=== PATIENT | female | born 1960 | race African-American/Black ===

== ENCOUNTER → 2024-02-08 09:52 | Outpatient (REF) | payer OTHER, SELFPAY ==
[2024-02-08 10:22] LABS: % Basophils 0.9 % (0-2); % Eosinophils 5.7 % (0-6); % Immature Granulocytes 0.5 % (0-0.5); % Lymphocytes 24.2 % (20.5-51.1); % Monocytes 11.4 % (1.7-9.3); % Neutrophils 57.3 % (42.2-75.2); Absolute Basophils 0.1 10^3/uL (0-0.2); Absolute Eosinophils 0.3 10^3/uL (0-0.7); Absolute Lymphocytes 1.4 10^3/uL (1.2-3.4); Absolute Monocytes 0.6 10^3/uL (0.1-0.6); Absolute Neutrophils 3.2 10^3/uL (1.4-6.5); Hematocrit 29.5 % (37.0-47.0); Hemoglobin 10.3 g/dL (12.0-16.0); Mean Corp Hgb Conc. 34.9 g/dL (33.0-37.0); Mean Corpuscular Hgb 32.6 pg (27.0-31.0); Mean Corpuscular Volume 93.4 fL (81.0-99.0); Mean Platelet Volume 10.5 fL (7.4-10.4); Nucleated Red Blood Cells % 0 %; Platelet Count 259 10^3/uL (130-400); Red Blood Cell Count 3.16 10^6/uL (4.20-5.40); Red Cell Dist. Width 13.9 % (11.5-14.5); White Blood Cell Count 5.6 10^3/uL (4.8-10.8)
[2024-02-08 10:30] LABS: ALT (SGPT) < 10 U/L (0-35); AST (SGOT) 20 U/L (14-36); Albumin 3.3 g/dl (3.5-5.0); Alkaline Phosphatase 91 U/L (38-126); Blood Urea Nitrogen 24 mg/dl (7-17); Calcium 9.8 mg/dl (8.4-10.2); Carbon Dioxide 23 mmol/L (22-30); Chloride 104 mmol/L (98-107); Glucose 79 mg/dl (70-99); HDL Cholesterol 54 mg/dl; LDL Cholesterol, Calculated 35 mg/dl; Magnesium 1.5 mg/dl (1.6-2.3); Potassium 3.7 mmol/L (3.5-5.1); Sodium 140 mmol/L (135-145); Total Cholesterol 110 mg/dl (50-199); Total Protein 6.1 g/dl (6.3-8.2); Triglyceride 107 mg/dl (10-149); Very Low Density Lipoprotein 21 mg/dl (0-30); eGFR > 60.00
[2024-02-08 11:35] LABS: Glycohemoglobin (HgbA1c) 5.1 % (4.0-5.6)
[2024-02-08 13:52] LABS: Vitamin D, 25-OH*** 35.6 ng/mL (30-80)
[2024-02-08 14:06] LABS: TSH 0.23 uIU/ml (0.47-4.68)
[2024-02-08 14:43] LABS: Vitamin B12 > 1000 pg/ml (239-931)
[2024-02-10 13:34] LABS: Vitamin B6 Results 30.5 nmol/L (20.0-125.0)
== END ==
LOC: OLABN 09:52
PROVIDERS: ATTENDING PHYSICIAN Student in an Organized Health Care Education/Training Program
DX: E11.9 Type 2 diabetes mellitus without complications (principal); I10 Essential (primary) hypertension; D64.9 Anemia, unspecified; E03.9 Hypothyroidism, unspecified
CPT/HCPCS: 36415; 80053; 80061; 82306; 82607; 83036; 83735; 84207; 84443; 85025

== ENCOUNTER → 2024-02-16 11:14 | Outpatient (REF) | payer OTHER, SELFPAY ==
[2024-02-16 13:37] LABS: Albumin 3.4 g/dl (3.5-5.0)
[2024-02-16 13:56] LABS: Free T3 2.55 pg/ml (2.77-5.27)
[2024-02-16 14:13] LABS: TSH 0.28 uIU/ml (0.47-4.68)
[2024-02-16 14:29] LABS: Vitamin B12 > 1000 pg/ml (239-931)
[2024-02-19 05:53] LABS: Total T3 (Sendout) 116 ng/dL (80-200)
== END ==
LOC: OLABN 11:14
PROVIDERS: ATTENDING PHYSICIAN Student in an Organized Health Care Education/Training Program
DX: D64.9 Anemia, unspecified (principal); I10 Essential (primary) hypertension
CPT/HCPCS: 36415; 82040; 82607; 84443; 84480; 84481

== ENCOUNTER → 2024-03-09 11:12 | Outpatient (REF) | payer OTHER, SELFPAY ==
[2024-03-09 11:33] LABS: % Basophils 0.7 % (0-2); % Eosinophils 6.8 % (0-6); % Immature Granulocytes 0.4 % (0-0.5); % Lymphocytes 28.5 % (20.5-51.1); % Monocytes 8.7 % (1.7-9.3); % Neutrophils 54.9 % (42.2-75.2); Absolute Eosinophils 0.4 10^3/uL (0-0.7); Absolute Lymphocytes 1.6 10^3/uL (1.2-3.4); Absolute Monocytes 0.5 10^3/uL (0.1-0.6); Hematocrit 29.8 % (37.0-47.0); Mean Corp Hgb Conc. 33.6 g/dL (33.0-37.0); Mean Corpuscular Hgb 32.2 pg (27.0-31.0); Mean Corpuscular Volume 95.8 fL (81.0-99.0); Mean Platelet Volume 11.5 fL (7.4-10.4); Nucleated Red Blood Cells % 0 %; Platelet Count 216 10^3/uL (130-400); Red Blood Cell Count 3.11 10^6/uL (4.20-5.40); Red Cell Dist. Width 14.1 % (11.5-14.5); White Blood Cell Count 5.4 10^3/uL (4.8-10.8)
== END ==
LOC: OLABN 11:12
PROVIDERS: ATTENDING PHYSICIAN Student in an Organized Health Care Education/Training Program
DX: I10 Essential (primary) hypertension (principal)
CPT/HCPCS: 36415; 85025

== ENCOUNTER 2024-03-16 09:06 | Inpatient (IN) | payer OTHER, SELFPAY ==
[2024-03-16] VITALS (13 sets, daily range): BP systolic 96–136; BP diastolic 63–92; BMI 23.1; BMI 23.4
[2024-03-16 06:22] LABS: % Basophils 0.6 % (0-2); % Eosinophils 6.4 % (0-6); % Immature Granulocytes 0.4 % (0-0.5); % Lymphocytes 25.7 % (20.5-51.1); % Monocytes 8.9 % (1.7-9.3); Absolute Eosinophils 0.3 10^3/uL (0-0.7); Absolute Lymphocytes 1.3 10^3/uL (1.2-3.4); Absolute Monocytes 0.5 10^3/uL (0.1-0.6); Hematocrit 35.4 % (37.0-47.0); Hemoglobin 11.3 g/dL (12.0-16.0); Mean Corp Hgb Conc. 31.9 g/dL (33.0-37.0); Mean Corpuscular Hgb 30.8 pg (27.0-31.0); Mean Corpuscular Volume 96.5 fL (81.0-99.0); Mean Platelet Volume 9.7 fL (7.4-10.4); Nucleated Red Blood Cells % 0 %; Platelet Count 250 10^3/uL (130-400); Red Blood Cell Count 3.67 10^6/uL (4.20-5.40); Red Cell Dist. Width 13.5 % (11.5-14.5); White Blood Cell Count 5.1 10^3/uL (4.8-10.8)
[2024-03-16 06:33] LABS: ALT (SGPT) 13 U/L (0-35); AST (SGOT) 20 U/L (14-36); Alkaline Phosphatase 119 U/L (38-126); Blood Urea Nitrogen 50 mg/dl (7-17); Calcium 9.9 mg/dl (8.4-10.2); Carbon Dioxide 32 mmol/L (22-30); Chloride 100 mmol/L (98-107); Estimated Creatinine Clearance 50 ml/min; Glucose 118 mg/dl (70-99); Potassium 4.4 mmol/L (3.5-5.1); Sodium 142 mmol/L (135-145); Total Bilirubin 0.4 mg/dl (0.2-1.3); Total Protein 7.2 g/dl (6.3-8.2); eGFR 56.81
--- NOTE | 2024-03-16 06:48 | ED.GENMED ---
History of Present Illness
General
Chief Complaint: Bowel Problem
Source: patient and prison records
Exam Limitations: clinical condition and non verbal-adult
Time Seen by Provider: 03/16/24 06:35
History of Present Illness
History of Present Illness:
63-year-old female presents with 'coffee-ground emesis' x 2 she has a feeding tube/ Garvey she has had stroke brain tumor right sided plegia no blood thinners for my review of the medical records apparently had some upper abdominal pain
Past History
Past History
ED Past Medical History: CVA, GERD, HTN and NIDDM
ED Past Surgical History: Brain
Social History
Living: prison
Employment: Not employed
Family History
Family History: Unable to obtain
Review of Systems
Review of Systems
Unable to obtain full review of systems at this time due to: non-verbal
All Other Systems: Not applicable
ABD/GI: Reports vomiting
Phy Exam
Physical Exam
Physical Exam:
Physical Exam
General: Chronically ill female
Neck: No jaundice
Heart: s1/s2 regular rate and rhythm, no murmur. equal radial pulses.
Lungs: no acute respiratory distress. clear bilaterally
Abdomen: Epigastric tenderness tube in the left upper abdomen
Neuro: Opens eyes to voice minimally verbal
Skin: no rash
Psychiatric: Unable to assess
Extremities: no edema.
Course
Orders/Labs/Results
Orders:
Orders
03/16/24 06:11
CMP [Comprehensive Metabolic Panel] Urgent
Complete Blood Count/With Diff Urgent
Ferritin Urgent
Comment: ADD ON
Folate Urgent
Comment: ADD ON
Iron Urgent
Comment: ADD ON
Total Iron Binding Urgent
Comment: ADD ON
Vitamin B12 Urgent
Comment: ADD ON
03/16/24 06:13
Electrocardiogram (*1) Urgent
Reason for Study: Abdominal Pain
EKG- Treatment ONCE
03/16/24 06:44
Ondansetron Injectable [Zofran] 4 mg IV NOW STA
Pantoprazole [Protonix IV] 40 mg IV NOW STA
Obstruct Series W/PA Chest [CR Obstruct Series W/pa Chest] Urgent
Comment:
Reason For Exam: vomitign
03/16/24 06:50
Type+Screen Urgent
03/16/24 07:10
ABO2 Urgent
BBK Wristband Number:
Associate notified that ABO2 has been ordered: [id number]
Date: 03/16/24
Time: 07:00
Gravel Screener ID: [id number]
03/16/24 07:44
Phosphate Enema [Fleet Phosphate Enema-Adult] 135 ml RECTAL NOW STA
03/16/24 08:36
GASTROINTESTINAL CONSULT Routine
Consulting Provider: Juan F Abraham
Was physician already notified: Yes
03/16/24 08:39
Add On- LAB Routine
Tests Added?: ferritin, TIBC, iron level, B12, folate level
03/16/24 08:54
Admit/Transfer Patient As Directed
Co-Sign Provider:
Level of Care: Inpatient admission
Assign to:: IMU- Intermediate Care
Physician / Group: Mariann/hospitalist
Diagnosis: coffee ground emesis
Reason for Hospitalization: coffee ground emesis
Expected length of stay greater than two midnights?: Yes
ELOS- Estimated Length of Stay in days: 3
I certify the patient meets the requirements for IP care: Yes
PRN Pain Medication Management As Directed
May give lesser potent ordered pain med per pt: Yes
preference::
Protocol:: Medication orders for pain may be administered in a
manner that supports deferring to patient preference
when the pt is:
- Requesting an ordered lesser potent pain medication.
Least to most potent pain medications are defined
as: acetaminophen < NSAID < tramadol < opioids
(morphine, oxycodone, hydromorphone).
- Requesting a lesser dose of the same medication IF
ORDERED.
- Requesting a less intrusive route of administration
if both routes are prescribed by the provider (PO <
IV).
03/16/24 08:56
Code Status As Directed
Resuscitation Status: Full Code
03/16/24 12:09
Albuterol Nebs [Ventolin Nebules] 2.5 mg INH R Q6HPRN PRN
Melatonin 3 mg TUBE HSPRN PRN
Prednisolone Acetate [Pred Forte 1% Eye Drops] 1 drop RIGHT EYE Q12H
03/16/24 12:09
Activity As Directed
Activity Level: As Tolerated
INT (Intravenous Needle Therapy) As Directed
Comment: Place 2 IV catheters of the largest bore possible until stable
Orthostatic Vital Signs As Directed
Orthostatic VS Frequency: Now
Comment: then every four hours for twenty-four hours
Pneumatic Compression Sleeves As Directed
Type: Knee high
Vital Signs As Directed
Frequency: Per unit guidelines
DX Deep Vein Thrombosis Video Routine
03/16/24 12:31
Acetaminophen [Tylenol Oral Solution] 650 mg TUBE Q4HPRN PRN
03/16/24 20:00
Baclofen [Lioresal] 5 mg TUBE BID
Docusate Sodium [Colace Liquid] 200 mg TUBE BID
Pantoprazole [Protonix IV] 40 mg IV BID
03/16/24 22:00
Buspirone [Buspar] 5 mg TUBE HS
Sertraline HCl [Zoloft] 25 mg TUBE HS
03/17/24 05:40
Basic Metabolic Panel IN AM
Complete Blood Count/No Diff IN AM
Magnesium IN AM
03/17/24 08:00
Polyethylene Glycol Powder [Miralax] 17 grams TUBE DAILY
03/18/24 06:00
Basic Metabolic Panel IN AM
Complete Blood Count/No Diff IN AM
Magnesium IN AM
03/19/24 06:00
Basic Metabolic Panel IN AM
Complete Blood Count/No Diff IN AM
Magnesium IN AM
03/20/24 06:00
Basic Metabolic Panel IN AM
Complete Blood Count/No Diff IN AM
03/21/24 06:00
Basic Metabolic Panel IN AM
Complete Blood Count/No Diff IN AM
Abnormal Lab Results
03/16/24
06:11
RBC 3.67 L 10^6/uL
(4.20-5.40)
Hgb 11.3 L g/dL
(12.0-16.0)
Hct 35.4 L %
(37.0-47.0)
MCHC 31.9 L g/dL
(33.0-37.0)
Eosinophils % 6.4 H %
(0-6)
Carbon Dioxide 32 H mmol/L
(22-30)
BUN 50 H mg/dl
(7-17)
Creatinine 1.1 H mg/dL
(0.6-1.0)
Glucose 118 H mg/dl
(70-99)
TIBC 234 L ug/dl
(265-497)
Vitamin B12 > 1000 H pg/ml
(239-931)
03/16/24 06:11
03/16/24 06:11
Vital Signs
Initial and Last Documented VS:
Initial Vital Signs
Temp Pulse Resp BP Pulse Ox
98.5 F 96 18 136/88 95
03/16/24 05:50 03/16/24 05:50 03/16/24 05:50 03/16/24 05:50 03/16/24 05:50
Last Documented Vital Signs
Temp Pulse Resp BP Pulse Ox
99.0 F 94 20 104/71 94
03/17/24 19:19 03/17/24 10:00 03/17/24 10:00 03/17/24 10:00 03/17/24 10:21
MDM/Problems Addressed
Differential Diagnosis Includes:
Upper GI bleed dehydration electrolyte abnormality Diane-Ojeda tear duodenitis obstruction
MDM/Problems Addressed:
Coffee-ground
Chronic conditions affecting care: Neurological disorder
Acute Exacerbation and/or Progression of Chronic Illness: Neurological disorder
*Radiology
Radiology exam reviewed: preliminary read by ED provider
*Pulse Oximetry
Patient hypoxic: no
*EKG
Interpreted by ED Provider?: Yes
Interpretation: abnormal
Comparison EKG: no comparison EKG present
Heart Rate: 78
Rate: normal
Felt: normal axis
Ischemia: non-specific ST changes
*Paradi Tender Interpretation
Rate: normal
Interpretation: normal
Heart Rate: 78
Rhythm: sinus
*Critical Care Note
Total Time (30-74mins, 75-104mins- exclusive of procedures): Not Applicable
Update Note
Update Note:
Update labs are noted elevated BUN to creatinine ratio, x-ray noted will start on fluids PPI, try an enema
ED Attending Note
-
Portions of this chart may have been created with voice recognition software.� Occasional wrong word or��sound alike� substitutions may have occurred due to the inherent limitations of voice recognition software.
Discharge Plan
Departure
Patient Disposition: Admit
Date of Disposition: 03/16/24
Time of Disposition: 07:46
Admit to: Med/Surg
Presentation/result/management discussed w/ accepting MD/DO: Hospitalist
Patient with high blood pressure during this ER visit?: No
Condition: Fair
Discharge Problem:
Coffee ground emesis
Interventions
Interventions:
*Risk Screen - Suicide Last Done: 03/16/24 05:50
*General Assessment Last Done: 03/16/24 05:50
*Neglect/Abuse Screening Last Done: 03/16/24 05:50
ED- Fall Risk Assessment Last Done: 03/16/24 06:19
*ED COVID-19 Vaccine History Last Done: 03/16/24 05:50
*Nursing Disposition Last Done: 03/16/24 12:00
SE-Dkwwcg-Adjsirvgjb Assessment Last Done: 03/16/24 06:19
Discharge Date and Time
Discharge Date/Time: 03/16/24 12:00
[2024-03-16] MEDS: PROTONIX IV 40 MG IV ×2 (07:05→20:40)
[2024-03-16] MEDS: ZOFRAN 4 MG IV (07:05)
--- NOTE | 2024-03-16 08:37 | HPS.HSE ---
Family Physician
-
Family Physician: NOT KNOW UNKNOWN - PT DOES
Chief Complaint
-
coffee ground emesis
History of Present Illness
HPI: 63-year-old female PMH GERD, HTN, NIDDM, brain tumor, stroke with right sided paraplegia; p/w 'coffee-ground emesis' x 2 episodes per ED note.
Pt has PEG and chronic locke. She appears bed bound at baseline.
She is awake but cannot provide history (poor historian). Nods head slowly when asked questions but unsure if she is able to answer accurately or not.
Medical History
Past Medical History
Past Medical History: Reports Other
Additional Past Medical History:
GERD,
HTN,
brain tumor,
stroke with right sided paraplegia
Past Surgical History: Reports Other
Social History
Unable to obtain full social history at this time due to: Patient Non-verbal
Family History
Family History: Not pertinent
Allergies / Home Medications
Allergies reflects when Allergies were last updated in [email or web address].
Home Medications with original date entered in [email or web address]
Allergy/Medication List:
Allergies
Allergy/AdvReac Type Severity Reaction Status Date / Time
No Known Allergies Allergy Verified 03/16/24 05:59
Home Medications
Pantoprazole Liquid 2mg/Ml 40 mg feeding tube DAILY 03/16/24
acetaminophen 160 mg/5 mL oral elixir 640 mg feeding tube Q4HPRN PRN FEVER 03/16/24
albuterol sulfate 2.5 mg/3 mL (0.083 %) solution for nebulization 2.5 mg inhalation R Q6HPRN PRN SOB 03/16/24
baclofen 5 mg tablet 5 mg feeding tube BID 03/16/24
bisacodyl 10 mg rectal suppository (Dulcolax (bisacodyl)) 10 mg OR [id number] PRN IF NO BM AFTR MOM/OR LACTULOSE 03/16/24
buspirone 5 mg tablet 5 mg feeding tube HS 03/16/24
heparin (porcine) 5,000 unit/mL injection syringe 5,000 unit SC BID 03/16/24
melatonin 3 mg tablet 3 mg feeding tube HSPRN PRN SLEEP 03/16/24
polyethylene glycol 3350 17 gram oral powder packet (Miralax) 17 g feeding tube DAILY 03/16/24
prednisolone acetate 1 % eye drops,suspension (Pred Forte) 1 drp RIGHT EYE Q12H 03/16/24
sennosides 8.6 mg-docusate sodium 50 mg tablet (Senna-S) 2 tab-cap PO BID 03/16/24
sertraline 25 mg tablet 25 mg feeding tube HS 03/16/24
simethicone 125 mg chewable tablet (Gas-X Extra Strength) 125 mg feeding tube TIDPRN PRN GAS PAINS 03/16/24
Review of Systems
-
Abdomen/GI: Reports See HPI
Physical Exam
Vital Signs
Vital Signs
Temp Pulse Resp BP Pulse Ox
36.9 C 94 18 133/89 94
03/16/24 05:50 03/16/24 06:30 03/16/24 06:30 03/16/24 06:00 03/16/24 06:30
Physical Exam
General: Well Developed, Well Nourished, No Apparent Distress, Comfortable and Appears Chronically Ill; No Conversant
HEENT: NormoCephalic, Moist mucous membranes and Atraumatic
Respiratory: Clear and Non Labored Respirations; No Accessory Resp Muscle Use
Cardiac: S1/S2 and Regular Rhythm; No Murmur or Rub
GI: Soft, Non Tender, Non Distended, Normal Bowel Sounds and Peg Tube; No Organomegaly
Rectal: Deferred by Provider
Musculoskeletal: No Clubbing, No Cyanosis and No Edema
Skin: No Rash
Neuro: Awake
Psych: Calm; No Intact Judgment/Insight
Laboratory Results
-
03/16/24 06:11
03/16/24 06:11
Laboratory Results
Total Bilirubin 0.4 mg/dl (0.2-1.3) 03/16/24 06:11
AST 20 U/L (14-36) 03/16/24 06:11
ALT 13 U/L (0-35) 03/16/24 06:11
Alkaline Phosphatase 119 U/L (38-126) 03/16/24 06:11
Data Reviewed
-
Lab Data: Labs Reviewed by me
Impression/Plan
-
HPI: 63-year-old female PMH GERD, HTN, NIDDM, brain tumor, stroke with right sided paraplegia; p/w 'coffee-ground emesis' x 2 episodes per ED note.
Pt has PEG and chronic locke. She appears bed bound at baseline.
She is awake but cannot provide history (poor historian). Nods head slowly when asked questions but unsure if she is able to answer accurately or not.
A/P:
# Possible coffee ground emesis
Hemodynamically stable
Monitor Hgb
check iron panel, B12, folate
PPI IV BID
Would keep NPO for now until further directed by GI
GI CS
# GERD
PPI
# brain tumor
# stroke with right sided paraplegia
# Appears to be bed bound state
# Chronic locke POA
DVT ppx: SCD
FC
[2024-03-16] MEDS: FLEET PHOSPHATE ENEMA-ADULT 135 ML RECTAL (09:01)
[2024-03-16 09:18] LABS: Iron 51 ug/dl (37-170)
[2024-03-16 09:28] LABS: Percent Saturation 21 % (20-50); Total Iron Binding Capacity 234 ug/dl (265-497)
--- NOTE | 2024-03-16 09:57 | CON.GI ---
Addendum entered and electronically signed by HAZEL Quintana 03/16/24 14:09:
I reviewed history with Mother Sarahy sun [phone]. Pt with brain tumor with surgery and CVA in 2020. She had peg placed at that time. She has had severe hospital admission to [facility] with EGD with difficulty breathing in
procedure. She has also been admitted for PNA. colonoscopy has been discussed but opted for cologuard and per mother knowledge testing may not have been completed. Will obtain prior hospital record. cont further plan per below.
Addendum entered and electronically signed by Juan F Abraham MD 03/16/24 13:00:
I saw and examined the patient.
The PACKAGING MECHANIC or PA's note was reviewed and I agree with the note.
Comment: 63yo female hx CVA, brain tumor presents with CGE at [facility]. Hgb 11.3. Recent Hgb 10.0 last week. History limited. PEG was placed to gravity bag and draining yellow gastric fluid. No blood or coffee grounds. Hemodynamically stable
REC:
Cont protonix BID
Monitor PEG output
If stable, OK to resume TF
Trend Hgb
If active bleeding, then EGD
Agree with bowel regimen as ordered by PACKAGING MECHANIC
Original Note:
Consultation
-
Date/Time Consultation Requested: 03/16/24 0830
Date/Time Consultation Performed: 03/16/24 1000
Requesting Provider: Rajani Waite MD
Performing Provider: HAZEL Landers, Juan F Abraham MD
Reason for Consultation: coffee ground emesis
Medical History
Chief Complaint / HPI
History of Present Illness:
Pt is a 63yo with hx brain tumor, CVA with hemiplegia, chronic peg, GERD, HTN, NIDDM with no prior admission with onset of coffee ground emesis at [facility]. Since admission no further vomiting with hbg 11.3 with BUN 50 but obstruction series with
large amount of stool in rectosigmoid with gaseous dilatation of colon. Pt was just given enema with some soft stool return. Pt also noted with tachycardia in ER.
At this time some limited hx from pt with CVA but nodes yes to some nausea, constipation and abdominal pain. She denies diarrhea. Unsure about prior EGD/colon in past.
Past Medical History
Past Medical History: CVA (with right paraplegia ), GERD, HTN, NIDDM and Other (brain tumor, chronic peg )
Social History
Tobacco: Non-Smoker
Alcohol: None
Drug: None
Living: Prison
Employment: Disabled
Family History
Family History: Unable to Obtain
Allergies / Home Medications
Allergy/AdvReac Type Severity Reaction Status Date / Time
No Known Allergies Allergy Verified 03/16/24 05:59
�Medication �Instructions �Recorded
Pantoprazole Liquid 2mg/Ml 40 mg feeding tube DAILY 03/16/24
acetaminophen 160 mg/5 mL oral 640 mg feeding tube Q4HPRN PRN 03/16/24
elixir FEVER
albuterol sulfate 2.5 mg/3 mL 2.5 mg inhalation R Q6HPRN PRN SOB 03/16/24
(0.083 %) solution for nebulization
baclofen 5 mg tablet 5 mg feeding tube BID 03/16/24
bisacodyl 10 mg rectal suppository 10 mg GA [id number] PRN IF NO BM AFTR 03/16/24
(Dulcolax (bisacodyl)) MOM/OR LACTULOSE
buspirone 5 mg tablet 5 mg feeding tube HS 03/16/24
heparin (porcine) 5,000 unit/mL 5,000 unit SC BID 03/16/24
injection syringe
melatonin 3 mg tablet 3 mg feeding tube HSPRN PRN SLEEP 03/16/24
polyethylene glycol 3350 17 gram 17 g feeding tube DAILY 03/16/24
oral powder packet (Miralax)
prednisolone acetate 1 % eye 1 drp RIGHT EYE Q12H 03/16/24
drops,suspension (Pred Forte)
sennosides 8.6 mg-docusate sodium 2 tab-cap PO BID 03/16/24
50 mg tablet (Senna-S)
sertraline 25 mg tablet 25 mg feeding tube HS 03/16/24
simethicone 125 mg chewable tablet 125 mg feeding tube TIDPRN PRN GAS 03/16/24
(Gas-X Extra Strength) PAINS
Review of Systems
-
Unable to obtain full review of systems at this time due to: Other (minimal verbal on exam )
History Source: Patient
Constitutional: Reports No Symptoms
EENT: Reports No Symptoms
Abdomen/GI: Reports Abdominal Pain, Nausea, Vomiting and Constipated
: Reports No Symptoms
Musculoskeletal: Reports No Symptoms
Skin: Reports No Symptoms
Neurological: Reports Weakness
Endocrine: Reports No Symptoms
Hematologic/Lymphatic: Reports Bleeding
Vital Signs
Temp Pulse Resp BP Pulse Ox
98.5 F 97 15 116/78 95
03/16/24 05:50 03/16/24 09:45 03/16/24 09:45 03/16/24 09:00 03/16/24 09:45
Physical Exam
Exam
General: Well Developed, Well Nourished and No Apparent Distress
HEENT: Normocephalic
Respiratory: Clear
Cardiac: Other (tachy)
GI: Soft, Tender (minimal), Distended (mild) and Other (peg at 4 and tight at bumper and pulled back to 4 1/2. no buried bumper, skin overgrowth around tube treated with silver nitrate, irrigated with yellow and tube feed return )
Rectal: Deferred by Provider (just given enema per staff )
Genito-urinary: Other (locke in place )
Musculoskeletal: No Clubbing and No Cyanosis
Skin: Warm and Dry
Neuro: Awake and Alert (hemiplegia)
Psych: Calm
Results
WBC 5.1 10^3/uL (4.8-10.8) 03/16/24 06:11
Hgb 11.3 g/dL (12.0-16.0) L 03/16/24 06:11
Hct 35.4 % (37.0-47.0) L 03/16/24 06:11
MCV 96.5 fL (81.0-99.0) 03/16/24 06:11
Plt Count 250 10^3/uL (130-400) 03/16/24 06:11
Absolute Neuts (auto) 3.0 10^3/uL (1.4-6.5) 03/16/24 06:11
Sodium 142 mmol/L (135-145) 03/16/24 06:11
Potassium 4.4 mmol/L (3.5-5.1) 03/16/24 06:11
Chloride 100 mmol/L (98-107) 03/16/24 06:11
Carbon Dioxide 32 mmol/L (22-30) H 03/16/24 06:11
BUN 50 mg/dl (7-17) H 03/16/24 06:11
Creatinine 1.1 mg/dL (0.6-1.0) H 03/16/24 06:11
Calcium 9.9 mg/dl (8.4-10.2) 03/16/24 06:11
Total Bilirubin 0.4 mg/dl (0.2-1.3) 03/16/24 06:11
AST 20 U/L (14-36) 03/16/24 06:11
ALT 13 U/L (0-35) 03/16/24 06:11
Alkaline Phosphatase 119 U/L (38-126) 03/16/24 06:11
Diagnostic Image Results:
03/16/24 CR Obstruct Series W/pa Chest
1. Hypoaerated lungs without consolidation.
2. Large amount of stool within the rectosigmoid colon. Associated mild gaseous dilation of the colon proximal to this level. No pneumoperitoneum.
Prior GI Procedures:
EGD: unknown
Colonoscopy: unknown
Assessment / Plan
-
Pt is a 63yo with hx brain tumor, CVA with hemiplegia, chronic peg, GERD, HTN, NIDDM with no prior DH admission with onset of coffee ground emesis at SNF. Since admission no further vomiting with hbg 11.3 with BUN 50 but obstruction series with
large amount of stool in rectosigmoid with gaseous dilatation of colon. Pt was just given enema with some soft stool return. Pt also noted with tachycardia in ER.
-coffee ground emesis prior to admission
-large stool burden on imaging
-tachycardia
-mild anemia
other med problems:
-brain tumor
-CVA with hemiplegia
-GERD
-HTN
-NIDDM
PLAN:
Etiology of vomiting related to constipation, esophagitis vs other
s/p enema just given in ER if minimal stool will repeat with Milk and molasses enema and repeat X ray in AM
peg irrigated with minimal yellow drainage and tube feed
will place to gravity to see if large or small volumes
if small amount then cap in AM
trend hbg
if recurrent vomiting consider EGD
cont PPI BID
some limited hx from patient about prior EGD/colon etc
pt has self listed as family contact
I was unable to reach nursing SNF unit
I messaged social work for assist
-
-
-
Thank you for consultation and allowing me to participate in the patient's care. Please call the supervisor bakery sanitation GI physician during the after hours with any questions or concerns.
[2024-03-16 10:09] LABS: Ferritin 60.8 ng/ml (11.1-264.0)
[2024-03-16 10:40] LABS: Folate 6.7 ng/ml (2.76-20); Vitamin B12 > 1000 pg/ml (239-931)
--- NOTE | 2024-03-16 12:00 | PTCARENOTE ---
Received pt from ED via stretcher, pulled over to bed. Pt awake, smiling, shaking head yes or no to questions, occasionally saying 'yes' or 'no'. Pt's mother and father at bedside, assisted w/ admission. Pt denies pain or nausea. VSS. NSR on
monitor. 97% on RA. G tube to gravity drainage, yellow output. NPO at this time. Garvey patent. Will continue to monitor.
[2024-03-16] MEDS: PRED FORTE 1% EYE DROPS 1 DROP RIGHT EYE ×2 (12:44→23:05)
--- NOTE | 2024-03-16 13:46 | CM ---
Mahogany Rush, TT this CM to ask if there were any additional contacts for patient. CM called NM who shared mother's contact info. Please see below:
Mother's cell phone is: [phone]. Her name is Saarhy Stone. Info shared with Mahogany via TT.
[2024-03-16] MEDS: NSS 1000 IV (17:26)
[2024-03-16 18:33] LABS: Glucose - Point of Care 89 mg/dl (70-99)
[2024-03-16] MEDS: COLACE LIQUID 200 MG TUBE (20:39)
[2024-03-16] MEDS: SENNA SYRUP 17.6 MG TUBE (20:39)
[2024-03-16] MEDS: NSS (PRESERVATIVE FREE) 10 ML IV (20:40)
[2024-03-16] MEDS: LIORESAL 5 MG TUBE (20:40)
[2024-03-16] MEDS: BUSPAR 5 MG TUBE (23:05)
[2024-03-16] MEDS: ZOLOFT 25 MG TUBE (23:05)
[2024-03-17] VITALS: BP 123/75
[2024-03-17 00:09] LABS: Glucose - Point of Care 91 mg/dl (70-99)
--- NOTE | 2024-03-17 00:49 | PTCARENOTE ---
Pt able to say minimal words at times for needs to be known. Pt unable to do orthostatic vitals signs. Pt had no complaints of nausea and no emesis at this time. Pt G-Tube areas found to be purulent and sanguinous drainage. Wound cleansed with
saline and drainage sponge placed. Call shane within reach. Assessment care and vitals as charted.
[2024-03-17 02:00] VITALS: BP 117/70
[2024-03-17 04:00] VITALS: BP 111/64
[2024-03-17] MEDS: NSS 1000 IV (05:25)
[2024-03-17 05:53] LABS: Glucose - Point of Care 80 mg/dl (70-99)
[2024-03-17 06:00] VITALS: BP 111/69
[2024-03-17 06:09] LABS: Hematocrit 32.9 % (37.0-47.0); Hemoglobin 10.2 g/dL (12.0-16.0); Mean Corpuscular Hgb 30.9 pg (27.0-31.0); Mean Corpuscular Volume 99.7 fL (81.0-99.0); Platelet Count 251 10^3/uL (130-400); Red Cell Dist. Width 13.5 % (11.5-14.5); White Blood Cell Count 5.1 10^3/uL (4.8-10.8)
[2024-03-17 06:41] LABS: Blood Urea Nitrogen 41 mg/dl (7-17); Calcium 9.4 mg/dl (8.4-10.2); Carbon Dioxide 29 mmol/L (22-30); Chloride 105 mmol/L (98-107); Estimated Creatinine Clearance 42 ml/min; Glucose 101 mg/dl (70-99); Potassium 4.2 mmol/L (3.5-5.1); Sodium 145 mmol/L (135-145); eGFR 51.18
[2024-03-17 08:00] VITALS: BP 96/62
--- NOTE | 2024-03-17 08:13 | W.PN.HOSP.TC ---
Today's Communication/Plan
-
see A/P
Assessment / Plan
Assessment / Plan
HPI: 63-year-old female PMH GERD, HTN, NIDDM, brain tumor, stroke with right sided paraplegia; p/w 'coffee-ground emesis' x 2 episodes per ED note.
Pt has PEG and chronic locke. She appears bed bound at baseline.
She is awake but cannot provide history (poor historian). Nods head when asked questions but unsure if she is able to answer accurately or not.
A/P:
# Possible coffee ground emesis ROOF FITTER
Hemodynamically stable
Hgb has been stable at 10
iron panel reviewed,
Cont PPI IV BID
Would keep NPO for now until further directed by GI
restart tube feed when able
GI on board
# GERD
PPI
# h/o brain tumor
# stroke with right sided paraplegia
# Appears to be bed bound state at baseline
Pt appears nonverbal at baseline, but nods head when asked questions
# Chronic locke POA
DVT ppx: SCD
FC
DW RN
updated mother on the phone
Anticipated Discharge: 24 - 48 hours
Subjective/Interval History
-
Date of Service: March 17, 2024
Objective Data
-
Labs:
Laboratory Results
03/17/24
05:40
WBC 5.1
Hgb 10.2 L
Hct 32.9 L
Plt Count 251
Sodium 145
Potassium 4.2
Chloride 105
Carbon Dioxide 29
BUN 41 H
Creatinine 1.2 H
Glucose 101 H
Calcium 9.4
Vital Signs:
Vital Signs
Temp Pulse Resp BP Pulse Ox
36.8 C 84 11 111/69 99
03/17/24 05:54 03/17/24 06:00 03/17/24 06:00 03/17/24 06:00 03/17/24 06:00
I&O
03/16/24 03/17/24 03/18/24
06:59 06:59 06:59
Intake Total 80 / 80
Output Total 1325 / 1325
Balance -1245 / -1245
Review of Systems
-
Unable to obtain full review of systems at this time due to: Other (previous stroke )
Physical Exam
-
General: Well Developed, Comfortable and Appears Chronically Ill; Negative Conversant
HEENT: Normocephalic, Atraumatic, Nose Appears Normal and Ears Appear Normal; Negative Oxygen
Respiratory: Clear to Auscultation and Non Labored Respirations; Negative Accessory Resp Muscle Use
Cardiac: Regular Rhythm and S1/S2
GI: Soft, Nontender, Nondistended, Normal Bowel Sounds and Peg Tube
Genito-urinary: Locke
Skin: Warm and Dry
Neuro: Awake
Psych: Calm
Data Reviewed
-
Labs: Labs Reviewed by me
[2024-03-17] MEDS: DULCOLAX 10 MG RECTAL (09:05)
[2024-03-17] MEDS: COLACE LIQUID 200 MG TUBE ×2 (09:11→20:55)
[2024-03-17] MEDS: LIORESAL 5 MG TUBE ×2 (09:11→20:55)
[2024-03-17] MEDS: SENNA SYRUP 17.6 MG TUBE ×2 (09:11→20:54)
[2024-03-17] MEDS: MIRALAX 17 GRAMS TUBE (09:12)
[2024-03-17] MEDS: NSS (PRESERVATIVE FREE) 10 ML IV ×2 (09:14→22:48)
[2024-03-17] MEDS: PROTONIX IV 40 MG IV ×2 (09:14→22:45)
[2024-03-17 10:00] VITALS: BP 104/71
[2024-03-17] MEDS: PRED FORTE 1% EYE DROPS 1 DROP RIGHT EYE ×2 (11:20→22:48)
[2024-03-17 12:05] LABS: Glucose - Point of Care 90 mg/dl (70-99)
--- NOTE | 2024-03-17 15:06 | W.PN.GI.CBS2 ---
Today's Communication / Plan
-
check xray in am, resume TF
Assessment / Plan
-
Pt is a 63yo with hx brain tumor, CVA with hemiplegia, chronic peg, GERD, HTN, NIDDM with no prior DH admission with onset of coffee ground emesis at [facility]. Since admission no further vomiting with hbg stable with BUN 50 but obstruction series with
large amount of stool in rectosigmoid with gaseous dilatation of colon.
Recommendations:
- resume TF today
- trend Hb
- PPI BID
- check XRay in am
- If stool burden improves tomorrow, stable hb, no further vomiting ok GI POV for d/c
May have have dark emesis in setting of constipation
Subjective
Subjective
Date of Service: March 17, 2024
no vomiting
large amount of BM overnight per nurse
Objective
Data Reviewed
Laboratory Data:
Laboratory Results
03/17/24 05:40
03/17/24 05:40
Laboratory Results
Magnesium 2.0 mg/dl (1.6-2.3) 03/17/24 05:40
Total Bilirubin 0.4 mg/dl (0.2-1.3) 03/16/24 06:11
AST 20 U/L (14-36) 03/16/24 06:11
ALT 13 U/L (0-35) 03/16/24 06:11
Alkaline Phosphatase 119 U/L (38-126) 03/16/24 06:11
Vital Signs and I&O:
Vital Signs
Temp Pulse Resp BP Pulse Ox
97.9 F 94 20 104/71 94
03/17/24 07:30 03/17/24 10:00 03/17/24 10:00 03/17/24 10:00 03/17/24 10:21
I&O
03/16/24 03/17/24 03/18/24
06:59 06:59 06:59
Intake Total 80 / 80 955 / 955
Output Total 1325 / 1325 500 / 500
Balance -1245 / -1245 455 / 455
Physical Exam
Physical Exam
HEENT: Anicteric
Cardiology: Normal Sinus Rhythm
Pulmonary: Clear
GI: Non Distended and Non Tender
[2024-03-17] MEDS: NSS IV (16:41)
--- NOTE | 2024-03-17 16:41 | PTCARENOTE ---
Rec'd pt this AM. Pt with several large BMs today. Tube feeding started as ordered. Pt resting comfortably.
--- NOTE | 2024-03-17 16:53 | PTCARENOTE ---
Pts IV fludis infilltrated. Notified Dr. Waite. since pt is getting Tube feeding and is med/surg she is OK to not have IV access.
[2024-03-17 17:51] LABS: Glucose - Point of Care 81 mg/dl (70-99)
--- NOTE | 2024-03-17 20:50 | PTCARENOTE ---
Pt had IV medication order, no IV access. Pt remains full code. VAT called, new site placed for medication admin.
[2024-03-17] MEDS: MELATONIN 3 MG TUBE (20:55)
[2024-03-17] MEDS: TYLENOL ORAL SOLUTION 650 MG TUBE (20:55)
[2024-03-17] MEDS: PROTONIX IV IV (20:56)
[2024-03-17] MEDS: ZOLOFT 25 MG TUBE (22:48)
[2024-03-17] MEDS: BUSPAR 5 MG TUBE (22:48)
[2024-03-17 23:51] LABS: Glucose - Point of Care 103 mg/dl (70-99)
[2024-03-18 02:00] VITALS: BP 112/65
--- NOTE | 2024-03-18 02:15 | TRANSFER ---
Pt transferred from IMU in bed with belongings. Tube feed resumed. Pt able to make needs known by speaking, head nodding, and pointing. Pt oriented to room with call shane in reach of left hand. Plan of care ongoing.
[2024-03-18] MEDS: NSS 1000 IV ×2 (04:14→09:08)
[2024-03-18 06:54] LABS: Glucose - Point of Care 118 mg/dl (70-99)
[2024-03-18 07:00] VITALS: BP 114/69
[2024-03-18] MEDS: COLACE LIQUID 200 MG TUBE (09:06)
[2024-03-18] MEDS: NSS (PRESERVATIVE FREE) 10 ML IV (09:07)
[2024-03-18] MEDS: PROTONIX IV 40 MG IV (09:07)
[2024-03-18] MEDS: MIRALAX 17 GRAMS TUBE (09:08)
[2024-03-18] MEDS: LIORESAL 5 MG TUBE (09:08)
--- NOTE | 2024-03-18 09:11 | W.PN.GI.CBS2 ---
Addendum entered and electronically signed by Kayy Paez MD 03/18/24 14:52:
I saw and examined the patient.
The COMMUNITY LIVING INSTRUCTOR or PA's note was reviewed and I agree with the note.
Comment: 63-year-old female admitted with coffee-ground emesis found to be constipated. No further vomiting after bowel regimen. Repeat x-ray shows improvement in constipation. Patient being discharged today.
I d/w hospitalist.
Original Note:
Today's Communication / Plan
-
Assessment / Plan
-
Pt is a 63yo with hx brain tumor, CVA with hemiplegia, chronic peg, GERD, HTN, NIDDM with no prior admission with onset of coffee ground emesis at [facility]. Since admission no further vomiting with hbg stable with BUN 50 but obstruction series with
large amount of stool in rectosigmoid with gaseous dilatation of colon.
Recommendations:
- resumed TFs
- trend Hb
- PPI BID
- abdominal Xray improved, showing resolved fecal impaction
- OK for discharge/s.o from a GI standpoint
Subjective
Subjective
Date of Service: March 18, 2024
Stable, no further nausea or vomiting.
Objective
Data Reviewed
Laboratory Data:
Laboratory Results
Magnesium 2.0 mg/dl (1.6-2.3) 03/17/24 05:40
Total Bilirubin 0.4 mg/dl (0.2-1.3) 03/16/24 06:11
AST 20 U/L (14-36) 03/16/24 06:11
ALT 13 U/L (0-35) 03/16/24 06:11
Alkaline Phosphatase 119 U/L (38-126) 03/16/24 06:11
Vital Signs and I&O:
Vital Signs
Temp Pulse Resp BP Pulse Ox
98.1 F 78 12 114/69 97
03/18/24 07:00 11/29/24 07:00 03/18/24 07:00 03/18/24 07:00 03/18/24 07:00
I&O
03/17/24 03/18/24 03/19/24
06:59 06:59 06:59
Intake Total 80 / 80 955 / 955
Output Total 1325 / 1325 500 / 500
Balance -1245 / -1245 455 / 455
Physical Exam
Physical Exam
Cardiology: Normal Sinus Rhythm
Pulmonary: Clear
GI: Soft, Non Distended, Non Tender and Normal Bowel Sounds
[2024-03-18 09:13] LABS: Hematocrit 29.7 % (37.0-47.0); Hemoglobin 9.5 g/dL (12.0-16.0); Mean Corpuscular Hgb 30.9 pg (27.0-31.0); Mean Corpuscular Volume 96.7 fL (81.0-99.0); Mean Platelet Volume 10.2 fL (7.4-10.4); Platelet Count 247 10^3/uL (130-400); Red Blood Cell Count 3.07 10^6/uL (4.20-5.40); Red Cell Dist. Width 13.4 % (11.5-14.5); White Blood Cell Count 4.3 10^3/uL (4.8-10.8)
--- NOTE | 2024-03-18 09:40 | W.PN.HOSP.TC ---
Addendum entered and electronically signed by Rajani Waite MD 03/18/24 13:23:
total DC time 37 min
Original Note:
Today's Communication/Plan
-
see A/P
Assessment / Plan
Assessment / Plan
HPI: 63-year-old female PMH GERD, HTN, NIDDM, brain tumor, stroke with right sided paraplegia; p/w 'coffee-ground emesis' x 2 episodes per ED note.
Pt has PEG and chronic locke. She appears bed bound at baseline.
A/P:
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
Hemodynamically stable
Hgb has been stable between 9 and 10
iron panel reviewed,
PPI IV BID while in the hospital, resume NUISANCE WILDLIFE TRAPPER PPI following DC
No plan for scope with no further coffee ground emesis
restarted tube feed and pt tolerated well
GI on board
# GERD
PPI
# h/o brain tumor
# stroke with right sided paraplegia
# Appears to be bed bound state at baseline
Pt able to communicate slowly but with slurred speech at baseline
# Chronic locke POA
Mother states that locke was placed one month ago. Informed her that NH staff can do voiding trial and assess the need for locke continuation or not.
DVT ppx: SCD
FC
DW GI
updated mother on the phone
Anticipated Discharge: Today
Subjective/Interval History
-
Date of Service: March 18, 2024
Objective Data
-
Labs:
Laboratory Results
03/18/24
07:06
WBC 4.3 L
Hgb 9.5 L
Hct 29.7 L
Plt Count 247
Sodium Pending
Potassium Pending
Chloride Pending
Carbon Dioxide Pending
BUN Pending
Creatinine Pending
Glucose Pending
Calcium Pending
Vital Signs:
Vital Signs
Temp Pulse Resp BP Pulse Ox
36.7 C 78 12 114/69 97
03/18/24 07:00 03/18/24 07:00 03/18/24 07:00 03/18/24 07:00 03/18/24 07:00
I&O
03/17/24 03/18/24 03/19/24
06:59 06:59 06:59
Intake Total 80 / 80 955 / 955
Output Total 1325 / 1325 500 / 500
Balance -1245 / -1245 455 / 455
Review of Systems
-
Unable to obtain full review of systems at this time due to: Dementia and Other (previous stroke )
Physical Exam
-
General: Well Developed, Comfortable and Appears Chronically Ill
HEENT: Normocephalic, Atraumatic, Nose Appears Normal and Ears Appear Normal; Negative Oxygen
Respiratory: Clear to Auscultation and Non Labored Respirations; Negative Accessory Resp Muscle Use
Cardiac: Regular Rhythm and S1/S2
GI: Soft, Nontender, Nondistended, Normal Bowel Sounds and Peg Tube
Genito-urinary: Locke
Skin: Warm and Dry
Neuro: Awake
Psych: Calm
Data Reviewed
-
Labs: Labs Reviewed by me
[2024-03-18 09:49] LABS: Blood Urea Nitrogen 39 mg/dl (7-17); Calcium 9.4 mg/dl (8.4-10.2); Carbon Dioxide 28 mmol/L (22-30); Chloride 105 mmol/L (98-107); Estimated Creatinine Clearance 39 ml/min; Glucose 111 mg/dl (70-99); Magnesium 1.9 mg/dl (1.6-2.3); Sodium 144 mmol/L (135-145); eGFR 46.49
--- NOTE | 2024-03-18 11:07 | CM ---
Patient is currently off the floor for testing, plan is for patient to return to [facility] today per physician, per patient's mother, patient is usually out of bed to w/c at intermediate. No PT/OT orders placed and rehabilitation caseworker
spoke with nurse medical operations supervisor, Carissa at [facility] and she is aware that no auth received.
Plan; Patient to return to [facility] today.
[facility]
Report [phone]
[2024-03-18] MEDS: SENNA SYRUP 17.6 MG TUBE (11:30)
[2024-03-18] MEDS: PRED FORTE 1% EYE DROPS 1 DROP RIGHT EYE (11:31)
--- NOTE | 2024-03-18 12:26 | W.DCSUMMARY ---
Discharge Summary
Discharge Data
Date of Admission: 03/16/24
Date of Discharge: 03/18/24
-
Pending Results: No
Hospital Course
Principal Diagnosis:
Possible coffee-ground emesis prior to admission, but none since admission
Chronic Diagnoses:�
Gastroesophageal reflux disease
History of brain tumor
History of stroke with right sided paraplegia. Patient appears to be bedbound at baseline. Communicates slowly with slurred speech
Status post PEG tube on tube feed
Chronic locke present on admission
Consultations:�
Gastroenterology
Procedures:�
None
Clinical course:�
This is a 63-year-old female with past medical history as stated above, who presented with 'coffee-ground emesis' outpatient.
Problem 1:
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
She has been hemodynamically stable during her hospital stay.
Her hemoglobin has also been stable between 9 and 10.
There is no plan for endoscopy evaluation per GI.
Her prior to admission to was restarted and she tolerated well.
Problem 2:
Chronic Locke.
According to the patient's mother, the locke catheter was placed one month prior to admission.
Informed her that [facility] staff can do voiding trial and assess the need for locke continuation or not.
As for the rest of her medical problems, they were stable during her hospital stay.
Discharge Plan
-
Patient Disposition: [facility]/SNF
Discharge Diagnosis/Procedures: Possible coffee ground emesis prior to admission but none since admission;
history of brain tumor;
history of stroke with right sided paraplegia and slurred speech;
Chronic locke
Condition: Fair
Diet: Other diet
Additional Diets: tube feed
Activity: As tolerated
Driving Restrictions: No driving
Activity Restrictions/Additional Instructions:
Voiding trial at snf to assess if you need to continue Locke catheter or not.
Referrals:
UNKNOWN - PT DOES,NOT KNOW [Family Provider] - in less than 1 week
Prescriptions:
Continued
buspirone 5 mg Tablet
5 mg feeding tube HS
albuterol sulfate 2.5 mg /3 mL (0.083 %) Solution For Nebulization
2.5 mg INHALATION R Q6HPRN PRN (Reason: SOB)
polyethylene glycol 3350 [Miralax] 17 gram Powder In Packet
17 g feeding tube DAILY
sennosides-docusate sodium [Senna-S] 8.6-50 mg Tablet
2 tab-cap PO BID
melatonin 3 mg Tablet
3 mg feeding tube HSPRN PRN (Reason: sleep )
prednisolone acetate [Pred Forte] 1 % Drops,Suspension
1 drp RIGHT EYE Q12H
bisacodyl [Dulcolax (bisacodyl)] 10 mg Suppository
10 mg FL [id number] PRN (Reason: IF NO BM AFTR MOM/OR LACTULOSE )
sertraline 25 mg Tablet
25 mg feeding tube HS
simethicone [Gas-X Extra Strength] 125 mg Tablet,Chewable
125 mg feeding tube TIDPRN PRN (Reason: gas pain )
acetaminophen 160 mg/5 mL Elixir
640 mg feeding tube Q4HPRN PRN (Reason: FEVER)
heparin (porcine) 5,000 unit/mL Syringe
5,000 unit SC BID
baclofen 5 mg Tablet
5 mg feeding tube BID
Pantoprazole Liquid 2mg/Ml 2 MG liquid
40 mg feeding tube DAILY
Discharge Orders:
Discharge Patient (As Directed); Ordered 03/18/24
Ordered By: Rajani Waite
Discharge Date and Time
Print Language: KOREAN
== END 2024-03-18 14:54 | DRG 389 ==
LOC: 4 WEST ACU 09:06
PROVIDERS: ADMITTING PHYSICIAN Internal Medicine; CONSULT PHYSICIAN Specialist; EMERGENCY PHYSICIAN Emergency Medicine
DX: K56.41 Fecal impaction (principal); I69.351 Hemiplegia and hemiparesis following cerebral infarction affecting right dominant side; K21.9 Gastro-esophageal reflux disease without esophagitis; D49.6 Neoplasm of unspecified behavior of brain; Z74.01 Bed confinement status
CPT/HCPCS: 74018; 74022; 80048; 80053; 82607; 82728; 82746; 82962; 83540; 83550; 83735; 85025; 85027; 86850; 86900; 86901; 87070; 87147; 93005; 96374; 96375; 99285

== ENCOUNTER → 2024-03-23 09:47 | Outpatient (REF) | payer OTHER, SELFPAY ==
[2024-03-23 12:29] LABS: % Basophils 0.6 % (0-2); % Eosinophils 5.2 % (0-6); % Immature Granulocytes 0.2 % (0-0.5); % Lymphocytes 28.4 % (20.5-51.1); % Monocytes 9.6 % (1.7-9.3); Absolute Eosinophils 0.3 10^3/uL (0-0.7); Absolute Lymphocytes 1.5 10^3/uL (1.2-3.4); Absolute Monocytes 0.5 10^3/uL (0.1-0.6); Hematocrit 31.5 % (37.0-47.0); Hemoglobin 10.4 g/dL (12.0-16.0); Mean Corpuscular Hgb 31.1 pg (27.0-31.0); Mean Corpuscular Volume 94.3 fL (81.0-99.0); Mean Platelet Volume 10.7 fL (7.4-10.4); Nucleated Red Blood Cells % 0 %; Platelet Count 243 10^3/uL (130-400); Red Blood Cell Count 3.34 10^6/uL (4.20-5.40); Red Cell Dist. Width 13.2 % (11.5-14.5); White Blood Cell Count 5.4 10^3/uL (4.8-10.8)
== END ==
LOC: OLABN 09:47
PROVIDERS: ATTENDING PHYSICIAN Student in an Organized Health Care Education/Training Program
DX: R11.10 Vomiting, unspecified (principal)
CPT/HCPCS: 36415; 85025

== ENCOUNTER → 2024-03-30 09:32 | Outpatient (REF) | payer OTHER, SELFPAY ==
[2024-03-30 10:56] LABS: ALT (SGPT) 12 U/L (0-35); AST (SGOT) 21 U/L (14-36); Albumin 3.4 g/dl (3.5-5.0); Alkaline Phosphatase 112 U/L (38-126); Blood Urea Nitrogen 41 mg/dl (7-17); Calcium 9.2 mg/dl (8.4-10.2); Carbon Dioxide 30 mmol/L (22-30); Chloride 98 mmol/L (98-107); Glucose 125 mg/dl (70-99); Potassium 4.2 mmol/L (3.5-5.1); Sodium 138 mmol/L (135-145); Total Bilirubin 0.4 mg/dl (0.2-1.3); Total Protein 6.5 g/dl (6.3-8.2); eGFR 51.18
[2024-03-30 10:59] LABS: % Basophils 0.7 % (0-2); % Eosinophils 5.4 % (0-6); % Immature Granulocytes 0.2 % (0-0.5); % Lymphocytes 30.8 % (20.5-51.1); % Monocytes 9.7 % (1.7-9.3); % Neutrophils 53.2 % (42.2-75.2); Absolute Eosinophils 0.2 10^3/uL (0-0.7); Absolute Lymphocytes 1.4 10^3/uL (1.2-3.4); Absolute Monocytes 0.4 10^3/uL (0.1-0.6); Absolute Neutrophils 2.4 10^3/uL (1.4-6.5); Hematocrit 30.1 % (37.0-47.0); Hemoglobin 9.6 g/dL (12.0-16.0); Mean Corp Hgb Conc. 31.9 g/dL (33.0-37.0); Mean Corpuscular Hgb 30.8 pg (27.0-31.0); Mean Corpuscular Volume 96.5 fL (81.0-99.0); Mean Platelet Volume 10.8 fL (7.4-10.4); Nucleated Red Blood Cells % 0 %; Platelet Count 245 10^3/uL (130-400); Red Blood Cell Count 3.12 10^6/uL (4.20-5.40); Red Cell Dist. Width 13.1 % (11.5-14.5); White Blood Cell Count 4.5 10^3/uL (4.8-10.8)
== END ==
LOC: OLABN 09:32
PROVIDERS: ATTENDING PHYSICIAN Student in an Organized Health Care Education/Training Program
DX: I10 Essential (primary) hypertension (principal)
CPT/HCPCS: 36415; 80053; 85025

== ENCOUNTER → 2024-04-23 08:38 | Outpatient (REF) | payer OTHER, SELFPAY ==
[2024-04-23 10:04] LABS: ALT (SGPT) 14 U/L (0-35); AST (SGOT) 25 U/L (14-36); Albumin 3.4 g/dl (3.5-5.0); Alkaline Phosphatase 117 U/L (38-126); Blood Urea Nitrogen 41 mg/dl (7-17); Calcium 9.2 mg/dl (8.4-10.2); Carbon Dioxide 30 mmol/L (22-30); Chloride 96 mmol/L (98-107); Glucose 107 mg/dl (70-99); Potassium 4.4 mmol/L (3.5-5.1); Sodium 134 mmol/L (135-145); Total Bilirubin 0.6 mg/dl (0.2-1.3); Total Protein 6.5 g/dl (6.3-8.2); eGFR 56.81
[2024-04-23 10:12] LABS: NT-proBNP 185 pg/ml
== END ==
LOC: OLABN 08:38
PROVIDERS: ATTENDING PHYSICIAN Student in an Organized Health Care Education/Training Program
DX: I10 Essential (primary) hypertension (principal); D64.9 Anemia, unspecified
CPT/HCPCS: 36415; 80053; 83735; 83880

== ENCOUNTER 2024-04-27 10:42 | Inpatient (IN) | payer OTHER, SELFPAY ==
[2024-04-24 21:21] VITALS: BP 141/87
[2024-04-24 21:24] VITALS: BP 141/87; BMI 24.6
[2024-04-24 22:06] VITALS: BP 128/92
[2024-04-24 22:21] LABS: APTT 45.6 Sec (23.4-35.0); Hematocrit 34.4 % (37.0-47.0); Hemoglobin 11.5 g/dL (12.0-16.0); Mean Corp Hgb Conc. 33.4 g/dL (33.0-37.0); Mean Corpuscular Hgb 29.8 pg (27.0-31.0); Mean Corpuscular Volume 89.1 fL (81.0-99.0); Mean Platelet Volume 9.6 fL (7.4-10.4); Platelet Count 230 10^3/uL (130-400); Red Blood Cell Count 3.86 10^6/uL (4.20-5.40); Red Cell Dist. Width 13.2 % (11.5-14.5); White Blood Cell Count 5.4 10^3/uL (4.8-10.8)
[2024-04-24 22:40] LABS: ALT (SGPT) 15 U/L (0-35); AST (SGOT) 31 U/L (14-36); Albumin 4.1 g/dl (3.5-5.0); Alkaline Phosphatase 129 U/L (38-126); Blood Urea Nitrogen 37 mg/dl (7-17); Calcium 9.7 mg/dl (8.4-10.2); Carbon Dioxide 30 mmol/L (22-30); Chloride 95 mmol/L (98-107); Estimated Creatinine Clearance 55 ml/min; Glucose 107 mg/dl (70-99); Sodium 134 mmol/L (135-145); Total Protein 7.5 g/dl (6.3-8.2); eGFR > 60.00
[2024-04-24 22:43] LABS: % Basophils 0.6 % (0-2); % Eosinophils 4.9 % (0-6); % Immature Granulocytes 0.2 % (0-0.5); % Lymphocytes 28.5 % (20.5-51.1); % Neutrophils 56.8 % (42.2-75.2); Absolute Eosinophils 0.3 10^3/uL (0-0.7); Absolute Lymphocytes 1.5 10^3/uL (1.2-3.4); Absolute Monocytes 0.5 10^3/uL (0.1-0.6); Absolute Neutrophils 3.1 10^3/uL (1.4-6.5); Nucleated Red Blood Cells % 0 %
[2024-04-24 22:45] LABS: Potassium 4.6 mmol/L (3.5-5.1)
[2024-04-24 23:00] VITALS: BP 117/80
[2024-04-25] VITALS (14 sets, daily range): BP systolic 95–121; BP diastolic 56–75; BMI 24.6; BMI 23.2
--- NOTE | 2024-04-25 01:20 | ED.GENMED ---
History of Present Illness
General
Chief Complaint: Vomiting Blood
Source: assisted
Exam Limitations: non verbal-adult
Time Seen by Provider: 04/25/24 00:17
Nursing documentation reviewed up to this point in time: agreed with
History of Present Illness
History of Present Illness:
The patient is a 63-year-old female with a past medical history of right sided hemiparesis due to an ischemic stroke. Patient also has a history of brain tumor removal. Patient is chronically bedbound and nonverbal. Patient has a PEG tube.
Patient was sent in from the assisted after she was observed to have at least 3-4 episodes of coffee-ground emesis prior to arrival. Patient is able to shake her head yes and no. When I asked her if she is having abdominal pain, she said no.
Patient was recently admitted for similar symptoms of coffee-ground emesis.
Past History
Past History
ED Past Medical History: CVA, GERD, HTN and NIDDM
ED Past Surgical History: Brain
Social History
Tobacco: Other
Alcohol: Other
Drug: Other
Personal: Single
Living: assisted
Employment: Not employed
Family History
Family History: Unable to obtain
Review of Systems
Review of Systems
Allergies reviewed?: Yes
Unable to obtain full review of systems at this time due to: non-verbal
Other source history: assisted
All Other Systems: Not applicable
Phy Exam
Physical Exam
Physical Exam:
Physical Exam
General: Sleeping comfortably. Chronically ill-appearing
Neck: supple. Moist mucous membrane
Heart: s1/s2 regular rate and rhythm,
Lungs: no acute respiratory distress.
Abdomen: Normal bowel sounds. Abdomen is soft. PEG tube appears in place without excoriation or active bleeding. PEG tube contents contain TPN. No visible black gastric material in PEG tube. On rectal exam, stool is brown
and trace positive
Neuro: Opens eyes to voice. Chronic hemiparesis.
Skin: no rash
Psychiatric: Barely interactive. Quickly falls asleep after I speak to her
Extremities: no edema.
Course
Orders/Labs/Results
Orders:
Orders
04/24/24 21:23
Electrocardiogram (*1) Urgent
Reason for Study: Other
Other Reason for Exam: vomitting blood
EKG- Treatment ONCE
04/24/24 22:03
Type And Crossmatch [Type+Screen] Urgent
Complete Blood Count/With Diff Urgent
Comprehensive Metabolic Panel Urgent
PTT Urgent
04/25/24 01:23
Pantoprazole [Protonix IV] 80 mg IV NOW STA
Abnormal Lab Results
04/24/24
22:03
RBC 3.86 L 10^6/uL
(4.20-5.40)
Hgb 11.5 L g/dL
(12.0-16.0)
Hct 34.4 L %
(37.0-47.0)
APTT 45.6 H Sec
(23.4-35.0)
Sodium 134 L mmol/L
(135-145)
Chloride 95 L mmol/L
(98-107)
BUN 37 H mg/dl
(7-17)
Glucose 107 H mg/dl
(70-99)
Alkaline Phosphatase 129 H U/L
(38-126)
04/24/24 22:03
04/24/24 22:03
Vital Signs
Initial and Last Documented VS:
Initial Vital Signs
Pulse Pulse Ox
88 97
04/24/24 21:20 04/24/24 21:20
Last Documented Vital Signs
Temp Pulse Resp BP Pulse Ox
98.3 F 89 18 106/65 94
04/24/24 21:24 04/25/24 02:00 04/25/24 02:00 04/25/24 02:00 04/25/24 02:00
MDM/Problems Addressed
Differential Diagnosis Includes:
Upper GI bleed, lower GI bleed
MDM/Problems Addressed:
Patient presents with recurrent coffee-ground emesis
Chronic conditions affecting care:
Given patient has a history of PEG tube, she could be at increased risk of upper GI bleed
*Pulse Oximetry
Patient hypoxic: no
*EKG
Interpreted by ED Provider?: NA
*Media Operator Interpretation
Rate: normal
Interpretation: normal
Rhythm: sinus
*Critical Care Note
Total Time (30-74mins, 75-104mins- exclusive of procedures): Not Applicable
Data Reviewed
Review of Other/Old Records Reveals: Discharge Summary (Discharge summary reviewed from 03/16/2024 when patient was admitted for upper GI bleed and no further bleeding was observed and hemoglobin remained stable)
Source: assisted
Patient Management
Discussion with other providers: Hospitalist
ED Attending Note
-
Portions of this chart may have been created with voice recognition software.� Occasional wrong word or��sound alike� substitutions may have occurred due to the inherent limitations of voice recognition software.
Discharge Plan
Departure
Patient Disposition: Admit
Date of Disposition: 04/25/24
Time of Disposition: 01:21
Admit to: Med/Surg
Presentation/result/management discussed w/ accepting MD/DO: Hospitalist
Patient with high blood pressure during this ER visit?: No
Condition: Fair
Covid-19: Not Applicable
Discharge Problem:
Coffee ground emesis
Prescriptions:
No Action
buspirone 5 mg Tablet
5 mg feeding tube HS
albuterol sulfate 2.5 mg /3 mL (0.083 %) Solution For Nebulization
2.5 mg INHALATION R Q6HPRN PRN (Reason: SOB)
polyethylene glycol 3350 [Miralax] 17 gram Powder In Packet
17 g feeding tube DAILY
sennosides-docusate sodium [Senna-S] 8.6-50 mg Tablet
2 tab-cap PO BID
melatonin 3 mg Tablet
3 mg feeding tube HSPRN PRN (Reason: sleep )
prednisolone acetate [Pred Forte] 1 % Drops,Suspension
1 drp RIGHT EYE Q12H
bisacodyl [Dulcolax (bisacodyl)] 10 mg Suppository
10 mg DE [id number] PRN (Reason: IF NO BM AFTR MOM/OR LACTULOSE )
sertraline 25 mg Tablet
25 mg feeding tube HS
simethicone [Gas-X Extra Strength] 125 mg Tablet,Chewable
125 mg feeding tube TIDPRN PRN (Reason: gas pain )
acetaminophen 160 mg/5 mL Elixir
640 mg feeding tube Q4HPRN PRN (Reason: FEVER)
heparin (porcine) 5,000 unit/mL Syringe
5,000 unit SC BID
baclofen 5 mg Tablet
5 mg feeding tube BID
Pantoprazole Liquid 2mg/Ml 2 MG liquid
40 mg feeding tube DAILY
ondansetron HCl 4 mg Tablet
4 mg feeding tube Q6H PRN (Reason: Nausea/Vomitting)
Referrals:
Mickey Florentino DO [Family Provider] -
Interventions
Interventions:
*Risk Screen - Suicide Last Done: 04/24/24 21:24
*General Assessment Last Done: 04/24/24 21:24
*Neglect/Abuse Screening Last Done: 04/24/24 21:24
*ED COVID-19 Vaccine History Last Done: 04/24/24 21:34
NL-Azbepy-Locjllbkss Assessment Last Done: 04/24/24 21:38
ED- Cardiac Assessment Last Done: 04/24/24 21:38
ED- Pulmonary Assessment Last Done: 04/24/24 21:38
Discharge Date and Time
Print Language: SWAZI
[2024-04-25] MEDS: PROTONIX IV 80 MG IV (01:52)
--- NOTE | 2024-04-25 03:34 | HPS.HSE ---
Family Physician
-
Family Physician: Mickey Florentino,
Chief Complaint
-
coffee-ground emesis
History of Present Illness
This is a 63-year-old with history of CVA with residual right hemiparesis and hemiplegia, status post PEG, chronic indwelling urinary catheter, GERD, hypertension, prior brain tumor who presents to the emergency department with coffee-ground emesis.
Patient unable to provide much history. She is chronically bedbound and nonverbal. She was sent in from [facility] because she was observed to have at least 3-4 episodes of coffee-ground emesis. Patient has no acute symptoms such as abdominal
pain or nausea.
She was recently admitted with very similar presentation of coffee-ground emesis. She had a stable hemoglobin at that time. She was evaluated by GI who recommended no procedures. She was to continue on prophylactic PPI.
And in the emergency department today she was afebrile, blood pressure was stable at 100/70 with a pulse of 94. Hemoglobin was 11.5 which is higher than the previous baseline. Electrolytes were unremarkable. BUN/creatinine with a 37 and 1
respectively which are unchanged from prior.
Medical History
Past Medical History
Past Medical History: Reports CVA (Residual right hemiplegia and hemiparesis), GERD and NIDDM
Additional Past Medical History:
Chronic urinary retention status post indwelling urinary catheter
Past Surgical History: Reports Brain (Brain mass resection)
Additional Past Surgical History:
Status post PEG
Social History
Tobacco: Non-smoker
Alcohol: None
Drug: None
Personal: Single
Living: Correction
Employment: Disabled
Family History
Family History: Not pertinent
Allergies / Home Medications
Allergies reflects when Allergies were last updated in [employer].
Home Medications with original date entered in [facility] [facility]
Allergy/Medication List:
Allergies
Allergy/AdvReac Type Severity Reaction Status Date / Time
No Known Allergies Allergy Verified 03/16/24 05:59
Home Medications
Pantoprazole Liquid 2mg/Ml 40 mg feeding tube DAILY Gastrointestinal Issue 03/16/24
acetaminophen 160 mg/5 mL oral elixir 640 mg feeding tube Q4HPRN PRN FEVER 03/16/24
albuterol sulfate 2.5 mg/3 mL (0.083 %) solution for nebulization 2.5 mg inhalation R Q6HPRN PRN SOB 03/16/24
baclofen 5 mg tablet 5 mg feeding tube BID Muscle Spasms 03/16/24
bisacodyl 10 mg rectal suppository (Dulcolax (bisacodyl)) 10 mg HI [id number] PRN IF NO BM AFTR MOM/OR LACTULOSE 03/16/24
buspirone 5 mg tablet 5 mg feeding tube HS anxiety 03/16/24
heparin (porcine) 5,000 unit/mL injection syringe 5,000 unit SC BID Blood Clot Prevention/Tx 03/16/24
melatonin 3 mg tablet 3 mg feeding tube HSPRN PRN sleep 03/16/24
polyethylene glycol 3350 17 gram oral powder packet (Miralax) 17 g feeding tube DAILY Constipation 03/16/24
prednisolone acetate 1 % eye drops,suspension (Pred Forte) 1 drp RIGHT EYE Q12H Eye Condition 03/16/24
sennosides 8.6 mg-docusate sodium 50 mg tablet (Senna-S) 2 tab-cap PO BID Constipation 03/16/24
sertraline 25 mg tablet 25 mg feeding tube HS depression/anxiety 03/16/24
simethicone 125 mg chewable tablet (Gas-X Extra Strength) 125 mg feeding tube TIDPRN PRN gas pain 03/16/24
ondansetron HCl 4 mg tablet 4 mg feeding tube Q6H PRN Nausea/Vomitting 04/24/24
Review of Systems
-
Unable to obtain full review of systems at this time due to: Patient Non-verbal
History Source: Correction
Physical Exam
Vital Signs
Vital Signs
Temp Pulse Resp BP Pulse Ox
98.3 F 94 19 104/71 94
04/24/24 21:24 04/25/24 03:00 04/25/24 03:00 04/25/24 03:00 04/25/24 03:00
Physical Exam
General: No Apparent Distress and Comfortable
HEENT: NormoCephalic and Anicteric
Respiratory: Clear
Cardiac: S1/S2 and Regular Rhythm
Breast: Deferred by me
GI: Soft, Non Tender, Non Distended, Normal Bowel Sounds and Peg Tube
Rectal: Brown and Hem Negative
Genito-urinary: Clear Urine and Locke
Musculoskeletal: No Clubbing, No Cyanosis and No Edema
Skin: Warm
Neuro: Alert and Other (right hemiplegia)
Hematologic/Lymphatic: No Lymphadenopathy
Psych: Calm
Laboratory Results
-
04/24/24 22:03
04/24/24 22:03
Laboratory Results
APTT 45.6 Sec (23.4-35.0) H 04/24/24 22:03
Total Bilirubin 1.0 mg/dl (0.2-1.3) 04/24/24 22:03
AST 31 U/L (14-36) 04/24/24 22:03
ALT 15 U/L (0-35) 04/24/24 22:03
Alkaline Phosphatase 129 U/L (38-126) H 04/24/24 22:03
Data Reviewed
-
Lab Data: Labs Reviewed by me
Old Records: Reviewed
Impression/Plan
-
IMPRESSION:
Patient here with multiple episodes of coffee ground emesis from [facility]. HD stable. Hgb stable. Negative rectal exam. No abdominal symptoms. No emesis so far in ED.
PLAN:
1. Coffee ground emesis - well appearing HD stable. Hgb 11.5. No further emesis in ED
- admit to med/surg obs for now
- antiemetics prn
- hold TF for now, IV fluid with d5 LR
- ppi iv daily for now
- SCDs.
- gi consult
2. PEG
- holding TF, diet consult
3. Chronic locke
- no evidence of cute infection
Code status - full code
[2024-04-25] MEDS: D5LR 500 IV (05:41)
--- NOTE | 2024-04-25 07:29 | CON.GI ---
Addendum entered and electronically signed by HAZEL Quintana 04/26/24 14:43:
add hx PUD years ago per family
Addendum entered and electronically signed by Arminda Jean Do, MD 04/25/24 13:41:
I saw and examined the patient.
The RAIL SETTER's note was reviewed and I agree with the note.
Comment: Elham is a 63yo W with h/o brain tumor and CVA with hemiplegia chronically bedbound and nonverbal who was admitted from SNF for coffee ground emesis. She has h/o constipation. She c/o some abd pain. Not clear when last BM was in the past.
Vitals stable AF. Exam with obese, nonverbal but responsive to stimuli, PEG with granulation tissue, tube clear mendiola fluid. Labs reviewed. Anemia but iron panel suggestive of chronic disease. CTAP pending collection
Impression
- Coffee ground emesis
- H/o constipation
- Bedbound and non verbal
- H/o brain tumor
- H/o CVA
- DM
- Garvey
- PEG
- HTN
Recommendations
- C/w PPI IV BID
- NGT lavage done bedside without blood return
- Agree with CTAP with contrast
- C/w senna and miralax
- If there is fecal burden consider more aggressive bowel regimen
- NPO
- Monitor stool output
Parents updated bedside. Will follow with you
Original Note:
Consultation
-
Date/Time Consultation Requested: 04/25/24 0450
Date/Time Consultation Performed: 04/25/24 0900
Requesting Provider: delonte Littlejohn MD
Performing Provider: HAZEL Landers, Arminda Hector MD
Reason for Consultation: coffee ground emesis
Medical History
Chief Complaint / HPI
Chief Complaint: coffee ground emesis
History of Present Illness:
Pt is a 63yo with hx brain tumor, CVA with hemiplegia, FARM ADVISOR shunt, chronic peg, GERD, HTN, NIDDM with recurrent admission with onset of coffee ground emesis at SNF. She was admitted in February with similar symptoms and noted with constipation. On
admission hbg 11.5 with prior 9-10. Per review with mother last admission Pt with brain tumor with surgery and CVA in 2020. She had peg placed at that time. She has had severe hospital admission to [facility] with EGD with
difficulty breathing in procedure. Colonoscopy has been discussed but opted for cologuard and per mother knowledge testing may not have been completed. Some limited history per patient on evaluation but denies abdominal pain, diarrhea,
constipation or bleeding. No further vomiting in last 12 hours since admission and did have stool since admission. Pt has been on Miralax daily and senna BID prior to admission.
Past Medical History
Past Medical History: CVA (with right paraplegia ), GERD, HTN, NIDDM, Psychiatric (anxiety) and Other (brain tumor-meningioma , hydrocephalus s/p FARM ADVISOR shunt, chronic peg, insomnia, prior ileus)
Past Surgical History: Brain (2020 for brain tumor - craniotomy 2020 with reexploration for hemorrhage, cranioplaasty and repiar of CSF ), Cholecystectomy, Gynecological (hysterectomy, breast reduction), Orthopedic (joint replacement ) and Other
(s/p peg 2020, abdominoplasty)
Social History
Tobacco: Non-Smoker
Alcohol: None
Drug: None
Living: Fdc
Employment: Disabled
Family History
Family History: Unable to Obtain
Allergies / Home Medications
Allergy/AdvReac Type Severity Reaction Status Date / Time
No Known Allergies Allergy Verified 03/16/24 05:59
�Medication �Instructions �Recorded
Pantoprazole Liquid 2mg/Ml 40 mg feeding tube DAILY 03/16/24
Gastrointestinal Issue
acetaminophen 160 mg/5 mL oral 640 mg feeding tube Q4HPRN PRN 03/16/24
elixir FEVER
albuterol sulfate 2.5 mg/3 mL 2.5 mg inhalation R Q6HPRN PRN SOB 03/16/24
(0.083 %) solution for nebulization
baclofen 5 mg tablet 5 mg feeding tube BID Muscle Spasms 03/16/24
bisacodyl 10 mg rectal suppository 10 mg UT [id number] PRN IF NO BM AFTR 03/16/24
(Dulcolax (bisacodyl)) MOM/OR LACTULOSE
buspirone 5 mg tablet 5 mg feeding tube HS anxiety 03/16/24
heparin (porcine) 5,000 unit/mL 5,000 unit SC BID Blood Clot 03/16/24
injection syringe Prevention/Tx
melatonin 3 mg tablet 3 mg feeding tube HSPRN PRN sleep 03/16/24
polyethylene glycol 3350 17 gram 17 g feeding tube DAILY 03/16/24
oral powder packet (Miralax) Constipation
prednisolone acetate 1 % eye 1 drp RIGHT EYE Q12H Eye Condition 03/16/24
drops,suspension (Pred Forte)
sennosides 8.6 mg-docusate sodium 2 tab-cap PO BID Constipation 03/16/24
50 mg tablet (Senna-S)
sertraline 25 mg tablet 25 mg feeding tube HS 03/16/24
depression/anxiety
simethicone 125 mg chewable tablet 125 mg feeding tube TIDPRN PRN gas 03/16/24
(Gas-X Extra Strength) pain
ondansetron HCl 4 mg tablet 4 mg feeding tube Q6H PRN 04/24/24
Nausea/Vomitting
Review of Systems
-
Unable to obtain full review of systems at this time due to: Other (minimal verbal on exam )
History Source: Patient and Other (nursing staff )
Constitutional: Reports No Symptoms
EENT: Reports No Symptoms
Respiratory: Reports No Symptoms
Cardiac: Reports No Symptoms
Abdomen/GI: Reports Nausea and Vomiting (coffee ground emesis )
: Reports No Symptoms
Musculoskeletal: Reports No Symptoms
Skin: Reports Other (bleeding around peg site)
Neurological: Reports No Symptoms
Endocrine: Reports No Symptoms
Vital Signs
Temp Pulse Resp BP Pulse Ox
98.3 F 94 20 106/64 93
04/24/24 21:24 04/25/24 06:15 04/25/24 06:15 04/25/24 06:00 04/25/24 06:15
Physical Exam
Exam
General: Well Developed, Well Nourished and No Apparent Distress
HEENT: Normocephalic and Anicteric
Respiratory: Clear
Cardiac: Other (tachy )
GI: Soft, Non Tender, Non Distended and Other (peg intact with large circumferential granduloma around tube with bleeding, no buried bumper, flushes without difficulty with only irrigation on return )
Rectal: Brown (heme neg increased amount of soft stool in rectum)
Musculoskeletal: No Clubbing and No Cyanosis
Skin: Warm
Neuro: Other (some limited verbal s/p CVA with hemiparesis )
Psych: Calm
Results
WBC 5.4 10^3/uL (4.8-10.8) 04/24/24 22:03
Hgb 11.5 g/dL (12.0-16.0) L 04/24/24 22:03
Hct 34.4 % (37.0-47.0) L 04/24/24 22:03
MCV 89.1 fL (81.0-99.0) 04/24/24 22:03
Plt Count 230 10^3/uL (130-400) 04/24/24 22:03
Absolute Neuts (auto) 3.1 10^3/uL (1.4-6.5) 04/24/24 22:03
APTT 45.6 Sec (23.4-35.0) H 04/24/24 22:03
Sodium 134 mmol/L (135-145) L 04/24/24 22:03
Potassium 4.6 mmol/L (3.5-5.1) 04/24/24 22:
Chloride 95 mmol/L (98-107) L 04/24/24:
Carbon Dioxide 30 mmol/L (22-30) 04/24/24:
BUN 37 mg/dl (7-17) H 04/24/24:
Creatinine 1.0 mg/dL (0.6-1.0) 04/24/24:
Calcium 9.7 mg/dl (8.4-10.2) 04/24/24:
Total Bilirubin 1.0 mg/dl (0.2-1.3) 04/24/24:
AST 31 U/L (14-36) 04/24/24:
ALT 15 U/L (0-35) 04/24/24:
Alkaline Phosphatase 129 U/L (38-126) H 04/24/24:
Diagnostic Image Results:
02/10 CT [place]- no acute finding- mild patulous fluid filled esophagus putting pt at risk for aspiration, diffuse moderate distention of large bowel, pronounce in rectosigmoid, without wall thickening or obstruction.
03/18 abd film Nonobstructive bowel gas pattern Decreased mild gaseous distention of the colon. Mild colonic stool burden.
03/16
1. Hypoaerated lungs without consolidation.
2. Large amount of stool within the rectosigmoid colon. Associated mild gaseous dilation of the colon proximal to this level. No pneumoperitoneum.
Prior GI Procedures:
EGD: ? in past per mother with difficulty
Colonoscopy: ? hx prior cologuard results not reviewed
Assessment / Plan
-
Pt is a 63yo with hx brain tumor, CVA with hemiplegia, FARM ADVISOR shunt, chronic peg, GERD, HTN, NIDDM with recurrent admission with onset of coffee ground emesis at SNF. She was admitted in February with similar symptoms and noted with constipation. On
admission hbg 11.5 with prior 9-10. Per review with mother last admission Pt with brain tumor with surgery and CVA in 2020. She had peg placed at that time. She has had severe hospital admission to [facility] with EGD with
difficulty breathing in procedure. Colonoscopy has been discussed but opted for cologuard and per mother knowledge testing may not have been completed. Pt has been on Miralax daily and senna BID prior to admission.
-coffee ground emesis with recurrent admission
-granuloma around peg site
-prior noted fecal impaction/large bowel distention on prior CT
-mild anemia
- mild patulous fluid filled esophagus putting pt at risk for aspiration
-mild hypotension/tachycardia after admission
other med problems:
-brain tumor
-CVA with hemiplegia
-GERD
-HTN
-NIDDM
PLAN:
Etiology of coffee grounds related to esophagitis with noted esophageal dysmotility with patulous esophagus noted on prior CT, underlying constipation ? clearing with soft stool heme neg on rectal exam,, vs other
plan for CT as reviewed with Dr. Mckinney to eval for impaction vs other etiology
if further vomiting place peg to gravity - irrigant clear return with peg irrigation
trend BP and HR with mild hypotension and tachycardia this am
trend hbg
cont PPI will increased to BID
will add iron studies
cont bowel regiment on discharge may need increase if constipation noted
t/c eventual EGD/colonoscopy with anemia but per mother some difficulty with procedures in past unclear if cologuard was completed- await CT results for now
peg with large granuloma around peg site with bleeding - treated with silver nitration- left info for follow up office visit after discharge for retreatment
-
-
-
Thank you for consultation and allowing me to participate in the patient's care. Please call the telecommunications line installer GI physician during the after hours with any questions or concerns.
[2024-04-25] MEDS: LIORESAL 5 MG TUBE ×2 (09:14→22:40)
[2024-04-25] MEDS: NSS (PRESERVATIVE FREE) 10 ML IV ×2 (09:14→20:27)
[2024-04-25] MEDS: PROTONIX IV 40 MG IV ×2 (09:14→20:27)
[2024-04-25] MEDS: PRED FORTE 1% EYE DROPS 1 DROP RIGHT EYE ×2 (09:14→20:28)
[2024-04-25] MEDS: MIRALAX 17 GRAMS TUBE (09:15)
--- NOTE | 2024-04-25 09:34 | W.PN.HOSP.TC ---
Today's Communication/Plan
-
serail H&H
Assessment / Plan
Assessment / Plan
63yo F with PMXH of DM, GERD, HTN, brain tumor, stroke with R UE and LE paraplegia on PEG, s/p INPATIENT SERVICES RN shunt brought from [facility] with coffee groud emesis similar to the one in Feb 2024. PEG aspirate in ED was clear, found bleeding granuloma arround PEG that
was treated with silver nitrate
A/P
#Coffee ground emesis
serial Hgb - stable
PPI
GI consult
cannot exclude 2/2 PEG bleeding due to granuloma, that was stopped with silver nitrate in ED
#Abdominal tenderness
CT abd
#H/o brain tumor
#functional hemiplegia
#Hx of stroke
#s/p INPATIENT SERVICES RN shunt
#Chronic urinary retention on locke
#GERD
cont home meds
DVT ppx SCDs
Full code
I have spent at least 38min reviewing chart, test results, direct patient care
Anticipated Discharge: Within 24 hours
Subjective/Interval History
-
Date of Service: April 25, 2024
Objective Data
-
Labs:
Laboratory Results
04/24/24 04/25/24
22:03 06:00
WBC 5.4 Pending
Hgb 11.5 L Pending
Hct 34.4 L Pending
Plt Count 230 Pending
APTT 45.6 H
Sodium 134 L
Potassium 4.6
Chloride 95 L
Carbon Dioxide 30
BUN 37 H
Creatinine 1.0
Glucose 107 H
Calcium 9.7
Total Bilirubin 1.0
AST 31
ALT 15
Alkaline Phosphatase 129 H
Vital Signs:
Vital Signs
Temp Pulse Resp BP Pulse Ox
98.3 F 102 14 95/58 96
04/24/24 21:24 04/25/24 09:00 04/25/24 09:00 04/25/24 08:00 04/25/24 09:00
Review of Systems
-
Unable to obtain full review of systems at this time due to: Acuity
Physical Exam
-
General: No Apparent Distress
HEENT: Atraumatic
Respiratory: Clear to Auscultation
Cardiac: Regular Rhythm
GI: Soft and Peg Tube
Genito-urinary: Locke
Musculoskeletal: No Clubbing, No Cyanosis and No Edema
Neuro: Awake and Alert
Psych: Calm
[2024-04-25 09:47] LABS: Hematocrit 29.1 % (37.0-47.0); Hemoglobin 9.7 g/dL (12.0-16.0); Mean Corp Hgb Conc. 33.3 g/dL (33.0-37.0); Mean Corpuscular Hgb 30.2 pg (27.0-31.0); Mean Corpuscular Volume 90.7 fL (81.0-99.0); Mean Platelet Volume 9.7 fL (7.4-10.4); Platelet Count 217 10^3/uL (130-400); Red Blood Cell Count 3.21 10^6/uL (4.20-5.40); Red Cell Dist. Width 13.2 % (11.5-14.5)
[2024-04-25] MEDS: COLACE LIQUID 100 MG TUBE ×2 (10:30→20:28)
[2024-04-25] MEDS: OMNIPAQUE 50 ML PO (10:30)
[2024-04-25] MEDS: SENNA SYRUP 8.8 MG TUBE ×2 (10:30→20:28)
[2024-04-25 10:35] LABS: Iron 75 ug/dl (37-170)
[2024-04-25 10:43] LABS: Percent Saturation 31 % (20-50); Total Iron Binding Capacity 239 ug/dl (265-497)
[2024-04-25 11:52] LABS: Ferritin 47.7 ng/ml (11.1-264.0)
[2024-04-25 14:39] LABS: Hematocrit 30.5 % (37.0-47.0); Hemoglobin 10.2 g/dL (12.0-16.0)
[2024-04-25] MEDS: FLEET MINERAL OIL ENEMA 133 ML RECTAL (15:43)
[2024-04-25] MEDS: CITROMA 300 ML TUBE (15:43)
--- NOTE | 2024-04-25 16:48 | CM ---
Addendum entered by Wendie Plata RN 04/25/24 16:49:
[facility]
Report [phone]

Original Note:
Cm reviewed medical records. Patient is at C resident at [facility]. Patient is non-verbal, but able to shake her head yes and no. Patient is bed bound. Patient relies on a PEG tube for nutrition. Plan for patient to return to [facility]
on discharge.
--- NOTE | 2024-04-25 17:29 | PTCARENOTE ---
Pt given mad citrate and fleet enema. Produced small/soft/brown BM.
[2024-04-25] MEDS: TYLENOL ORAL SOLUTION 650 MG TUBE (21:26)
[2024-04-25] MEDS: ZOFRAN 4 MG IV (21:27)
[2024-04-25] MEDS: MELATONIN 3 MG TUBE (21:27)
[2024-04-25] MEDS: BUSPAR 5 MG TUBE (21:28)
[2024-04-25] MEDS: ZOLOFT 25 MG TUBE (21:28)
[2024-04-25 22:06] LABS: Hematocrit 30.3 % (37.0-47.0)
--- NOTE | 2024-04-25 22:35 | PTCARENOTE ---
Pt received from ED at at 2215. Pt AAOX2, non-verbal expect for 'yes' and 'no' answers, VSS, and pulled over into bed upon arrival. Pt does not complain of any pain at this time. Pt receptive to room and call shane. Pt bed in lowest position and call
shane within reach. Pt educated on use of call shane, pt relays understanding and cooperation. Will continue with current plan of care.
[2024-04-26 07:36] VITALS: BP 105/68
[2024-04-26 07:57] LABS: % Basophils 0.6 % (0-2); % Eosinophils 4.2 % (0-6); % Immature Granulocytes 0.2 % (0-0.5); % Lymphocytes 28.9 % (20.5-51.1); % Monocytes 10.2 % (1.7-9.3); % Neutrophils 55.9 % (42.2-75.2); Absolute Eosinophils 0.2 10^3/uL (0-0.7); Absolute Lymphocytes 1.4 10^3/uL (1.2-3.4); Absolute Monocytes 0.5 10^3/uL (0.1-0.6); Absolute Neutrophils 2.7 10^3/uL (1.4-6.5); Hematocrit 31.6 % (37.0-47.0); Hemoglobin 10.6 g/dL (12.0-16.0); Mean Corp Hgb Conc. 33.5 g/dL (33.0-37.0); Mean Corpuscular Hgb 30.3 pg (27.0-31.0); Mean Corpuscular Volume 90.3 fL (81.0-99.0); Mean Platelet Volume 9.6 fL (7.4-10.4); Nucleated Red Blood Cells % 0 %; Platelet Count 215 10^3/uL (130-400); Red Cell Dist. Width 13.2 % (11.5-14.5); White Blood Cell Count 4.8 10^3/uL (4.8-10.8)
[2024-04-26 08:32] LABS: ALT (SGPT) 15 U/L (0-35); AST (SGOT) 28 U/L (14-36); Albumin 3.7 g/dl (3.5-5.0); Alkaline Phosphatase 141 U/L (38-126); Blood Urea Nitrogen 39 mg/dl (7-17); Calcium 9.4 mg/dl (8.4-10.2); Carbon Dioxide 29 mmol/L (22-30); Chloride 98 mmol/L (98-107); Estimated Creatinine Clearance 34 ml/min; Glucose 87 mg/dl (70-99); Potassium 4.5 mmol/L (3.5-5.1); Sodium 136 mmol/L (135-145); Total Bilirubin 0.9 mg/dl (0.2-1.3); Total Protein 6.9 g/dl (6.3-8.2); eGFR 36.24
[2024-04-26] MEDS: MIRALAX 17 GRAMS TUBE ×2 (10:17→20:25)
[2024-04-26] MEDS: NSS (PRESERVATIVE FREE) 10 ML IV ×2 (10:18→20:27)
[2024-04-26] MEDS: LIORESAL 5 MG TUBE ×2 (10:19→20:25)
[2024-04-26] MEDS: SENNA SYRUP 8.8 MG TUBE (10:19)
[2024-04-26] MEDS: PROTONIX IV 40 MG IV ×2 (10:19→20:26)
[2024-04-26] MEDS: COLACE LIQUID 100 MG TUBE ×2 (10:19→20:25)
[2024-04-26] MEDS: PRED FORTE 1% EYE DROPS 1 DROP RIGHT EYE ×2 (10:19→20:28)
--- NOTE | 2024-04-26 11:33 | W.PN.HOSP.TC ---
Today's Communication/Plan
-
cont laxatives
IVF
Assessment / Plan
Assessment / Plan
63yo F with PMXH of cholecystectomy, DM, GERD, HTN, brain tumor, stroke, DVT s/p IVC filter with R UE and LE paraplegia on PEG, locke, s/p PIPE JOINTS SUPERVISOR shunt brought from [facility] with coffee groud emesis similar to the one in Feb 2024. PEG aspirate in ED was
clear, found bleeding granuloma arround PEG that was treated with silver nitrate. Also found significant constipation and started on bowel regimen
A/P
#Coffee ground emesis
#Constipation
serial Hgb - stable
PPI
GI consult: laxatives
cannot exclude 2/2 PEG bleeding due to granuloma, that was stopped with silver nitrate in ED
CT abd with significant constipation, PEG appropriately in the stomach.
#AMINA
suspect dehydration
start IVF while NPO
#Chronic urinary retention with Locke
#Abdominal varicosities
#L simple renal cyst
#H/o brain tumor
#functional hemiplegia
#Hx of stroke
#s/p PIPE JOINTS SUPERVISOR shunt
#Chronic urinary retention on locke
#GERD
cont home meds
DVT ppx SCDs
Full code
I have spent at least 38min reviewing chart, test results, direct patient care
Anticipated Discharge: Within 24 hours
Subjective/Interval History
-
Date of Service: April 26, 2024
Objective Data
-
Labs:
Laboratory Results
04/26/24
07:39
WBC 4.8
Hgb 10.6 L
Hct 31.6 L
Plt Count 215
Sodium 136
Potassium 4.5
Chloride 98
Carbon Dioxide 29
BUN 39 H
Creatinine 1.6 H
Glucose 87
Calcium 9.4
Total Bilirubin 0.9
AST 28
ALT 15
Alkaline Phosphatase 141 H
Vital Signs:
Vital Signs
Temp Pulse Resp BP Pulse Ox
98.9 F 83 18 105/68 93
04/26/24 07:36 04/26/24 07:36 04/26/24 07:36 04/26/24 07:36 04/26/24 07:36
I&O
04/25/24 04/26/24 04/27/24
06:59 06:59 06:59
Output Total 1450 / 1450
Balance -1450 / -1450
Review of Systems
-
Unable to obtain full review of systems at this time due to: Other (chronic dysarthria)
History Source: Patient
Physical Exam
-
General: Comfortable
HEENT: Normocephalic
Respiratory: Clear to Auscultation
Cardiac: Regular Rhythm
GI: Soft, Nontender, Nondistended and Peg Tube (with fibrotic output arround)
Musculoskeletal: No Clubbing, No Cyanosis and No Edema
Neuro: Awake, Alert and Oriented
Psych: Calm
[2024-04-26] MEDS: NSS 1000 IV ×2 (12:18→22:17)
--- NOTE | 2024-04-26 14:25 | W.PN.GI.CBS2 ---
Addendum entered and electronically signed by Dionne Swenson MD 04/26/24 17:15:
I saw and examined the patient.
The FISH PITCHER or PA's note was reviewed and I agree with the note.
Comment: Patient had a large brown bowel movement after enema
No evidence of melena or hematochezia.
Hemoglobin seems to be stable without any further drop.
Likely cause of coffee-ground emesis esophagitis.
Suggested pantoprazole 40 mg twice a day as an outpatient and elevate the head of the bed at 30 degree angle at all time to prevent reflux and esophagitis.
If overt GI bleeding as inpatient, will do endoscopy. She did have respiratory issues during previous endoscopies as per mother.
Chronic constipation
Would suggest MiraLAX 1 capful twice a day and 2 tablets of Senokot at night.
Okay to start tube feeds.
Original Note:
Today's Communication / Plan
-
Etiology of coffee grounds related to esophagitis with noted esophageal dysmotility with patulous esophagus noted on prior CT, underlying constipation heme neg on rectal exam, vs other
peg irrigation clear 04/25
CT as noted and follow up abd film with continued stool burden
for enema now
will change laxative regiment to Miralax BID and 2 senna at HS
then to start tube feed
hbg stable with mild anemia
I reviewed with family for medical issues confirmed again hx EGD with some resp issues in past
she had recent Cologuard that was negative
if persistent symptoms mother would be agreeable to consider repeat EGD
cont PPI BID
left info for follow up office visit after discharge for retreatment
family updated
Assessment / Plan
-
Pt is a 63yo with hx brain tumor, CVA with hemiplegia, LEASING AGENT shunt, chronic peg, PUD, GERD, HTN, NIDDM with recurrent admission with onset of coffee ground emesis at SNF. She was admitted in February with similar symptoms and noted with constipation.
On admission hbg 11.5 with prior 9-10. Per review with mother last admission Pt with brain tumor with surgery and CVA in 2020. She had peg placed at that time. She has had severe hospital admission to [facility] with EGD with
difficulty breathing in procedure. Colonoscopy has been discussed but opted for cologuard and recently completed and negative Pt has been on Miralax daily and senna BID prior to admission.
04/25 CT A/P
MARKEDLY LIMITED STUDY as a result of several factors including marked beam hardening artifact from the patient's bilateral upper extremities, patient motion/respiration artifact, relative paucity of intra-abdominal fat and lack of oral contrast
opacification of majority of large bowel. No intestinal obstruction or free air.
Cutaneous gastrostomy in the stomach.
Apparent prior cholecystectomy.
IVC filter.
No intestinal obstruction or free air. Cannot exclude colonic inflammatory process. Large volume stool filling and distending the rectum. Cannot exclude stercoral colitis.
04/26 abd film
Contrast extends to the colon and rectum with a large rectal stool burden.
Laboratory Tests
04/25/24 04/25/24 04/25/24
09:36 14:23 21:57
Hgb 9.7 L 10.2 L 10.0 L
04/26/24
07:39
Hgb 10.6 L
-coffee ground emesis with recurrent admission
-granuloma around peg site s/p silver nitrate treatment
-prior noted fecal impaction/large bowel distention on prior CT and increased stool burden on imaging
-mild anemia iron studies not consistent with iron deficiency
- mild patulous fluid filled esophagus putting pt at risk for aspiration per OSH imaging
-mild hypotension/tachycardia after admission
other med problems:
hx PUD
-brain tumor
-CVA with hemiplegia
-GERD
-HTN
-NIDDM
PLAN:
Etiology of coffee grounds related to esophagitis with noted esophageal dysmotility with patulous esophagus noted on prior CT, underlying constipation heme neg on rectal exam, vs other
peg irrigation clear 04/25
CT as noted and follow up abd film with continued stool burden
for enema now
will change laxative regiment to Miralax BID and 2 senna at HS
then to start tube feed
hbg stable with mild anemia
I reviewed with family for medical issues confirmed again hx EGD with some resp issues in past
she had recent Cologuard that was negative
if persistent symptoms mother would be agreeable to consider repeat EGD
cont PPI BID
left info for follow up office visit after discharge for retreatment
family updated
-
Subjective
Subjective
Date of Service: April 26, 2024
no stools on tube feeds at 20ml/hr
Objective
Data Reviewed
Laboratory Data:
Laboratory Results
04/26/24 07:39
04/26/24 07:39
Laboratory Results
APTT 45.6 Sec (23.4-35.0) H 04/24/24 22:03
Total Bilirubin 0.9 mg/dl (0.2-1.3) 04/26/24 07:39
AST 28 U/L (14-36) 04/26/24 07:39
ALT 15 U/L (0-35) 04/26/24 07:39
Alkaline Phosphatase 141 U/L (38-126) H 04/26/24 07:39
Vital Signs and I&O:
Vital Signs
Temp Pulse Resp BP Pulse Ox
98.9 F 83 18 105/68 93
04/26/24 07:36 04/26/24 07:36 04/26/24 07:36 04/26/24 07:36 04/26/24 07:36
I&O
04/25/24 04/26/24 04/27/24
06:59 06:59 06:59
Output Total 1450 / 1450
Balance -1450 / -1450
Physical Exam
Physical Exam
HEENT: Anicteric and Moist mucous membranes
Cardiology: Normal Sinus Rhythm
Pulmonary: Clear
GI: Soft, Non Distended, Non Tender and Other (peg intact minimal drainage improved granduloma around peg )
Extremities: No Edema
Neuro: Other (s/p CVA with weakness, pstosis, limited verbal but awake and nods to questions)
[2024-04-26 15:00] VITALS: BP 130/68
[2024-04-26] MEDS: ZOLOFT 25 MG TUBE (22:13)
[2024-04-26] MEDS: BUSPAR 5 MG TUBE (22:13)
[2024-04-26] MEDS: SENNA SYRUP TUBE (22:17)
[2024-04-26 23:15] VITALS: BP 123/71
[2024-04-27 07:00] VITALS: BP 109/71
[2024-04-27 08:36] LABS: Blood Urea Nitrogen 51 mg/dl (7-17); Calcium 9.1 mg/dl (8.4-10.2); Carbon Dioxide 23 mmol/L (22-30); Chloride 101 mmol/L (98-107); Estimated Creatinine Clearance 24 ml/min; Glucose 110 mg/dl (70-99); Potassium 4.8 mmol/L (3.5-5.1); Sodium 137 mmol/L (135-145); eGFR 23.45
[2024-04-27] MEDS: COLACE LIQUID 100 MG TUBE ×2 (10:37→19:57)
[2024-04-27] MEDS: MIRALAX 17 GRAMS TUBE ×2 (10:37→19:57)
[2024-04-27] MEDS: LIORESAL 5 MG TUBE ×2 (10:37→19:57)
[2024-04-27] MEDS: NSS (PRESERVATIVE FREE) 10 ML IV ×2 (10:38→19:57)
[2024-04-27] MEDS: PROTONIX IV 40 MG IV ×2 (10:38→19:57)
[2024-04-27] MEDS: PRED FORTE 1% EYE DROPS 1 DROP RIGHT EYE ×2 (10:57→20:01)
[2024-04-27 12:35] LABS: Hematocrit 30.6 % (37.0-47.0); Hemoglobin 9.9 g/dL (12.0-16.0); Mean Corp Hgb Conc. 32.4 g/dL (33.0-37.0); Mean Corpuscular Hgb 30.2 pg (27.0-31.0); Mean Corpuscular Volume 93.3 fL (81.0-99.0); Platelet Count 198 10^3/uL (130-400); Red Blood Cell Count 3.28 10^6/uL (4.20-5.40); Red Cell Dist. Width 13.2 % (11.5-14.5); White Blood Cell Count 5.2 10^3/uL (4.8-10.8)
--- NOTE | 2024-04-27 12:44 | W.PN.GI.CBS2 ---
Addendum entered and electronically signed by Dionne Swenson MD 04/27/24 16:12:
I saw and examined the patient.
The BIZTALK ADMINISTRATOR or PA's note was reviewed and I agree with the note.
Comment: Patient tolerating tube feeds. No evidence of bleeding. No loose stool today.
H&H stable, continue PPI twice a day.
It is very important for her to continue to elevate the head of the bed up even in the fci to prevent reflux esophagitis.
Currently on MiraLAX 1 capful twice a day, Senokot 2 tablets at night and Colace twice a day.
If loose stool continue, can cut back on the MiraLAX to 1-1/2 capful daily apart from Senokot and Colace.
No need for further endoscopy, we will sign off, please call back if needed.
Original Note:
Today's Communication / Plan
-
Etiology of coffee grounds related to esophagitis with noted esophageal dysmotility with patulous esophagus noted on prior CT, underlying constipation heme neg on rectal exam, vs other
peg irrigation clear 04/25
CT as noted and follow up abd film with continued stool burden
s/p several stools after enema
cont colace BID, Miralax BID and 2 senna at HS
tolerating tube feeds at goal
hbg stable with mild anemia 9.9 not c/w iron deficiency
reviewed again with mother holding on EGD but if another episode or admission would consider proceeding
stressed need to keep HOB elevated to prevent GERD
she had recent Cologuard that was negative
cont PPI BID x 8 weeks on discharge then daily
left info for follow up office visit after discharge for retreatment of skin overgrowth in a few weeks-- looks improved today
work up per medical team for worsening AMINA during admission
family updated
will sign off call if any drop in hbg, recurrent hematemesis or other GI issues
Assessment / Plan
-
Pt is a 63yo with hx brain tumor, CVA with hemiplegia, EDUCATIONAL PROGRAM ASSISTANT shunt, chronic peg, PUD, GERD, HTN, NIDDM with recurrent admission with onset of coffee ground emesis at [facility]. She was admitted in February with similar symptoms and noted with constipation.
On admission hbg 11.5 with prior 9-10. Per review with mother last admission Pt with brain tumor with surgery and CVA in 2020. She had peg placed at that time. She has had severe hospital admission to [facility] with EGD with
difficulty breathing in procedure. Colonoscopy has been discussed but opted for cologuard and recently completed and negative Pt has been on Miralax daily and senna BID prior to admission.
04/25 CT A/P
MARKEDLY LIMITED STUDY as a result of several factors including marked beam hardening artifact from the patient's bilateral upper extremities, patient motion/respiration artifact, relative paucity of intra-abdominal fat and lack of oral contrast
opacification of majority of large bowel. No intestinal obstruction or free air.
Cutaneous gastrostomy in the stomach.
Apparent prior cholecystectomy.
IVC filter.
No intestinal obstruction or free air. Cannot exclude colonic inflammatory process. Large volume stool filling and distending the rectum. Cannot exclude stercoral colitis.
04/26 abd film
Contrast extends to the colon and rectum with a large rectal stool burden.
Laboratory Tests
04/25/24 04/25/24 04/25/24
09:36 14:23 21:57
Hgb 9.7 L 10.2 L 10.0 L
04/26/24
07:39
Hgb 10.6 L
-coffee ground emesis with recurrent admission
-granuloma around peg site s/p silver nitrate treatment
-prior noted fecal impaction/large bowel distention on prior CT and increased stool burden on imaging
-mild anemia iron studies not consistent with iron deficiency
-AMINA during admission
- mild patulous fluid filled esophagus putting pt at risk for aspiration per OSH imaging
other med problems:
hx PUD
-brain tumor
-CVA with hemiplegia
-GERD
-HTN
-NIDDM
PLAN:
Etiology of coffee grounds related to esophagitis with noted esophageal dysmotility with patulous esophagus noted on prior CT, underlying constipation heme neg on rectal exam, vs other
peg irrigation clear 04/25
CT as noted and follow up abd film with continued stool burden
s/p several stools after enema
cont colace BID, Miralax BID and 2 senna at HS
tolerating tube feeds at goal
hbg stable with mild anemia 9.9 not c/w iron deficiency
reviewed again with mother holding on EGD but if another episode or admission would consider proceeding
stressed need to keep HOB elevated to prevent GERD
she had recent Cologuard that was negative
cont PPI BID x 8 weeks on discharge then daily
left info for follow up office visit after discharge for retreatment of skin overgrowth in a few weeks-- looks improved today
work up per medical team for worsening AMINA during admission
family updated
will sign off call if any drop in hbg, recurrent hematemesis or other GI issues
-
Subjective
Subjective
Date of Service: April 27, 2024
+ stools since yesterday with enema, tolerating tube feeds at 55 ml/hr
Objective
Data Reviewed
Laboratory Data:
Laboratory Results
04/27/24 12:13
04/27/24 07:42
Laboratory Results
APTT 45.6 Sec (23.4-35.0) H 04/24/24 22:03
Total Bilirubin 0.9 mg/dl (0.2-1.3) 04/26/24 07:39
AST 28 U/L (14-36) 04/26/24 07:39
ALT 15 U/L (0-35) 04/26/24 07:39
Alkaline Phosphatase 141 U/L (38-126) H 04/26/24 07:39
Vital Signs and I&O:
Vital Signs
Temp Pulse Resp BP Pulse Ox
98.7 F 91 18 109/71 93
04/27/24 07:00 04/27/24 07:00 04/27/24 07:00 04/27/24 07:00 04/27/24 07:00
I&O
04/26/24 04/27/24 04/28/24
06:59 06:59 06:59
Intake Total 1600 / 1600
Output Total 1450 / 1450 200 / 200
Balance -1450 / -1450 1400 / 1400
Physical Exam
Physical Exam
HEENT: Anicteric and Moist mucous membranes
Cardiology: Normal Sinus Rhythm
Pulmonary: Clear
GI: Soft, Non Distended, Non Tender and Other (peg site intact - improved granduloma )
Neuro: Other (sleeping but arousable , chronic hemiparesis/ptosis )
[2024-04-27] MEDS: NSS 1000 IV ×2 (13:10→21:25)
--- NOTE | 2024-04-27 13:16 | W.PN.HOSP.TC ---
Addendum entered and electronically signed by Shakeel Mckinney MD 04/27/24 13:47:
#Concern for UTI
replace Locke
start Ceftriaxone pending Ucx
Original Note:
Today's Communication/Plan
-
cont IVF
Urine studies, check UA
Locke draining appropriately as checked by RN
Neprhology cosnult
discussed with mother bedside
Assessment / Plan
Assessment / Plan
63yo F with PMXH of cholecystectomy, DM, GERD, HTN, brain tumor, stroke, DVT s/p IVC filter with R UE and LE paraplegia on PEG, locke, s/p POND TENDER shunt brought from [facility] with coffee groud emesis similar to the one in Feb 2024. PEG aspirate in ED was
clear, found bleeding granuloma arround PEG that was treated with silver nitrate. Also found significant constipation and started on bowel regimen
A/P
#Coffee ground emesis
#Constipation
serial Hgb - stable
PPI
GI consult: laxatives
cannot exclude 2/2 PEG bleeding due to granuloma, that was stopped with silver nitrate in ED
CT abd with significant constipation, PEG appropriately in the stomach.
#AMINA
did not correct on IVF
Urine studies
Nephrology consult
#Chronic urinary retention with Locke
#Abdominal varicosities
#L simple renal cyst
#H/o brain tumor
#functional hemiplegia
#Hx of stroke
#s/p POND TENDER shunt
#Chronic urinary retention on locke
#GERD
cont home meds
DVT ppx SCDs
Full code
I have spent at least 38min reviewing chart, test results, direct patient care
Anticipated Discharge: 24 - 48 hours
Subjective/Interval History
-
Date of Service: April 27, 2024
Objective Data
-
Labs:
Laboratory Results
04/27/24 04/27/24
07:42 12:13
WBC 5.2
Hgb 9.9 L
Hct 30.6 L
Plt Count 198
Sodium 137
Potassium 4.8
Chloride 101
Carbon Dioxide 23
BUN 51 H
Creatinine 2.3 H
Glucose 110 H
Calcium 9.1
Vital Signs:
Vital Signs
Temp Pulse Resp BP Pulse Ox
98.7 F 91 18 109/71 93
04/27/24 07:00 04/27/24 07:00 04/27/24 07:00 04/27/24 07:00 04/27/24 07:00
I&O
04/26/24 04/27/24 04/28/24
06:59 06:59 06:59
Intake Total 1600 / 1600
Output Total 1450 / 1450 200 / 200
Balance -1450 / -1450 1400 / 1400
Review of Systems
-
Unable to obtain full review of systems at this time due to: Acuity and Patient Non-verbal
Physical Exam
-
General: No Apparent Distress
Respiratory: Clear to Auscultation
Cardiac: Regular Rhythm
GI: Soft, Nontender, Nondistended and Peg Tube
Genito-urinary: Locke
Musculoskeletal: No Clubbing, No Cyanosis and No Edema
Neuro: Awake and Alert
[2024-04-27 13:26] LABS: Urine Albumin 1+ (Neg - Trace); Urine Bilirubin 1+ (Negative); Urine Character Very Cloudy (Clear); Urine Color Amber; Urine Glucose Negative (Negative); Urine Ketone Negative (Negative); Urine Leukocyte 2+ (Negative); Urine Nitrite Negative (Negative); Urine Occult Blood 1+ (Negative); Urine Specific Gravity 1.015 (<1.030); Urine Urobilinogen 1+ (Neg - 1+)
[2024-04-27 14:02] LABS: Osmolality Urine 242 mOsm/kg (300-900)
--- NOTE | 2024-04-27 14:04 | CM ---
manager rail reviewed patient's chart and faxed clinicals over to [place] in admissions at [facility]. [facility] requesting Auth for skilled, cyanide case hardener contacted admissions at [facility] and explained to them that patient is
bedbound and nonverbal and may not be able to skill patient.
Plan; Patient to return to [facility] when stable.
[facility]
Report [phone]
[2024-04-27 14:10] LABS: Body Fluid for Eosinophils No Eosinophils seen
[2024-04-27 14:11] LABS: Urine White Cell >100 /HPF (0-5)
[2024-04-27 14:12] LABS: Urine Bacteria Moderate (Negative); Urine Squamous Cell 0-2 /LPF (Few)
[2024-04-27 14:13] LABS: Urine Sodium 13 mmol/L (30-90)
[2024-04-27] MEDS: ROCEPHIN 1000 MG IV (14:50)
[2024-04-27] MEDS: STERILE WATER FOR INJECTION 10 ML IV (14:52)
[2024-04-27 15:38] VITALS: BP 124/84
--- NOTE | 2024-04-27 16:47 | W.CON.NEPH ---
Consultation
-
Date/Time Consultation Requested: April 27, 2023 1:00 PM
Date/Time Consultation Performed: April 27, 2023, 5:00 PM
Requesting Provider: Dr. Mckinney
Performing Provider: Dr. Becker
Reason for Consultation: Acute kidney injury
Medical History
-
Chief Complaint: Acute kidney injury
History of Present Illness:
The patientis a 63-year-old with history of CVA with residual right hemiparesis and hemiplegia, status post PEG, chronic indwelling urinary catheter, GERD, hypertension, prior brain tumor who presented to the emergency department with coffee-ground
emesis. She is chronically bedbound and nonverbal. [facility] because she was observed to have at least 3-4 episodes of coffee-ground emesis. Patient had no acute symptoms such as abdominal pain or nausea.
She was recently admitted with very similar presentation of coffee-ground emesis. She had a stable hemoglobin at that time. She was evaluated by GI who recommended no procedures. She was to continue on prophylactic PPI. Initial CAT scan of
abdomen and pelvis with IV contrastrevealed likely stool impaction.Over the course of her admission. She has also had associated hypotension. Nephrology was consulted as her creatinine has now risen from 1.1-2.3 over the past 2 days (AMINA)
Past Medical History
CVA (Residual right hemiplegia and hemiparesis), GERD and NIDDM
PEG tube
History of brain mass with resection
Chronic Garvey
IVC filter
Social History
[facility] resident
Tobacco: Non-Smoker
Alcohol: None
Family History
No reported CKD
Allergies / Home Medications
Allergy/AdvReac Type Severity Reaction Status Date / Time
No Known Allergies Allergy Verified 03/16/24 05:59
�Medication �Instructions �Recorded �Confirmed �Type
Pantoprazole Liquid 2mg/Ml 40 mg feeding tube DAILY 03/16/24 04/24/24 History
Gastrointestinal Issue
acetaminophen 160 mg/5 mL oral 640 mg feeding tube Q4HPRN PRN 03/16/24 04/24/24 History
elixir FEVER
albuterol sulfate 2.5 mg/3 mL 2.5 mg inhalation R Q6HPRN PRN SOB 03/16/24 04/24/24 History
(0.083 %) solution for nebulization
baclofen 5 mg tablet 5 mg feeding tube BID Muscle Spasms 03/16/24 04/24/24 History
bisacodyl 10 mg rectal suppository 10 mg IN [id number] PRN IF NO BM AFTR 03/16/24 04/24/24 History
(Dulcolax (bisacodyl)) MOM/OR LACTULOSE
buspirone 5 mg tablet 5 mg feeding tube HS anxiety 03/16/24 04/24/24 History
heparin (porcine) 5,000 unit/mL 5,000 unit SC BID Blood Clot 03/16/24 04/24/24 History
injection syringe Prevention/Tx
melatonin 3 mg tablet 3 mg feeding tube HSPRN PRN sleep 03/16/24 04/24/24 History
polyethylene glycol 3350 17 gram 17 g feeding tube DAILY 03/16/24 04/24/24 History
oral powder packet (Miralax) Constipation
prednisolone acetate 1 % eye 1 drp RIGHT EYE Q12H Eye Condition 03/16/24 04/24/24 History
drops,suspension (Pred Forte)
sennosides 8.6 mg-docusate sodium 2 tab-cap PO BID Constipation 03/16/24 04/24/24 History
50 mg tablet (Senna-S)
sertraline 25 mg tablet 25 mg feeding tube HS 03/16/24 04/24/24 History
depression/anxiety
simethicone 125 mg chewable tablet 125 mg feeding tube TIDPRN PRN gas 03/16/24 04/24/24 History
(Gas-X Extra Strength) pain
ondansetron HCl 4 mg tablet 4 mg feeding tube Q6H PRN 04/24/24 04/24/24 History
Nausea/Vomitting
Review of Systems
-
Unable to obtain full review of systems at this time due to: Patient Non Verbal
History Source: Patient
Abdomen/GI: Other (Functional PEG tube, coffee-ground emesis on presentation)
: Other (. Chronic Garvey)
Musculoskeletal: Other ( bedbound nonambulatory)
Neurological: Other ( chronic right hemiplegia)
Physical Exam
Vital Signs
Vital Signs
Temp Pulse Resp BP Pulse Ox
98.7 F 103 18 124/84 96
04/27/24 15:38 04/27/24 15:38 04/27/24 15:38 04/27/24 15:38 04/27/24 15:38
Lab Results
04/27/24 12:13
04/27/24 07:42
WBC 5.2 10^3/uL (4.8-10.8) 04/27/24 12:13
RBC 3.28 10^6/uL (4.20-5.40) L 04/27/24 12:13
Hgb 9.9 g/dL (12.0-16.0) L 04/27/24 12:13
Hct 30.6 % (37.0-47.0) L 04/27/24 12:13
Plt Count 198 10^3/uL (130-400) 04/27/24 12:13
Sodium 137 mmol/L (135-145) 04/27/24 07:42
Potassium 4.8 mmol/L (3.5-5.1) 04/27/24 07:42
Chloride 101 mmol/L (98-107) 04/27/24 07:42
Carbon Dioxide 23 mmol/L (22-30) 04/27/24 07:42
BUN 51 mg/dl (7-17) H 04/27/24 07:42
Creatinine 2.3 mg/dL (0.6-1.0) H 04/27/24 07:42
eGFR 23.45 04/27/24 07:42
Glucose 110 mg/dl (70-99) H 04/27/24 07:42
Calcium 9.1 mg/dl (8.4-10.2) 04/27/24 07:42
Albumin 3.7 g/dl (3.5-5.0) 04/26/24 07:39
Physical Exam
General: Awake and Other (Chronically ill, frail, nonverbal)
HEENT: PERRL, EOMI, Conjunctivae Clear, Ear/Nose Intact, Oropharynx Clear/Moist, Neck Supple, Trachea Midline and No JVD
Respiratory: Clear
Cardiac: S1/S2 and Regular Rate/Rhythm
Breast: Deferred by me
Abdomen: Soft, Nontender, Nondistended, Normal Bowel Sounds and Other ( PEG tube with clean exit site)
Genito-urinary: Other (. Garvey catheter)
Musculoskeletal: No Clubbing, No Cyanosis, No Edema and Other (move all 4 limbs independently)
Skin: No Rash
Neuro: Other ( difficult to ascertain as patient does not follow commands:)
Hematologic/Lymphatic: No Submandibular Lymphadenopathy and No Supraclavicular Lymphadenopathy
Psych: Other ( Unable to assess as patient was nonverbal. She does weakly, follow commands)
Data Reviewed
-
CT Scan: Report Reviewed by me (CT of abdomen and pelvis with IV contrast: revealed no acute intestinal obstruction or obstructive uropathy)
Medical Tests (Nuc Med, Echo etc): Other (EKG on admission sinus rhythm at 85 bpm per report)
Labs: Labs Reviewed by me (. BMP, CBC, urinalysis, fractional excretion of sodium)
Old Records: Reviewed ( previous creatinine reviewed 03/30/24, 1.2)
Assessment/Plan
-
Impression:
AMINA
Coffee-ground emesis/constipation
Anemia
History of IVC filter
History of stroke with right hemiplegia/history of STRATEGY LEAD shunt
PEG
Chronic Garvey
Diabetes
History of brain mass resection
Plan:
AMINA:
-I suspect the patient's acute kidney injury is prerenal induced
-There was associated coffee-ground emesis. On presentation, as well as intermittent hypotension since admission
-There was IV contrast administration via CT scan on admission
-I reviewed the patient's fractional excretion, which was less than 1%
-All these aforementioned factors are consistent with prerenal stimulus
-There was no evidence of obstructive uropathy by CAT scan. The patient's Garvey catheter was exchanged this morning without significant change in urinary output, which remains low
-I would maintain isotonic saline at current rate today
-There is no evidence of gross electrolyte abnormality or hypervolemia on exam
-There is no need for acute dialysis
[2024-04-27] MEDS: BUSPAR 5 MG TUBE (21:25)
[2024-04-27] MEDS: SENNA SYRUP 17.6 MG TUBE (21:25)
[2024-04-27] MEDS: ZOLOFT 25 MG TUBE (21:26)
[2024-04-27 23:41] VITALS: BP 137/80
[2024-04-28] MEDS: NSS 1000 IV ×2 (06:33→17:28)
[2024-04-28 07:00] VITALS: BP 143/89
[2024-04-28] MEDS: MIRALAX 17 GRAMS TUBE (09:06)
[2024-04-28] MEDS: PROTONIX IV 40 MG IV ×2 (09:07→20:25)
[2024-04-28] MEDS: NSS (PRESERVATIVE FREE) 10 ML IV ×2 (09:07→20:26)
[2024-04-28] MEDS: COLACE LIQUID 100 MG TUBE ×2 (09:07→20:25)
[2024-04-28] MEDS: LIORESAL 5 MG TUBE ×2 (09:07→20:29)
[2024-04-28] MEDS: PRED FORTE 1% EYE DROPS 1 DROP RIGHT EYE ×2 (09:08→20:31)
[2024-04-28 09:11] LABS: % Basophils 0.3 % (0-2); % Immature Granulocytes 0.2 % (0-0.5); % Lymphocytes 24.9 % (20.5-51.1); % Neutrophils 61.6 % (42.2-75.2); Absolute Eosinophils 0.2 10^3/uL (0-0.7); Absolute Lymphocytes 1.5 10^3/uL (1.2-3.4); Absolute Monocytes 0.5 10^3/uL (0.1-0.6); Absolute Neutrophils 3.7 10^3/uL (1.4-6.5); Hematocrit 30.5 % (37.0-47.0); Mean Corp Hgb Conc. 32.8 g/dL (33.0-37.0); Mean Corpuscular Hgb 29.9 pg (27.0-31.0); Mean Corpuscular Volume 91.3 fL (81.0-99.0); Mean Platelet Volume 9.8 fL (7.4-10.4); Nucleated Red Blood Cells % 0 %; Platelet Count 206 10^3/uL (130-400); Red Blood Cell Count 3.34 10^6/uL (4.20-5.40); Red Cell Dist. Width 13.3 % (11.5-14.5)
--- NOTE | 2024-04-28 10:18 | CM ---
Chart reviewed plan remains for patient to return to [facility] when stable, updated clinical sent today to admissions at [facility], telehealth case manager had a discussion with admissions at [facility] and explained to them that patient has
no new changes to medical needs and is bedbound and therefore Auth will not be obtained.
Plan; Patient to return to [facility] when stable.
[facility]
Report [phone]
[2024-04-28 10:34] LABS: ALT (SGPT) 10 U/L (0-35); AST (SGOT) 20 U/L (14-36); Albumin 3.3 g/dl (3.5-5.0); Alkaline Phosphatase 115 U/L (38-126); Blood Urea Nitrogen 55 mg/dl (7-17); Calcium 8.4 mg/dl (8.4-10.2); Carbon Dioxide 24 mmol/L (22-30); Chloride 103 mmol/L (98-107); Estimated Creatinine Clearance 18 ml/min; Glucose 110 mg/dl (70-99); Potassium 5.2 mmol/L (3.5-5.1); Sodium 139 mmol/L (135-145); Total Bilirubin 0.4 mg/dl (0.2-1.3); Total Protein 6.2 g/dl (6.3-8.2); eGFR 17.04
--- NOTE | 2024-04-28 13:10 | W.PN.HOSP.TC ---
Addendum entered and electronically signed by Shakeel Mckineny MD 04/28/24 13:17:
#Mild hyperkalemia
check CPK
follow BMP
Original Note:
Today's Communication/Plan
-
cont hydration
cont Ceftriaxone
Assessment / Plan
Assessment / Plan
63yo F with PMXH of cholecystectomy, DM, GERD, HTN, brain tumor, stroke, DVT s/p IVC filter with R UE and LE paraplegia on PEG, locke, s/p TRADEMARK AFFIXER shunt brought from [facility] with coffee groud emesis similar to the one in Feb 2024. PEG aspirate in ED was
clear, found bleeding granuloma arround PEG that was treated with silver nitrate. Also found significant constipation and started on bowel regimen
A/P
#Coffee ground emesis
#Constipation
serial Hgb - stable
PPI
GI consult: laxatives
cannot exclude 2/2 PEG bleeding due to granuloma, that was stopped with silver nitrate in ED
CT abd with significant constipation, PEG appropriately in the stomach.
#AMINA
FeNA<1%
No eosinophils in urine
Nephrology consult: cont hydration
#Possible UTI
with AMINA - reasonable to treat
await Ucxs
Locke ordered to be replaced on 04/27/24
#Chronic urinary retention with Locke
#Abdominal varicosities
#L simple renal cyst
#H/o brain tumor
#functional hemiplegia
#Hx of stroke
#s/p TRADEMARK AFFIXER shunt
#Chronic urinary retention on locke
#GERD
cont home meds
DVT ppx SCDs
Full code
I have spent at least 38min reviewing chart, test results, direct patient care
Anticipated Discharge: 24 - 48 hours
Subjective/Interval History
-
Date of Service: April 28, 2024
Objective Data
-
Labs:
Laboratory Results
04/28/24 04/28/24
08:56 13:09
WBC 6.0
Hgb 10.0 L
Hct 30.5 L
Plt Count 206
Sodium 139 Pending
Potassium 5.2 H Pending
Chloride 103 Pending
Carbon Dioxide 24 Pending
BUN 55 H Pending
Creatinine 3.0 H Pending
Glucose 110 H Pending
Calcium 8.4 Pending
Total Bilirubin 0.4
AST 20
ALT 10
Alkaline Phosphatase 115
Vital Signs:
Vital Signs
Temp Pulse Resp BP Pulse Ox
97.8 F 89 18 143/89 98
04/28/24 07:00 04/28/24 07:00 04/28/24 07:00 04/28/24 07:00 04/28/24 08:39
I&O
04/27/24 04/28/24 04/29/24
06:59 06:59 06:59
Intake Total 1600 / 1600 2160 / 2160
Output Total 200 / 200 125 / 125
Balance 1400 / 1400 2034
Review of Systems
-
Unable to obtain full review of systems at this time due to: Patient Non-verbal
History Source: Patient
Physical Exam
-
General: No Apparent Distress
HEENT: Normocephalic
Respiratory: Clear to Auscultation
Cardiac: Regular Rhythm
GI: Soft, Nontender, Nondistended and Peg Tube
Genito-urinary: Clear Urine and Locke
Musculoskeletal: No Clubbing, No Cyanosis and No Edema
Neuro: Awake, Alert, Oriented and AO x 3
Psych: Calm
[2024-04-28 14:48] LABS: Blood Urea Nitrogen 58 mg/dl (7-17); Calcium 8.1 mg/dl (8.4-10.2); Carbon Dioxide 21 mmol/L (22-30); Chloride 105 mmol/L (98-107); Creatine Phosphokinase 130 U/L (30-135); Estimated Creatinine Clearance 20 ml/min; Glucose 117 mg/dl (70-99); Potassium 5.1 mmol/L (3.5-5.1); Sodium 136 mmol/L (135-145); eGFR 18.51
[2024-04-28] MEDS: ROCEPHIN 1000 MG IV (15:05)
[2024-04-28] MEDS: STERILE WATER FOR INJECTION 10 ML IV (15:05)
[2024-04-28 15:39] VITALS: BP 129/79
--- NOTE | 2024-04-28 17:08 | W.PN.NEPH.PH ---
Today's Communication / Plan
-
cont IVF, labs tomorrow
Assessment/Plan
-
Impression:
AMINA
Coffee-ground emesis/constipation
Anemia
History of IVC filter
History of stroke with right hemiplegia/history of CHECKERING MACHINE ADJUSTER shunt
PEG
Chronic Locke
Diabetes
History of brain mass resection
Plan:
AMINA:
-I suspect the patient's acute kidney injury is prerenal induced
-There was associated coffee-ground emesis. On presentation, as well as intermittent hypotension since admission
-There was IV contrast administration via CT scan on admission on 04/25
-I reviewed the patient's fractional excretion, which was less than 1%
-All these aforementioned factors are consistent with prerenal stimulus+contrast
-There was no evidence of obstructive uropathy by CAT scan.
UOP slowly improving now, keep locke
cr peak at 3 this am and repeat at 2.8-hopefully cont to improve
-I would maintain isotonic fluids today, also on TF too , likely d/c IVF tomorrow
-There is no evidence of gross electrolyte abnormality or hypervolemia on exam
-There is no need for acute dialysis
monitor mild met acidosis on NS
d/w family and nursing
-
-
Date of Service: April 28, 2024
CC / HPI / ROS
-
Chief Complaint:
AMINA
History of Present Illness:
cr peak at 3 this am, now better at 2.8
UOP slow to imprve, oliguric
bp stable , k 5
Review of Systems:
no pain. can not cough , drooling saliva
no fever
pt non verbal
Labs
-
Labs:
WBC 6.0 10^3/uL (4.8-10.8) 04/28/24 08:56
RBC 3.34 10^6/uL (4.20-5.40) L 04/28/24 08:56
Hgb 10.0 g/dL (12.0-16.0) L 04/28/24 08:56
Hct 30.5 % (37.0-47.0) L 04/28/24 08:56
Plt Count 206 10^3/uL (130-400) 04/28/24 08:56
Sodium 136 mmol/L (135-145) 04/28/24 14:00
Potassium 5.1 mmol/L (3.5-5.1) 04/28/24 14:00
Chloride 105 mmol/L (98-107) 04/28/24 14:00
Carbon Dioxide 21 mmol/L (22-30) L 04/28/24 14:00
BUN 58 mg/dl (7-17) H 04/28/24 14:00
Creatinine 2.8 mg/dL (0.6-1.0) H 04/28/24 14:00
eGFR 18.51 04/28/24 14:00
Glucose 117 mg/dl (70-99) H 04/28/24 14:00
Calcium 8.1 mg/dl (8.4-10.2) L 04/28/24 14:00
Albumin 3.3 g/dl (3.5-5.0) L 04/28/24 08:56
Physical Exam
-
Vital Signs:
Vital Signs
Temp Pulse Resp BP Pulse Ox
97.8 F 83 18 129/79 99
04/28/24 15:39 04/28/24 15:39 04/28/24 15:39 04/28/24 15:39 04/28/24 15:39
Cardiovascular:: Regular rate and rhythm
Respiratory:: Bilateral: Coarse
Lung Excursion:: Normal
Abdomen:: Nontender and Soft
Extremity Edema:: None: Bilateral:
Locke Catheter: Yes
Other Findings::
300cc
[2024-04-28] MEDS: MIRALAX TUBE (20:54)
[2024-04-28] MEDS: ZOLOFT 25 MG TUBE (21:39)
[2024-04-28] MEDS: SENNA SYRUP TUBE (21:39)
[2024-04-28] MEDS: BUSPAR 5 MG TUBE (21:40)
[2024-04-28] MEDS: MYLICON 120 MG TUBE (21:46)
[2024-04-28 23:46] VITALS: BP 144/91
[2024-04-29] MEDS: NSS 1000 IV (02:20)
[2024-04-29 07:45] VITALS: BP 150/94
[2024-04-29 09:04] LABS: % Basophils 0.4 % (0-2); % Eosinophils 6.4 % (0-6); % Immature Granulocytes 0.4 % (0-0.5); % Lymphocytes 28.9 % (20.5-51.1); % Monocytes 7.6 % (1.7-9.3); % Neutrophils 56.3 % (42.2-75.2); Absolute Eosinophils 0.3 10^3/uL (0-0.7); Absolute Lymphocytes 1.5 10^3/uL (1.2-3.4); Absolute Monocytes 0.4 10^3/uL (0.1-0.6); Absolute Neutrophils 2.9 10^3/uL (1.4-6.5); Hematocrit 31.5 % (37.0-47.0); Hemoglobin 10.4 g/dL (12.0-16.0); Mean Corpuscular Hgb 29.9 pg (27.0-31.0); Mean Corpuscular Volume 90.5 fL (81.0-99.0); Nucleated Red Blood Cells % 0 %; Red Blood Cell Count 3.48 10^6/uL (4.20-5.40); Red Cell Dist. Width 13.5 % (11.5-14.5); White Blood Cell Count 5.2 10^3/uL (4.8-10.8)
[2024-04-29 09:18] LABS: Blood Urea Nitrogen 55 mg/dl (7-17); Calcium 8.6 mg/dl (8.4-10.2); Carbon Dioxide 22 mmol/L (22-30); Chloride 107 mmol/L (98-107); Estimated Creatinine Clearance 20 ml/min; Glucose 129 mg/dl (70-99); Sodium 141 mmol/L (135-145); eGFR 19.34
[2024-04-29] MEDS: MIRALAX TUBE ×2 (11:25→21:44)
[2024-04-29] MEDS: COLACE LIQUID TUBE ×2 (11:25→21:43)
[2024-04-29] MEDS: PRED FORTE 1% EYE DROPS 1 DROP RIGHT EYE ×2 (11:35→21:54)
[2024-04-29] MEDS: NSS (PRESERVATIVE FREE) 10 ML IV ×2 (11:35→21:50)
[2024-04-29] MEDS: PROTONIX IV 40 MG IV ×2 (11:36→21:50)
[2024-04-29] MEDS: LIORESAL 5 MG TUBE ×2 (11:36→21:52)
--- NOTE | 2024-04-29 11:50 | CM ---
CM following re: discharge planning.
Reviewed pt's chart, met with pt.
Per CM note, pt is a LTC resident at [facility], requires total care and a plan is for pt to return back to [facility] when medically stable.
Staci watt
Report [phone]

D/C plan: [facility] for a LTC when medically stable.
CM will follow to assist pt with discharge to [facility] for a LTC
--- NOTE | 2024-04-29 12:46 | W.PN.HOSP.TC ---
Today's Communication/Plan
-
Cont IVF - Cr slightly improved
Cont Ceftriaxone
Assessment / Plan
Assessment / Plan
63yo F with PMXH of cholecystectomy, DM, GERD, HTN, brain tumor, stroke, DVT s/p IVC filter with R UE and LE paraplegia on PEG, locke, s/p LEAD GENERATION MARKETING MANAGER shunt brought from [facility] with coffee groud emesis similar to the one in Feb 2024. PEG aspirate in ED was
clear, found bleeding granuloma arround PEG that was treated with silver nitrate. Also found significant constipation and started on bowel regimen
A/P
#Coffee ground emesis
#Constipation
serial Hgb - stable
PPI
GI consult: laxatives
cannot exclude 2/2 PEG bleeding due to granuloma, that was stopped with silver nitrate in ED
CT abd with significant constipation, PEG appropriately in the stomach.
#AMINA
FeNA<1%
No eosinophils in urine
Nephrology consult: cont hydration
#Possible UTI
with AMINA - reasonable to treat
Ucx - mixed santino - empiric Rocephin
Locke replaced on 04/27/24
#Chronic urinary retention with Locke
#Abdominal varicosities
#L simple renal cyst
#H/o brain tumor
#functional hemiplegia
#Hx of stroke
#s/p LEAD GENERATION MARKETING MANAGER shunt
#Chronic urinary retention on locke
#GERD
cont home meds
DVT ppx SCDs
Full code
I have spent at least 38min reviewing chart, test results, direct patient care
Anticipated Discharge: 24 - 48 hours
Subjective/Interval History
-
Date of Service: April 29, 2024
Objective Data
-
Labs:
Laboratory Results
04/29/24
08:48
WBC 5.2
Hgb 10.4 L
Hct 31.5 L
Plt Count
Sodium 141
Potassium 5.0
Chloride 107
Carbon Dioxide 22
BUN 55 H
Creatinine 2.7 H
Glucose 129 H
Calcium 8.6
Vital Signs:
Vital Signs
Temp Pulse Resp BP Pulse Ox
98.3 F 94 20 150/94 98
04/29/24 07:45 04/29/24 07:45 04/29/24 07:45 04/29/24 07:45 04/29/24 07:45
I&O
04/28/24 04/29/24 04/30/24
06:59 06:59 06:59
Intake Total 2160 / 2160 1850 / 1850
Output Total 125 / 125 1600 / 1600
Balance 2034 / 2034 250 / 250
Review of Systems
-
Unable to obtain full review of systems at this time due to: Patient Non-verbal
History Source: Family
Physical Exam
-
General: Comfortable
Cardiac: Regular Rhythm
GI: Soft and Peg Tube
Genito-urinary: Clear Urine and Locke
Neuro: Awake and Alert
Psych: Calm
--- NOTE | 2024-04-29 14:16 | W.PN.NEPH.PH ---
Today's Communication / Plan
-
Discontinue IV fluids
Follow-up BMP
Assessment/Plan
-
Impression:
AMINA
Coffee-ground emesis/constipation
Anemia
History of IVC filter
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
PEG
Chronic Locke
Diabetes
History of brain mass resection
Plan:
AMINA:
-I suspect the patient's acute kidney injury is prerenal induced
-There was associated coffee-ground emesis. On presentation, as well as intermittent hypotension since admission
-There was IV contrast administration via CT scan on admission on 04/25
-I reviewed the patient's fractional excretion, which was less than 1%
-All these aforementioned factors are consistent with prerenal stimulus+contrast
-There was no evidence of obstructive uropathy by CAT scan.
UOP slowly improving now, keep locke
cr peak at 3 this am and repeat at 2.7-hopefully continues to improve
Discontinue further IV fluids
-There is no evidence of gross electrolyte abnormality or hypervolemia on exam
-There is no need for acute dialysis
monitor mild met acidosis on NS
-
-
Date of Service: April 29, 2024
CC / HPI / ROS
-
Chief Complaint:
AMINA
History of Present Illness:
cr peak at 3 this am, now better at 2.7
Now grossly nonoliguric with urine collection of 1600 cc
Hemodynamically stay
Review of Systems:
no pain. can not cough , drooling saliva
no fever
pt non verbal
Nonoliguric via Locke
Labs
-
Labs:
WBC 5.2 10^3/uL (4.8-10.8) 04/29/24 08:48
RBC 3.48 10^6/uL (4.20-5.40) L 04/29/24 08:48
Hgb 10.4 g/dL (12.0-16.0) L 04/29/24 08:48
Hct 31.5 % (37.0-47.0) L 04/29/24 08:48
Plt Count 10^3/uL (130-400) 04/29/24 08:48
Sodium 141 mmol/L (135-145) 04/29/24 08:48
Potassium 5.0 mmol/L (3.5-5.1) 04/29/24 08:48
Chloride 107 mmol/L (98-107) 04/29/24 08:48
Carbon Dioxide 22 mmol/L (22-30) 04/29/24 08:48
BUN 55 mg/dl (7-17) H 04/29/24 08:48
Creatinine 2.7 mg/dL (0.6-1.0) H 04/29/24 08:48
eGFR 19.34 04/29/24 08:48
Glucose 129 mg/dl (70-99) H 04/29/24 08:48
Calcium 8.6 mg/dl (8.4-10.2) 04/29/24 08:48
Albumin 3.3 g/dl (3.5-5.0) L 04/28/24 08:56
Physical Exam
-
Vital Signs:
Vital Signs
Temp Pulse Resp BP Pulse Ox
98.3 F 94 20 150/94 98
04/29/24 07:45 04/29/24 07:45 04/29/24 07:45 04/29/24 07:45 04/29/24 07:45
Cardiovascular:: Regular rate and rhythm
Respiratory:: Bilateral: Coarse
Lung Excursion:: Normal
Abdomen:: Nontender and Soft
Extremity Edema:: None: Bilateral:
Locke Catheter: Yes
Other Findings::
300cc
[2024-04-29] MEDS: NSS IV (14:26)
[2024-04-29] MEDS: ROCEPHIN 1000 MG IV (14:55)
[2024-04-29] MEDS: STERILE WATER FOR INJECTION 10 ML IV (14:56)
[2024-04-29 15:00] VITALS: BP 139/80
[2024-04-29] MEDS: SENNA SYRUP TUBE (21:44)
[2024-04-29] MEDS: ZOLOFT 25 MG TUBE (21:53)
[2024-04-29] MEDS: BUSPAR 5 MG TUBE (21:53)
[2024-04-29] MEDS: MYLICON 120 MG TUBE (22:32)
[2024-04-29 23:00] VITALS: BP 154/88
[2024-04-30 07:22] VITALS: BP 152/98
[2024-04-30 09:22] LABS: Blood Urea Nitrogen 47 mg/dl (7-17); Calcium 8.9 mg/dl (8.4-10.2); Carbon Dioxide 23 mmol/L (22-30); Chloride 109 mmol/L (98-107); Estimated Creatinine Clearance 24 ml/min; Glucose 132 mg/dl (70-99); Potassium 4.8 mmol/L (3.5-5.1); Sodium 142 mmol/L (135-145); eGFR 23.45
[2024-04-30] MEDS: COLACE LIQUID 100 MG TUBE (09:30)
[2024-04-30] MEDS: LIORESAL 5 MG TUBE ×2 (09:30→21:14)
[2024-04-30] MEDS: NSS (PRESERVATIVE FREE) 10 ML IV (09:30)
[2024-04-30] MEDS: PROTONIX IV 40 MG IV (09:30)
[2024-04-30] MEDS: MIRALAX 17 GRAMS TUBE (09:30)
[2024-04-30] MEDS: PRED FORTE 1% EYE DROPS 1 DROP RIGHT EYE ×2 (09:31→21:15)
--- NOTE | 2024-04-30 09:34 | W.PN.HOSP.TC ---
Today's Communication/Plan
-
medically stable for D/C
Assessment / Plan
Assessment / Plan
63yo F with PMXH of cholecystectomy, DM, GERD, HTN, brain tumor, stroke, DVT s/p IVC filter with R UE and LE paraplegia on PEG, locke, s/p BAND MAKER shunt brought from [facility] with coffee groud emesis similar to the one in Feb 2024. PEG aspirate in ED was
clear, found bleeding granuloma arround PEG that was treated with silver nitrate. Also found significant constipation and started on bowel regimen. Later devenoped AMINA 2/2 hypoperfusion and possibly exacerbated by IV contrast. Received hydration so
Cr stabilized. IVF stopped and Cr continued to improve. Medically stable for d/c to repeat BMP in 1- week
A/P
#Coffee ground emesis
#Constipation
serial Hgb - stable
PPI
GI consult: laxatives
cannot exclude 2/2 PEG bleeding due to granuloma, that was stopped with silver nitrate in ED
CT abd with significant constipation, PEG appropriately in the stomach.
#AMINA 2/2 hypoperfusion, cannot r/o CINTIA
FeNA<1%
No eosinophils in urine
Nephrology consult: improved on hydration, now kept improving off IVF
#Possible UTI - ruled out
with AMINA - reasonable to treat
Ucx - mixed santino - empiric Rocephin completed 3 days, with no fever and no WBC elevation - reasonable to stop
Locke replaced on 04/27/24
#Chronic urinary retention with Locke
#Abdominal varicosities
#L simple renal cyst
#H/o brain tumor
#functional hemiplegia
#Hx of stroke
#s/p BAND MAKER shunt
#Chronic urinary retention on locke
#GERD
cont home meds
DVT ppx SCDs
Full code
I have spent at least 38min reviewing chart, test results, direct patient care
Anticipated Discharge: Within 24 hours
Subjective/Interval History
-
Date of Service: April 30, 2024
Objective Data
-
Labs:
Laboratory Results
04/30/24
08:10
Sodium 142
Potassium 4.8
Chloride 109 H
Carbon Dioxide 23
BUN 47 H
Creatinine 2.3 H
Glucose 132 H
Calcium 8.9
Vital Signs:
Vital Signs
Temp Pulse Resp BP Pulse Ox
98.2 F 118 16 152/98 98
04/30/24 07:22 04/30/24 07:22 04/30/24 07:22 04/30/24 07:22 04/30/24 07:22
I&O
04/29/24 04/30/24 05/01/24
06:59 06:59 06:59
Intake Total 1850 / 1850 600 / 600 960 / 960
Output Total 1600 / 1600 3250 / 3250
Balance 250 / 250 -2650 / -2650 960 / 960
Review of Systems
-
Unable to obtain full review of systems at this time due to: Other (answering to simple questions)
History Source: Patient
All other systems: Reviewed and negative
Physical Exam
-
General: No Apparent Distress
HEENT: Normocephalic
Cardiac: Regular Rhythm
GI: Soft, Nontender, Nondistended and Peg Tube
Genito-urinary: Clear Urine and Locke
Neuro: Awake and Alert
Psych: Calm
--- NOTE | 2024-04-30 10:53 | W.DCSUMMARY ---
Discharge Summary
Discharge Data
Date of Admission: 04/27/24
Date of Discharge: 04/30/24
-
Pending Results: No
Hospital Course
63yo F with PMXH of cholecystectomy, DM, GERD, HTN, brain tumor, stroke, DVT s/p IVC filter with R UE and LE paraplegia on PEG, locke, s/p ASSEMBLY LINE DRIVER shunt brought from SNF with coffee groud emesis similar to the one in Feb 2024. PEG aspirate in ED was
clear, found bleeding granuloma arround PEG that was treated with silver nitrate. Also found significant constipation and started on bowel regimen. Later devenoped AMINA 2/2 hypoperfusion and possibly exacerbated by IV contrast. Received hydration so
Cr stabilized. IVF stopped and Cr continued to improve. Medically stable for d/c to repeat BMP in 1- week. It is very important for her to continue to elevate the head of the bed up even in the mcc to prevent reflux esophagitis
I have spent at least 38min reviewing chart, test results, direct patient care
Patient was managed for:
#Coffee ground emesis
#Constipation
#AMINA 2/2 hypoperfusion, cannot r/o CINTIA
#Possible UTI - ruled out
#Chronic urinary retention with Locke
#Abdominal varicosities
#L simple renal cyst
#H/o brain tumor
#functional hemiplegia
#Hx of stroke
#s/p ASSEMBLY LINE DRIVER shunt
#Chronic urinary retention on locke
#GERD
Discharge Plan
-
Patient Disposition: Residential/SNF
Discharge Diagnosis/Procedures: Upper GIB
Diet: Tube feeding
Activity: As tolerated
Blood Work: BMP in 1 week
Others Tests: keep head of bed elevated at all times to prevent reflux and esophagitis
Activity Restrictions/Additional Instructions:
It is very important for her to continue to elevate the head of the bed up even in the mcc to prevent reflux esophagitis
Referrals:
Mickey Florentino, [Family Provider] -
Mahogany Rush CRNP [Specified Professional Personl] - (call to schedule GI follow up and continued treatment of granduloma around peg site )
Prescriptions:
New
amlodipine 2.5 mg Tablet
2.5 mg PO DAILY Qty: 30 0RF
Continued
buspirone 5 mg Tablet
5 mg feeding tube HS
albuterol sulfate 2.5 mg /3 mL (0.083 %) Solution For Nebulization
2.5 mg INHALATION R Q6HPRN PRN (Reason: SOB)
polyethylene glycol 3350 [Miralax] 17 gram Powder In Packet
17 g feeding tube DAILY
sennosides-docusate sodium [Senna-S] 8.6-50 mg Tablet
2 tab-cap PO BID
melatonin 3 mg Tablet
3 mg feeding tube HSPRN PRN (Reason: sleep )
prednisolone acetate [Pred Forte] 1 % Drops,Suspension
1 drp RIGHT EYE Q12H
bisacodyl [Dulcolax (bisacodyl)] 10 mg Suppository
10 mg NE [id number] PRN (Reason: IF NO BM AFTR MOM/OR LACTULOSE )
sertraline 25 mg Tablet
25 mg feeding tube HS
simethicone [Gas-X Extra Strength] 125 mg Tablet,Chewable
125 mg feeding tube TIDPRN PRN (Reason: gas pain )
acetaminophen 160 mg/5 mL Elixir
640 mg feeding tube Q4HPRN PRN (Reason: FEVER)
heparin (porcine) 5,000 unit/mL Syringe
5,000 unit SC BID
baclofen 5 mg Tablet
5 mg feeding tube BID
ondansetron HCl 4 mg Tablet
4 mg feeding tube Q6H PRN (Reason: Nausea/Vomitting)
Changed
Pantoprazole Liquid 2mg/Ml 2 MG liquid
40 mg feeding tube BID Qty: 0 0RF
Discharge Orders:
Discharge Patient (As Directed); Ordered 04/30/24
Ordered By: Shakeel Mckinney
Discharge Date and Time
Print Language: BELARUSIAN
--- NOTE | 2024-04-30 11:49 | CM ---
Chart reviewed and patient has been cleared for discharge today, home health care case manager spoke with Carissa nursing photographic supervisor at [facility] and they can accept patient and they are aware that no Auth has been obtained, patient is bedbound and no new needs.
home health care case manager spoke with patient's mother and IMM discussed by phone. Patient has a 4pm case picker by ambulance.
[facility]
Report [phone]

Plan; Patient to transfer to [facility] today.
[2024-04-30] MEDS: AFLURIA (36 mos+) 2024-2025 FORMULA 0.5 ML IM (12:56)
--- NOTE | 2024-04-30 14:41 | W.PN.NEPH.PH ---
Today's Communication / Plan
-
Observe
Follow BMP
Assessment/Plan
-
Impression:
AMINA
Coffee-ground emesis/constipation
Anemia
History of IVC filter
History of stroke with right hemiplegia/history of EDUCATION OFFICER shunt
PEG
Chronic Locke
Diabetes
History of brain mass resection
Plan:
AMINA:
-I suspect the patient's acute kidney injury is prerenal induced
-There was associated coffee-ground emesis. On presentation, as well as intermittent hypotension since admission
-There was IV contrast administration via CT scan on admission on 04/25
-I reviewed the patient's fractional excretion, which was less than 1%
-All these aforementioned factors are consistent with prerenal stimulus+contrast
-There was no evidence of obstructive uropathy by CAT scan.
UOP slowly improving now, keep locke
cr peak at 3 and repeat at 2.3-hopefully continues to improve, remains grossly nonoliguric via Locke catheter 3200 cc
-There is no evidence of gross electrolyte abnormality or hypervolemia on exam
-There is no need for acute dialysis
-
-
Date of Service: April 30, 2024
CC / HPI / ROS
-
Chief Complaint:
AMINA
History of Present Illness:
cr peak at 3 this am, now better at 2.3
Now grossly nonoliguric with urine collection of 3200 cc
Hemodynamically stay
Review of Systems:
no pain. can not cough , drooling saliva
no fever
pt non verbal
Nonoliguric via Locke
Labs
-
Labs:
WBC 5.2 10^3/uL (4.8-10.8) 04/29/24 08:48
RBC 3.48 10^6/uL (4.20-5.40) L 04/29/24 08:48
Hgb 10.4 g/dL (12.0-16.0) L 04/29/24 08:48
Hct 31.5 % (37.0-47.0) L 04/29/24 08:48
Plt Count 10^3/uL (130-400) 04/29/24 08:48
Sodium 142 mmol/L (135-145) 04/30/24 08:10
Potassium 4.8 mmol/L (3.5-5.1) 04/30/24 08:10
Chloride 109 mmol/L (98-107) H 04/30/24 08:10
Carbon Dioxide 23 mmol/L (22-30) 04/30/24 08:10
BUN 47 mg/dl (7-17) H 04/30/24 08:10
Creatinine 2.3 mg/dL (0.6-1.0) H 04/30/24 08:10
eGFR 23.45 04/30/24 08:10
Glucose 132 mg/dl (70-99) H 04/30/24 08:10
Calcium 8.9 mg/dl (8.4-10.2) 04/30/24 08:10
Albumin 3.3 g/dl (3.5-5.0) L 04/28/24 08:56
Physical Exam
-
Vital Signs:
Vital Signs
Temp Pulse Resp BP Pulse Ox
98.2 F 118 16 152/98 98
04/30/24 07:22 04/30/24 07:22 04/30/24 07:22 04/30/24 07:22 04/30/24 07:22
Cardiovascular:: Regular rate and rhythm
Respiratory:: Bilateral: Coarse
Lung Excursion:: Normal
Abdomen:: Nontender and Soft
Extremity Edema:: None: Bilateral:
Locke Catheter: Yes
Other Findings::
300cc
[2024-04-30 15:45] VITALS: BP 113/62
--- NOTE | 2024-04-30 15:56 | PTCARENOTE ---
patient has d/c orders, transport at bedside. Vital signs taken, patient has temp 100.8, MD Mckinney notified. Order to hold - no discharge. PRN tylenol given. will continue to monitor.
[2024-04-30 16:00] VITALS: BP 113/62
[2024-04-30] MEDS: TYLENOL ORAL SOLUTION 650 MG TUBE (16:01)
--- NOTE | 2024-04-30 16:26 | PTCARENOTE ---
Notified patient's mother, Mrs. Stone, that patient will not be d/c today due to high fever. will continue to monitor.
--- NOTE | 2024-04-30 17:55 | W.PN.UPDATE ---
Update Note
Progress Note Update
NEw fever - hold dc, repeat labs and infection workup. as per RN - no diarrhea
[2024-04-30 18:29] LABS: COVID-19 Antigen Negative (Negative)
[2024-04-30 18:44] LABS: % Basophils 0.5 % (0-2); % Eosinophils 4.9 % (0-6); % Immature Granulocytes 0.2 % (0-0.5); % Lymphocytes 21.6 % (20.5-51.1); % Monocytes 9.9 % (1.7-9.3); % Neutrophils 62.9 % (42.2-75.2); Absolute Eosinophils 0.3 10^3/uL (0-0.7); Absolute Lymphocytes 1.4 10^3/uL (1.2-3.4); Absolute Monocytes 0.6 10^3/uL (0.1-0.6); Hematocrit 28.5 % (37.0-47.0); Hemoglobin 9.4 g/dL (12.0-16.0); Mean Corpuscular Hgb 29.7 pg (27.0-31.0); Mean Corpuscular Volume 90.2 fL (81.0-99.0); Mean Platelet Volume 9.3 fL (7.4-10.4); Nucleated Red Blood Cells % 0 %; Platelet Count 194 10^3/uL (130-400); Red Blood Cell Count 3.16 10^6/uL (4.20-5.40); Red Cell Dist. Width 13.4 % (11.5-14.5); White Blood Cell Count 6.3 10^3/uL (4.8-10.8)
[2024-04-30 18:45] LABS: Urine Albumin Trace (Neg - Trace); Urine Bilirubin Negative (Negative); Urine Character Clear (Clear); Urine Color Yellow; Urine Glucose Negative (Negative); Urine Ketone Negative (Negative); Urine Leukocyte Trace (Negative); Urine Nitrite Negative (Negative); Urine Occult Blood Negative (Negative); Urine Urobilinogen Negative (Neg - 1+)
[2024-04-30 18:53] LABS: INR 0.99; PT 13.4 Sec (11.4-14.6)
[2024-04-30 18:54] LABS: APTT 40.4 Sec (23.4-35.0)
[2024-04-30 18:56] LABS: Urine Mucus Few; Urine Squamous Cell 0-2 /LPF (Few)
[2024-04-30 18:57] LABS: Urine Amorphous Seen; Urine Bacteria Moderate (Negative)
[2024-04-30 19:04] LABS: ALT (SGPT) 11 U/L (0-35); AST (SGOT) 20 U/L (14-36); Albumin 3.2 g/dl (3.5-5.0); Alkaline Phosphatase 105 U/L (38-126); Blood Urea Nitrogen 45 mg/dl (7-17); Calcium 8.7 mg/dl (8.4-10.2); Carbon Dioxide 24 mmol/L (22-30); Chloride 108 mmol/L (98-107); Estimated Creatinine Clearance 26 ml/min; Glucose 130 mg/dl (70-99); Potassium 4.6 mmol/L (3.5-5.1); Sodium 142 mmol/L (135-145); Total Bilirubin 0.4 mg/dl (0.2-1.3); Total Protein 6.1 g/dl (6.3-8.2); eGFR 26.15
[2024-04-30 19:15] LABS: Procalcitonin < 0.05 ng/ml (0.0-0.25)
[2024-04-30] MEDS: COLACE LIQUID TUBE (21:14)
[2024-04-30] MEDS: MIRALAX TUBE (21:14)
[2024-04-30] MEDS: BUSPAR 5 MG TUBE (21:18)
[2024-04-30] MEDS: ZOLOFT 25 MG TUBE (21:18)
[2024-04-30] MEDS: NSS (PRESERVATIVE FREE) IV (21:19)
[2024-04-30] MEDS: PROTONIX IV IV (21:19)
[2024-04-30] MEDS: SENNA SYRUP TUBE (21:22)
[2024-04-30 23:00] VITALS: BP 126/89
[2024-05-01 07:20] VITALS: BP 131/96
[2024-05-01] MEDS: LIORESAL 5 MG TUBE ×2 (07:22→21:24)
[2024-05-01] MEDS: NORVASC 2.5 MG PO (07:22)
[2024-05-01] MEDS: COLACE LIQUID 100 MG TUBE (07:22)
[2024-05-01] MEDS: NSS (PRESERVATIVE FREE) 10 ML IV ×2 (07:23→21:24)
[2024-05-01] MEDS: ROCEPHIN 1000 MG IV (07:24)
[2024-05-01] MEDS: PROTONIX IV 40 MG IV ×2 (07:24→21:25)
[2024-05-01] MEDS: PRED FORTE 1% EYE DROPS 1 DROP RIGHT EYE ×2 (07:25→21:25)
[2024-05-01] MEDS: MIRALAX TUBE ×2 (07:25→21:24)
[2024-05-01] MEDS: STERILE WATER FOR INJECTION 10 ML IV ×2 (07:27→21:28)
[2024-05-01 08:05] LABS: Hematocrit 26.7 % (37.0-47.0); Mean Corp Hgb Conc. 33.7 g/dL (33.0-37.0); Mean Corpuscular Hgb 30.5 pg (27.0-31.0); Mean Corpuscular Volume 90.5 fL (81.0-99.0); Mean Platelet Volume 9.5 fL (7.4-10.4); Platelet Count 179 10^3/uL (130-400); Red Blood Cell Count 2.95 10^6/uL (4.20-5.40); Red Cell Dist. Width 13.3 % (11.5-14.5); White Blood Cell Count 5.9 10^3/uL (4.8-10.8)
[2024-05-01 08:06] LABS: ALT (SGPT) 10 U/L (0-35); AST (SGOT) 20 U/L (14-36); Albumin 3.1 g/dl (3.5-5.0); Alkaline Phosphatase 101 U/L (38-126); Blood Urea Nitrogen 46 mg/dl (7-17); Calcium 8.6 mg/dl (8.4-10.2); Carbon Dioxide 23 mmol/L (22-30); Chloride 109 mmol/L (98-107); Estimated Creatinine Clearance 29 ml/min; Glucose 124 mg/dl (70-99); Potassium 4.9 mmol/L (3.5-5.1); Sodium 142 mmol/L (135-145); Total Bilirubin 0.5 mg/dl (0.2-1.3); Total Protein 6.1 g/dl (6.3-8.2); eGFR 29.49
[2024-05-01 08:35] LABS: % Basophils 0.7 % (0-2); % Eosinophils 5.6 % (0-6); % Immature Granulocytes 0.2 % (0-0.5); % Lymphocytes 28.3 % (20.5-51.1); % Monocytes 9.8 % (1.7-9.3); % Neutrophils 55.4 % (42.2-75.2); Absolute Eosinophils 0.3 10^3/uL (0-0.7); Absolute Lymphocytes 1.7 10^3/uL (1.2-3.4); Absolute Monocytes 0.6 10^3/uL (0.1-0.6); Absolute Neutrophils 3.3 10^3/uL (1.4-6.5); Nucleated Red Blood Cells % 0 %
--- NOTE | 2024-05-01 11:45 | W.PN.HOSP.TC ---
Today's Communication/Plan
-
Cont Rocephin
follow Bcx
follow serial Hgb
cont PPI
BMP in AM
complete anemia w/u
start Iron IV
recall GI
Assessment / Plan
Assessment / Plan
63yo F with PMXH of cholecystectomy, DM, GERD, HTN, brain tumor, stroke, DVT s/p IVC filter with R UE and LE paraplegia on PEG, locke, s/p BLEACH MIXER shunt brought from [facility] with coffee groud emesis similar to the one in Feb 2024. PEG aspirate in ED was
clear, found bleeding granuloma arround PEG that was treated with silver nitrate. Also found significant constipation and started on bowel regimen. Later devenoped AMINA 2/2 hypoperfusion and possibly exacerbated by IV contrast. Received hydration so
Cr stabilized. IVF stopped and Cr continued to improve. Developed one episode of fever and further Hgb drop so discharge held
A/P
#Coffee ground emesis
#Constipation
serial Hgb - stable
PPI
GI consult: laxatives
cannot exclude 2/2 PEG bleeding due to granuloma, that was stopped with silver nitrate in ED
CT abd with significant constipation, PEG appropriately in the stomach.
noted mild CHEYENNE - IV iron. Check B12, folate, retics and LDH
#Fever
single episode on 04/30/24
repeated infectious w/u
Chest XR without pneumonia
will cont treatment for UTI
Bcx NTD
COVID-19 and Influenza neg
#AMINA 2/2 hypoperfusion, cannot r/o CINTIA
FeNA<1%
No eosinophils in urine
Nephrology consult: improved on hydration, now kept improving off IVF and continues to improve
#Possible UTI - ruled out
with AMINA - reasonable to treat
Ucx - mixed santino - empiric Rocephin completed 3 days, with no fever and no WBC elevation - reasonable to stop
Locke replaced on 04/27/24
#Chronic urinary retention with Locke
#Abdominal varicosities
#L simple renal cyst
#H/o brain tumor
#functional hemiplegia
#Hx of stroke
#s/p BLEACH MIXER shunt
#Chronic urinary retention on locke
#GERD
cont home meds
DVT ppx SCDs
Full code
I have spent at least 58min reviewing chart, test results, direct patient care
Anticipated Discharge: > 48 hours
Subjective/Interval History
-
Date of Service: May 01, 2024
Objective Data
-
Labs:
Laboratory Results
05/01/24 05/01/24
07:27 11:43
WBC 5.9
Hgb 9.0 L Pending
Hct 26.7 L Pending
Plt Count 179
Sodium 142
Potassium 4.9
Chloride 109 H
Carbon Dioxide 23
BUN 46 H
Creatinine 1.9 H
Glucose 124 H
Calcium 8.6
Total Bilirubin 0.5
AST 20
ALT 10
Alkaline Phosphatase 101
Vital Signs:
Vital Signs
Temp Pulse Resp BP Pulse Ox
96.5 F L 103 18 131/96 99
05/01/24 07:20 05/01/24 07:20 05/01/24 07:20 05/01/24 07:22 05/01/24 07:20
I&O
04/30/24 05/01/24 05/02/24
06:59 06:59 06:59
Intake Total 600 / 600 960 / 960
Output Total 3250 / 3250 1100 / 1100
Balance -2650 / -2650 960 / 960 -1100 / -1100
Review of Systems
-
History Source: Patient
All other systems: Reviewed and negative
Physical Exam
-
General: No Apparent Distress
HEENT: Moist Mucous Membranes
Respiratory: Clear to Auscultation
Cardiac: Regular Rhythm
GI: Soft, Nontender and Nondistended
Musculoskeletal: No Clubbing, No Cyanosis and No Edema
Neuro: Awake and Alert
Psych: Calm
[2024-05-01 12:09] LABS: Hematocrit 27.3 % (37.0-47.0)
[2024-05-01 12:15] LABS: LDH 212 U/L (120-246)
[2024-05-01 12:20] LABS: Reticulocyte Count 1.3 % (0.4-2.8)
--- NOTE | 2024-05-01 12:34 | W.PN.NEPH.PH ---
Today's Communication / Plan
-
Follow BMP
Assessment/Plan
-
Impression:
AMINA
Coffee-ground emesis/constipation
Anemia
History of IVC filter
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
PEG
Chronic Locke
Diabetes
History of brain mass resection
Plan:
AMINA:
-I suspect the patient's acute kidney injury is prerenal induced
-There was associated coffee-ground emesis. On presentation, as well as intermittent hypotension since admission
-There was IV contrast administration via CT scan on admission on 04/25
-I reviewed the patient's fractional excretion, which was less than 1%
-All these aforementioned factors are consistent with prerenal stimulus+contrast
-There was no evidence of obstructive uropathy by CAT scan.
UOP slowly improving now, keep locke
cr peak at 3 and repeat at 1.9, remains nonoliguric around 1 L
-There is no evidence of gross electrolyte abnormality or hypervolemia on exam
-She remains hemodynamically stable
-
-
Date of Service: May 01, 2024
CC / HPI / ROS
-
Chief Complaint:
AMINA
History of Present Illness:
cr peak at 3 this am, now better at 1.9
Now grossly nonoliguric with urine collection of 3200 cc
Hemodynamically stable
Review of Systems:
no pain. can not cough
Some loose stools noted
no fever
pt non verbal
Nonoliguric via Locke
Labs
-
Labs:
WBC 5.9 10^3/uL (4.8-10.8) 05/01/24 07:27
RBC 2.95 10^6/uL (4.20-5.40) L 05/01/24 07:27
Hgb 9.0 g/dL (12.0-16.0) L 05/01/24 12:01
Hct 27.3 % (37.0-47.0) L 05/01/24 12:01
Plt Count 179 10^3/uL (130-400) 05/01/24 07:27
Sodium 142 mmol/L (135-145) 05/01/24 07:27
Potassium 4.9 mmol/L (3.5-5.1) 05/01/24 07:27
Chloride 109 mmol/L (98-107) H 05/01/24 07:27
Carbon Dioxide 23 mmol/L (22-30) 05/01/24 07:27
BUN 46 mg/dl (7-17) H 05/01/24 07:27
Creatinine 1.9 mg/dL (0.6-1.0) H 05/01/24 07:27
eGFR 29.49 05/01/24 07:27
Glucose 124 mg/dl (70-99) H 05/01/24 07:27
Calcium 8.6 mg/dl (8.4-10.2) 05/01/24 07:27
Albumin 3.1 g/dl (3.5-5.0) L 05/01/24 07:27
Physical Exam
-
Vital Signs:
Vital Signs
Temp Pulse Resp BP Pulse Ox
96.5 F L 103 18 131/96 99
05/01/24 07:20 05/01/24 07:20 05/01/24 07:20 05/01/24 07:22 05/01/24 07:20
Cardiovascular:: Regular rate and rhythm
Respiratory:: Bilateral: Coarse
Lung Excursion:: Normal
Abdomen:: Nontender and Soft
Extremity Edema:: None: Bilateral:
Locke Catheter: Yes
Other Findings::
300cc
--- NOTE | 2024-05-01 12:42 | W.PN.GI.CBS2 ---
Today's Communication / Plan
-
Brown, heme negative stool. PPI BID. No plans for inpatient endoscopic eval. GI will sign off, please call with questions.
Assessment / Plan
-
Pt is a 63yo with hx brain tumor, CVA with hemiplegia, CLASSIFICATION COUNSELOR shunt, chronic peg, PUD, GERD, HTN, NIDDM with recurrent admission with onset of coffee ground emesis at SNF. She was admitted in February with similar symptoms and noted with constipation.
On admission hbg 11.5 with prior 9-10. Per review with mother last admission Pt with brain tumor with surgery and CVA in 2020. She had peg placed at that time. She has had severe hospital admission to [facility] with EGD with
difficulty breathing in procedure. Colonoscopy has been discussed but opted for cologuard, which was performed recently and was negative. No episodes of coffee ground emesis since presentation, however, Hgb 9.0 yesterday and today, GI asked to
[place].
04/25 CT A/P
MARKEDLY LIMITED STUDY as a result of several factors including marked beam hardening artifact from the patient's bilateral upper extremities, patient motion/respiration artifact, relative paucity of intra-abdominal fat and lack of oral contrast
opacification of majority of large bowel. No intestinal obstruction or free air.
Cutaneous gastrostomy in the stomach.
Apparent prior cholecystectomy.
IVC filter.
No intestinal obstruction or free air. Cannot exclude colonic inflammatory process. Large volume stool filling and distending the rectum. Cannot exclude stercoral colitis.
04/26 abd film
Contrast extends to the colon and rectum with a large rectal stool burden.
Laboratory Tests
04/25/24 04/25/24 04/25/24
09:36 14:23 21:57
Hgb 9.7 L 10.2 L 10.0 L
04/26/24
07:39
Hgb 10.6 L
-coffee ground emesis with recurrent admission--none since arrival
-granuloma around peg site s/p silver nitrate treatment--> improving
-prior noted fecal impaction/large bowel distention on prior CT and increased stool burden on imaging --> improved with bowel regimen
-mild anemia iron studies not consistent with iron deficiency --> hemoglobin has ranged from 9-11 during current admission without any transfusions.
-AMINA during admission
- mild patulous fluid filled esophagus putting pt at risk for aspiration per OSH imaging
other med problems:
hx PUD
-brain tumor
-CVA with hemiplegia
-GERD
-HTN
-NIDDM
PLAN:
Etiology of coffee grounds related to esophagitis with noted esophageal dysmotility with patulous esophagus noted on prior CT, underlying constipation heme neg on rectal exam, vs other
peg irrigation clear 04/25
CT as noted and follow up abd film with continued stool burden, improved with bowel regimen
tolerating tube feeds at goal
hbg 9.0 --> rectal exam with brown stool, heme negative
No plans for inpatient endoscopic evaluation, bakari. given no signs of active bleeding and reassuring rectal examination
reviewed again with mother holding on EGD but if another episode or admission would consider proceeding
stressed need to keep HOB elevated to prevent GERD
she had recent Cologuard that was negative
cont PPI BID x 8 weeks on discharge then daily --> *ensure PPI formulation can be administered through PEG when discharged
-
Subjective
Subjective
Date of Service: May 01, 2024
GI evaluated patient upon admission for coffee-ground emesis and anemia, heme negative stools and no evidence of CHEYENNE. GI called back for hemoglobin of 9.0 over last 2 days. Upon review of her labs, hemoglobin typically ranges from 9-10. No coffee
ground emesis since that evaluation. No melena. No evidence of bleeding through PEG.
Objective
Data Reviewed
Laboratory Data:
Laboratory Results
05/01/24 12:01
05/01/24 07:27
Laboratory Results
PT 13.4 Sec (11.4-14.6) 04/30/24 18:33
INR 0.99 04/30/24 18:33
APTT 40.4 Sec (23.4-35.0) H 04/30/24 18:33
Total Bilirubin 0.5 mg/dl (0.2-1.3) 05/01/24 07:27
AST 20 U/L (14-36) 05/01/24 07:27
ALT 10 U/L (0-35) 05/01/24 07:27
Alkaline Phosphatase 101 U/L (38-126) 05/01/24 07:27
Vital Signs and I&O:
Vital Signs
Temp Pulse Resp BP Pulse Ox
96.5 F L 103 18 131/96 99
05/01/24 07:20 05/01/24 07:20 05/01/24 07:20 05/01/24 07:22 05/01/24 07:20
I&O
04/30/24 05/01/24 05/02/24
06:59 06:59 06:59
Intake Total 600 / 600 960 / 960
Output Total 3250 / 3250 1100 / 1100
Balance -2650 / -2650 960 / 960 -1100 / -1100
Physical Exam
Physical Exam
GI: Soft, Non Tender and Other (+PEG site intact, healing granulation tissue, no significant irritation or pus. )
Rectal: Brown and Hem Negative
[2024-05-01 13:23] LABS: Folate 5.7 ng/ml (2.76-20); Vitamin B12 977 pg/ml (239-931)
[2024-05-01] MEDS: D5/0.9% SODIUM CHLORIDE 1000 IV ×2 (13:37→15:00)
[2024-05-01] MEDS: FERRLECIT 110 MG IV (13:42)
[2024-05-01 15:38] VITALS: BP 120/80
[2024-05-01] MEDS: OMNIPAQUE 50 ML PO (17:32)
[2024-05-01] MEDS: NSS (PRESERVATIVE FREE) IV ×2 (21:24→21:25)
[2024-05-01] MEDS: ZOLOFT 25 MG TUBE (21:24)
[2024-05-01] MEDS: BUSPAR 5 MG TUBE (21:24)
[2024-05-01] MEDS: COLACE LIQUID TUBE (21:25)
[2024-05-01] MEDS: SENNA SYRUP TUBE (21:26)
[2024-05-01] MEDS: MERREM 500 MG IV (21:28)
--- NOTE | 2024-05-01 21:31 | W.PN.UPDATE ---
Update Note
Progress Note Update
Pt with new found abscess in rectum via CT scan. Colorectal consulted by attending physician.
Abd exam softly distended. Pt without grimacing when abd palpated. Per RN abd exam is unchanged from previous night. Temps around 99.
Will keep NPO pending colorectal eval in am.
[2024-05-01 23:23] VITALS: BP 134/87
--- NOTE | 2024-05-02 01:09 | PTCARENOTE ---
Pt had CT of abdomen at the start of the shift. Once completed and read Dr Mckinney reached out to Amalia OLIVA to assess pt. No change in pt assessment. Colorectal surgery consulted. RN reached out to DR Mckinney to verify if pt was to
remain npo or were TF to be restarted. He ordered to keep NPO and increase IVF to 100ml/hr. Amalia OLIVA entered order to change rate of IVF. Pt with loose stools over past 2 days. Order placed to send specimen to r/o norovirus. Pt updated
on orders.
[2024-05-02] MEDS: D5/0.9% SODIUM CHLORIDE 1000 IV ×2 (05:17→16:22)
[2024-05-02] MEDS: MERREM 500 MG IV ×2 (05:17→14:46)
[2024-05-02] MEDS: STERILE WATER FOR INJECTION 10 ML IV ×2 (05:18→14:47)
[2024-05-02 07:26] VITALS: BP 142/85
[2024-05-02 07:49] LABS: % Basophils 0.7 % (0-2); % Eosinophils 5.9 % (0-6); % Lymphocytes 29.7 % (20.5-51.1); % Monocytes 10.3 % (1.7-9.3); % Neutrophils 53.4 % (42.2-75.2); Absolute Eosinophils 0.3 10^3/uL (0-0.7); Absolute Lymphocytes 1.7 10^3/uL (1.2-3.4); Absolute Monocytes 0.6 10^3/uL (0.1-0.6); Hematocrit 28.9 % (37.0-47.0); Hemoglobin 9.7 g/dL (12.0-16.0); Mean Corp Hgb Conc. 33.6 g/dL (33.0-37.0); Mean Corpuscular Volume 89.5 fL (81.0-99.0); Mean Platelet Volume 10.2 fL (7.4-10.4); Nucleated Red Blood Cells % 0 %; Platelet Count 191 10^3/uL (130-400); Red Blood Cell Count 3.23 10^6/uL (4.20-5.40); Red Cell Dist. Width 13.1 % (11.5-14.5); White Blood Cell Count 5.6 10^3/uL (4.8-10.8)
[2024-05-02 08:27] LABS: Blood Urea Nitrogen 37 mg/dl (7-17); Calcium 8.8 mg/dl (8.4-10.2); Carbon Dioxide 23 mmol/L (22-30); Chloride 107 mmol/L (98-107); Estimated Creatinine Clearance 34 ml/min; Glucose 100 mg/dl (70-99); Potassium 4.1 mmol/L (3.5-5.1); Sodium 141 mmol/L (135-145); eGFR 36.24
--- NOTE | 2024-05-02 08:55 | W.PN.HOSP.TC ---
Today's Communication/Plan
-
cont Abx pending Colorectal eval
Assessment / Plan
Assessment / Plan
63yo F with PMXH of cholecystectomy, DM, GERD, HTN, brain tumor, stroke, DVT s/p IVC filter with R UE and LE paraplegia on PEG, locke, s/p SIFTER [employer] MILLER shunt brought from [facility] with coffee groud emesis similar to the one in Feb 2024. PEG aspirate in ED was
clear, found bleeding granuloma arround PEG that was treated with silver nitrate. Also found significant constipation and started on bowel regimen. Later devenoped AMINA 2/2 hypoperfusion and possibly exacerbated by IV contrast. Received hydration so
Cr stabilized. IVF stopped and Cr continued to improve. Developed one episode of fever and further Hgb drop so discharge held. Repeated rectal exam by GI showed brown stool, nio plan for EGD. CT abd accidentally found proctocolitis with possible
perirectal abscesses
A/P
#Colitis with perirectal abscesses on CT
Colorectal Sx
Merrem
#Coffee ground emesis
#Constipation
serial Hgb - stable
PPI
GI consult: laxatives
cannot exclude 2/2 PEG bleeding due to granuloma, that was stopped with silver nitrate in ED
CT abd with significant constipation, PEG appropriately in the stomach.
noted mild CHEYENNE - IV iron. Check B12, folate, retics and LDH
#Fever
single episode on 04/30/24
repeated infectious w/u
Chest XR without pneumonia
Bcx NTD
COVID-19 and Influenza neg
#AMINA 2/2 hypoperfusion, cannot r/o CINTIA
FeNA<1%
No eosinophils in urine
Nephrology consult: improved on hydration, now kept improving off IVF and continues to improve
#Possible UTI - ruled out
with AMINA - reasonable to treat
Ucx - mixed santino - empiric Rocephin completed 3 days, with no fever and no WBC elevation - reasonable to stop
Locke replaced on 04/27/24
#Chronic urinary retention with Locke
#Abdominal varicosities
#L simple renal cyst
#H/o brain tumor
#functional hemiplegia
#Hx of stroke
#s/p SIFTER [employer] MILLER shunt
#Chronic urinary retention on locke
#GERD
cont home meds
DVT ppx SCDs
Full code
I have spent at least 55min reviewing chart, test results, direct patient care
Anticipated Discharge: > 48 hours
Subjective/Interval History
-
Date of Service: May 02, 2024
Objective Data
-
Labs:
Laboratory Results
05/02/24
06:48
WBC 5.6
Hgb 9.7 L
Hct 28.9 L
Plt Count 191
Sodium 141
Potassium 4.1
Chloride 107
Carbon Dioxide 23
BUN 37 H
Creatinine 1.6 H
Glucose 100 H
Calcium 8.8
Vital Signs:
Vital Signs
Temp Pulse Resp BP Pulse Ox
98.6 F 90 18 142/85 99
05/02/24 07:26 05/02/24 07:26 05/02/24 07:26 05/02/24 07:26 05/02/24 07:26
I&O
05/01/24 05/02/24 05/03/24
06:59 06:59 06:59
Intake Total 960 / 960 1100 / 1100
Output Total 2300 / 2300
Balance 960 / 960 -1200 / -1200
Review of Systems
-
History Source: Patient
All other systems: Reviewed and negative
Physical Exam
-
General: No Apparent Distress
Respiratory: Clear to Auscultation
Cardiac: Regular Rhythm
GI: Soft, Nontender and Nondistended
Genito-urinary: No Costovertebral Tender
Neuro: Awake, Alert, Oriented and AO x 3
Psych: Calm
[2024-05-02] MEDS: MIRALAX TUBE ×2 (09:06→19:57)
[2024-05-02] MEDS: COLACE LIQUID TUBE ×2 (09:07→19:57)
[2024-05-02] MEDS: NORVASC 2.5 MG PO (09:07)
[2024-05-02] MEDS: NSS (PRESERVATIVE FREE) 10 ML IV ×2 (09:07→19:58)
[2024-05-02] MEDS: LIORESAL 5 MG TUBE ×2 (09:07→19:58)
[2024-05-02] MEDS: PROTONIX IV 40 MG IV ×2 (09:07→19:58)
[2024-05-02] MEDS: PRED FORTE 1% EYE DROPS 1 DROP RIGHT EYE ×2 (09:08→20:00)
--- NOTE | 2024-05-02 11:24 | CON.CRS ---
Consultation
-
Date/Time Consultation Requested: 05/01/2024, 20:37
Date/Time Consultation Performed: 05/02/2024, 08:45
Requesting Provider: Shakeel Mckinney MD
Performing Provider: Rod Larkin MD
Reason for Consultation: ?rectal abscess
Medical History
-
Chief Complaint: coffee ground emesis
History of Present Illness:
63-year-old female, with a history of CVA and right-sided hemiparesis, brain tumor removal, and chronic PEG tube, presented to [facility] on 04/25/2024 from her [facility] due to 3-4 episodes of coffee-ground emesis. At baseline the
patient is mostly nonverbal and information was obtained from prior documentation. The patient was worked up by gastroenterology and ultimately did not undergo an endoscopic evaluation given no active signs of further bleeding. Due to a fever, the
patient underwent a CT abdomen pelvis yesterday which showed moderate circumferential wall thickening of the rectum which can be seen with colitis, previously severe fecal impaction present it is no longer present, and a possible developing
perirectal abscess versus limited distention of the rectum. Given that above finding, we have been consulted for further surgical opinion.
Past Medical History
Past Medical History: Other (CVA, GERD, NIDDM, chronic urinary retention, h/o brain tumor)
Past Surgical History: Other (peg, brain tumor resection)
Social History
Tobacco: Non-Smoker
Alcohol: None
Drug: None
Living: [facility]
Family History
Family History: Reviewed & Not Pertinent
Allergies / Home Medications
Allergy/AdvReac Type Severity Reaction Status Date / Time
No Known Allergies Allergy Verified 03/16/24 05:59
�Medication �Instructions �Recorded �Confirmed �Type
acetaminophen 160 mg/5 mL oral 640 mg feeding tube Q4HPRN PRN 03/16/24 04/24/24 History
elixir FEVER
albuterol sulfate 2.5 mg/3 mL 2.5 mg inhalation R Q6HPRN PRN SOB 03/16/24 04/24/24 History
(0.083 %) solution for nebulization
baclofen 5 mg tablet 5 mg feeding tube BID Muscle Spasms 03/16/24 04/24/24 History
bisacodyl 10 mg rectal suppository 10 mg [place] [id number] PRN IF NO BM AFTR 03/16/24 04/24/24 History
(Dulcolax (bisacodyl)) MOM/OR LACTULOSE
buspirone 5 mg tablet 5 mg feeding tube HS anxiety 03/16/24 04/24/24 History
heparin (porcine) 5,000 unit/mL 5,000 unit SC BID Blood Clot 03/16/24 04/24/24 History
injection syringe Prevention/Tx
melatonin 3 mg tablet 3 mg feeding tube HSPRN PRN sleep 03/16/24 04/24/24 History
polyethylene glycol 3350 17 gram 17 g feeding tube DAILY 03/16/24 04/24/24 History
oral powder packet (Miralax) Constipation
prednisolone acetate 1 % eye 1 drp RIGHT EYE Q12H Eye Condition 03/16/24 04/24/24 History
drops,suspension (Pred Forte)
sennosides 8.6 mg-docusate sodium 2 tab-cap PO BID Constipation 03/16/24 04/24/24 History
50 mg tablet (Senna-S)
sertraline 25 mg tablet 25 mg feeding tube HS 03/16/24 04/24/24 History
depression/anxiety
simethicone 125 mg chewable tablet 125 mg feeding tube TIDPRN PRN gas 03/16/24 04/24/24 History
(Gas-X Extra Strength) pain
ondansetron HCl 4 mg tablet 4 mg feeding tube Q6H PRN 04/24/24 04/24/24 History
Nausea/Vomitting
Pantoprazole Liquid 2mg/Ml 40 mg feeding tube BID 04/30/24 04/24/24 Rx
Gastrointestinal Issue ##0
amlodipine 2.5 mg tablet 2.5 mg PO DAILY #30 tabs 04/30/24 Rx
Review of Systems
-
History Source: Physician
Abdomen/GI: Vomiting (coffee ground)
A 10 point review of systems was completed, and was negative except as per HPI.
Physical Exam
Vital Signs
Temp 98.6 F 05/02/24 07:26
Pulse 90 05/02/24 07:26
Resp Rate 18 05/02/24 07:26
Blood pressure 142/85 05/02/24 07:26
SaO2 99 05/02/24 07:26
Body Mass Index (BMI) 23.2
Lab Results / Allergies
05/02/24 06:48
05/02/24 06:48
WBC 5.6 10^3/uL (4.8-10.8) 05/02/24 06:48
Hgb 9.7 g/dL (12.0-16.0) L 05/02/24 06:48
Hct 28.9 % (37.0-47.0) L 05/02/24 06:48
Plt Count 191 10^3/uL (130-400) 05/02/24 06:48
Abs Immat Gran (auto) 0.0 10^3/uL (0-0.05) 05/02/24 06:48
Neutrophils % 53.4 % (42.2-75.2) 05/02/24 06:48
Allergy/AdvReac Type Severity Reaction Status Date / Time
No Known Allergies Allergy Verified 03/16/24 05:59
Physical Exam
General: No Apparent Distress and Comfortable
GI: Soft, Non Tender and Other (peg in place, old midline incision noted)
Rectal: Other (Normal tone, no masses or bleeding bleeding, no pain upon exam)
Skin: Warm and Dry
Neuro: Awake
Psych: Calm
Data Reviewed
-
CT Scan: Image Personally Visualized and interpreted, Discussed with Physician and Discussed with Patient
Labs: Labs Reviewed by me, Discussed with Physician and Discussed with Patient
Old Records: Reviewed
Assessment / Plan
-
Assessment: 63-year-old female with a significant past medical history of left CVA and brain tumor removal, status post PEG and chronically bedbound, presents with coffee-ground emesis several days ago which has resolved, fever overnight, CT abdomen
pelvis shows a questionable developing perirectal abscess and stercoral colitis, no significant findings on exam
Plan:
No evidence on LIDIA for a perirectal abscess. No plans for surgery at this time. Bowel regimen per GI. Will sign off. Please contact us if any further surgical issues arise.
[2024-05-02] MEDS: VANCOCIN 530 MG IV (12:30)
--- NOTE | 2024-05-02 13:15 | PHA.VAN.IN ---
Assessment
- Assessment
Renal Function: Appears elevated from baseline (SCR 1.6 vs ~1)
Concomitant Antimicrobials: meropenem
Plan
- Plan
Initial / Loading Dose: 1500mg - 05/02 12:30
Maintenance Regimen: dosing by level
Monitoring: random 05/03 0600
Pharmacokinetics Vancomycin I
- -
Patient Age: 63
Patient Sex: Female
Vancomycin Day #: 1
Indication: Genito-Urinary Tract
Requesting Provider: Dr. Mckinney
Pertinent Antimicrobial Allergies:
NKDA
Height / Weight:
Height 5 ft 6 in
Actual Weight 65.1 kg
- Vital Signs / Lab Results
Temp Pulse Resp BP Pulse Ox
98.6 F 90 18 142/85 99
05/02/24 07:26 05/02/24 07:26 05/02/24 07:26 05/02/24 07:26 05/02/24 07:26
Lab Results - Hematology
04/30/24 05/01/24 05/02/24
18:33 07:27 06:48
WBC 6.3 5.9 5.6
Lab Results - Chemistry
04/30/24 04/30/24 05/01/24
08:10 18:33 07:27
BUN 47 H 45 H 46 H
Creatinine 2.3 H 2.1 H 1.9 H
Estimated Creat Clear 24 26 29
Albumin 3.2 L 3.1 L
05/02/24
06:48
BUN 37 H
Creatinine 1.6 H
Estimated Creat Clear 34
Albumin
04/30/24
18:33
Lactic Acid 1.0
Lab Results - Urine
04/30/24
18:40
Urine Nitrite (Reflex) Negative
Leukocyte Esterase Rfl Trace A
Urine WBC (Reflex) 3-5
Ur Squamous Epith Cells 0-2
Urine Bacteria (Reflex) Moderate A
Microbiology Results
05/02/24 00:31 - Final
Feces/Stool Negative for Norovirus GI and GII.
04/30/24 18:40 Urine Culture - Preliminary
Urine Enterococcus species
04/30/24 21:35 Blood Culture - Preliminary
Blood/Venous No Growth in 24 hours- Final report to follow
04/30/24 18:33 Blood Culture - Preliminary
Blood/Venous No Growth in 24 hours- Final report to follow
04/30/24 21:06 Influenza Types A & B (CARIDAD) - Final
Nasal Swab Negative for Influenza A & B, NAAT
Negative results must be combined with clinical observations
and patient history.
Nucleic Acid Amplification test (NAAT)performed on the
[employer] platform.
--- NOTE | 2024-05-02 14:08 | CM ---
Chart reviewed
[place]/rectal consult
NPO
IVF's and antibiotics
Plan - Return to [facility] when medically stable
[2024-05-02] MEDS: FERRLECIT 110 MG IV (14:47)
[2024-05-02 14:55] VITALS: BP 140/85
--- NOTE | 2024-05-02 15:32 | W.PN.NEPH.PH ---
Today's Communication / Plan
-
Continue IV fluid
Assessment/Plan
-
Impression:
AMINA
Coffee-ground emesis/constipation
Anemia
History of IVC filter
History of stroke with right hemiplegia/history of BAR USEFUL OR BUSSER shunt
PEG
Chronic Locke
Diabetes
History of brain mass resection
Plan:
AMINA:
-I suspect the patient's acute kidney injury is prerenal induced
-There was associated coffee-ground emesis. On presentation, as well as intermittent hypotension since admission
-There was IV contrast administration via CT scan on admission on 04/25
-I reviewed the patient's fractional excretion, which was less than 1%
-All these aforementioned factors are consistent with prerenal stimulus+contrast
-There was no evidence of obstructive uropathy by CAT scan.
UOP slowly improving now, keep locke
cr peak at 3 and repeat at 1.9,>1.6
-There is no evidence of gross electrolyte abnormality or hypervolemia on exam
-She remains hemodynamically stable
-
-
Date of Service: May 02, 2024
CC / HPI / ROS
-
Chief Complaint:
AMINA
History of Present Illness:
cr peak at 3 improving daily
Now grossly nonoliguric with urine collection of 3200 cc
Hemodynamically stable
Review of Systems:
no pain. can not cough
Some loose stools noted
no fever
pt non verbal
Nonoliguric via Locke
Labs
-
Labs:
WBC 5.6 10^3/uL (4.8-10.8) 05/02/24 06:48
RBC 3.23 10^6/uL (4.20-5.40) L 05/02/24 06:48
Hgb 9.7 g/dL (12.0-16.0) L 05/02/24 06:48
Hct 28.9 % (37.0-47.0) L 05/02/24 06:48
Plt Count 191 10^3/uL (130-400) 05/02/24 06:48
Sodium 141 mmol/L (135-145) 05/02/24 06:48
Potassium 4.1 mmol/L (3.5-5.1) 05/02/24 06:48
Chloride 107 mmol/L (98-107) 05/02/24 06:48
Carbon Dioxide 23 mmol/L (22-30) 05/02/24 06:48
BUN 37 mg/dl (7-17) H 05/02/24 06:48
Creatinine 1.6 mg/dL (0.6-1.0) H 05/02/24 06:48
eGFR 36.24 05/02/24 06:48
Glucose 100 mg/dl (70-99) H 05/02/24 06:48
Calcium 8.8 mg/dl (8.4-10.2) 05/02/24 06:48
Albumin 3.1 g/dl (3.5-5.0) L 05/01/24 07:27
Physical Exam
-
Vital Signs:
Vital Signs
Temp Pulse Resp BP Pulse Ox
98.1 F 97 18 140/85 96
05/02/24 14:55 05/02/24 14:55 05/02/24 14:55 05/02/24 14:55 05/02/24 14:55
Cardiovascular:: Regular rate and rhythm
Respiratory:: Bilateral: Coarse
Lung Excursion:: Normal
Abdomen:: Nontender and Soft
Extremity Edema:: None: Bilateral:
Locke Catheter: Yes
Other Findings::
300cc
[2024-05-02] MEDS: UNASYN IV (18:00)
[2024-05-02] MEDS: SENNA SYRUP TUBE (19:57)
[2024-05-02] MEDS: BUSPAR 5 MG TUBE (22:30)
[2024-05-02] MEDS: ZOLOFT 25 MG TUBE (22:30)
[2024-05-02] MEDS: STERILE WATER FOR INJECTION IV (22:56)
[2024-05-02 23:25] VITALS: BP 135/66
[2024-05-03] MEDS: UNASYN IV ×3 (00:26→12:18)
[2024-05-03] MEDS: D5/0.9% SODIUM CHLORIDE 1000 IV (04:43)
[2024-05-03] MEDS: STERILE WATER FOR INJECTION IV (05:16)
--- NOTE | 2024-05-03 05:48 | W.PN.UPDATE ---
Update Note
Progress Note Update
9258 RN reports Peg tune site with some bleeding and mendiola drainage(does not appear to be TF). Peg intact with large circumferential granuloma around tube with bleeding, no buried bumper. PT does have hx of this.
Advised to cover site with quick clot dressing. Will consider GI consult if no improvement.
--- NOTE | 2024-05-03 06:00 | PTCARENOTE ---
This RN noticed increased oozing serosanguineous drainage surrounding pt's PEG tube site. Pt denies pain at PEG site or nausea at this time. CAILIN Fuentes notified, tube feedings to be continued at ordered rate and GI consult considered if
drainage worsens. Quick clot hemostat dressing applied directly to drainage. Will pass along to dayshift RN and continue current plan of care. Refer to CAILIN Fuentes's note.
[2024-05-03 07:30] LABS: Hematocrit 28.2 % (37.0-47.0); Hemoglobin 9.5 g/dL (12.0-16.0); Mean Corp Hgb Conc. 33.7 g/dL (33.0-37.0); Mean Corpuscular Hgb 29.6 pg (27.0-31.0); Mean Corpuscular Volume 87.9 fL (81.0-99.0); Platelet Count 182 10^3/uL (130-400); Red Blood Cell Count 3.21 10^6/uL (4.20-5.40); Red Cell Dist. Width 13.1 % (11.5-14.5); White Blood Cell Count 4.6 10^3/uL (4.8-10.8)
[2024-05-03 07:36] LABS: Procalcitonin < 0.05 ng/ml (0.0-0.25)
[2024-05-03 07:45] VITALS: BP 142/88
[2024-05-03 08:26] LABS: ALT (SGPT) 12 U/L (0-35); AST (SGOT) 22 U/L (14-36); Albumin 3.3 g/dl (3.5-5.0); Alkaline Phosphatase 93 U/L (38-126); Blood Urea Nitrogen 30 mg/dl (7-17); Calcium 8.8 mg/dl (8.4-10.2); Carbon Dioxide 21 mmol/L (22-30); Chloride 109 mmol/L (98-107); Estimated Creatinine Clearance 42 ml/min; Glucose 104 mg/dl (70-99); Potassium 3.9 mmol/L (3.5-5.1); Sodium 142 mmol/L (135-145); Total Bilirubin 0.6 mg/dl (0.2-1.3); Total Protein 6.4 g/dl (6.3-8.2); eGFR 46.49
--- NOTE | 2024-05-03 09:13 | W.PN.HOSP.TC ---
Today's Communication/Plan
-
dc
Assessment / Plan
Assessment / Plan
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 with coffee groud emesis similar to the one in Feb 2024. PEG aspirate in ED was
clear, found bleeding granuloma arround PEG that was treated with silver nitrate. Also found significant constipation and started on bowel regimen. Later devenoped AMINA 2/2 hypoperfusion and possibly exacerbated by IV contrast. Received hydration so
Cr stabilized. IVF stopped and Cr continued to improve. Developed one episode of fever and further Hgb drop so discharge held. Repeated rectal exam by GI showed brown stool, nio plan for EGD. CT abd accidentally found proctocolitis with possible
perirectal abscesses that were not confirmed on assessment by ColorectalSx. UCx grew VRE - ampicillin started. Hgb stable, BID PPI advised via PEG upon d/c. Advised to temporary hold chemical DVT ppx - cont compression therapy. Medically stable for
d/c. Intermittent bleeding from PEG tube granulation to be treated with silver sulfasalazine. Locke to be replaced again before d/c
A/P
#Colitis with perirectal abscesses on CT
Colorectal Sx ruled out
#Coffee ground emesis
#Constipation
serial Hgb - stable
PPI
GI consult: laxatives
cannot exclude 2/2 PEG bleeding due to granuloma, that was stopped with silver nitrate in ED
CT abd with significant constipation, PEG appropriately in the stomach.
noted mild CHEYENNE - IV iron. Check B12, folate, retics and LDH
#Fever 2/2 VRE UTI
single episode on 04/30/24
repeated infectious w/u
Chest XR without pneumonia
Bcx NTD
COVID-19 and Influenza neg
#AMINA 2/2 hypoperfusion, cannot r/o CINTIA
FeNA<1%
No eosinophils in urine
Nephrology consult: improved on hydration, now kept improving off IVF and continues to improve
#Possible UTI - ruled out
with AMINA - reasonable to treat
Ucx - mixed santino - empiric Rocephin completed 3 days, with no fever and no WBC elevation - reasonable to stop
Locke replaced on 04/27/24
#Chronic urinary retention with Locke
#Abdominal varicosities
#L simple renal cyst
#H/o brain tumor
#functional hemiplegia
#Hx of stroke
#s/p LUBRICATION EQUIPMENT SERVICER shunt
#Chronic urinary retention on locke
#GERD
cont home meds
DVT ppx SCDs
Full code
I have spent at least 55min reviewing chart, test results, direct patient care
Anticipated Discharge: Today
Subjective/Interval History
-
Date of Service: May 03, 2024
Objective Data
-
Labs:
Laboratory Results
05/03/24 05/03/24
06:50 06:51
WBC 4.6 L
Hgb 9.5 L
Hct 28.2 L
Plt Count 182
Sodium 142
Potassium 3.9
Chloride 109 H
Carbon Dioxide 21 L
BUN 30 H
Creatinine 1.3 H
Glucose 104 H
Calcium 8.8
Total Bilirubin 0.6
AST 22
ALT 12
Alkaline Phosphatase 93
Vital Signs:
Vital Signs
Temp Pulse Resp BP Pulse Ox
98.5 F 90 18 142/88 96
05/03/24 07:45 05/03/24 07:45 05/03/24 07:45 05/03/24 07:45 05/03/24 07:45
I&O
05/02/24 05/03/24 05/04/24
06:59 06:59 06:59
Intake Total 1100 / 1100 1900 / 1900
Output Total 2300 / 2300 3500 / 3500
Balance -1200 / -1200 -1600 / -1600
Review of Systems
-
History Source: Patient
All other systems: Reviewed and negative
Physical Exam
-
General: No Apparent Distress
HEENT: Normocephalic
Respiratory: Clear to Auscultation
GI: Soft, Nondistended and Peg Tube
Genito-urinary: No Costovertebral Tender and Locke
Musculoskeletal: No Clubbing, No Cyanosis and No Edema
Neuro: Awake, Alert, Oriented and AO x 3
Psych: Calm
--- NOTE | 2024-05-03 09:20 | W.DCSUMMARY ---
Discharge Summary
Discharge Data
Date of Admission: 04/27/24
Date of Discharge: 05/03/24
-
Pending Results: No
Hospital Course
63yo F with PMXH of cholecystectomy, DM, GERD, HTN, brain tumor, stroke, DVT s/p IVC filter with R UE and LE paraplegia on PEG, locke, s/p DOCUMENT SPECIALIST shunt brought from [facility] with coffee groud emesis similar to the one in Feb 2024. PEG aspirate in ED was
clear, found bleeding granuloma arround PEG that was treated with silver nitrate. Also found significant constipation and started on bowel regimen. Later devenoped AMINA 2/2 hypoperfusion and possibly exacerbated by IV contrast. Received hydration so
Cr stabilized. IVF stopped and Cr continued to improve. Developed one episode of fever and further Hgb drop so discharge held. Repeated rectal exam by GI showed brown stool, nio plan for EGD. CT abd accidentally found proctocolitis with possible
perirectal abscesses that were not confirmed on assessment by ColorectalSx. UCx grew VRE - ampicillin started. Hgb stable, BID PPI advised via PEG upon d/c. Advised to temporary hold chemical DVT ppx - cont compression therapy. Medically stable for
d/c. Intermittent bleeding from PEG tube granulation to be treated with silver sulfasalazine. Locke to be replaced again before d/c. Cr kept improving off IVF
I have spent at least 55min reviewing chart, test results, direct patient care
Patient was managed for:
#Colitis with perirectal abscesses on CT
#Coffee ground emesis
#Constipation
#Fever 2/2 VRE UTI
#AMINA 2/2 hypoperfusion, cannot r/o CINTIA
#Possible UTI - ruled out
#Chronic urinary retention with Locke
#Abdominal varicosities
#L simple renal cyst
#H/o brain tumor
#functional hemiplegia
#Hx of stroke
#s/p DOCUMENT SPECIALIST shunt
#Chronic urinary retention on locke
#GERD
#leukopenia - reactive 2/2 UTI
Discharge Plan
-
Patient Disposition: Group Home/SNF
Discharge Diagnosis/Procedures: Upper GIB
Diet: Tube feeding
Activity: As tolerated
Blood Work: BMP in 1 week
Others Tests: keep head of bed elevated at all times to prevent reflux and esophagitis
Activity Restrictions/Additional Instructions:
It is very important for her to continue to elevate the head of the bed up even in the group home to prevent reflux esophagitis
Intermittent bleeding from PEG tube granulation to be treated with silver sulfasalazine
Holdoff chemical DVT ppx- cont mechanical
Referrals:
Mickey Florentino DO [Family Provider] -
Mahogany Rush CRNP [Specified Professional Personl] - (call to schedule GI follow up and continued treatment of granduloma around peg site )
Prescriptions:
New
amlodipine 2.5 mg Tablet
2.5 mg PO DAILY Qty: 30 0RF
amoxicillin 250 mg/5 mL suspension for reconstitution
500 mg feeding tube TID Qty: 210 0RF
Continued
buspirone 5 mg Tablet
5 mg feeding tube HS
albuterol sulfate 2.5 mg /3 mL (0.083 %) Solution For Nebulization
2.5 mg INHALATION R Q6HPRN PRN (Reason: SOB)
polyethylene glycol 3350 [Miralax] 17 gram Powder In Packet
17 g feeding tube DAILY
sennosides-docusate sodium [Senna-S] 8.6-50 mg Tablet
2 tab-cap PO BID
melatonin 3 mg Tablet
3 mg feeding tube HSPRN PRN (Reason: sleep )
prednisolone acetate [Pred Forte] 1 % Drops,Suspension
1 drp RIGHT EYE Q12H
bisacodyl [Dulcolax (bisacodyl)] 10 mg Suppository
10 mg UT [id number] PRN (Reason: IF NO BM AFTR MOM/OR LACTULOSE )
sertraline 25 mg Tablet
25 mg feeding tube HS
simethicone [Gas-X Extra Strength] 125 mg Tablet,Chewable
125 mg feeding tube TIDPRN PRN (Reason: gas pain )
acetaminophen 160 mg/5 mL Elixir
640 mg feeding tube Q4HPRN PRN (Reason: FEVER)
baclofen 5 mg Tablet
5 mg feeding tube BID
ondansetron HCl 4 mg Tablet
4 mg feeding tube Q6H PRN (Reason: Nausea/Vomitting)
Changed
Pantoprazole Liquid 2mg/Ml 2 MG liquid
40 mg feeding tube BID Qty: 0 0RF
Discontinued
heparin (porcine) 5,000 unit/mL Syringe
5,000 unit SC BID
Discharge Orders:
Discharge Patient (As Directed); Ordered 05/03/24
Ordered By: Shakeel Mckinney
Discharge Date and Time
Print Language: FRISIAN
[2024-05-03] MEDS: LIORESAL 5 MG TUBE (09:33)
[2024-05-03] MEDS: NORVASC 2.5 MG PO (09:33)
[2024-05-03] MEDS: COLACE LIQUID TUBE (09:37)
[2024-05-03] MEDS: MIRALAX TUBE (09:37)
[2024-05-03] MEDS: PROTONIX IV 40 MG IV (09:38)
[2024-05-03] MEDS: NSS (PRESERVATIVE FREE) 10 ML IV (09:38)
[2024-05-03] MEDS: PRED FORTE 1% EYE DROPS 1 DROP RIGHT EYE (09:39)
--- NOTE | 2024-05-03 10:06 | CM ---
CM reviewed chart, patient for discharge today, return to [facility]. Patient scheduled for 1:30 p.m. ambulance transport- update to [place] in admissions at [facility]. Phone call to patients daughter, aware of transport time, IMM
verbally reviewed, agreeable to discharge. CM will continue to follow for all discharge planning needs.
Plan; return to [facility], 1:30 p.m. ambulance transport
[facility]:
Report [phone]
[2024-05-03 10:44] LABS: % Basophils 0.7 % (0-2); % Eosinophils 7.5 % (0-6); % Immature Granulocytes 0.2 % (0-0.5); % Lymphocytes 31.6 % (20.5-51.1); % Monocytes 9.7 % (1.7-9.3); % Neutrophils 50.3 % (42.2-75.2); Absolute Eosinophils 0.3 10^3/uL (0-0.7); Absolute Lymphocytes 1.4 10^3/uL (1.2-3.4); Absolute Monocytes 0.4 10^3/uL (0.1-0.6); Absolute Neutrophils 2.3 10^3/uL (1.4-6.5); Nucleated Red Blood Cells % 0 %
[2024-05-03 13:10] VITALS: BP 136/83
== END 2024-05-03 13:20 | DRG 378 ==
LOC: 4 WEST ACU 10:42
PROVIDERS: Emergency Medicine; Nurse Practitioner Adult Health; ADMITTING PHYSICIAN Internal Medicine; ATTENDING PHYSICIAN Internal Medicine; CONSULT PHYSICIAN Internal Medicine Gastroenterology; CONSULT PHYSICIAN Surgery; EMERGENCY PHYSICIAN Emergency Medicine; FAMILY PHYSICIAN Student in an Organized Health Care Education/Training Program; OTHER PHYSICIAN Specialist
DX: K92.0 Hematemesis (principal); G82.20 Paraplegia, unspecified; K61.1 Rectal abscess; N17.9 Acute kidney failure, unspecified; I69.351 Hemiplegia and hemiparesis following cerebral infarction affecting right dominant side; G91.9 Hydrocephalus, unspecified; K52.9 Noninfective gastroenteritis and colitis, unspecified; K56.41 Fecal impaction; Z11.52 Encounter for screening for COVID-19; N28.1 Cyst of kidney, acquired; N87.9 Dysplasia of cervix uteri, unspecified; Z85.841 Personal history of malignant neoplasm of brain; Z98.2 Presence of cerebrospinal fluid drainage device; K21.9 Gastro-esophageal reflux disease without esophagitis; D72.819 Decreased white blood cell count, unspecified; E11.9 Type 2 diabetes mellitus without complications; I10 Essential (primary) hypertension; Z95.828 Presence of other vascular implants and grafts; K94.21 Gastrostomy hemorrhage; Z74.01 Bed confinement status; E66.9 Obesity, unspecified; Z68.23 Body mass index [BMI] 23.0-23.9, adult; D64.9 Anemia, unspecified; F41.9 Anxiety disorder, unspecified; Z90.710 Acquired absence of both cervix and uterus; F32.A Depression, unspecified; Z79.899 Other long term (current) drug therapy; Z90.49 Acquired absence of other specified parts of digestive tract; R50.9 Fever, unspecified; R33.9 Retention of urine, unspecified
CPT/HCPCS: 71045; 74018; 74176; 74177; 80048; 80053; 80202; 81003; 81015; 81099; 82550; 82570; 82607; 82728; 82746; 83540; 83550; 83605; 83615; 83935; 84145; 84300; 85014; 85018; 85025; 85027; 85045; 85610; 85730; 86850; 86900; 86901; 87040; 87070; 87077; 87086; 87186; 87502; 87798; 87811; 90686; 93005; 96374; 99285; G0008; J2916; Q9967

== ENCOUNTER 2024-07-01 14:00 | Inpatient (IN) | payer MEDICARE, SELFPAY ==
[2024-07-01 09:51] VITALS: BP 130/73
[2024-07-01 10:00] VITALS: BP 137/90
[2024-07-01 10:14] LABS: % Basophils 0.7 % (0-2); % Eosinophils 4.7 % (0-6); % Immature Granulocytes 0.2 % (0-0.5); % Monocytes 10.3 % (1.7-9.3); % Neutrophils 53.1 % (42.2-75.2); Absolute Eosinophils 0.3 10^3/uL (0-0.7); Absolute Lymphocytes 1.8 10^3/uL (1.2-3.4); Absolute Monocytes 0.6 10^3/uL (0.1-0.6); Absolute Neutrophils 3.1 10^3/uL (1.4-6.5); Hematocrit 31.3 % (37.0-47.0); Hemoglobin 10.3 g/dL (12.0-16.0); Mean Corp Hgb Conc. 32.9 g/dL (33.0-37.0); Mean Corpuscular Hgb 29.9 pg (27.0-31.0); Nucleated Red Blood Cells % 0 %; Platelet Count 167 10^3/uL (130-400); Red Blood Cell Count 3.44 10^6/uL (4.20-5.40); Red Cell Dist. Width 14.9 % (11.5-14.5); White Blood Cell Count 5.7 10^3/uL (4.8-10.8)
--- NOTE | 2024-07-01 10:15 | ED.GENMED ---
History of Present Illness
<HAZEL Coe - Last Filed: 07/01/24 14:01>
General
Chief Complaint: Abdominal Pain
Source: patient
Exam Limitations: non verbal-adult
Time Seen by Provider: 07/01/24 10:03
Nursing documentation reviewed up to this point in time: agreed with
History of Present Illness
History of Present Illness:
Patient is a 63-year-old female from custodial with diabetes hypertension, brain tumor stroke DVT with filter, CARE CONNECTOR shunt , PEG tube, chronic Garvey catheter and hemiplegia sent by custodial for evaluation.
Patient recently was admitted April 2024 for colitis with perirectal abscess on CAT scan and coffee-ground emesis with constipation at that time she did have acute kidney insufficiency with hypoperfusion.
Nurse at [facility] reports patient was complaining abdominal pain and had a flatplate which showed a possible ileus.
Pt non verbal.
Past History
<HAZEL Coe - Last Filed: 07/01/24 14:01>
Past History
ED Past Medical History: CVA, GERD, HTN and NIDDM
ED Past Surgical History: Brain
Social History
Tobacco: Other
Alcohol: Other
Drug: Other
Personal: Single
Living: custodial
Employment: Not employed
Family History
Family History: Unable to obtain
Review of Systems
<HAZEL Coe - Last Filed: 07/01/24 14:01>
Review of Systems
Allergies reviewed?: Yes
Unable to obtain full review of systems at this time due to: non-verbal
Other source history: custodial
Phy Exam
<HAZEL Coe - Last Filed: 07/01/24 14:01>
General Physical Exam
General Presentation: no apparent distress
General age: appears stated age
General Skin: warm and dry
General Habitus: debilitated
General Mental: alert
General Hydration: appears well hydrated
Cardiovascular Exam
Cardiovascular Exam: regular rate/rhythm, no murmur and normal peripheral pulses
Pulmonary Exam
Pulmonary Exam: lungs clear and no respiratory distress
Gastrointestinal Exam
Gastrointestinal Exam: normal bowel sounds and other (abd firm pt grimaces on exam with palpation ; no stool on rectal exam )
Neurological Exam
Neurological Exam: alert and other (non verbal )
Musculoskeletal Exam
Musculoskeletal Exam: full ROM
Skin Exam
Skin Exam: normal color and warm/dry
Psychiatric Exam
Psychiatric Exam: normal mood/affect
Course
<HAZEL Coe - Last Filed: 07/01/24 14:01>
Orders/Labs/Results
Orders:
Orders
07/01/24 10:06
Complete Blood Count/With Diff Urgent
Comprehensive Metabolic Panel Urgent
Lactic Acid Urgent
07/01/24 10:22
CT Abd/pelvis W Iv Cont Urgent
Comment:
Reason For Exam: abd pain
07/01/24 12:39
Enema- Treatment ONCE
Type: Milk of Molasses
07/01/24 13:38
GASTROINTESTINAL CONSULT Routine
Consulting Provider: Avinash Rodriguez
Was physician already notified: Yes
Reason for consult: Constipation, stercoral colitis
07/01/24 13:40
Admit/Transfer Patient As Directed
Co-Sign Provider:
Level of Care: Inpatient admission
Assign to:: Medical/Surgical
Physician / Group: kia ojeda
Diagnosis: Stercoral colitis, acute on chronic constipation, esophagitis, AMINA
Reason for Hospitalization: Stercoral colitis, acute on chronic constipation, esophagitis, AMINA
Expected length of stay greater than two midnights?: Yes
ELOS- Estimated Length of Stay in days: 4
I certify the patient meets the requirements for IP care: Yes
07/01/24 13:41
Code Status As Directed
Resuscitation Status: Full Code
07/01/24 13:45
0.9% Sodium Chloride 1000 ml [Nss] 1,000 ml IV 60 mls/hr
07/01/24 13:51
PRN Pain Medication Management As Directed
May give lesser potent ordered pain med per pt: Yes
preference::
Protocol:: Medication orders for pain may be administered in a
manner that supports deferring to patient preference
when the pt is:
- Requesting an ordered lesser potent pain medication.
Least to most potent pain medications are defined
as: acetaminophen < NSAID < tramadol < opioids
(morphine, oxycodone, hydromorphone).
- Requesting a lesser dose of the same medication IF
ORDERED.
- Requesting a less intrusive route of administration
if both routes are prescribed by the provider (PO <
IV).
07/01/24 13:55
DIETARY CONSULT Routine
Reason for Consult: tube feeds needs more water total oz 66 /day i ilana
07/01/24 13:56
Piperacillin/Tazo 2.25 Gram [Zosyn] 2.25 grams in 50 ml IV NOW
07/01/24 20:00
Piperacillin/Tazo 2.25 Gram [Zosyn] 2.25 grams in 50 ml IV Q6H
Abnormal Lab Results
07/01/24
10:06
RBC 3.44 L 10^6/uL
(4.20-5.40)
Hgb 10.3 L g/dL
(12.0-16.0)
Hct 31.3 L %
(37.0-47.0)
MCHC 32.9 L g/dL
(33.0-37.0)
RDW 14.9 H %
(11.5-14.5)
Monocytes % 10.3 H %
(1.7-9.3)
BUN 40 H mg/dl
(7-17)
Creatinine 1.1 H mg/dL
(0.6-1.0)
Glucose 133 H mg/dl
(70-99)
07/01/24 10:06
07/01/24 10:06
Vital Signs
Initial and Last Documented VS:
Initial Vital Signs
Temp Pulse Resp BP Pulse Ox
99.6 F 89 16 130/73 93
07/01/24 09:51 07/01/24 09:51 07/01/24 09:51 07/01/24 09:51 07/01/24 09:51
Last Documented Vital Signs
Temp Pulse Resp BP Pulse Ox
99.6 F 93 16 137/90 97
07/01/24 09:51 07/01/24 10:00 07/01/24 10:05 07/01/24 10:00 07/01/24 10:00
Jigsawyer consulted with Physician
Jigsawyer consulted with physician?: Yes
Name of Physician Consulted: Aamir
<Gerson Rutledge, DO - Last Filed: 07/01/24 12:37>
Orders/Labs/Results
Orders:
Orders
07/01/24 10:06
Complete Blood Count/With Diff Urgent
Comprehensive Metabolic Panel Urgent
Lactic Acid Urgent
07/01/24 10:22
CT Abd/pelvis W Iv Cont Urgent
Comment:
Reason For Exam: abd pain
07/01/24 12:39
Enema- Treatment ONCE
Type: Milk of Molasses
07/01/24 13:38
GASTROINTESTINAL CONSULT Routine
Consulting Provider: Avinash Rodriguez
Was physician already notified: Yes
Reason for consult: Constipation, stercoral colitis
07/01/24 13:40
Admit/Transfer Patient As Directed
Co-Sign Provider:
Level of Care: Inpatient admission
Assign to:: Medical/Surgical
Physician / Group: kia ojeda
Diagnosis: Stercoral colitis, acute on chronic constipation, esophagitis, AMINA
Reason for Hospitalization: Stercoral colitis, acute on chronic constipation, esophagitis, AMINA
Expected length of stay greater than two midnights?: Yes
ELOS- Estimated Length of Stay in days: 4
I certify the patient meets the requirements for IP care: Yes
07/01/24 13:41
Code Status As Directed
Resuscitation Status: Full Code
07/01/24 13:45
0.9% Sodium Chloride 1000 ml [Nss] 1,000 ml IV 60 mls/hr
07/01/24 13:51
PRN Pain Medication Management As Directed
May give lesser potent ordered pain med per pt: Yes
preference::
Protocol:: Medication orders for pain may be administered in a
manner that supports deferring to patient preference
when the pt is:
- Requesting an ordered lesser potent pain medication.
Least to most potent pain medications are defined
as: acetaminophen < NSAID < tramadol < opioids
(morphine, oxycodone, hydromorphone).
- Requesting a lesser dose of the same medication IF
ORDERED.
- Requesting a less intrusive route of administration
if both routes are prescribed by the provider (PO <
IV).
07/01/24 13:55
DIETARY CONSULT Routine
Reason for Consult: tube feeds needs more water total oz 66 /day i ilana
07/01/24 13:56
Piperacillin/Tazo 2.25 Gram [Zosyn] 2.25 grams in 50 ml IV NOW
07/01/24 20:00
Piperacillin/Tazo 2.25 Gram [Zosyn] 2.25 grams in 50 ml IV Q6H
Abnormal Lab Results
07/01/24
10:06
RBC 3.44 L 10^6/uL
(4.20-5.40)
Hgb 10.3 L g/dL
(12.0-16.0)
Hct 31.3 L %
(37.0-47.0)
MCHC 32.9 L g/dL
(33.0-37.0)
RDW 14.9 H %
(11.5-14.5)
Monocytes % 10.3 H %
(1.7-9.3)
BUN 40 H mg/dl
(7-17)
Creatinine 1.1 H mg/dL
(0.6-1.0)
Glucose 133 H mg/dl
(70-99)
07/01/24 10:06
07/01/24 10:06
Vital Signs
Initial and Last Documented VS:
Initial Vital Signs
Temp Pulse Resp BP Pulse Ox
99.6 F 89 16 130/73 93
07/01/24 09:51 07/01/24 09:51 07/01/24 09:51 07/01/24 09:51 07/01/24 09:51
Last Documented Vital Signs
Temp Pulse Resp BP Pulse Ox
99.6 F 93 16 137/90 97
07/01/24 09:51 07/01/24 10:00 07/01/24 10:05 07/01/24 10:00 07/01/24 10:00
<HAZEL Coe - Last Filed: 07/01/24 14:01>
MDM/Problems Addressed
Differential Diagnosis Includes:
Not limited by obstruction, diverticulitis, constipation
MDM/Problems Addressed:
Patient is a 63-year-old female with history of brain tumor stroke not verbal sent from custodial for possible developing ileus on obstruction series. patient does grimace on exam of palpation CAT scan done shows moderate distal colonic stool
burden and stranding and thickening which can be seen with developing stercoral colitis. Rectal exam with no stool in the rectum area to disimpact. Will give enema patient will require serial exams. pt with nml wbc ; stable HGB ; creatinine
baseline.
Chronic conditions affecting care:
Nonverbal brain tumor stroke
<HAZEL Coe - Last Filed: 07/01/24 14:01>
*Radiology
Radiology exam reviewed: radiology read reviewed
*Pulse Oximetry
Patient hypoxic: no
*Critical Care Note
Total Time (30-74mins, 75-104mins- exclusive of procedures): Not Applicable
ED Attending Note
<HAZEL Coe - Last Filed: 07/01/24 14:01>
-
Portions of this chart may have been created with voice recognition software.� Occasional wrong word or��sound alike� substitutions may have occurred due to the inherent limitations of voice recognition software.
<Gerson Rutledge DO - Last Filed: 07/01/24 12:37>
ED Attending Note
Patient seen and examined by attending physician: Yes
I performed the substantive portion of visit, reviewed & personally made and approve the management plan that is documented in note by myself or SHIRA.: Yes
ED Attending Note:
I have seen and evaluated the patient with a [id number] encounter. I have spoken to the advance practicer provider and involved in the medical history, the physical exam, medical decision making.
Evaluation and management service: agree unless noted differently below.
Results interpretation: agree unless noted differently below.
Focused HPI: 63-year-old female presenting for evaluation of abdominal pain. Patient is nonverbal. She points to her abdomen.
Physical exam: Mild guarding noted
Medical Decision Making: CT consistent with stercoral colitis. Rectal exam performed and no stool palpated. Will provide enema and admit
Discharge Plan
Departure
Patient Disposition: Admit
Date of Disposition: 07/01/24
Time of Disposition: 12:51
Admit to: Med/Surg
Admit to doctor: hospitalist
Presentation/result/management discussed w/ accepting MD/DO: Hospitalist
Patient with high blood pressure during this ER visit?: Yes
Condition: Fair
Covid-19: Not Applicable
Discharge Problem:
Constipation, Abdominal pain
Prescriptions:
No Action
buspirone 5 mg Tablet
5 mg feeding tube HS
albuterol sulfate 2.5 mg /3 mL (0.083 %) Solution For Nebulization
2.5 mg INHALATION R Q6HPRN PRN (Reason: SOB)
polyethylene glycol 3350 [Miralax] 17 gram Powder In Packet
17 g feeding tube QPM
sennosides-docusate sodium [Senna-S] 8.6-50 mg Tablet
2 tab-cap PO BID
Rx Instructions:
via enteral tube
prednisolone acetate [Pred Forte] 1 % Drops,Suspension
1 drp RIGHT EYE Q12H
bisacodyl [Dulcolax (bisacodyl)] 10 mg Suppository
10 mg MI [id number] PRN (Reason: IF NO BM AFTR MOM/OR LACTULOSE )
sertraline 25 mg Tablet
25 mg feeding tube HS
simethicone [Gas-X Extra Strength] 125 mg Tablet,Chewable
125 mg feeding tube TIDPRN PRN (Reason: gas pain )
acetaminophen 160 mg/5 mL Elixir
640 mg feeding tube Q4HPRN PRN (Reason: FEVER)
baclofen 5 mg Tablet
5 mg feeding tube BID
ondansetron HCl 4 mg Tablet
4 mg feeding tube Q6HPRN PRN (Reason: Nausea/Vomitting)
amlodipine 2.5 mg Tablet
2.5 mg PO DAILY Qty: 30 0RF
heparin (porcine) 5,000 unit/mL Syringe
5,000 unit SC Q12H
Referrals:
Mickey Florentino DO [Family Provider] -
Interventions
Interventions:
*Risk Screen - Suicide Last Done: 07/01/24 09:54
*General Assessment Last Done: 07/01/24 09:54
*Neglect/Abuse Screening Last Done: 07/01/24 09:54
*ED- Fall Risk Assessment Last Done: 07/01/24 09:54
*ED COVID-19 Vaccine History Last Done: 07/01/24 09:54
IX-Ogyiny-Xhghqlfjqn Assessment Last Done: 07/01/24 09:56
Discharge Date and Time
Print Language: BURMESE
[2024-07-01 10:25] LABS: Lactic Acid 0.9 mmol/L (0.7-2.0)
[2024-07-01 10:26] LABS: ALT (SGPT) 13 U/L (0-35); AST (SGOT) 21 U/L (14-36); Albumin 3.8 g/dl (3.5-5.0); Alkaline Phosphatase 124 U/L (38-126); Blood Urea Nitrogen 40 mg/dl (7-17); Calcium 9.3 mg/dl (8.4-10.2); Carbon Dioxide 28 mmol/L (22-30); Chloride 102 mmol/L (98-107); Glucose 133 mg/dl (70-99); Potassium 4.9 mmol/L (3.5-5.1); Sodium 138 mmol/L (135-145); Total Bilirubin 0.6 mg/dl (0.2-1.3); Total Protein 7.3 g/dl (6.3-8.2); eGFR 56.81
--- NOTE | 2024-07-01 12:53 | HPS.HSE ---
Family Physician
-
Family Physician: Mickey Florentino, DO
Chief Complaint
-
Abdominal pain
History of Present Illness
63-year-old female, who is mildly nonverbal, from a half-way with reported holding her stomach and grimacing per her mother. She had CAT scan today showing moderate distal colonic stool burden with minimal surrounding stranding and thickening
seen with developing stercoral colitis. In the ER there was no stool in the rectal vault however nurses are giving enema now. The patient can speak mildly but is slow to speak is clear. When asked about abdominal pain she states yes to
generalized area. The patient denies headache, sore throat, fever, chills, chest pain, palpitations, cough, vomiting, rash. She has past medical history of colitis with perirectal abscess on CT scan(no perirectal abscess per surgery note April 27
to May 03) and coffee-ground emesis (but was due to a bleeding granuloma around the PEG tube that was treated with silver nitrate April 2024 )with constipation in April 2024 along with AMINA, history CVA residual right hemiplegia and
hemiparesis with spasms/nonverbal, PEG tube, S/P SUPERVISOR ROVING shunt, DVT status post IVC filter. GERD/esophagitis, HTN, Chronic urinary retention status post indwelling urinary catheter, history urine culture growing VRE April 2024 treated with ampicillin,
Abdominal varicosities, left simple renal cyst, anxiety
Medical History
Past Medical History
Past Medical History: Reports CVA (Residual right hemiplegia and hemiparesis), GERD, NIDDM and Other
Additional Past Medical History:
Chronic urinary retention status post indwelling urinary catheter
colitis with perirectal abscess on CT scan(no perirectal abscess per surgery note April 27 to May 03)
coffee-ground emesis (but was due to a bleeding granuloma around the PEG tube that was treated with silver nitrate April 2024 )
Chronic constipation
CVA with residual residual right hemiplegia and hemiparesis/nonverbal
PEG tube
S/P SUPERVISOR ROVING shunt
DVT status post IVC filter
GERD/esophagitis
HTN
DM2
Chronic urinary retention status post indwelling urinary catheter, history urine culture growing VRE April 2024 treated with ampicillin,
Abdominal varicosities
left simple renal cyst.
Past Surgical History: Reports Brain (Brain mass resection)
Additional Past Surgical History:
Status post PEG
DVT status post IVC filter
Status post SUPERVISOR ROVING shunt
Social History
Tobacco: Non-smoker
Alcohol: None
Drug: None
Personal: Single
Living: Alf
Employment: Disabled
Family History
Family History: Not pertinent
Allergies / Home Medications
Allergies reflects when Allergies were last updated in [facility].
Home Medications with original date entered in [facility]
Allergy/Medication List:
Allergies
Allergy/AdvReac Type Severity Reaction Status Date / Time
No Known Allergies Allergy Verified 03/16/24 05:59
Home Medications
acetaminophen 160 mg/5 mL oral elixir 640 mg feeding tube Q4HPRN PRN FEVER 03/16/24
albuterol sulfate 2.5 mg/3 mL (0.083 %) solution for nebulization 2.5 mg inhalation R Q6HPRN PRN SOB 03/16/24
baclofen 5 mg tablet 5 mg feeding tube BID Muscle Spasms 03/16/24
bisacodyl 10 mg rectal suppository (Dulcolax (bisacodyl)) 10 mg MS [id number] PRN IF NO BM AFTR MOM/OR LACTULOSE 03/16/24
buspirone 5 mg tablet 5 mg feeding tube HS anxiety 03/16/24
polyethylene glycol 3350 17 gram oral powder packet (Miralax) 17 g feeding tube QPM Constipation 03/16/24
prednisolone acetate 1 % eye drops,suspension (Pred Forte) 1 drp RIGHT EYE Q12H Eye Condition 03/16/24
sennosides 8.6 mg-docusate sodium 50 mg tablet (Senna-S) 2 tab-cap PO BID Constipation 03/16/24
sertraline 25 mg tablet 25 mg feeding tube HS depression/anxiety 03/16/24
simethicone 125 mg chewable tablet (Gas-X Extra Strength) 125 mg feeding tube TIDPRN PRN gas pain 03/16/24
ondansetron HCl 4 mg tablet 4 mg feeding tube Q6HPRN PRN Nausea/Vomitting 04/24/24
amlodipine 2.5 mg tablet 2.5 mg PO DAILY #30 tabs 04/30/24
heparin (porcine) 5,000 unit/mL injection syringe 5,000 unit SC Q12H 07/01/24
Review of Systems
-
History Source: Patient and Alf
A 12 point ROS was completed and negative except as noted: Yes
Constitutional: Denies Fever or Chills
EENT: Reports Other (Constant drools left side of mouth has large lower lip chronically swollen looking); Denies Sore Throat or Runny Nose
Respiratory: Denies Cough or Trouble Breathing
Cardiac: Denies Chest Pain, Diaphoresis, Palpitations or Syncope
Abdomen/GI: Reports Abdominal Pain (Generalized), Constipated and Other (PEG tube present); Denies Nausea, Vomiting or Diarrhea
: Reports Garvey (Present on admission)
Musculoskeletal: Denies Joint Pain or Edema
Skin: Denies Itching or Rash
Neurological: Reports Weakness (Chronic right hemiparesis from stroke with mild nonverbal cannot say some words does understand); Denies Dizzy or Headache
Endocrine: Reports No Symptoms
Hematologic/Lymphatic: Reports No Symptoms
Psych: Reports Calm
Physical Exam
Vital Signs
Vital Signs
Temp Pulse Resp BP Pulse Ox
99.6 F 93 16 137/90 97
07/01/24 09:51 07/01/24 10:00 07/01/24 10:05 07/01/24 10:00 07/01/24 10:00
Physical Exam
General: Other (Patient is awake alert oriented is able to say yes or no to review of systems can say simple 2-3 word statements very slowly due to history of stroke); No Fever or Chills
HEENT: NormoCephalic, Anicteric, PERRLA, Hallam Conjunctivae, No Ptosis and Other (Chronic swelling of lower lip with chronic drooling)
Respiratory: Clear; No Wheezes, Rales or Rhonchi
Cardiac: S1/S2 and Regular Rhythm; No Murmur, Rub, Gallop or Peripheral Edema
GI: Soft, Non Distended, Normal Bowel Sounds, Tender (Generalized) and Peg Tube (Present, intact, no drainage surrounding PEG tube)
Rectal: Deferred by Provider
Genito-urinary: Garvey (Present on admission draining yellow in color)
Musculoskeletal: No Clubbing, No Cyanosis, No Edema and Other (Chronic right hemiparesis from stroke with mild nonverbal cannot say some words does understand)
Skin: Warm and Dry; No Rash
Neuro: AO x 3 (Oriented to name, place, current symptoms and history), Cranial Nerves Intact, No Sensory Deficits and Other (Chronic lower lip swelling with drooling, is able to say 2-3 word statements is oriented speech is slow due to history of
stroke)
Psych: Calm
Laboratory Results
-
07/01/24 10:06
07/01/24 10:06
Laboratory Results
Lactic Acid 0.9 mmol/L (0.7-2.0) 07/01/24 10:06
Total Bilirubin 0.6 mg/dl (0.2-1.3) 07/01/24 10:06
AST 21 U/L (14-36) 07/01/24 10:06
ALT 13 U/L (0-35) 07/01/24 10:06
Alkaline Phosphatase 124 U/L (38-126) 07/01/24 10:06
Data Reviewed
-
CT Scan: Report Reviewed by me
Lab Data: Labs Reviewed by me
Impression/Plan
-
Impression/plan:
Admit to [facility]
#Stercoral colitis
#Acute on chronic constipation
Recent episode of constipation April 2024 admission
-Enema given in ER, if no bowel movement would give lactulose via PEG tube
-IV Zosyn
-GI consult
-Continue senna 2 capsules p.o. twice daily
-Continue MiraLAX 17 g every afternoon via G-tube
-Continue Gas-X 125 mg 3 times daily as needed
-Follow CBC, CMP
CT abdomen pelvis with IV contrast:
1. Moderate rectal/distal colonic stool burden with minimal surrounding stranding and wall thickening which can be seen with
developing stercoral colitis.
2. The visualized esophagus is fluid-filled with circumferential wall thickening likely due to esophagitis.
3. Gastrostomy tube is present within the stomach.
4. There is a 4 mm nodule in the right middle lobe and a 3 mm nodule within the lateral right lower lobe which are nonspecific and
may be infectious/inflammatory. A follow-up CT chest may be considered.
#Acute on chronic esophagitis
# GERD
-IV PPI twice daily
-Patient was on Pantoprazole liquid 40 mg twice daily via G-tubeX8 weeks due to Esophagitis Apr 2024
-would RESUME Pantoprazole liquid 40 mg twice daily via G-tube on discharge as The pt still has persistent esophagitis on CT
-Is to remain sitting up during all tube feeds per prior GI recommendations
#AMINA on CKD 3B
Creat 1.1 / Bun 40 creat was prior 1.3 May 03, 2024
-IV NSS 60 cc/h
-Follow BMP
#Chronic PEG tube due to stroke with limited verbal status
-All meds via G-tube
-Consult dietary for tube feeds Jevity 1.5 100 mL/h x 10 hours with 60 mL water per hour x 10 hours ,flush 90 mL before and after meds
-Patient getting total only 66 ounces of fluid per day will consult dietary to increase ounces per day
#HX CVA residual right hemiplegia and hemiparesis with spasms/mild nonverbal(can say some words but is n.p.o. by mouth)
-Patient is Avery lift to wheelchair per record
-N.p.o. by mouth
-IV Jevity via G-tube will consult dietary
#HX Colitis on CT scan treated(no perirectal abscess per surgery note April 27 to May 03)
#HX coffee-ground emesis (but was due to a bleeding granuloma around the PEG tube that was treated with silver nitrate April 2024 )
#S/P SUPERVISOR ROVING shunt
#DVT status post IVC filter
# HTN
-BP 137/90
-Continue amlodipine 2.5 mg daily with hold parameters
# Chronic urinary retention status post indwelling urinary catheter
# history urine culture growing VRE April 2024 treated with ampicillin
#HX Abdominal varicosities
#hx left simple renal cyst
#Anxiety
-Continue BuSpar 5 mg via G-tube at bedtime, Zoloft 25 mg daily
DVT prophylaxis
Subcu heparin 5000 every 12 hours
Full code
--- NOTE | 2024-07-01 13:23 | W.PN.UPDATE ---
Update Note
Progress Note Update
I could not get any information from the patient as Non verbal
Information gathered by chart review and speaking with the ER staff.
This note serves as an addendum to the H&P by scarfer SHIRA Paz LEWIS
HPI
63F HX stroke with hemiplegia complicated by Non verbal, Non ambulatory, G tube dependent fpr feeding and Rx, DIRECTOR BIOLOGY shunt impant HX Constipation on chr BW regime ( Miralax, Senna-S, Dulcolax ) seen at ER for gesture of abdominal pain per Mother.
CT today show mod distal colonic stool burden with minimal surrounding stranding and thickening an be seen with developing stercoral colitis.
PHX; see above
Vital Signs
Temp Pulse Resp BP Pulse Ox
99.6 F 93 16 137/90 97
07/01/24 09:51 07/01/24 10:00 07/01/24 10:05 07/01/24 10:00 07/01/24 10:00
PE
Gen: Not toxic looking. Alert and followed simple commands
HEENT: Non verbal, head is tilting to Lt
Neck: supple
Lungs: CTA , symmetric AE
Cor: RRR S1 S2
Abdomen: PEG tube in place , mildly full but soft
THERMOSTAT MAKER: Alert, chr Rt sided hemiplegic. Noted ontracture of Rt fist
MS: no edema
Psych: alert, limited due to non verbal
Laboratory Tests
05/03/24 05/03/24 07/01/24
06:50 06:51 10:06
Hgb 9.5 L 10.3 L
BUN 40 H
Creatinine 1.3 H 1.1 H
eGFR 46.49 56.81
Glucose 133 H
AST 21
ALT 13
CT Abd/pelvis W Iv Cont
- Moderate rectal/distal colonic stool burden with minimal surrounding stranding and wall thickening which can be seen with developing stercoral colitis.
- The visualized esophagus is fluid-filled with circumferential wall thickening likely due to esophagitis.
- Gastrostomy tube is present within the stomach.
- There is a 4 mm nodule in the right middle lobe and a 3 mm nodule within the lateral right lower lobe which are nonspecific and may be infectious/inflammatory. A follow-up CT chest may be considered.
ASSESSMENT & PLAN
Presumed stercoral colitis
mod distal colonic stool burden
- NO CT suggestion fo obstruction
- associated abdominal pain
- denied vomiting
- Empiric Zosyn
- empiric IV NS @ 60/H suspect at risk for dehydration n
- Milk of Molasses - if no BMs, can add lactulose via G tube
- GI consult
- Diet consult for T Feeding
Suspect severe acid reflux in setting og G Tube feeding
CT suggestion of visualized esophagus is fluid-filled with circumferential wall thickening likely due to esophagitis.
- s/p PO PPI BID for 8 weeks
- c/w PPI elixer via G tube BID
RML 4 mm lung nodule
RLL 3 mm lung nodule
DDX: Both nonspecific and may be infectious/inflammatory per CT suggestionh
- follow-up OP CT chest
Benign HTN
- c/w Amlodipine
HX stroke with hemiplegia complicated by Non verbal, Non ambulatory
G tube dependent for feeding and Rx
Known DIRECTOR BIOLOGY shunt implant
Known IVCF implant
- supportive care plus above plan for current active problems
HX CKD baseline eGFR suggest CKD3a
somewhat stable Cr
- trend Cr
DVT Px: LMWH
Code: Full
IP MS
[2024-07-01] MEDS: NSS 1000 IV (14:20)
--- NOTE | 2024-07-01 15:04 | CON.GI ---
Addendum entered and electronically signed by Avinash Rodriguez MD 07/01/24 18:07:
I saw and examined the patient.
The resident's note was reviewed and I agree with the note.
Comment:
63-year-old female with history of CVA and right residual hemiplegia/hemiparesis, GERD, DM who is nonverbal p/w with possible stercoral colitis. Patient showed signs of abdominal distress and was brought to ER and had CT scan which showed moderate
distal colonic stool burden with minimal surrounding stranding suspicious for developing stercoral colitis. She was given enema and subsequently had 2 BMs. As per resident, digital rectal exam yielded minimal stool in the rectal vault. Pt was
sleeping when seen. Abdominal exam was benign, no signs of distress/pain elicited during palpation.
Impression / Rec:
1. ? fecal impaction/stercoral colitis - minimal stool in rectal vault on LIDIA after 2 BM following enema. Would recommend another round of enema and osmotic laxative via PEG.
Original Note:
Consultation
-
Date/Time Consultation Requested: 07/01/24
Date/Time Consultation Performed: 07/01/24
Requesting Provider: Paz OLIVA
Performing Provider: ,
Reason for Consultation: Constipation
Medical History
Chief Complaint / HPI
Chief Complaint: Abdominal pain, constipation
History of Present Illness:
This is a 63-year-old female patient with PMH of GERD/esophagitis, HTN, chronic urinary retention s/p indwelling urinary catheter, Hx of CVA with residual right hemiaplasia and hemiparesis presenting to the the ED from longterm. As patient is
mostly nonverbal, history obtained from ER nursing staff, mother of patient and chart review. The mother states that when she had seen the patient yesterday she was grasping her stomach and appeared as if she was in pain. She had 1 episode of
vomiting last night which was brownish in color at the SNF that was not witnessed by the mother. The mother denied any symptoms fever, chills or nausea. In 2020 she a CVA and brain tumor resection and around the same time she had a PEG tube
placed. She has not had a recent colonoscopy.
The patient was seen in 04/2024 for colitis with perirectal abscess on CT, constipation and coffee-ground emesis that was due to bleeding granuloma around PEG tube which was treated with silver nitrate.
In the ER, CT showed developing stercoral colitis with moderate rectal/distal colonic stool burden, circumferential wall thickening of esophagus likely due to esophagitis.
She was given enema in the ED with 2 bowel movements.
Past Medical History
Past Medical History: CVA (Residual right hemiplegia and hemiparesis), GERD, HTN, NIDDM and Other (Chronic urinary retention status post indwelling urinary catheter, peg tube, S/P STATIC BALANCER shunt DVT status post IVC filter, Abdominal varicosities,
coffee-ground emesis (but was due to a bleeding granuloma around the PEG tube treated w/ silver nitrate April 2024 ), colitis with perirectal abscess )
Past Surgical History: Brain (brain mass resection) and Other (Status post PEG DVT status post IVC filter Status post STATIC BALANCER shunt)
Social History
Tobacco: Non-Smoker
Alcohol: None
Drug: None
Personal: Single
Living: [facility]
Employment: Disabled
Family History
Family History: Reviewed & Not Pertinent
Allergies / Home Medications
Allergy/AdvReac Type Severity Reaction Status Date / Time
No Known Allergies Allergy Verified 03/16/24 05:59
�Medication �Instructions �Recorded
acetaminophen 160 mg/5 mL oral 640 mg feeding tube Q4HPRN PRN 03/16/24
elixir FEVER
albuterol sulfate 2.5 mg/3 mL 2.5 mg inhalation R Q6HPRN PRN SOB 03/16/24
(0.083 %) solution for nebulization
baclofen 5 mg tablet 5 mg feeding tube BID Muscle Spasms 03/16/24
bisacodyl 10 mg rectal suppository 10 mg IA [id number] PRN IF NO BM AFTR 03/16/24
(Dulcolax (bisacodyl)) MOM/OR LACTULOSE
buspirone 5 mg tablet 5 mg feeding tube HS anxiety 03/16/24
polyethylene glycol 3350 17 gram 17 g feeding tube QPM Constipation 03/16/24
oral powder packet (Miralax)
prednisolone acetate 1 % eye 1 drp RIGHT EYE Q12H Eye Condition 03/16/24
drops,suspension (Pred Forte)
sennosides 8.6 mg-docusate sodium 2 tab-cap PO BID Constipation 03/16/24
50 mg tablet (Senna-S)
sertraline 25 mg tablet 25 mg feeding tube HS 03/16/24
depression/anxiety
simethicone 125 mg chewable tablet 125 mg feeding tube TIDPRN PRN gas 03/16/24
(Gas-X Extra Strength) pain
ondansetron HCl 4 mg tablet 4 mg feeding tube Q6HPRN PRN 04/24/24
Nausea/Vomitting
amlodipine 2.5 mg tablet 2.5 mg PO DAILY #30 tabs 04/30/24
heparin (porcine) 5,000 unit/mL 5,000 unit SC Q12H 07/01/24
injection syringe
Review of Systems
-
Unable to obtain full review of systems at this time due to: Patient Non Verbal
Vital Signs
Temp Pulse Resp BP Pulse Ox
99.6 F 93 16 137/90 97
07/01/24 09:51 07/01/24 10:00 07/01/24 10:05 07/01/24 10:00 07/01/24 10:00
Physical Exam
Exam
General: Negative Fever or Chills
HEENT: Normocephalic
Respiratory: Clear
Cardiac: S1/S2 and Regular Rhythm
GI: Soft, Non Distended, Tender (mildly tender) and Other (Peg tube present and intact)
Rectal: Other (no stool mass present on exam )
Musculoskeletal: No Edema and Other (chr Rt sided hemiplegic)
Skin: Warm and Dry
Neuro: Awake and Other (nonverbal due to CVA)
Results
WBC 5.7 10^3/uL (4.8-10.8) 07/01/24 10:06
Hgb 10.3 g/dL (12.0-16.0) L 07/01/24 10:06
Hct 31.3 % (37.0-47.0) L 07/01/24 10:06
MCV 91.0 fL (81.0-99.0) 07/01/24 10:06
Plt Count 167 10^3/uL (130-400) 07/01/24 10:06
Absolute Neuts (auto) 3.1 10^3/uL (1.4-6.5) 07/01/24 10:06
Sodium 138 mmol/L (135-145) 07/01/24 10:06
Potassium 4.9 mmol/L (3.5-5.1) 07/01/24 10:06
Chloride 102 mmol/L (98-107) 07/01/24 10:06
Carbon Dioxide 28 mmol/L (22-30) 07/01/24 10:06
BUN 40 mg/dl (7-17) H 07/01/24 10:06
Creatinine 1.1 mg/dL (0.6-1.0) H 07/01/24 10:06
Calcium 9.3 mg/dl (8.4-10.2) 07/01/24 10:06
Total Bilirubin 0.6 mg/dl (0.2-1.3) 07/01/24 10:06
AST 21 U/L (14-36) 07/01/24 10:06
ALT 13 U/L (0-35) 07/01/24 10:06
Alkaline Phosphatase 124 U/L (38-126) 07/01/24 10:06
Diagnostic Image Results:
CT Abd 07/01/24: Moderate rectal/distal colonic stool burden with minimal surrounding stranding and wall thickening which can be seen with developing stercoral colitis.
The visualized esophagus is fluid-filled with circumferential wall thickening likely due to esophagitis.
Gastrostomy tube is present within the stomach.
There is a 4 mm nodule in the right middle lobe and a 3 mm nodule within the lateral right lower lobe which are nonspecific and may be infectious/inflammatory. A follow-up CT chest may be considered.
Prior GI Procedures:
EGD: unknoen
Colonoscopy: unknown
Assessment / Plan
-
This is a 63-year-old female patient with PMH of. Presenting to the the ED from longterm. As patient is mostly nonverbal, history obtained from ER nursing staff, mother of patient and chart review. The mother states that when she had seen the
patient yesterday she was grasping her stomach and appeared as if she was in pain. She had 1 episode of vomiting last night which was brownish in color at the SNF that was not witnessed by the mother. The mother denied any symptoms fever, chills
or nausea. In 2020 she a CVA and brain tumor resection and around the same time she had a PEG tube placed. She has not had a recent colonoscopy.
The patient was seen in 04/2024 for colitis with perirectal abscess on CT, constipation and coffee-ground emesis that was due to bleeding granuloma around PEG tube which was treated with silver nitrate.
In the ER, CT showed developing stercoral colitis with moderate rectal/distal colonic stool burden, circumferential wall thickening of esophagus likely due to esophagitis.
She was given enema in the ED with 2 bowel movements.
Plan:
#Stercoral colitis
-S/p enema in the ED, with 2 bowel movements
� No stool mass felt in rectal vault on rectal exam
�Will give another enema plus Milk of molasses
#Esophagitis/GERD
�CT abdomen showed esophagus with circumferential wall thickening likely due to esophagitis
� Continue with PPI via G-tube
-Elevation of head of bed to prevent reflux
-
-
Thank you for consultation and allowing me to participate in the patient's care. Please call the second shift supervisor GI physician during the after hours with any questions or concerns.
[2024-07-01] MEDS: ZOSYN 50 IV ×2 (15:38→20:59)
[2024-07-01 16:00] VITALS: BMI 24.6
[2024-07-01 18:12] VITALS: BP 110/61
--- NOTE | 2024-07-01 18:34 | TRANSFER ---
pt arrives from ER in s=hosptial stretcher requiring warehouse order puller at 1800. static air overlay in place, heels elevated on pillow, heel foams applied. leg bag changed over to collection bag, stat lock changed. gtube site provided care. suction and
oral care equipment at bedside. g tube supplies and feeding pump at bedside. NSS infusing at 60ml/hr into left FA without issue. admission and assessment completed. pt refusing suppository. pt on contact precations. HOB elevated to 30 degrees.
plan of care continues to be followed.
[2024-07-01] MEDS: SENOKOT-S 2 TABLET TUBE (21:00)
[2024-07-01] MEDS: HEPARIN 5000 UNITS SC (21:00)
[2024-07-01] MEDS: LIORESAL 5 MG TUBE (21:01)
[2024-07-01] MEDS: PRED FORTE 1% EYE DROPS 1 DROP RIGHT EYE (21:01)
[2024-07-01] MEDS: NSS (PRESERVATIVE FREE) 10 ML IV (21:01)
[2024-07-01] MEDS: PROTONIX IV 40 MG IV (21:01)
[2024-07-01] MEDS: MIRALAX 17 GRAMS TUBE (21:01)
[2024-07-01] MEDS: BUSPAR 5 MG TUBE (21:03)
[2024-07-01] MEDS: ZOLOFT 25 MG TUBE (21:03)
[2024-07-01 23:00] VITALS: BP 116/67
[2024-07-02] MEDS: ZOSYN 50 IV ×4 (01:45→20:10)
[2024-07-02] MEDS: NSS 1000 IV ×2 (07:08→15:15)
[2024-07-02 07:49] LABS: Hematocrit 29.4 % (37.0-47.0); Hemoglobin 9.6 g/dL (12.0-16.0); Mean Corp Hgb Conc. 32.7 g/dL (33.0-37.0); Mean Corpuscular Hgb 29.8 pg (27.0-31.0); Mean Corpuscular Volume 91.3 fL (81.0-99.0); Mean Platelet Volume 10.3 fL (7.4-10.4); Platelet Count 157 10^3/uL (130-400); Red Blood Cell Count 3.22 10^6/uL (4.20-5.40); Red Cell Dist. Width 14.9 % (11.5-14.5); White Blood Cell Count 4.1 10^3/uL (4.8-10.8)
[2024-07-02 07:53] LABS: ALT (SGPT) 12 U/L (0-35); AST (SGOT) 19 U/L (14-36); Albumin 3.6 g/dl (3.5-5.0); Alkaline Phosphatase 125 U/L (38-126); Blood Urea Nitrogen 36 mg/dl (7-17); Calcium 9.4 mg/dl (8.4-10.2); Carbon Dioxide 27 mmol/L (22-30); Chloride 101 mmol/L (98-107); Estimated Creatinine Clearance 42 ml/min; Glucose 90 mg/dl (70-99); Potassium 4.2 mmol/L (3.5-5.1); Sodium 138 mmol/L (135-145); Total Bilirubin 1.2 mg/dl (0.2-1.3); Total Protein 6.8 g/dl (6.3-8.2); eGFR 46.49
[2024-07-02 07:57] VITALS: BP 127/62
[2024-07-02] MEDS: PROTONIX IV 40 MG IV ×2 (08:31→20:10)
[2024-07-02] MEDS: NSS (PRESERVATIVE FREE) 10 ML IV ×2 (08:31→20:09)
[2024-07-02] MEDS: NORVASC 2.5 MG TUBE (08:31)
[2024-07-02] MEDS: SENOKOT-S 2 TABLET TUBE ×2 (08:32→20:10)
[2024-07-02] MEDS: MIRALAX 17 GRAMS TUBE ×2 (08:32→17:31)
[2024-07-02] MEDS: HEPARIN 5000 UNITS SC ×2 (08:32→20:08)
[2024-07-02] MEDS: PRED FORTE 1% EYE DROPS 1 DROP RIGHT EYE ×2 (08:33→20:18)
[2024-07-02] MEDS: LIORESAL 5 MG TUBE ×2 (08:41→20:09)
[2024-07-02 10:02] LABS: % Basophils 0.5 % (0-2); % Eosinophils 4.1 % (0-6); % Immature Granulocytes 0.2 % (0-0.5); % Lymphocytes 38.6 % (20.5-51.1); % Monocytes 11.6 % (1.7-9.3); Absolute Eosinophils 0.2 10^3/uL (0-0.7); Absolute Lymphocytes 1.6 10^3/uL (1.2-3.4); Absolute Monocytes 0.5 10^3/uL (0.1-0.6); Absolute Neutrophils 1.9 10^3/uL (1.4-6.5); Nucleated Red Blood Cells % 0 %
--- NOTE | 2024-07-02 11:22 | W.PN.GI.CBS2 ---
Today's Communication / Plan
-
resume tube feed, continue with osmotic laxative, GI s/o
Assessment / Plan
-
This is a 63-year-old female patient with PMH of. Presenting to the the ED from snf. As patient is mostly nonverbal, history obtained from ER nursing staff, mother of patient and chart review. The mother states that when she had seen the
patient yesterday she was grasping her stomach and appeared as if she was in pain. She had 1 episode of vomiting last night which was brownish in color at the SNF that was not witnessed by the mother. The mother denied any symptoms fever, chills
or nausea. In 2020 she a CVA and brain tumor resection and around the same time she had a PEG tube placed. She has not had a recent colonoscopy.
The patient was seen in 04/2024 for colitis with perirectal abscess on CT, constipation and coffee-ground emesis that was due to bleeding granuloma around PEG tube which was treated with silver nitrate.
In the ER, CT showed developing stercoral colitis with moderate rectal/distal colonic stool burden, circumferential wall thickening of esophagus likely due to esophagitis.
She was given enema in the ED with 2 bowel movements.
Had 2 BMs o/n as per nursing staff. No events o/n. Her tube feed is currently being held. Can resume tube feed and continue with routine/standing osmotic laxative. GI s/o, pls call with questions.
Total Time Spent with Patient (in minutes): 35
Subjective
Subjective
Date of Service: July 02, 2024
Had 2 BMs o/n as per [facility] staff. TF currently being held.
Objective
Data Reviewed
Laboratory Data:
Laboratory Results
07/02/24 07:13
07/02/24 07:13
Laboratory Results
Total Bilirubin 1.2 mg/dl (0.2-1.3) 07/02/24 07:13
AST 19 U/L (14-36) 07/02/24 07:13
ALT 12 U/L (0-35) 07/02/24 07:13
Alkaline Phosphatase 125 U/L (38-126) 07/02/24 07:13
Vital Signs and I&O:
Vital Signs
Temp Pulse Resp BP Pulse Ox
98.6 F 79 14 127/62 98
07/02/24 07:57 07/02/24 08:31 07/02/24 07:57 07/02/24 08:31 07/02/24 07:57
I&O
07/01/24 07/02/24 07/03/24
06:59 06:59 06:59
Intake Total 995 / 995 50 / 50
Output Total 1050 / 1050
Balance -55 / -55 50 / 50
--- NOTE | 2024-07-02 12:22 | CM ---
Patient is at LTC resident at [facility]. Patient is non-verbal. she is able shake her head yes and no. Patient is bed bound. Patient relies on a PEG tube for nutrition. Pt is total care.Pt has hx of CVA brain tumor. She has chronic Garvey.
Ph[facility]acy [facility]
PCP Dr Mickey Florentino
Plan Return continuous churn butterm[facility]
Report [phone]
--- NOTE | 2024-07-02 14:05 | W.PN.HOSP.TC ---
Today's Communication/Plan
-
continue bowel regimen
start TFs
continue zosyn
Assessment / Plan
Assessment / Plan
Assessment:
Stercoral colitis
Acute on chronic constipation
- s/p enema and Miralax - 2 BM overnight
- continue Miralax BID, Senna, Gas X
- continue Zosyn, day 2/
Acute on chronic esophagitis
GERD
- continue PPI BID
- add H2 jett BID
AMINA on CKD stage 3b
- continue IVF
- monitor BMP
Chronic PEG tube due to stroke with limited verbal status
- All meds via G-tube
- Tube feeds started
HX CVA residual right hemiplegia and hemiparesis with spasms/mild nonverbal(can say some words but is n.p.o. by mouth)
- Patient is Avery lift to wheelchair per record
- N.p.o. by mouth
HX Colitis on CT scan treated (no perirectal abscess per surgery note April 27 to May 03)
HX coffee-ground emesis (but was due to a bleeding granuloma around the PEG tube that was treated with silver nitrate April 2024 )
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
DVT status post IVC filter
Essential HTN
- BP 137/90
- continue amlodipine 2.5 mg daily
Chronic urinary retention status post indwelling urinary catheter
history urine culture growing VRE April 2024 treated with ampicillin
HX Abdominal varicosities
hx left simple renal cyst
Anxiety
- continue BuSpar 5 mg via G-tube at bedtime, Zoloft 25 mg daily
DVT prophylaxis: SC heparin
Code: Full
Anticipated Discharge: Within 24 hours
Subjective/Interval History
-
Date of Service: July 02, 2024
multiple BMs overnight
Objective Data
-
Labs:
Laboratory Results
07/02/24
07:13
WBC 4.1 L
Hgb 9.6 L
Hct 29.4 L
Plt Count 157
Sodium 138
Potassium 4.2
Chloride 101
Carbon Dioxide 27
BUN 36 H
Creatinine 1.3 H
Glucose 90
Calcium 9.4
Total Bilirubin 1.2
AST 19
ALT 12
Alkaline Phosphatase 125
Vital Signs:
Vital Signs
Temp Pulse Resp BP Pulse Ox
98.6 F 79 14 127/62 98
07/02/24 07:57 07/02/24 08:31 07/02/24 07:57 07/02/24 08:31 07/02/24 07:57
I&O
07/01/24 07/02/24 07/03/24
06:59 06:59 06:59
Intake Total 995 / 995 50 / 50
Output Total 1050 / 1050
Balance -55 / -55 50 / 50
Physical Exam
-
General: No Apparent Distress and Appears Chronically Ill
HEENT: Normocephalic and Atraumatic
Respiratory: Clear to Auscultation; Negative Wheezes or Rales
Cardiac: Regular Rhythm and S1/S2
GI: Peg Tube
Neuro: AO x 3
Psych: Calm
Data Reviewed
-
Total Time Spent with Patient (in minutes): 41
Labs: Labs Reviewed by me
[2024-07-02 15:32] VITALS: BP 116/57
[2024-07-02] MEDS: BUSPAR 5 MG TUBE (21:04)
[2024-07-02] MEDS: ZOLOFT 25 MG TUBE (21:04)
[2024-07-02 23:25] VITALS: BP 115/69
[2024-07-03] MEDS: ZOSYN 50 IV ×3 (01:10→13:02)
--- NOTE | 2024-07-03 02:42 | PTCARENOTE ---
Pt.'s tube feed infusing at 20 ml/hr with H20 flushes at 25 ml/hr - no complaints of nausea/vomiting, bowel sounds positive. Residuals have been higher since midnight, first 80 ml and then 100 ml. Hospitalist AIR DRILL OPERATOR Shaneka notified, instructed to keep
rates at 20 & 25, do not attempt to titrate up at this time.
[2024-07-03 07:02] LABS: % Basophils 0.7 % (0-2); % Eosinophils 5.8 % (0-6); % Immature Granulocytes 0.2 % (0-0.5); % Lymphocytes 36.7 % (20.5-51.1); % Monocytes 11.3 % (1.7-9.3); % Neutrophils 45.3 % (42.2-75.2); Absolute Eosinophils 0.2 10^3/uL (0-0.7); Absolute Lymphocytes 1.5 10^3/uL (1.2-3.4); Absolute Monocytes 0.5 10^3/uL (0.1-0.6); Absolute Neutrophils 1.9 10^3/uL (1.4-6.5); Hematocrit 29.3 % (37.0-47.0); Hemoglobin 9.7 g/dL (12.0-16.0); Mean Corp Hgb Conc. 33.1 g/dL (33.0-37.0); Mean Corpuscular Hgb 29.7 pg (27.0-31.0); Mean Corpuscular Volume 89.6 fL (81.0-99.0); Mean Platelet Volume 10.4 fL (7.4-10.4); Nucleated Red Blood Cells % 0 %; Platelet Count 159 10^3/uL (130-400); Red Blood Cell Count 3.27 10^6/uL (4.20-5.40); White Blood Cell Count 4.2 10^3/uL (4.8-10.8)
[2024-07-03] MEDS: NORVASC 2.5 MG TUBE (07:26)
[2024-07-03] MEDS: LIORESAL 5 MG TUBE (07:26)
[2024-07-03] MEDS: PRED FORTE 1% EYE DROPS 1 DROP RIGHT EYE (07:26)
[2024-07-03] MEDS: MIRALAX 17 GRAMS TUBE (07:27)
[2024-07-03] MEDS: HEPARIN 5000 UNITS SC (07:27)
[2024-07-03 07:28] LABS: ALT (SGPT) 12 U/L (0-35); AST (SGOT) 20 U/L (14-36); Albumin 3.5 g/dl (3.5-5.0); Alkaline Phosphatase 124 U/L (38-126); Blood Urea Nitrogen 36 mg/dl (7-17); Calcium 9.4 mg/dl (8.4-10.2); Carbon Dioxide 24 mmol/L (22-30); Chloride 105 mmol/L (98-107); Estimated Creatinine Clearance 36 ml/min; Glucose 76 mg/dl (70-99); Potassium 4.3 mmol/L (3.5-5.1); Sodium 140 mmol/L (135-145); Total Bilirubin 1.1 mg/dl (0.2-1.3); Total Protein 6.8 g/dl (6.3-8.2); eGFR 39.16
[2024-07-03] MEDS: NSS (PRESERVATIVE FREE) 10 ML IV (07:28)
[2024-07-03] MEDS: PROTONIX IV 40 MG IV (07:28)
[2024-07-03] MEDS: SENOKOT-S 2 TABLET TUBE (07:28)
[2024-07-03 07:33] VITALS: BP 128/62
[2024-07-03] MEDS: CITROMA 300 ML TUBE (09:07)
--- NOTE | 2024-07-03 14:30 | W.PN.HOSP.TC ---
Today's Communication/Plan
-
dc back to SNF
Assessment / Plan
Assessment / Plan
Assessment:
Stercoral colitis
Acute on chronic constipation
- s/p enema and Miralax - 2 BM overnight
- continue Miralax BID, Senna, prn MoM
- continue Zosyn, day 3/5
Acute on chronic esophagitis
GERD
- continue PPI BID
- continue H2 jett BID
AMINA on CKD stage 3b
- continue IVF
- monitor BMP
Chronic PEG tube due to stroke with limited verbal status
- All meds via G-tube
- Tube feeds started
HX CVA residual right hemiplegia and hemiparesis with spasms/mild nonverbal(can say some words but is n.p.o. by mouth)
- Patient is Avery lift to wheelchair per record
- N.p.o. by mouth
HX Colitis on CT scan treated (no perirectal abscess per surgery note April 27 to May 03)
HX coffee-ground emesis (but was due to a bleeding granuloma around the PEG tube that was treated with silver nitrate April 2024 )
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
DVT status post IVC filter
Essential HTN
- continue amlodipine 2.5 mg daily
Chronic urinary retention status post indwelling urinary catheter
history urine culture growing VRE April 2024 treated with ampicillin
HX Abdominal varicosities
hx left simple renal cyst
Anxiety
- continue BuSpar 5 mg via G-tube at bedtime, Zoloft 25 mg daily
DVT prophylaxis: SC heparin
Code: Full
More than 30 minutes spent in discharge including
Final examination of the patient
Summarizing hospital stay
Instructions for continuing care to all relevant caregivers
Preparation of discharge records, prescriptions, and referral forms
Total time spent (in minutes): 41
Anticipated Discharge: Today
Subjective/Interval History
-
Date of Service: July 03, 2024
had a loose/large BM today
tolerating TFs
Objective Data
-
Labs:
Laboratory Results
07/03/24
05:54
WBC 4.2 L
Hgb 9.7 L
Hct 29.3 L
Plt Count 159
Sodium 140
Potassium 4.3
Chloride 105
Carbon Dioxide 24
BUN 36 H
Creatinine 1.5 H
Glucose 76
Calcium 9.4
Total Bilirubin 1.1
AST 20
ALT 12
Alkaline Phosphatase 124
Vital Signs:
Vital Signs
Temp Pulse Resp BP Pulse Ox
97.9 F 70 16 128/62 99
07/03/24 07:33 07/03/24 07:33 07/03/24 07:33 07/03/24 07:33 07/03/24 07:33
I&O
07/02/24 07/03/24 07/04/24
06:59 06:59 06:59
Intake Total 995 / 995 650 / 650
Output Total 1050 / 1050 1000 / 1000
Balance -55 / -55 -350 / -350
Physical Exam
-
General: No Apparent Distress
HEENT: Normocephalic and Atraumatic
Respiratory: Negative Wheezes
Cardiac: Regular Rhythm and S1/S2
GI: Peg Tube
Neuro: AO x 3
Psych: Calm
Data Reviewed
-
Total Time Spent with Patient (in minutes): 42
Labs: Labs Reviewed by me
--- NOTE | 2024-07-03 14:35 | W.DS.TRANS ---
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
-
Discharge Instructions:
Discharge Diagnosis/Procedures constipation, stercoral colitis
Diet Tube feeding
Activity As tolerated
Bathing Restrictions None
Other Services PT,OT
Instructions:
Stand-Alone Forms:
Changes to Home Medications: No
Discharge Medications:
DC Medications w/original date entered in [employer]
acetaminophen 160 mg/5 mL oral elixir 640 mg feeding tube Q4HPRN PRN FEVER 03/16/24
albuterol sulfate 2.5 mg/3 mL (0.083 %) solution for nebulization 2.5 mg inhalation R Q6HPRN PRN SOB 03/16/24
baclofen 5 mg tablet 5 mg feeding tube BID Muscle Spasms 03/16/24
bisacodyl 10 mg rectal suppository (Dulcolax (bisacodyl)) 10 mg OH [id number] PRN IF NO BM AFTR MOM/OR LACTULOSE 03/16/24
buspirone 5 mg tablet 5 mg feeding tube HS anxiety 03/16/24
prednisolone acetate 1 % eye drops,suspension (Pred Forte) 1 drp RIGHT EYE Q12H Eye Condition 03/16/24
sertraline 25 mg tablet 25 mg feeding tube HS depression/anxiety 03/16/24
simethicone 125 mg chewable tablet (Gas-X Extra Strength) 125 mg feeding tube TIDPRN PRN gas pain 03/16/24
ondansetron HCl 4 mg tablet 4 mg feeding tube Q6HPRN PRN Nausea/Vomitting 04/24/24
amlodipine 2.5 mg tablet 2.5 mg PO DAILY #30 tabs 04/30/24
heparin (porcine) 5,000 unit/mL injection syringe 5,000 unit SC Q12H 07/01/24
amoxicillin 600 mg-potassium clavulanate 42.9 mg/5 mL oral suspension 7.3 ml PO BID 5 days #73 mL 07/03/24
famotidine 20 mg tablet (Pepcid) 20 mg PO BID #60 tabs 07/03/24
magnesium hydroxide 400 mg/5 mL oral suspension (Gentle Laxative (magnesium hydroxide)) 15 ml feeding tube BID PRN Constipation #355 mL 07/03/24
polyethylene glycol 3350 17 gram oral powder packet (Miralax) 17 g feeding tube BID Constipation #0 ea 07/03/24
sennosides 8.6 mg-docusate sodium 50 mg tablet 2 tab feeding tube BID #60 tabs 07/03/24
Home Medication Changes
Pending Results: No
Total time spent discharging patient (in min): 41
--- NOTE | 2024-07-03 15:39 | CM ---
MD entered order for discharge.
Called [facility] watt no answer LM with [facility] no answer back . Text [facility] no reply.
Spoke with Cole [phone] at [facility] he accepted pt back.
Spoke with pts mom Heidy she was explained IMM . She said she agreed with dc.
Medical nec form completed
[facility]
report [phone]
fax [phone]
PLAN Return [facility] care
[2024-07-03 15:54] VITALS: BP 107/48
== END 2024-07-03 16:45 | DRG 389 ==
LOC: 1 ACUTE 14:00
PROVIDERS: Clinical Nurse Specialist Family Health; ADMITTING PHYSICIAN Internal Medicine; ATTENDING PHYSICIAN Internal Medicine; CONSULT PHYSICIAN Internal Medicine Gastroenterology; EMERGENCY PHYSICIAN Student in an Organized Health Care Education/Training Program; FAMILY PHYSICIAN Student in an Organized Health Care Education/Training Program
DX: K56.41 Fecal impaction (principal); I69.351 Hemiplegia and hemiparesis following cerebral infarction affecting right dominant side; N17.9 Acute kidney failure, unspecified; K52.89 Other specified noninfective gastroenteritis and colitis; K21.00 Gastro-esophageal reflux disease with esophagitis, without bleeding; N18.32 Chronic kidney disease, stage 3b; E11.22 Type 2 diabetes mellitus with diabetic chronic kidney disease; I12.9 Hypertensive chronic kidney disease with stage 1 through stage 4 chronic kidney disease, or unspecified chronic kidney disease; Z93.1 Gastrostomy status; Z74.01 Bed confinement status; Z86.718 Personal history of other venous thrombosis and embolism; Z98.2 Presence of cerebrospinal fluid drainage device; F41.9 Anxiety disorder, unspecified; Z95.828 Presence of other vascular implants and grafts; F32.A Depression, unspecified; Z79.899 Other long term (current) drug therapy
CPT/HCPCS: 74177; 80053; 83605; 85025; 93005; 96361; 96365; 99285; Q9967

== ENCOUNTER → 2024-08-15 09:21 | Outpatient (REF) | payer MEDICARE, MEDICAID, SELFPAY | LOC: HWRAD 09:21 | PROVIDERS: ATTENDING PHYSICIAN Student in an Organized Health Care Education/Training Program | DX: R91.8 Other nonspecific abnormal finding of lung field (principal) | CPT/HCPCS: 71250 ==

== ENCOUNTER 2024-09-02 10:33 | Emergency (ER) | payer MEDICARE, MEDICAID, SELFPAY ==
[2024-09-02] VITALS (12 sets, daily range): BP systolic 100–146; BP diastolic 63–77
[2024-09-02 11:26] LABS: % Basophils 0.8 % (0-2); % Eosinophils 5.7 % (0-6); % Immature Granulocytes 0.2 % (0-0.5); % Lymphocytes 36.6 % (20.5-51.1); % Neutrophils 48.7 % (42.2-75.2); Absolute Eosinophils 0.3 10^3/uL (0-0.7); Absolute Lymphocytes 1.7 10^3/uL (1.2-3.4); Absolute Monocytes 0.4 10^3/uL (0.1-0.6); Absolute Neutrophils 2.3 10^3/uL (1.4-6.5); Hematocrit 31.3 % (37.0-47.0); Hemoglobin 10.5 g/dL (12.0-16.0); Mean Corp Hgb Conc. 33.5 g/dL (33.0-37.0); Mean Corpuscular Hgb 30.9 pg (27.0-31.0); Mean Corpuscular Volume 92.1 fL (81.0-99.0); Mean Platelet Volume 10.6 fL (7.4-10.4); Nucleated Red Blood Cells % 0 %; Platelet Count 198 10^3/uL (130-400); Red Cell Dist. Width 13.8 % (11.5-14.5); White Blood Cell Count 4.8 10^3/uL (4.8-10.8)
--- NOTE | 2024-09-02 11:38 | ED.GENMED ---
History of Present Illness
General
Chief Complaint: Bowel Problem
Source: correction
Exam Limitations: non verbal-adult
Time Seen by Provider: 09/02/24 11:21
Nursing documentation reviewed up to this point in time: agreed with
History of Present Illness
History of Present Illness:
63-year-old female presenting from [facility] with concerns of potential bowel obstruction seen on x-ray as an outpatient. 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 Ongoing abdominal pain
here.
Past History
Past History
ED Past Medical History: CVA, GERD, HTN and NIDDM
ED Past Surgical History: Brain
Social History
Tobacco: Other
Alcohol: Other
Drug: Other
Personal: Single
Living: correction
Employment: Not employed
Family History
Family History: Unable to obtain
Review of Systems
Review of Systems
Allergies reviewed?: Yes
All Other Systems: ROS reviewed and negative except as documented in HPI and ROS
Phy Exam
Physical Exam
Physical Exam:
GENERAL: Alert , in no apparent distress
EYE: pupils equal and reactive
NECK: Supple, no significant adenopathy.
ENT: o/p clr, mmm.
CARDIAC: Regular rate and rhythm .
LUNGS: Clear breath sounds bilaterally, no acute respiratory distress, no wheezes/rales/rhonchi
ABDOMEN: \\Some degree of discomfort throughout abdominal examination
NEUROLOGICAL: Alert and oriented, no focal neuro deficits
SKIN: Warm and dry, skin intact.
MUSCULOSKELETAL: No edema, well perfused.
PSYCH: No significant conversation
Course
Orders/Labs/Results
Orders:
Orders
09/02/24 11:10
Complete Blood Count/With Diff Urgent
09/02/24 11:29
CT Abd/Pel (IV only)-DH only Urgent
Comment:
Reason For Exam: abd pain bowel obstruction pattern on Xray
09/02/24 11:35
Lactic Acid Urgent
09/02/24 11:40
Comprehensive Metabolic Panel Urgent
Lipase Urgent
09/02/24 12:28
Urinalysis Reflex To Culture Urgent
Date Specimen was Collected: 09/02/24
Time Specimen was Collected: 12:23
Urine Microscopic Reflex Cult Urgent
Urine Culture Urgent
JORDAN Source: U
Specimen Description:
Date Specimen was Collected: 09/02/24
Time Specimen was Collected: 12:23
09/02/24 15:09
Garvey Placement- Treatment ONCE
Reason for insertion: Acute Retention
CefTRIAXone [Rocephin] 2,000 mg IV NOW STA
09/02/24 16:10
Sterile Water [Sterile Water For Injection] 20 ml .ROUTE .[facility]
Abnormal Lab Results
09/02/24 09/02/24 09/02/24
11:10 11:40 12:28
RBC 3.40 L 10^6/uL
(4.20-5.40)
Hgb 10.5 L g/dL
(12.0-16.0)
Hct 31.3 L %
(37.0-47.0)
MPV 10.6 H fL
(7.4-10.4)
BUN 36 H mg/dl
(7-17)
Creatinine 1.1 H mg/dL
(0.6-1.0)
Glucose 103 H mg/dl
(70-99)
Ur Occult Blood Reflex 3+ A
(Negative)
Urine Urobilinogen 2+ A
(Neg - 1+)
Leukocyte Esterase Rfl 3+ A
(Negative)
Urine RBC 11-15 A /HPF
(0-2)
Urine WBC (Reflex) 16-20 A /HPF
(0-5)
Urine Bacteria (Reflex) Few A
(Negative)
Urine Albumin (Reflex) 1+ A
(Neg - Trace)
09/02/24 11:10
09/02/24 11:40
Vital Signs
Initial and Last Documented VS:
Initial Vital Signs
Temp Pulse Resp
100.2 F 98 20
09/02/24 10:39 09/02/24 10:39 09/02/24 10:39
Last Documented Vital Signs
Temp Pulse Resp BP Pulse Ox
100.2 F 88 12 146/77 96
09/02/24 10:39 09/02/24 15:15 09/02/24 12:45 09/02/24 15:01 09/02/24 15:15
MDM/Problems Addressed
MDM/Problems Addressed:
63-year-old female presenting from nursing facility with concerns of bowel obstruction seen on x-ray as an outpatient. Discomfort throughout the abdominal examination here. Plan for CT scan for further clarification. CT scan without evidence of
bowel obstruction but did show some inflammation to the bladder. Urinalysis appear to be potentially consistent with UTI. Has had indwelling Garvey catheter for multiple exchange. Plan to exchange Garvey catheter start on antibiotics but otherwise
can be treated at her nursing facility.
*Critical Care Note
Total Time (30-74mins, 75-104mins- exclusive of procedures): Not Applicable
ED Attending Note
-
Portions of this chart may have been created with voice recognition software.� Occasional wrong word or��sound alike� substitutions may have occurred due to the inherent limitations of voice recognition software.
Discharge Plan
Departure
Patient Disposition: [facility]/SNF
Date of Disposition: 09/02/24
Time of Disposition: 16:19
Patient with high blood pressure during this ER visit?: No
Condition: Good
Covid-19: Not Applicable
Discharge Problem:
UTI (urinary tract infection)
Instructions: Urinary tract infections in adults
Prescriptions:
New
cefpodoxime 200 mg tablet
200 mg PO BID 7 Days Qty: 14 0RF
No Action
buspirone 5 mg Tablet
5 mg feeding tube HS
albuterol sulfate 2.5 mg /3 mL (0.083 %) Solution For Nebulization
2.5 mg INHALATION R Q6HPRN PRN (Reason: SOB)
bisacodyl [Dulcolax (bisacodyl)] 10 mg Suppository
10 mg PA [id number] PRN (Reason: IF NO BM AFTR MOM/OR LACTULOSE )
sertraline 25 mg Tablet
25 mg feeding tube HS
simethicone [Gas-X Extra Strength] 125 mg Tablet,Chewable
125 mg feeding tube TIDPRN PRN (Reason: gas pain )
acetaminophen 160 mg/5 mL Elixir
640 mg feeding tube Q4HPRN PRN (Reason: FEVER)
baclofen 5 mg Tablet
5 mg feeding tube BID
ondansetron HCl 4 mg Tablet
4 mg feeding tube Q6HPRN PRN (Reason: Nausea/Vomitting)
heparin (porcine) 5,000 unit/mL Syringe
5,000 unit SC Q12H
sennosides-docusate sodium 8.6-50 mg Tablet
2 tab feeding tube BID Qty: 60 0RF
polyethylene glycol 3350 [Miralax] 17 gram Powder In Packet
17 g feeding tube BID Qty: 0 0RF
famotidine [Pepcid] 40 mg/5 mL (8 mg/mL) Suspension For Reconstitution
20 mg feeding tube BID
amlodipine 2.5 mg tablet
2.5 mg feeding tube DAILY
magnesium hydroxide [Gentle Laxative (mag hydrox)] 400 mg/5 mL suspension
30 ml feeding tube HSPRN PRN (Reason: Constipation)
Referrals:
Mickey Florentino DO [Family Provider] -
Activity Restrictions/Additional Instructions:
You came to the emergency department today with concerns of abdominal discomfort. You did not had any evidence of a bowel obstruction on your CT scan but did have inflammation to your bladder. Your Garvey catheter was exchanged and you were started
on antibiotics. Please take these medications twice daily for the neck 7 days and follow-up closely as an outpatient. Return for any worsening, new or concerning symptoms.
Interventions
Interventions:
*Risk Screen - Suicide Last Done: 09/02/24 10:39
*General Assessment Last Done: 09/02/24 10:39
*Neglect/Abuse Screening Last Done: 09/02/24 10:39
*ED- Fall Risk Assessment Last Done: 09/02/24 10:39
*ED COVID-19 Vaccine History Last Done: 09/02/24 10:39
UD-Mzsuaa-Lwoxtybccg Assessment Last Done: 09/02/24 10:54
Discharge Date and Time
Print Language: HUNGARIAN
[2024-09-02 11:56] LABS: Lactic Acid 0.8 mmol/L (0.7-2.0)
[2024-09-02 12:02] LABS: ALT (SGPT) 12 U/L (0-35); AST (SGOT) 21 U/L (14-36); Albumin 3.9 g/dl (3.5-5.0); Alkaline Phosphatase 115 U/L (38-126); Blood Urea Nitrogen 36 mg/dl (7-17); Calcium 9.3 mg/dl (8.4-10.2); Carbon Dioxide 29 mmol/L (22-30); Chloride 107 mmol/L (98-107); Glucose 103 mg/dl (70-99); Lipase 137 U/L (23-300); Potassium 4.4 mmol/L (3.5-5.1); Sodium 142 mmol/L (135-145); Total Bilirubin 0.7 mg/dl (0.2-1.3); Total Protein 7.3 g/dl (6.3-8.2); eGFR 56.81
[2024-09-02 12:49] LABS: Urine Albumin 1+ (Neg - Trace); Urine Bilirubin Negative (Negative); Urine Character Cloudy (Clear); Urine Color Yellow; Urine Glucose Negative (Negative); Urine Ketone Negative (Negative); Urine Leukocyte 3+ (Negative); Urine Nitrite Negative (Negative); Urine Occult Blood 3+ (Negative); Urine Urobilinogen 2+ (Neg - 1+)
[2024-09-02 14:19] LABS: Urine Amorphous Seen
[2024-09-02 14:20] LABS: Urine Bacteria Few (Negative); Urine White Cell 16-20 /HPF (0-5)
[2024-09-02] MEDS: ROCEPHIN 2000 MG IV (16:11)
== END 2024-09-02 21:36 ==
LOC: EMR 10:33
PROVIDERS: Physician Assistant; EMERGENCY PHYSICIAN Emergency Medicine; FAMILY PHYSICIAN Student in an Organized Health Care Education/Training Program
DX: N39.0 Urinary tract infection, site not specified (principal); K56.609 Unspecified intestinal obstruction, unspecified as to partial versus complete obstruction; K21.9 Gastro-esophageal reflux disease without esophagitis; I10 Essential (primary) hypertension; E11.9 Type 2 diabetes mellitus without complications; Z86.73 Personal history of transient ischemic attack (TIA), and cerebral infarction without residual deficits; Z98.2 Presence of cerebrospinal fluid drainage device
CPT/HCPCS: 99284; 96374; 74177; 80053; 81003; 81015; 83605; 83690; 85025; 87086; Q9967

== ENCOUNTER → 2024-09-29 09:38 | Outpatient (REF) | payer MEDICARE, OTHER, SELFPAY ==
[2024-09-29 11:17] LABS: % Basophils 0.6 % (0-2); % Immature Granulocytes 0.2 % (0-0.5); % Monocytes 10.3 % (1.7-9.3); % Neutrophils 51.9 % (42.2-75.2); Absolute Eosinophils 0.3 10^3/uL (0-0.7); Absolute Lymphocytes 1.5 10^3/uL (1.2-3.4); Absolute Monocytes 0.5 10^3/uL (0.1-0.6); Absolute Neutrophils 2.5 10^3/uL (1.4-6.5); Hematocrit 30.7 % (37.0-47.0); Hemoglobin 10.1 g/dL (12.0-16.0); Mean Corp Hgb Conc. 32.9 g/dL (33.0-37.0); Mean Corpuscular Hgb 30.2 pg (27.0-31.0); Mean Corpuscular Volume 91.9 fL (81.0-99.0); Mean Platelet Volume 10.3 fL (7.4-10.4); Nucleated Red Blood Cells % 0 %; Platelet Count 183 10^3/uL (130-400); Red Blood Cell Count 3.34 10^6/uL (4.20-5.40); Red Cell Dist. Width 13.4 % (11.5-14.5); White Blood Cell Count 4.9 10^3/uL (4.8-10.8)
[2024-09-29 11:25] LABS: Blood Urea Nitrogen 38 mg/dl (7-17); Calcium 9.3 mg/dl (8.4-10.2); Carbon Dioxide 26 mmol/L (22-30); Chloride 105 mmol/L (98-107); Glucose 99 mg/dl (70-99); Potassium 4.3 mmol/L (3.5-5.1); Sodium 140 mmol/L (135-145); eGFR 51.18
[2024-09-29 11:33] LABS: NT-proBNP 286 pg/ml
== END ==
LOC: OLABN 09:38
PROVIDERS: ATTENDING PHYSICIAN Student in an Organized Health Care Education/Training Program
DX: I50.1 Left ventricular failure, unspecified (principal)
CPT/HCPCS: 36415; 80048; 83880; 85025

== ENCOUNTER → 2024-10-03 11:21 | Outpatient (REF) | payer MEDICARE, OTHER, SELFPAY ==
[2024-10-03 13:41] LABS: Blood Urea Nitrogen 30 mg/dl (7-17); Calcium 9.4 mg/dl (8.4-10.2); Carbon Dioxide 29 mmol/L (22-30); Chloride 104 mmol/L (98-107); Glucose 106 mg/dl (70-99); Potassium 4.6 mmol/L (3.5-5.1); Sodium 140 mmol/L (135-145); eGFR 56.81
== END ==
LOC: OLABN 11:21
PROVIDERS: ATTENDING PHYSICIAN Student in an Organized Health Care Education/Training Program
DX: I50.9 Heart failure, unspecified (principal)
CPT/HCPCS: 36415; 80048

== ENCOUNTER 2024-12-02 15:51 | Emergency (ER) | payer MEDICARE, OTHER, SELFPAY ==
[2024-12-02 15:51] VITALS: BP 108/65
[2024-12-02 16:00] VITALS: BP 124/72
[2024-12-02 18:00] VITALS: BP 125/70
[2024-12-02 19:00] VITALS: BP 122/69
--- NOTE | 2024-12-02 19:25 | ED.GENMED ---
History of Present Illness
General
Chief Complaint: Facial Problem
Source: patient
Exam Limitations: none
Time Seen by Provider: 12/02/24 16:30
Nursing documentation reviewed up to this point in time: agreed with
History of Present Illness
History of Present Illness:
64-year-old female with previous history of stroke, previous brain tumor, MANAGER PULMONARY shunt in place presenting to the emergency department from nursing facility with concerns of indentation to the left side of the forehead. Has neuroappointment in 2
months. They deny any significant change in behavior.
Past History
Past History
ED Past Medical History: CVA, GERD, HTN and NIDDM
ED Past Surgical History: Brain
Social History
Tobacco: Other
Alcohol: Other
Drug: Other
Personal: Single
Living: longterm
Employment: Not employed
Family History
Family History: Unable to obtain
Review of Systems
Review of Systems
Allergies reviewed?: Yes
All Other Systems: ROS reviewed and negative except as documented in HPI and ROS
Phy Exam
Physical Exam
Physical Exam:
GENERAL: Alert , in no apparent distress
EYE: pupils equal and reactive
NECK: Supple, no significant adenopathy.
ENT: o/p clr, mmm.
CARDIAC: Regular rate and rhythm .
LUNGS: Clear breath sounds bilaterally, no acute respiratory distress, no wheezes/rales/rhonchi
ABDOMEN: Soft, without focal tenderness, no r/g, no cvat
NEUROLOGICAL: Does not follow basic commands
SKIN: Warm and dry, skin intact.
MUSCULOSKELETAL: No edema, well perfused.
Course
Orders/Labs/Results
Orders:
Orders
12/02/24 17:58
CT Head W/o Iv Contrast Urgent
Comment:
Reason For Exam: svp research and strategic analysis shunt,
Vital Signs
Initial and Last Documented VS:
Initial Vital Signs
Temp Pulse Resp BP Pulse Ox
98.1 F 75 14 108/65 96
12/02/24 15:51 12/02/24 15:51 12/02/24 15:51 12/02/24 15:51 12/02/24 15:51
Last Documented Vital Signs
Temp Pulse Resp BP Pulse Ox
98.1 F 107 20 96/63 97
12/02/24 15:51 12/03/24 00:03 12/03/24 00:03 12/03/24 00:03 12/03/24 00:03
MDM/Problems Addressed
MDM/Problems Addressed:
64-year-old female presenting to the emergency department today with concerns of an indentation in the left temporal region. Does have history of MANAGER PULMONARY shunt nor appointment in 2 months. Otherwise no additional emergent concerns normal behavior and
patient baseline according to nursing staff. CT scan with multiple findings though no obvious emergent findings. Case discussed with neurology that feels that there is no emergent findings here advised for close outpatient follow-up. Return
precautions given.
*Pulse Oximetry
SaO2: 95
Oxygen Mode of Delivery: Room air
Patient hypoxic: no (97)
*Critical Care Note
Total Time (30-74mins, 75-104mins- exclusive of procedures): Not Applicable
ED Attending Note
-
Portions of this chart may have been created with voice recognition software.� Occasional wrong word or��sound alike� substitutions may have occurred due to the inherent limitations of voice recognition software.
Discharge Plan
Departure
Patient Disposition: Home (Routine Discharge)
Date of Disposition: 12/02/24
Time of Disposition: 21:18
Patient with high blood pressure during this ER visit?: No
Condition: Good
Covid-19: Not Applicable
Discharge Problem:
Head problem
Prescriptions:
No Action
buspirone 5 mg Tablet
5 mg feeding tube HS
albuterol sulfate 2.5 mg /3 mL (0.083 %) Solution For Nebulization
2.5 mg INHALATION R Q6HPRN PRN (Reason: SOB)
bisacodyl [Dulcolax (bisacodyl)] 10 mg Suppository
10 mg NM [id number] PRN (Reason: IF NO BM AFTR MOM/OR LACTULOSE )
sertraline 25 mg Tablet
25 mg feeding tube HS
simethicone [Gas-X Extra Strength] 125 mg Tablet,Chewable
125 mg feeding tube TIDPRN PRN (Reason: gas pain )
acetaminophen 160 mg/5 mL Elixir
640 mg feeding tube Q4HPRN PRN (Reason: FEVER)
baclofen 5 mg Tablet
5 mg feeding tube BID
ondansetron HCl 4 mg Tablet
4 mg feeding tube Q6HPRN PRN (Reason: Nausea/Vomitting)
heparin (porcine) 5,000 unit/mL Syringe
5,000 unit SC Q12H
sennosides-docusate sodium 8.6-50 mg Tablet
2 tab feeding tube BID Qty: 60 0RF
polyethylene glycol 3350 [Miralax] 17 gram Powder In Packet
17 g feeding tube BID Qty: 0 0RF
famotidine [Pepcid] 40 mg/5 mL (8 mg/mL) Suspension For Reconstitution
20 mg feeding tube BID
amlodipine 2.5 mg tablet
2.5 mg feeding tube DAILY
magnesium hydroxide [Gentle Laxative (mag hydrox)] 400 mg/5 mL suspension
30 ml feeding tube HSPRN PRN (Reason: Constipation)
cefpodoxime 200 mg tablet
200 mg PO BID 7 Days Qty: 14 0RF
Referrals:
Mickey Florentino DO [Family Provider, Family Practice]
Activity Restrictions/Additional Instructions:
Please follow-up closely with your neurosurgeon and neurology team. Return for any worsening, new or concerning symptoms.
Interventions
Interventions:
*Risk Screen - Suicide Last Done: 12/02/24 15:51
*General Assessment Last Done: 12/02/24 15:51
*Neglect/Abuse Screening Last Done: 12/02/24 15:51
*ED- Fall Risk Assessment Last Done: 12/02/24 15:51
*ED COVID-19 Vaccine History Last Done: 12/02/24 15:51
*Nursing Disposition Last Done: 12/03/24 00:03
ED- Neurological Assessment Last Done: 12/02/24 15:51
ED-Skin Assessment Last Done: 12/02/24 15:51
Discharge Date and Time
Discharge Date/Time: 12/03/24 00:07
Print Language: BRAZILIAN
[2024-12-03 00:03] VITALS: BP 96/63
== END 2024-12-03 00:07 | disposition home or self-care (01) ==
LOC: EMR 15:51
PROVIDERS: EMERGENCY PHYSICIAN Emergency Medicine; FAMILY PHYSICIAN Student in an Organized Health Care Education/Training Program
DX: M95.2 Other acquired deformity of head (principal); Z98.2 Presence of cerebrospinal fluid drainage device; Z86.73 Personal history of transient ischemic attack (TIA), and cerebral infarction without residual deficits
CPT/HCPCS: 99284; 70450

== ENCOUNTER → 2024-12-21 10:07 | Outpatient (REF) | payer MEDICARE, OTHER, SELFPAY ==
[2024-12-21 10:43] LABS: Hematocrit 34.0 % (37.0-47.0); Hemoglobin 10.9 g/dL (12.0-16.0); Mean Corp Hgb Conc. 32.1 g/dL (33.0-37.0); Mean Corpuscular Volume 93.9 fL (81.0-99.0); Platelet Count 166 10^3/uL (130-400); Red Cell Dist. Width 14.1 % (11.5-14.5)
[2024-12-21 11:05] LABS: ALT (SGPT) 10 U/L (0-35); AST (SGOT) 20 U/L (14-36); Albumin 3.8 g/dl (3.5-5.0); Alkaline Phosphatase 144 U/L (38-126); Blood Urea Nitrogen 42 mg/dl (7-17); Calcium 9.3 mg/dl (8.4-10.2); Carbon Dioxide 28 mmol/L (22-30); Chloride 104 mmol/L (98-107); Glucose 113 mg/dl (70-99); Potassium 4.3 mmol/L (3.5-5.1); Sodium 139 mmol/L (135-145); Total Protein 7.4 g/dl (6.3-8.2); eGFR 56.46
== END ==
LOC: OLABN 10:07
PROVIDERS: ATTENDING PHYSICIAN Student in an Organized Health Care Education/Training Program
DX: I10 Essential (primary) hypertension (principal)
CPT/HCPCS: 36415; 80053; 85027

== ENCOUNTER → 2024-12-28 10:44 | Outpatient (REF) | payer MEDICARE, OTHER, SELFPAY ==
[2024-12-28 12:19] LABS: ALT (SGPT) < 10 U/L (0-35); AST (SGOT) 18 U/L (14-36); Albumin 3.6 g/dl (3.5-5.0); Alkaline Phosphatase 123 U/L (38-126); Blood Urea Nitrogen 44 mg/dl (7-17); Calcium 9.3 mg/dl (8.4-10.2); Carbon Dioxide 29 mmol/L (22-30); Chloride 105 mmol/L (98-107); Glucose 126 mg/dl (70-99); Potassium 4.5 mmol/L (3.5-5.1); Sodium 140 mmol/L (135-145); Total Protein 7.1 g/dl (6.3-8.2); eGFR 50.86
== END ==
LOC: OLABN 10:44
PROVIDERS: ATTENDING PHYSICIAN Student in an Organized Health Care Education/Training Program
DX: R79.0 Abnormal level of blood mineral (principal)
CPT/HCPCS: 36415; 80053

== ENCOUNTER → 2025-01-25 10:59 | Outpatient (REF) | payer MEDICARE, OTHER, SELFPAY ==
[2025-01-25 11:17] LABS: Hematocrit 29.5 % (37.0-47.0); Hemoglobin 9.9 g/dL (12.0-16.0); Mean Corp Hgb Conc. 33.6 g/dL (33.0-37.0); Mean Corpuscular Volume 91.0 fL (81.0-99.0); Nucleated Red Blood Cells % 0 %; Platelet Count 185 10^3/uL (130-400); Red Cell Dist. Width 13.2 % (11.5-14.5)
[2025-01-25 11:39] LABS: ALT (SGPT) 10 U/L (0-35); AST (SGOT) 20 U/L (14-36); Albumin 3.7 g/dl (3.5-5.0); Alkaline Phosphatase 115 U/L (38-126); Blood Urea Nitrogen 39 mg/dl (7-17); Calcium 8.8 mg/dl (8.4-10.2); Carbon Dioxide 26 mmol/L (22-30); Chloride 98 mmol/L (98-107); Glucose 85 mg/dl (70-99); Potassium 5.1 mmol/L (3.5-5.1); Sodium 130 mmol/L (135-145); Total Protein 7.0 g/dl (6.3-8.2); eGFR 38.91
== END ==
LOC: OLABN 10:59
PROVIDERS: ATTENDING PHYSICIAN Student in an Organized Health Care Education/Training Program
DX: I10 Essential (primary) hypertension (principal)
CPT/HCPCS: 36415; 80053; 85025

== ENCOUNTER 2025-01-28 20:38 | Inpatient (IN) | payer MEDICARE, OTHER, SELFPAY ==
[2025-01-28 17:00] VITALS: BP 110/77
[2025-01-28 17:11] LABS: Hematocrit 29.5 % (37.0-47.0); Hemoglobin 10.0 g/dL (12.0-16.0); Mean Corp Hgb Conc. 33.9 g/dL (33.0-37.0); Mean Corpuscular Volume 88.9 fL (81.0-99.0); Nucleated Red Blood Cells % 0 %; Platelet Count 169 10^3/uL (130-400); Red Cell Dist. Width 13.2 % (11.5-14.5)
--- NOTE | 2025-01-28 17:16 | ED.GENMED ---
History of Present Illness
General
Chief Complaint: Seizure
Time Seen by Provider: 01/28/25 17:02
Nursing documentation reviewed up to this point in time: agreed with
History of Present Illness
History of Present Illness:
64-year-old female presents to the ER via EMS for evaluation of seizure activity. Patient is nonverbal at baseline. 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
long-term staff reported that she had a limited seizure yesterday but did not have any evaluation. Today she was witnessed to have 3 seizures. She received 4 mg of Versed en route to the ER with improvement in tonic-clonic generalized activity
that had been noted by prehospital personnel. Family is present at bedside. They state that she is currently on antibiotics and had been having a fever earlier this week related to an infected cyst just above her right ear which has been draining
purulent material. She was scheduled to have I&D of this next week. No reported cough or cold symptoms recently. Family at bedside report that current patient appearance is her baseline
In review of her longterm medication list, it appears as though she was initiated on Bactrim for treatment of the infected cyst
Past History
Past History
ED Past Medical History: CVA, GERD, HTN and NIDDM
ED Past Surgical History: Brain
Social History
Tobacco: Other
Alcohol: Other
Drug: Other
Personal: Single
Living: longterm
Employment: Not employed
Family History
Family History: Unable to obtain
Review of Systems
Review of Systems
Allergies reviewed?: Yes
Phy Exam
Physical Exam
Physical Exam:
Patient is resting comfortably, arousable to tactile stimuli, appears in no acute distress, head is NCAT, 2 cm subcutaneous mass present above right ear with fluctuance and crusting, erythema limited to area of mass only, PERRL, EOMI mucous
membranes moist, conjunctiva pink, heart regular rate and rhythm without murmurs or ectopy, lungs are clear to auscultation without wheezes rales or rhonchi, no JVD, abdomen is soft, obese, and nontender on palpation, PEG tube present left upper
quadrant, extremities without edema, right arm and leg with atrophy and minimal spontaneous movement, left arm and leg with appropriate response to tactile stimuli, 2+ DP pulses present symmetric bilateral feet
Sepsis
Sepsis Screening
Sepsis Assessment: Sepsis
Sepsis Screen
Sepsis Screen: Sepsis
Date: 01/28/25
Time: 20:55
Course
Orders/Labs/Results
Orders:
Orders
01/28/25 16:48
Electrocardiogram (*1) Urgent
Reason for Study: Tachycardia
EKG- Treatment ONCE
01/28/25 16:50
UA Reflex to Culture [Urinalysis Reflex To Culture] Urgent
Date Specimen was Collected: 01/28/25
Time Specimen was Collected: 16:48
Urine Microscopic Reflex Cult Urgent
Urine Culture Urgent
JORDAN Source: U
Specimen Description:
Date Specimen was Collected: 01/28/25
Time Specimen was Collected: 16:48
01/28/25 16:54
Basic Metabolic Panel Urgent
Complete Blood Count/With Diff Urgent
Troponin I Urgent
01/28/25 17:14
0.9% Sodium Chloride 1000 ml [Nss] 1,000 ml IV BOLUS
01/28/25 17:15
CT Head W/o Iv Contrast Urgent
Comment:
Reason For Exam: seizure
CR Chest Portable - 1 View Urgent
Comment:
Reason For Exam: fever
Reason Study Needs to be Portable: Patient Unstable
01/28/25 18:02
Lactate Level [Lactic Acid] Urgent
Blood Culture Q30M
JORDAN Source: Blood/Venous
Specimen Description:
Blood Culture Q30M
JORDAN Source: Blood/Venous
Specimen Description:
01/28/25 19:19
Electrocardiogram (*1) Urgent
Reason for Study: Palpitations
EKG- Treatment ONCE
01/28/25 19:33
Cefepime HCl [Maxipime] 1,000 mg IV NOW STA
01/28/25 19:34
Vancomycin [Vancocin] 2,000 mg 0.9% Sodium Chloride 500 ml [Nss] 500 ml IV NOW
01/28/25 19:38
Sterile Water [Sterile Water For Injection] 10 ml .ROUTE .[facility]
01/28/25 19:40
Urinalysis Reflex To Culture Urgent
Date Specimen was Collected: 01/28/25
Time Specimen was Collected: 19:25
Urine Microscopic Reflex Cult Urgent
Urine Culture Urgent
JORDAN Source: U
Specimen Description:
Date Specimen was Collected: 01/28/25
Time Specimen was Collected: 19:25
01/28/25 20:21
Admit/Transfer Patient As Directed
Co-Sign Provider:
Level of Care: Inpatient admission
Assign to:: ICU
Physician / Group: lynette,kia
Diagnosis: seizure
Reason for Hospitalization: seizure
pneumonia
Expected length of stay greater than two midnights?: Yes
ELOS- Estimated Length of Stay in days: 3
I certify the patient meets the requirements for IP care: Yes
PRN Pain Medication Management As Directed
May give lesser potent ordered pain med per pt: Yes
preference::
Protocol:: Medication orders for pain may be administered in a
manner that supports deferring to patient preference
when the pt is:
- Requesting an ordered lesser potent pain medication.
Least to most potent pain medications are defined
as: acetaminophen < NSAID < tramadol < opioids
(morphine, oxycodone, hydromorphone).
- Requesting a lesser dose of the same medication IF
ORDERED.
- Requesting a less intrusive route of administration
if both routes are prescribed by the provider (PO <
IV).
01/28/25 20:23
Code Status As Directed
Resuscitation Status: Full Code
01/28/25 20:31
Ozqwl-Qwgh-Krcubqz Urgent
Potassium Urgent
01/28/25 20:35
Troponin I Urgent
Abnormal Lab Results
01/28/25 01/28/25 01/28/25
16:50 16:54 18:02
RBC 3.32 L 10^6/uL
(4.20-5.40)
Hgb 10.0 L g/dL
(12.0-16.0)
Hct 29.5 L %
(37.0-47.0)
Absolute Neuts (auto) 6.7 H 10^3/uL
(1.4-6.5)
Absolute Lymphs (auto) 0.6 L 10^3/uL
(1.2-3.4)
Neutrophils % 84.5 H %
(42.2-75.2)
Lymphocytes % 6.9 L %
(20.5-51.1)
Sodium 130 L mmol/L
(135-145)
Carbon Dioxide 19 L mmol/L
(22-30)
BUN 43 H mg/dl
(7-17)
Creatinine 1.4 H mg/dL
(0.6-1.0)
Glucose 144 H mg/dl
(70-99)
Lactic Acid 3.1 H mmol/L
(0.7-2.0)
Troponin I 0.286 H* ng/ml
Ur Occult Blood Reflex 2+ A
(Negative)
Urine Nitrite (Reflex) Positive A
(Negative)
Leukocyte Esterase Rfl 3+ A
(Negative)
Urine RBC 3-6 A /HPF
(0-2)
Urine WBC (Reflex) 21-25 A /HPF
(0-5)
Urine Bacteria (Reflex) Many A
(Negative)
Urine Albumin (Reflex) 2+ A
(Neg - Trace)
01/28/25
19:40
RBC
Hgb
Hct
Absolute Neuts (auto)
Absolute Lymphs (auto)
Neutrophils %
Lymphocytes %
Sodium
Carbon Dioxide
BUN
Creatinine
Glucose
Lactic Acid
Troponin I
Ur Occult Blood Reflex 4+ A
(Negative)
Urine Nitrite (Reflex)
Leukocyte Esterase Rfl 2+ A
(Negative)
Urine RBC 7-10 A /HPF
(0-2)
Urine WBC (Reflex)
Urine Bacteria (Reflex) Few A
(Negative)
Urine Albumin (Reflex)
01/28/25 16:54
Vital Signs
Initial and Last Documented VS:
Initial Vital Signs
Pulse Ox
100
01/28/25 16:23
Last Documented Vital Signs
Temp Pulse Resp BP Pulse Ox
100.6 F H 105 21 99/61 100
01/28/25 19:30 01/28/25 20:07 01/28/25 20:07 01/28/25 20:07 01/28/25 20:07
MDM/Problems Addressed
Differential Diagnosis Includes:
Differential diagnosis to consider but not limited to infection, adverse medication reaction, lecture light dyscrasia, intracranial mass, [employer] MANAGER shunt blockage,Along with other etiologies considered
Chronic conditions affecting care:
Prior brain surgery with resultant hemiplegia and limited ability to communicate, PEG tube dependent, obesity
*Radiology
Radiology exam reviewed: preliminary read by ED provider (I dependently viewed and interpreted portable chest x-ray showing poor inspiratory effort, there is bowel gas seen above the right hemidiaphragm, no pneumoperitoneum appreciated, no focal
infiltrate) and radiology read reviewed (I reviewed CT head result, no acute finding today. I also reviewed chest x-ray interpretation by radiologist concerning for left-sided pneumonia)
*Pulse Oximetry
SaO2: 100
Oxygen Mode of Delivery: Room air
Patient hypoxic: no
*EKG
Interpreted by ED Provider?: Yes (I dependently interpreted twelve-lead EKG showing sinus tachycardia, rate 121, leftward axis, low voltage QRS, no ST elevations, this is a borderline EKG without evidence for acute ischemia, increased rate compared
to prior from 07/03/2024)
*Education Site Manager Interpretation
Rate: tachycardiac (I independently viewed and interpreted rhythm strip showing sinus tachycardia, no ectopy)
*Critical Care Note
Total Time (30-74mins, 75-104mins- exclusive of procedures): Not Applicable
Update Note
Update Note:
1908: I independently viewed and interpreted CT of the head showing a large lobular mass in the left hemisphere, although this does not appear significantly changed compared to prior CT from 12/02/2024. Awaiting radiology interpretation of same
1927: Broad-spectrum antibiotics ordered given patient now has low-grade fever. Blood cultures had already been sent. X-ray concerning for pneumonia. Initial urinalysis was taken off of original Gravey from the longterm. This was replaced and
new urine sample was sent. I reviewed full patient presentation with the hospitalist who accept patient for admission for further care.
ED Attending Note
-
Portions of this chart may have been created with voice recognition software.� Occasional wrong word or��sound alike� substitutions may have occurred due to the inherent limitations of voice recognition software.
Discharge Plan
Departure
Patient Disposition: Admit
Date of Disposition: 01/28/25
Time of Disposition: 20:06
Presentation/result/management discussed w/ accepting MD/DO: Hospitalist
Discharge Problem:
Seizure, Pneumonia, UTI (urinary tract infection)
Interventions
Interventions:
*Risk Screen - Suicide Last Done: 01/28/25 16:33
*General Assessment Last Done: 01/28/25 16:33
*Neglect/Abuse Screening Last Done: 01/28/25 16:33
*ED- Fall Risk Assessment Last Done: 01/28/25 16:33
*ED COVID-19 Vaccine History Last Done: 01/28/25 16:33
*ED Influenza Vaccine History Last Done: 01/28/25 16:33
ED- Cardiac Assessment Last Done: 01/28/25 16:23
ED- Neurological Assessment Last Done: 01/28/25 16:23
ED- Pulmonary Assessment Last Done: 01/28/25 16:23
[2025-01-28 17:24] LABS: Urine Character Cloudy (Clear)
[2025-01-28 17:35] LABS: Blood Urea Nitrogen 43 mg/dl (7-17); Calcium 8.7 mg/dl (8.4-10.2); Carbon Dioxide 19 mmol/L (22-30); Chloride 98 mmol/L (98-107); Glucose 144 mg/dl (70-99); Sodium 130 mmol/L (135-145); eGFR 42.27
[2025-01-28 17:37] LABS: Troponin I 0.286 ng/ml
[2025-01-28 17:59] LABS: Urine White Cell 21-25 /HPF (0-5)
[2025-01-28 18:00] VITALS: BP 109/76
[2025-01-28 18:02] LABS: Urine Squamous Cell 0-2 /LPF (Few)
[2025-01-28] MEDS: NSS 1000 IV ×2 (18:33→22:27)
--- NOTE | 2025-01-28 19:34 | HPS.HSE ---
Family Physician
-
Family Physician: Mickey Florentino DO
Chief Complaint
-
Seizure
History of Present Illness
64-year-old female with past medical history for brain tumor, CVA, hypertension, anxiety, GERD presented to us with concern for seizure activity at [facility]. Patient was noted to have 3 episodes of seizure at the assisted today morning.
Patient not able to provide any history as she is nonverbal. As per mother, she was noted to have a fever of 101 at assisted last week. She was getting Tylenol as needed for fever. She is on antibiotic for cyst behind her right ear. She is
scheduled for I&D in 2 weeks. She was on tube feed for 6 months. For 1 week she is drinking little bit of apple juice, cranberry and applesauce. Mother did not notice any cough.
Concern for pneumonia. Initiated on antibiotic
Admitted for further management
Medical History
Past Medical History
Past Medical History: Reports Other
Additional Past Medical History:
VA (Residual right hemiplegia and hemiparesis), GERD, NIDDM,hronic urinary retention status post indwelling urinary catheter
colitis with perirectal abscess PEG tube
S/P ENGINE SPECIALIST shunt
DVT status post IVC filter
GERD/esophagitis
HTN
DM2
Past Surgical History: Reports Other
Additional Past Surgical History:
Status post PEG
DVT status post IVC filter
Status post ENGINE SPECIALIST shunt
Brain mass resection
Social History
Tobacco: Non-smoker
Alcohol: None
Drug: None
Living: Shelter
Family History
Family History: Not pertinent
Allergies / Home Medications
Allergies reflects when Allergies were last updated in [employer].
Home Medications with original date entered in [employer]
Allergy/Medication List:
Allergies
Allergy/AdvReac Type Severity Reaction Status Date / Time
No Known Allergies Allergy Verified 09/02/24 10:48
Home Medications
acetaminophen 160 mg/5 mL oral elixir 640 mg feeding tube Q4HPRN PRN FEVER 03/16/24
albuterol sulfate 2.5 mg/3 mL (0.083 %) solution for nebulization 2.5 mg inhalation R Q6HPRN PRN SOB 03/16/24
bisacodyl 10 mg rectal suppository (Dulcolax (bisacodyl)) 10 mg LA [id number] PRN IF NO BM AFTR MOM 03/16/24
buspirone 5 mg tablet 2.5 mg feeding tube HS anxiety 03/16/24
sertraline 25 mg tablet 25 mg feeding tube HS depression/anxiety 03/16/24
simethicone 125 mg chewable tablet (Gas-X Extra Strength) 125 mg feeding tube BID 03/16/24
polyethylene glycol 3350 17 gram oral powder packet (Miralax) 17 g feeding tube BID Constipation #0 ea 07/03/24
sennosides 8.6 mg-docusate sodium 50 mg tablet 2 tab feeding tube BID #60 tabs 07/03/24
amlodipine 2.5 mg tablet 2.5 mg feeding tube DAILY 09/02/24
magnesium hydroxide 400 mg/5 mL oral suspension (Gentle Laxative (magnesium hydroxide)) 2,400 mg feeding tube HSPRN PRN Constipation 09/02/24
Saccharomyces boulardii 250 mg capsule (Florastor) 250 mg feeding tube BID 01/28/25
famotidine 20 mg tablet (Pepcid) 20 mg feeding tube BID 01/28/25
prednisolone acetate 1 % eye drops,suspension 1 drp RIGHT EYE DAILY 01/28/25
sulfamethoxazole 200 mg-trimethoprim 40 mg/5 mL oral suspension 20 ml feeding tube BID 01/28/25
Review of Systems
-
Unable to obtain full review of systems at this time due to: Acuity
Physical Exam
Vital Signs
Vital Signs
Temp Pulse Resp BP Pulse Ox
99.8 F 98 21 109/76 100
01/28/25 16:33 01/28/25 18:30 01/28/25 18:15 01/28/25 18:00 01/28/25 18:30
Physical Exam
General: Well Developed, Well Nourished and No Apparent Distress
HEENT: NormoCephalic, Moist mucous membranes and Atraumatic
Respiratory: Clear
Cardiac: S1/S2 and Regular Rhythm; No Murmur or Rub
GI: Soft, Non Tender, Non Distended and Normal Bowel Sounds; No Organomegaly
Rectal: Deferred by Provider
Musculoskeletal: No Clubbing, No Cyanosis and No Edema
Skin: Rash and Other (Right ear cyst)
Neuro: Nonfocal/grossly intact and Other (Right hemiplegia and hemiparesis)
Laboratory Results
-
01/28/25 16:54
Laboratory Results
Lactic Acid 3.1 mmol/L (0.7-2.0) H 01/28/25 18:02
Total Bilirubin Cancelled 01/28/25 16:54
AST Cancelled 01/28/25 16:54
ALT Cancelled 01/28/25 16:54
Alkaline Phosphatase Cancelled 01/28/25 16:54
Troponin I 0.286 ng/ml H* 01/28/25 16:54
Data Reviewed
-
Diagnostic Radiology: Report Reviewed by me
CT Scan: Report Reviewed by me
Lab Data: Labs Reviewed by me
Impression/Plan
-
#new onset seizure
-head CT with no acute findings
- Seizure precaution
- Neurology consult
#infected sebaceous cyst on her scalp
-surgery consulted
#anemia of chronic disease
-hgb 10.0, no active bleeding
-ctm
#acute hyponatremia/metabolic acidosis/CKD stge 3b concern for dehydration
#lactic acidosis
-cr 1.4, na 130, co2 19, co2 3.1
-ctm
- Fluids continued
#pneumonia
-chest x ray with Suspect left-sided pneumonitis/pneumonia.
- IV cefepime and Vanco
- Blood cultures sent from ER
#chronic esophagitis
#GERD
- continue PPI BID
- continue H2 jett BID
#Chronic PEG tube due to stroke with limited verbal status
- All meds via G-tube
- nutrition consulted for TF
-gets TF at hs
#HX CVA residual right hemiplegia and hemiparesis with spasms/ nonverbal
#HX Colitis
S/P ENGINE SPECIALIST shunt
DVT status post IVC filter
#Essential HTN
- continue amlodipine 2.5 mg daily
#Chronic urinary retention status post indwelling urinary catheter
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
#HX Abdominal varicosities
#hx left simple renal cyst
#Anxiety
- hold BuSpar 5 mg
- Zoloft 25 mg daily
#DVT prophylaxis: SC heparin
#full code
--- NOTE | 2025-01-28 19:36 | W.PN.UPDATE ---
Addendum entered and electronically signed by Dionisio Juares MD 01/28/25 20:39:
Limited peripheral access
No blood return fron Lt hand IV access
Rt sided hemiplegic limbs
- IV jeannie at bed side
- OK to use LLEX for IV acces for IV ABx , trend TPNI - but not tole leave it more than 24 hrs
- PICC line request
Presumed infected cyst just above her right ear
- Consult GS for evaluation for I & D
Original Note:
Update Note
Progress Note Update
This note serves as an addendum to the H&P by president Konrad BROWN�
HPI�
64F [facility] Res HX Chronic PEG tube, COUNTER STITCHER shunt, HX CVA, s/p resection of brain tumor, R sided residual hemiplegia & hemiparesis with spasms/mild nonverbal, IVCF, chr UR, chr Garvey s cath seen at ER
- eval for seizure activity.
- [facility] staff reported that she had a partial seizure yesterday but did not have any evaluation.
- Today she was witnessed to have 3 seizures.
- received 4 mg of Versed en route to the ER with improvement in tonic-clonic generalized activity that had been noted by prehospital personnel. F
Currently on antibiotics and had been having a fever earlier this week related to an infected cyst just above her right ear which has been draining purulent material. She was scheduled to have I&D of this next week.
ROS
No reported cough or cold symptoms recently.
Family at bedside report that current patient appearance is her baseline
Relevant VS
Temp Pulse Resp BP Pulse Ox
100.6 F H 110 22 109/76 96
01/28/25 19:30 01/28/25 19:30 01/28/25 19:30 01/28/25 18:00 01/28/25 19:30
PE
Gen: arousable to tactile stimuli no acute distress
HEENT: 2 cm subcutaneous mass present above R ear with fluctuance and crusting,
Neck:
Lungs: CTA
Cor: RR No M
Abdomen:� PEG tube present left upper quadrant,
TYPE MAPPER:
Rt UEx and R Nuvia h atrophy and minimal spontaneous movement,
Lt UEx and Nuvia with appropriate response to tactile stimuli
: 4 months old F cath has chaged at ER , clear light yellow urine return form new cath
MS: No edema
Psych:
Relevant Data
01/25/25 01/28/25
06:40 16:54
WBC 4.4 L 8.0
Hgb 9.9 L 10.0 L
Plt Count 185 169
01/25/25 01/28/25
06:40 16:54
Sodium 130 L
Carbon Dioxide 19 L
BUN 43 H
Creatinine 1.5 H 1.4 H
eGFR 38.91 42.27
Troponin I 0.286 H*
01/28/25
16:50
Urine Nitrite (Reflex) Positive A
Leukocyte Esterase Rfl 3+ A
Urine WBC (Reflex) 21-25 A
Urine Bacteria (Reflex) Many A
HCT
Essentially stable exam as described. No significant midline shift or herniation.
Last hospitalist admission:
ASSESSMENT & PLAN
New onset Sz - presumed provoked in setting of acute infective process
- Acute infective process _ suspect CAUTI + infected cyst just above her right ear on ANODE WORKER ABx
- HX VRE + UCX April 2024 treated with ampicillin
- NEG HCT
- BC sent
- 4 months old F cath has changed at ER , clear light yellow urine return form new cath
- Agree with IV CFP and FU UA from new FC sample
- IVF
- IV Valium PRN for Sz
- Neuro consult
Non verbal
- HX CVA, following resection of brain tumor, R sided residual hemiplegia & hemiparesis with spasms
- mild nonverbal - some words but NPO
- COUNTER STITCHER shunt
- chronic PEG - all Meds via PEG
- chronic urinary r- wear indwelling urinary catheter
- Drug Abuse Program Coordinator consult
HX CKD3b - stable baseline Cr mid 1s
- Trend BMP
HX CVA residual right hemiplegia and hemiparesis with spasms/mild nonverbal(
- Patient is Avery lift to wheelchair per record
- NPO by mouth
HX DVT status post IVC filter
Essential HTN
- on amlodipine via PEG
HX Abdominal varicosities
HX left simple renal cyst
HX Stercoral Colitis
HX coffee-ground emesis due to a bleeding granuloma around the PEG tube that was treated with silver nitrate April 2024
Anxiety
- Hold BuSpar while evaluating for New onset Sz
DVT Px:SQH
Full code
IP MS
[2025-01-28 19:46] LABS: Urine Character Clear (Clear)
[2025-01-28] MEDS: MAXIPIME 1000 MG IV (20:01)
[2025-01-28 20:07] VITALS: BP 99/61
--- NOTE | 2025-01-28 20:25 | EDRN ---
VAT at bedside, this RN attempted iv access/obtain sst and troponin L wrist without success. Pt has R limb restriction due to paralysis s/p cva. VAT member asked if pt's foot can be accessed. Discussed with Dr Juares who said for rome, that is
fine. He will put an order in for PICC placement tomorrow.
--- NOTE | 2025-01-28 20:33 | EDRN ---
Called pharmacy for vancomycin - attempting to put ceribell on pt
--- NOTE | 2025-01-28 20:38 | EDRN ---
VAT obtained IV access R foot with #22g - sst and troponin sent to [facility]. Jose working
--- NOTE | 2025-01-28 20:42 | EDRN ---
Dr Juares informed pt must go to ICU if he wants the ceribell to continue monitoring. He told this RN pt can go to ICU.
[2025-01-28 20:49] LABS: Urine Squamous Cell 0-2 /LPF (Few)
[2025-01-28 20:56] LABS: ALT (SGPT) 12 U/L (0-35); AST (SGOT) 24 U/L (14-36); Albumin 3.7 g/dl (3.5-5.0); Alkaline Phosphatase 124 U/L (38-126); Potassium 5.3 mmol/L (3.5-5.1); Total Protein 7.3 g/dl (6.3-8.2)
[2025-01-28] MEDS: VANCOCIN 540 MG IV (21:04)
--- NOTE | 2025-01-28 21:10 | EDRN ---
Report given to ICU
[2025-01-28 21:14] LABS: Troponin I 0.796 ng/ml
[2025-01-28 21:52] VITALS: BMI 26.3
[2025-01-28 21:56] VITALS: BP 113/60
[2025-01-28 22:00] VITALS: BP 110/68
--- NOTE | 2025-01-28 22:02 | PHA.VAN.IN ---
Assessment
- Assessment
Renal Function: SCR Appears Elevated from baseline
Maximum Temperature: 100.6
Concomitant Antimicrobials: Cefepime 1 gram IV q8h
Historical Micro: History of VRE infection (in )
Plan
- Plan
Initial / Loading Dose: Vancomycin 2000 mg IV x 1 dose
Maintenance Regimen: Dose by level regimen
Monitoring: Vancomycin random level 01/29 at 06:00 AM
Pharmacokinetics Vancomycin I
- -
Patient Age: 64
Patient Sex: Female (1)
Vancomycin Day #: 1
Indication: Pulmonary/Respiratory
Requesting Provider: Heber OLIVA
Pertinent Antimicrobial Allergies:
NKDA
Height / Weight:
Height 5 ft 3 in
Actual Weight 67.4 kg
Pertinent Past Medical History: CKD
- Vital Signs / Lab Results
Temp Pulse Resp BP Pulse Ox
100.6 F H 105 21 99/61 100
01/28/25 19:30 01/28/25 20:07 01/28/25 20:07 01/28/25 20:07 01/28/25 20:07
Lab Results - Hematology
01/28/25
16:54
WBC 8.0
Lab Results - Chemistry
01/28/25 01/28/25 01/28/25
16:54 19:54 20:31
BUN 43 H
Creatinine 1.4 H
Albumin Cancelled Cancelled 3.7
01/28/25
18:02
Lactic Acid 3.1 H
Lab Results - Urine
01/28/25 01/28/25
16:50 19:40
Urine Nitrite (Reflex) Positive A Negative
Leukocyte Esterase Rfl 3+ A 2+ A
Urine WBC (Reflex) 21-25 A 6-10
Ur Squamous Epith Cells 0-2 0-2
Urine Bacteria (Reflex) Many A Few A
[2025-01-28] MEDS: ZOLOFT 25 MG TUBE (22:51)
[2025-01-28 23:00] VITALS: BP 98/62
[2025-01-28 23:11] LABS: Troponin I 0.735 ng/ml
[2025-01-29] VITALS (36 sets, daily range): BP systolic 95–123; BP diastolic 58–83; BMI 26.4
--- NOTE | 2025-01-29 00:10 | PTCARENOTE ---
received pt from [facility], pt nonverbal, aroused verbally but only opens L eye, not following commands, grimacing c repositioning, excessive oral secretions, PERRLA 3, R hemiplegia, R hand contracted, Ceribell per worklist, NSR on the monitor, +1 GA,
+pulses, 100% on RA, lungs tubular and coarse, tachypneic c shallow breaths, BSx4 hyperactive, Lrg mendiola loose BM, PEG tube 4cm, Chronic locke c yellow output, 20G L hand, 20G SHERRELL, 22G R foot, NS 80ml/hr, CHG bath, labs sent, safe environment
maintained, otherwise refer to documentation.
--- NOTE | 2025-01-29 02:11 | PTCARENOTE ---
Seizure burden currently reading zero, over last 90 min seizure burden reading between 0-50, ACCOUNTING LECTURER notified no new orders at this time
[2025-01-29] MEDS: VERSED 2 MG IV ×3 (02:22→05:47)
--- NOTE | 2025-01-29 02:28 | PTCARENOTE ---
seizure burden continued to increase to 50% CHEMICAL PLANT OPERATOR notified, 2mg versed given per order, [facility]
[2025-01-29] MEDS: STERILE WATER FOR INJECTION 10 ML IV ×3 (03:04→19:45)
[2025-01-29] MEDS: MAXIPIME 1000 MG IV ×3 (03:05→19:46)
[2025-01-29 03:28] LABS: Hematocrit 25.8 % (37.0-47.0); Hemoglobin 9.2 g/dL (12.0-16.0); Mean Corp Hgb Conc. 35.7 g/dL (33.0-37.0); Mean Corpuscular Volume 88.4 fL (81.0-99.0); Platelet Count 167 10^3/uL (130-400); Red Cell Dist. Width 12.7 % (11.5-14.5)
[2025-01-29 03:37] LABS: INR 1.04; PT 13.9 Sec (11.4-14.6)
[2025-01-29 03:38] LABS: APTT 33.0 Sec (23.4-35.0)
[2025-01-29 03:51] LABS: Blood Urea Nitrogen 36 mg/dl (7-17); Calcium 8.5 mg/dl (8.4-10.2); Carbon Dioxide 21 mmol/L (22-30); Chloride 104 mmol/L (98-107); Estimated Creatinine Clearance 37 ml/min; Glucose 95 mg/dl (70-99); Magnesium 2.0 mg/dl (1.6-2.3); Potassium 5.0 mmol/L (3.5-5.1); Sodium 130 mmol/L (135-145); eGFR 46.21
[2025-01-29 04:05] LABS: Troponin I 0.482 ng/ml
--- NOTE | 2025-01-29 07:21 | CON.NEURO ---
Consultation
Order
Date of Consultation: 01/29/25
Requesting Provider: Joyce Buck CRNP
Reason for Consult: Seizure.
Neurology Consultation Note.
HPI: This is a 64-year-old woman who presented to [facility] from [facility] on 01/28/2025 with recurrent seizures.
According to EMR patient has had fever and was treated for right temporal infected cystic lesion pending I&D over the last week. She received 4 mg of Versed and route to the ER
Patient is nonverbal and nonambulatory at baseline.
ER VS: 110/77, T�30 8.1 C
PDMP:no recently prescribed medications
Labs: Sodium�130, creatinine�1.4, normal WBCs, hemoglobin�9.2, normal platelets, magnesium�2, lactic acid�3.1
UA�positive for leukocyte esterase, WBCs.
CT head wo contrast-Stable large lobular mass in the inferior paramidline left frontal lobe extending along the left middle cranial fossa and left temporal lobe, similar to 11/2024. The mass causes similar compression of the third ventricle. No
significant residual midline shift. Similar compression of the left lateral ventricle. Similar appearance of right-sided ventricular shunt catheter terminating along the anterior horn of the right lateral ventricle. No hydrocephalus.
Cerebral�left hemispheric slowing with intermittent sharp waves.
PMH: Brain tumor, HTN, DLP, DM, GERD, history of GI bleed
PSH: Left craniotomy, MEAT BLENDER shunt, PEG, IVC filter
SH: retirement resident
FH: Unknown
All:NKDA
ROS: Unable to obtain due to baseline aphasia.
General: Well developed. In no acute distress.
Cardio: Regular rate and rhythm. Extremities are without cyanosis or edema.
Neuro:
Mental Status: Alert, does not attend to follow's request. Global aphasia.
Cranial Nerves: Orthophoric primary gaze, intermittent left exotropia in primary gaze. Pupils are equally round and reactive to light. no BTT B/L Left ptosis, no nystagmus. Right facial weakness .
Motor: Spastic right hemiplegia, spastic left hemiparesis.
Reflexes: limited due to exam due to increased motor tone
Sensory: Does not localize noxious stimuli
Coordination: No tremors myoclonic movements
Gait: deferred
Assessment and Plan:
I. Symptomatic seizure cluster in settings of fever, hyponatremia.
II. History of unknown MAT PUNCHER tumor, s/p resection
III. Multifactorial encephalopathy
-Seizure precautions
-Avoid medications known to lower seizure threshold
-Keppra load followed by Keppra 500 mg twice daily
-Brain MRI with and without mitch in view of fever before considering CSF testing
-ID consult
-Please check CK, TFTs
- Will contact usp to clarify the history of MAT PUNCHER mass.
I personally reviewed all radiology and labs along with past medical records pertinent to current medical problems. Total time spent in patient care is 60 minutes.
Thank you for allowing us to participate in the care of this patient. We will continue to follow. Please do not hesitate to contact us with any questions or concerns.
Subjective/Objective
Subjective Data
Date of Service: January 29, 2025
Objective Data
Vital Signs
Temp Pulse Resp BP Pulse Ox
37.3 C 93 24 113/66 98
01/29/25 07:06 01/29/25 06:00 01/29/25 06:00 01/29/25 06:00 01/29/25 06:00
Lab Results
01/29/25 03:18
01/29/25 03:18
PT 13.9 Sec (11.4-14.6) 01/29/25 03:18
INR 1.04 01/29/25 03:18
APTT 33.0 Sec (23.4-35.0) 01/29/25 03:18
Sodium 130 mmol/L (135-145) L 01/29/25 03:18
Potassium 5.0 mmol/L (3.5-5.1) 01/29/25 03:18
BUN 36 mg/dl (7-17) H 01/29/25 03:18
Glucose 95 mg/dl (70-99) 01/29/25 03:18
Calcium 8.5 mg/dl (8.4-10.2) 01/29/25 03:18
Phosphorus 3.0 mg/dl (2.5-4.5) 01/29/25 03:18
Patient Allergies
No Known Allergies Allergy (Verified 09/02/24 10:48)
Medications
-
Active Medications
Generic Name Dose Route Start Last Admin
Trade Name Freq PRN Reason Stop Dose Admin
Acetaminophen 650 mg 01/28/25 21:25
Acetaminophen 325 Mg Tablet PO 02/25/25 21:24
Q4HPRN PRN
if temp > 101 F
Acetaminophen 650 mg 01/28/25 21:25
Acetaminophen 650 Mg Rectal Suppository RECTAL 02/25/25 21:24
Q4HPRN PRN
fever >101
Albuterol Sulfate 2.5 mg 01/28/25 21:25
Albuterol Nebs 2.5 Mg/3 Ml Ampul INH
R Q6HPRN PRN
SOB
Protocol
Amlodipine Besylate 2.5 mg 01/29/25 08:00
Amlodipine 2.5 Mg Tablet TUBE 02/26/25 07:59
DAILY CHEYENNE
Cefepime HCl 1,000 mg 01/29/25 04:00 01/29/25 03:05
Cefepime Hcl 1,000 Mg/11.3 Ml Vial IV 1,000 mg
Q8H CHEYENNE Administration
Famotidine 20 mg 01/29/25 08:00
Famotidine 20 Mg Tablet TUBE 02/26/25 07:59
BID CHEYENNE
Heparin Sodium 5,000 units 01/29/25 08:00
Heparin 5,000 Units/Ml 1 Ml Vial SC 02/26/25 07:59
Q12 CHEYENNE
Sodium Chloride 1,000 mls @ 80 mls/hr 01/28/25 21:25 01/28/25 22:27
Nss IV 1,000 mls
.[id number] CHEYENNE Administration
Vancomycin HCl 1 each/ Device 0 mls @ 0 mls/hr 01/28/25 21:25
IV
PER PROTOCOL CHEYENNE
As Directed
Norepinephrine Bitartrate 4 mg in 250 mls @ 0 mls/hr 01/29/25 02:30
Levophed IV
PER PROTOCOL CHEYENNE
Protocol
Per Protocol
Midazolam HCl 2 mg 01/29/25 02:17 01/29/25 05:47
Midazolam (Preservative Free) 1 Mg/Ml 2 Ml Vial IV 02/26/25 02:16 2 mg
Q2HPRN PRN Administration
seizure
Polyethylene Glycol 17 grams 01/29/25 08:00
Polyethylene Glycol Powder 17 Grams Packet TUBE 02/26/25 07:59
BID CHEYENNE
Prednisolone Acetate 1 drop 01/29/25 08:00
Prednisolone 1% (Ophthalmic Suspension) Bottle RIGHT EYE 02/26/25 07:59
DAILY CHEYENNE
Saccharomyces Boulardii 250 mg 01/29/25 08:00
Saccharomyces Boulardi (Florastor) 250 Mg Capsule TUBE 02/26/25 07:59
BID CHEYENNE
Senna/Docusate Sodium 2 tablet 01/29/25 08:00
Docusate W/Senna (Michell-Colace) Tablet TUBE 02/26/25 07:59
BID CHEYENNE
Sertraline HCl 25 mg 01/28/25 22:00 01/28/25 22:51
Sertraline 25 Mg Tablet TUBE 02/25/25 21:59 25 mg
HS CHEYENNE Administration
Simethicone 120 mg 01/29/25 08:00
Simethicone 80 Mg Chewable Tablet TUBE 02/26/25 07:59
BID CHEYENNE
Sodium Chloride 0 flush 01/28/25 22:00
Sodium Chloride 0.9% (Flush) Syringe IV 02/25/25 21:59
PER PROTOCOL CHEYENNE
Sterile Water 10 ml 01/29/25 04:00 01/29/25 03:04
Sterile Water For Injection 10 Ml Vial IV 02/26/25 03:59 10 ml
Q8H CHEYENNE Administration
Home Medications
�Medication �Instructions �Recorded
acetaminophen 160 mg/5 mL oral 640 mg feeding tube Q4HPRN PRN 03/16/24
elixir FEVER
albuterol sulfate 2.5 mg/3 mL 2.5 mg inhalation R Q6HPRN PRN SOB 03/16/24
(0.083 %) solution for nebulization
bisacodyl 10 mg rectal suppository 10 mg ND [id number] PRN IF NO BM AFTR 03/16/24
(Dulcolax (bisacodyl)) MOM
buspirone 5 mg tablet 2.5 mg feeding tube HS anxiety 03/16/24
sertraline 25 mg tablet 25 mg feeding tube HS 03/16/24
depression/anxiety
simethicone 125 mg chewable tablet 125 mg feeding tube BID 03/16/24
(Gas-X Extra Strength)
polyethylene glycol 3350 17 gram 17 g feeding tube BID Constipation 07/03/24
oral powder packet (Miralax) #0 ea
sennosides 8.6 mg-docusate sodium 2 tab feeding tube BID #60 tabs 07/03/24
50 mg tablet
amlodipine 2.5 mg tablet 2.5 mg feeding tube DAILY 09/02/24
magnesium hydroxide 400 mg/5 mL 2,400 mg feeding tube HSPRN PRN 09/02/24
oral suspension (Gentle Laxative Constipation
(magnesium hydroxide))
Saccharomyces boulardii 250 mg 250 mg feeding tube BID 01/28/25
capsule (Florastor)
famotidine 20 mg tablet (Pepcid) 20 mg feeding tube BID 01/28/25
prednisolone acetate 1 % eye 1 drp RIGHT EYE DAILY 01/28/25
drops,suspension
sulfamethoxazole 200 20 ml feeding tube BID 01/28/25
mg-trimethoprim 40 mg/5 mL oral
suspension
Vital Signs and Labs
-
Vital Signs and Labs:
Vital Signs
Temp Pulse Resp BP Pulse Ox
37.3 C 86 21 117/70 99
01/29/25 07:06 01/29/25 08:35 01/29/25 07:30 01/29/25 08:35 01/29/25 07:45
Lab Results
01/29/25 03:18
01/29/25 03:18
PT 13.9 Sec (11.4-14.6) 01/29/25 03:18
INR 1.04 01/29/25 03:18
APTT 33.0 Sec (23.4-35.0) 01/29/25 03:18
Sodium 130 mmol/L (135-145) L 01/29/25 03:18
Potassium 5.0 mmol/L (3.5-5.1) 01/29/25 03:18
BUN 36 mg/dl (7-17) H 01/29/25 03:18
Glucose 95 mg/dl (70-99) 01/29/25 03:18
Calcium 8.5 mg/dl (8.4-10.2) 01/29/25 03:18
Phosphorus 3.0 mg/dl (2.5-4.5) 01/29/25 03:18
Medications
-
Medications:
Generic Name Dose Route Start Last Admin
Trade Name Freq PRN Reason Stop Dose Admin
Acetaminophen 650 mg 01/28/25 21:25
Acetaminophen 325 Mg Tablet PO 02/25/25 21:24
Q4HPRN PRN
if temp > 101 F
Acetaminophen 650 mg 01/28/25 21:25
Acetaminophen 650 Mg Rectal Suppository RECTAL 02/25/25 21:24
Q4HPRN PRN
fever >101
Albuterol Sulfate 2.5 mg 01/28/25 21:25
Albuterol Nebs 2.5 Mg/3 Ml Ampul INH
R Q6HPRN PRN
SOB
Protocol
Amlodipine Besylate 2.5 mg 01/29/25 08:00 01/29/25 08:35
Amlodipine 2.5 Mg Tablet TUBE 02/26/25 07:59 2.5 mg
DAILY CHEYENNE Administration
Cefepime HCl 1,000 mg 01/29/25 04:00 01/29/25 03:05
Cefepime Hcl 1,000 Mg/11.3 Ml Vial IV 1,000 mg
Q8H [place]NE Administration
Famotidine 20 mg 01/29/25 08:00 01/29/25 08:37
Famotidine 20 Mg Tablet TUBE 02/26/25 07:59 20 mg
BID CHEYENNE Administration
Heparin Sodium 5,000 units 01/29/25 08:00 01/29/25 08:36
Heparin 5,000 Units/Ml 1 Ml Vial SC 02/26/25 07:59 5,000 units
Q12 [place]YENNE Administration
Sodium Chloride 1,000 mls @ 80 mls/hr 01/28/25 21:25 01/28/25 22:27
Nss IV 1,000 mls
.[id number] CHEYENNE Administration
Vancomycin HCl 1 each/ Device 0 mls @ 0 mls/hr 01/28/25 21:25
IV
PER PROTOCOL CHEYENNE
As Directed
Norepinephrine Bitartrate 4 mg in 250 mls @ 0 mls/hr 01/29/25 02:30
Levophed IV
PER PROTOCOL CHEYENNE
Protocol
Per Protocol
Levetiracetam 1,000 mg 01/29/25 09:12
Levetiracetam (100 Mg/Ml) 500 Mg/5 Ml Vial IV 01/29/25 09:13
NOW STA
Levetiracetam 500 mg 01/29/25 20:00
Levetiracetam (100 Mg/Ml) 500 Mg/5 Ml Vial IV 02/26/25 19:59
Q12 CHEYENNE
Midazolam HCl 2 mg 01/29/25 02:17 01/29/25 05:47
Midazolam (Preservative Free) 1 Mg/Ml 2 Ml Vial IV 02/26/25 02:16 2 mg
Q2HPRN PRN Administration
seizure
Polyethylene Glycol 17 grams 01/29/25 08:00 01/29/25 08:35
Polyethylene Glycol Powder 17 Grams Packet TUBE 02/26/25 07:59 17 grams
BID CHEYENNE Administration
Prednisolone Acetate 1 drop 01/29/25 08:00 01/29/25 08:37
Prednisolone 1% (Ophthalmic Suspension) Bottle RIGHT EYE 02/26/25 07:59 1 drop
DAILY CHEYENNE Administration
Saccharomyces Boulardii 250 mg 01/29/25 08:00 01/29/25 08:35
Saccharomyces Boulardi (Florastor) 250 Mg Capsule TUBE 02/26/25 07:59 250 mg
BID CHEYENNE Administration
Senna/Docusate Sodium 2 tablet 01/29/25 08:00 01/29/25 08:37
Docusate W/Senna (Michell-Colace) Tablet TUBE 02/26/25 07:59 2 tablet
BID CHEYENNE Administration
Sertraline HCl 25 mg 01/28/25 22:00 01/28/25 22:51
Sertraline 25 Mg Tablet TUBE 02/25/25 21:59 25 mg
HS CHEYENNE Administration
Simethicone 120 mg 01/29/25 08:00 01/29/25 08:35
Simethicone 80 Mg Chewable Tablet TUBE 02/26/25 07:59 120 mg
BID CHEYENNE Administration
Sodium Chloride 0 flush 01/28/25 22:00
Sodium Chloride 0.9% (Flush) Syringe IV 02/25/25 21:59
PER PROTOCOL CHEYENNE
Sterile Water 10 ml 01/29/25 04:00 01/29/25 03:04
Sterile Water For Injection 10 Ml Vial IV 02/26/25 03:59 10 ml
Q8H CHEYENNE Administration
Home Medications
-
Home Medications
acetaminophen 160 mg/5 mL oral elixir 640 mg feeding tube Q4HPRN PRN FEVER 03/16/24
albuterol sulfate 2.5 mg/3 mL (0.083 %) solution for nebulization 2.5 mg inhalation R Q6HPRN PRN SOB 03/16/24
bisacodyl 10 mg rectal suppository (Dulcolax (bisacodyl)) 10 mg ND [id number] PRN IF NO BM AFTR MOM 03/16/24
buspirone 5 mg tablet 2.5 mg feeding tube HS anxiety 03/16/24
sertraline 25 mg tablet 25 mg feeding tube HS depression/anxiety 03/16/24
simethicone 125 mg chewable tablet (Gas-X Extra Strength) 125 mg feeding tube BID 03/16/24
polyethylene glycol 3350 17 gram oral powder packet (Miralax) 17 g feeding tube BID Constipation #0 ea 07/03/24
sennosides 8.6 mg-docusate sodium 50 mg tablet 2 tab feeding tube BID #60 tabs 07/03/24
amlodipine 2.5 mg tablet 2.5 mg feeding tube DAILY 09/02/24
magnesium hydroxide 400 mg/5 mL oral suspension (Gentle Laxative (magnesium hydroxide)) 2,400 mg feeding tube HSPRN PRN Constipation 09/02/24
Saccharomyces boulardii 250 mg capsule (Florastor) 250 mg feeding tube BID 01/28/25
famotidine 20 mg tablet (Pepcid) 20 mg feeding tube BID 01/28/25
prednisolone acetate 1 % eye drops,suspension 1 drp RIGHT EYE DAILY 01/28/25
sulfamethoxazole 200 mg-trimethoprim 40 mg/5 mL oral suspension 20 ml feeding tube BID 01/28/25
--- NOTE | 2025-01-29 08:00 | PTCARENOTE ---
Assumed care of patient. Hand-off validation done with off-going nurse. Patient is non-verbal, responds to painful stimuli. Patient is in sinus tachycardia, pulses easily palpable, no edema noted. Patient on room air, lungs sound diminished at the
bases. Abdomen is soft, PEG tube in place. Chronic locke, draining light yellow urine. Midline site c/d/i. D5NS running.
--- NOTE | 2025-01-29 08:03 | W.PN.HOSP.TC ---
Addendum entered and electronically signed by Williams Sweeney MD 01/29/25 14:59:
Toxic metabolic encephalopathy could be postictal in the setting of new onset seizure activity versus acute infection/febrile illness with associated hypoactive delirium
EEG discontinued by neurology
MRI recommended by neurology
May require SAP BUSINESS ANALYST shunt drain and send for fluid analysis
- Consult ID
- Consult IR
Symptomatic seizure cluster
Avoid medications at lower threshold
Keppra
Brain MRI
Sepsis, multifactorial/multiple sources
Could be sebaceous cyst versus aspiration
S/p sebaceous cyst drainage send fluid for culture and analysis
IV antibiotics with Vanco Zosyn.
If concerned that this is a LAUNDERETTE ATTENDANT infection would try to obtain fluid analysis first but if not able to then have started ampicillin for Listeria coverage and acyclovir for herpes/shingles coverage
ID consult and they can adjust antibiotics/antivirals as needed
Acute rhabdo�nontraumatic
Secondary to seizure
IV fluid
Hyponatremia mild
N.p.o.
PEG tube in place
Keep head of bed elevated
I personally reviewed and evaluated this patient with the resident. I agree with above unless if otherwise stated below.
I personally reviewed labs and imaging consultant [employer]. vice president [employer] (ex ) notes case management note
Original Note:
Today's Communication/Plan
-
MRI brain
Add ampicillin and acyclovir
Check TFTs, CK, vitamin B12 and folate levels
ID consult
Assessment / Plan
Assessment / Plan
64-year-old female, presenting from care home
History of resection of brain tumor, right-sided residual hemiplegia and hemiparesis, indwelling chronic urinary catheter and chronic PEG tube in place
Presented to ER for evaluation of seizure-like activity
History of fevers earlier this week related to an infected cyst above right ear, scheduled to be drained next week, currently on Bactrim
Her Foleys catheter was changed in ER-last 1 had been there for last [address]
Right sided ventricular shunt catheter-stable
No hydrocephalus, no midline shift
Left-sided craniotomy stable with chronic subdural hygroma stable
Stable large lobular mass in the left frontal lobe
Family reports, patient has at her baseline other than the new onset seizure like activity
Assessment/plan
#Sepsis secondary to possibly UTI and infected cyst
Fulfilled criteria of sepsis on admission, febrile 100.6,Tachycardia (heart rate 129)
Evidence of UTI although subsequent urine analysis looks fine-follow urine culture
Infected sebaceous cyst
Follow blood cultures and MRSA screening
Continue empiric antibiotics-cefepime and vancomycin
Add acyclovir and ampicillin for viral encephalitis and meningitis coverage
Patient did not require vasopressors
Continue IV fluids at 80 mL/h
N.p.o., peg tube in place, nutritional consult in place
Lactic acid 0.6
#New onset seizures
She has a history of brain tumor, s/p resection, right sided hemiparesis/hemiplegia-could be a recurrence
It could be an infection related process Or electrolyte abnormalities
Required Versed twice overnight for seizures
EEG
Neurology recommendations appreciated- multifactorial encephalopathy-seizure precautions, Keppra load followed by Keppra 500 mg twice daily, brain MRI before considering CSF testing, CK levels and TFTs
# History of CKD 3B
Serum creatinine stable
Trend BMPs
#History of right-sided hemiplegia with contractures
#History of DVT s/p IVC filter
#Essential hypertension-takes amlodipine via PEG
#History of stercoral colitis-continue bowel regimen
#History of coffee-ground emesis due to bleeding granuloma around the PEG in April 2024
#History of anxiety-takes sertraline
DVT prophylaxis-heparin
CODE STATUS-full code
Anticipated Discharge: > 48 hours
Subjective/Interval History
-
Date of Service: January 29, 2025
Patient seen and examined at bedside
Nonverbal, appears in no apparent distress, comfortable
Objective Data
-
Labs:
Laboratory Results
01/28/25 01/28/25 01/29/25
19:54 20:31 03:18
WBC 5.9
Hgb 9.2 L
Hct 25.8 L
Plt Count 167
PT 13.9
INR 1.04
APTT 33.0
Sodium 130 L
Potassium Cancelled 5.3 H 5.0
Chloride 104
Carbon Dioxide 21 L
BUN 36 H
Creatinine 1.3 H
Glucose 95
Calcium 8.5
Total Bilirubin Cancelled 0.6
AST Cancelled 24
ALT Cancelled 12
Alkaline Phosphatase Cancelled 124
Vital Signs:
Vital Signs
Temp Pulse Resp BP Pulse Ox
99.1 F 94 21 118/74 99
01/29/25 07:06 01/29/25 07:30 01/29/25 07:30 01/29/25 07:30 01/29/25 07:45
I&O
01/28/25 01/29/25 01/30/25
06:59 06:59 06:59
Intake Total 910 / 990 80 / 80
Output Total 1100 / 1100
Balance -190 / -110 80 / 80
Review of Systems
-
Unable to obtain full review of systems at this time due to: Patient Non-verbal
Physical Exam
-
General: Appears Chronically Ill
HEENT: Moist Mucous Membranes and Other (A well-circumscribed, round cyst above right ear, fluctuant with visible crusting)
Respiratory: Clear to Auscultation; Negative Wheezes, Rales or Rhonchi
Cardiac: Regular Rhythm and S1/S2
GI: Soft, Nontender, Normal Bowel Sounds and Other (Peg tube in place in left upper quadrant)
Musculoskeletal: Other (Atrophy of right arm and leg, contractures of right hand and right feet, pedal pulses palpable bilaterally)
Neuro: Awake and Other (Right-sided hemiplegia, does not follow commands, noninteractive, nonverbal)
Psych: Calm
[2025-01-29] MEDS: MIRALAX 17 GRAMS TUBE (08:35)
[2025-01-29] MEDS: MYLICON 120 MG TUBE ×2 (08:35→19:44)
[2025-01-29] MEDS: FLORASTOR 250 MG TUBE ×2 (08:35→19:44)
[2025-01-29] MEDS: NORVASC 2.5 MG TUBE (08:35)
[2025-01-29] MEDS: HEPARIN 5000 UNITS SC ×2 (08:36→19:45)
[2025-01-29 08:37] LABS: Glucose - Point of Care 74 mg/dl (70-99)
[2025-01-29] MEDS: SENOKOT-S 2 TABLET TUBE (08:37)
[2025-01-29] MEDS: PEPCID 20 MG TUBE ×2 (08:37→19:44)
[2025-01-29] MEDS: PRED FORTE 1% EYE DROPS 1 DROP RIGHT EYE (08:37)
--- NOTE | 2025-01-29 09:37 | CON.GS ---
Consultation
-
Date/Time Consultation Performed: 01/29/25 0845
Medical History
-
Chief Complaint: cyst
History of Present Illness:
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
fever of 101 noted a week ago prior to initiation of antibiotics. She is seen today in the ICU today for evaluation of this cyst. She awakens to pain and calls out but is otherwise not conversing.
Past Medical History
Past Medical History: GERD, HTN, NIDDM and Other (DVT s/p IVC, PEG for feedings, chronic urinary retention with locke, anemia)
Past Surgical History: Brain (craniotomy (left) for mass, DEMURRAGE WORKER shunt)
Social History
Tobacco: Non-Smoker
Alcohol: None
Living: Snf
Employment: Disabled
Family History
Family History: Reviewed & Not Pertinent
Allergies / Home Medications
Allergy/AdvReac Type Severity Reaction Status Date / Time
No Known Allergies Allergy Verified 09/02/24 10:48
�Medication �Instructions �Recorded �Confirmed �Type
acetaminophen 160 mg/5 mL oral 640 mg feeding tube Q4HPRN PRN 03/16/24 01/28/25 History
elixir FEVER
albuterol sulfate 2.5 mg/3 mL 2.5 mg inhalation R Q6HPRN PRN SOB 03/16/24 01/28/25 History
(0.083 %) solution for nebulization
bisacodyl 10 mg rectal suppository 10 mg UT [id number] PRN IF NO BM AFTR 03/16/24 01/28/25 History
(Dulcolax (bisacodyl)) MOM
buspirone 5 mg tablet 2.5 mg feeding tube HS anxiety 03/16/24 01/28/25 History
sertraline 25 mg tablet 25 mg feeding tube HS 03/16/24 01/28/25 History
depression/anxiety
simethicone 125 mg chewable tablet 125 mg feeding tube BID 03/16/24 01/28/25 History
(Gas-X Extra Strength)
polyethylene glycol 3350 17 gram 17 g feeding tube BID Constipation 07/03/24 01/28/25 Rx
oral powder packet (Miralax) #0 ea
sennosides 8.6 mg-docusate sodium 2 tab feeding tube BID #60 tabs 07/03/24 01/28/25 Rx
50 mg tablet
amlodipine 2.5 mg tablet 2.5 mg feeding tube DAILY 09/02/24 01/28/25 History
magnesium hydroxide 400 mg/5 mL 2,400 mg feeding tube HSPRN PRN 09/02/24 01/28/25 History
oral suspension (Gentle Laxative Constipation
(magnesium hydroxide))
Saccharomyces boulardii 250 mg 250 mg feeding tube BID 01/28/25 01/28/25 History
capsule (Florastor)
famotidine 20 mg tablet (Pepcid) 20 mg feeding tube BID 01/28/25 01/28/25 History
prednisolone acetate 1 % eye 1 drp RIGHT EYE DAILY 01/28/25 01/28/25 History
drops,suspension
sulfamethoxazole 200 20 ml feeding tube BID 01/28/25 01/28/25 History
mg-trimethoprim 40 mg/5 mL oral
suspension
Review of Systems
-
Unable to obtain full review of systems at this time due to: Patient Non Verbal
A 10 point review of systems was completed, and was negative except as per HPI.
Physical Exam
Vital Signs
Temp Pulse Resp BP Pulse Ox
99.1 F 86 21 117/70 99
01/29/25 07:06 01/29/25 08:35 01/29/25 07:30 01/29/25 08:35 01/29/25 08:00
01/28/25 01/29/25 01/30/25
06:59 06:59 06:59
Actual Weight 67.5 kg
Body Mass Index (BMI) 26.4
Lab Results
01/29/25 03:18
01/29/25 03:18
WBC 5.9 10^3/uL (4.8-10.8) 01/29/25 03:18
Hgb 9.2 g/dL (12.0-16.0) L 01/29/25 03:18
Hct 25.8 % (37.0-47.0) L 01/29/25 03:18
Plt Count 167 10^3/uL (130-400) 01/29/25 03:18
Abs Immat Gran (auto) 0.0 10^3/uL (0-0.05) 01/28/25 16:54
Neutrophils % 84.5 % (42.2-75.2) H 01/28/25 16:54
Physical Exam
General: Well Developed and Well Nourished
HEENT: Normocephalic and Moist Mucous Membranes
Respiratory: Non Labored Respirations
GI: Soft and Non Tender
Skin: Other (cyst just above the right ear present with erythema to the site)
Neuro: Other (Sleepy, awakens to stimulation)
Psych: Calm
Assessment / Plan
-
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
fever of 101 noted a week ago prior to initiation of antibiotics. She is seen today in the ICU today for evaluation of this cyst. She awakens to pain and calls out but is otherwise not conversing. She is on broad spectrum ABX for coverage of PNA.
Tmax of 100.6 on presentation, mild tachycardia noted, bp stable.
Plan:
I&D of cyst preformed at bedside with local numbing, purulent material and sebum noted. Culture sent.
Packing applied, will change tomorrow at bedside. Reinforce as needed.
Ok for TF diet from surgical standpoint
[2025-01-29 09:41] LABS: Troponin I 0.298 ng/ml
[2025-01-29] MEDS: NSS 1000 IV (10:43)
[2025-01-29] MEDS: KEPPRA 1000 MG IV (10:43)
--- NOTE | 2025-01-29 11:10 | PTCARENOTE ---
Assumed care of patient at 0700. Admitted with seizure like activity. Patient arousable to verbal stimuli, however does not track or follow commands. R sided hemiparesis noted. Cerebell monitoring discontinued per Neurologist at 0800. Assessments
and vital sign trends documented in flowsheets. Seizure precautions in place, medications administered as documented. Care ongoing
--- NOTE | 2025-01-29 12:05 | CON.INTV ---
Addendum entered and electronically signed by Williams Sweeney MD 01/29/25 14:59:
Addendum was placed on the wrong note
Addendum entered and electronically signed by Williams Sweeney MD 01/29/25 14:50:
Toxic metabolic encephalopathy could be postictal in the setting of new onset seizure activity versus acute infection/febrile illness with associated hypoactive delirium
EEG discontinued by neurology
MRI recommended by neurology
May require LAUNDROMAT WORKER shunt drain and send for fluid analysis
- Consult ID
- Consult IR
Symptomatic seizure cluster
Avoid medications at lower threshold
Keppra
Brain MRI
Sepsis, multifactorial/multiple sources
Could be sebaceous cyst versus aspiration
S/p sebaceous cyst drainage send fluid for culture and analysis
IV antibiotics with Vanco Zosyn.
If concerned that this is a AUTOMOBILE RENTAL REPRESENTATIVE infection would try to obtain fluid analysis first but if not able to then have started ampicillin for Listeria coverage and acyclovir for herpes/shingles coverage
ID consult and they can adjust antibiotics/antivirals as needed
Acute rhabdo�nontraumatic
Secondary to seizure
IV fluid
Hyponatremia mild
N.p.o.
PEG tube in place
Keep head of bed elevated
Original Note:
Consultation
Consultation Request
Date/Time Consultation Requested: 01/29/2025
Date/Time Consultation Performed: 01/29/2025
Requesting Provider: Dr. Sweeney
Performing Provider: Dr. Diony Trent
Reason for Consultation: Pneumonia/seizures
Medical History
-
History of Present Illness:
64-year-old woman with past medical history of brain tumor, CVA, hypertension, anxiety, GERD, [place] [facility] for concerns of seizure activity.
Apparently she was noted to have 3 episodes of seizures at the detention the morning of admission.
Patient is nonverbal at baseline.
There is reports of a fever event about a week prior to admission at the detention.
Currently on antibiotic for a sebaceous cyst on the right ear.
Patient currently on a liquid diet.
-
Chest x-ray in the emergency room 01/28/2025: Suspect left sided pneumonia.
Admitted to the critical care unit for management and close monitoring
Past Medical History
Past Medical History: Other (See assessment and plan)
Social History
Tobacco: Non-smoker
Alcohol: None
Living: [facility]
Family History
Family History: Unable to Obtain
Allergies / Home Medications
Allergies
Allergy/AdvReac Type Severity Reaction Status Date / Time
No Known Allergies Allergy Verified 09/02/24 10:48
Home Medications
�Medication �Instructions �Recorded �Confirmed �Last Taken �Type
acetaminophen 160 mg/5 mL oral 640 mg feeding tube Q4HPRN PRN 03/16/24 01/28/25 Unknown History
elixir FEVER
albuterol sulfate 2.5 mg/3 mL 2.5 mg inhalation R Q6HPRN PRN SOB 03/16/24 01/28/25 Unknown History
(0.083 %) solution for nebulization
bisacodyl 10 mg rectal suppository 10 mg [place] [id number] PRN IF NO BM AFTR 03/16/24 01/28/25 Unknown History
(Dulcolax (bisacodyl)) MOM
buspirone 5 mg tablet 2.5 mg feeding tube HS anxiety 03/16/24 01/28/25 07/01/24 History
sertraline 25 mg tablet 25 mg feeding tube HS 03/16/24 01/28/25 07/01/24 History
depression/anxiety
simethicone 125 mg chewable tablet 125 mg feeding tube BID 03/16/24 01/28/25 Unknown History
(Gas-X Extra Strength)
polyethylene glycol 3350 17 gram 17 g feeding tube BID Constipation 07/03/24 01/28/25 06/30/24 Rx
oral powder packet (Miralax) #0 ea
sennosides 8.6 mg-docusate sodium 2 tab feeding tube BID #60 tabs 07/03/24 01/28/25 Unknown Rx
50 mg tablet
amlodipine 2.5 mg tablet 2.5 mg feeding tube DAILY 09/02/24 01/28/25 Unknown History
magnesium hydroxide 400 mg/5 mL 2,400 mg feeding tube HSPRN PRN 09/02/24 01/28/25 Unknown History
oral suspension (Gentle Laxative Constipation
(magnesium hydroxide))
Saccharomyces boulardii 250 mg 250 mg feeding tube BID 01/28/25 01/28/25 Unknown History
capsule (Florastor)
famotidine 20 mg tablet (Pepcid) 20 mg feeding tube BID 01/28/25 01/28/25 Unknown History
prednisolone acetate 1 % eye 1 drp RIGHT EYE DAILY 01/28/25 01/28/25 Unknown History
drops,suspension
sulfamethoxazole 200 20 ml feeding tube BID 01/28/25 01/28/25 Unknown History
mg-trimethoprim 40 mg/5 mL oral
suspension
Review of Systems
-
Unable to Obtain full review of systems at this time due to: Patient Non Verbal
Vitals / Labs / Diagnostic Testing
Vital Signs
Temp Pulse Resp BP Pulse Ox
98.7 F 86 21 117/70 99
01/29/25 11:06 01/29/25 08:35 01/29/25 07:30 01/29/25 08:35 01/29/25 08:00
Lab Data
01/29/25 03:18
01/29/25 03:18
Laboratory Results
01/29/25
03:18
PT 13.9
INR 1.04
APTT 33.0
Microbiology
01/29/25 03:18 Nose Nasal Screen MRSA (PCR) - Final
MRSA not detected - performed by PCR methodology.
01/28/25 22:35 Urine Legionella Urinary Antigen - Final
Negative for Legionella pneumophila Serogroup 1 antigen.
A negative result does not rule out the possiblity of
Legionella infection due to other serogroups or species of
Legionella. Clinical correlation is recommended.
01/28/25 22:35 Urine Streptococcus pneumoniae Antigen (M - Final
Negative for Streptococcus pneumoniae antigen.
A negative result does not exclude infection with
Streptococcus pneumoniae. Clinical correlation is
recommended.
Diagnostic Testing:
Physical Exam
-
HEENT: Normocephalic
Cardiovascular: S1/S2
Respiratory: Non-Labored Respirations
GI: Soft and Non Distended
Neurology: Awake, Other (Increased motor tone.) and Other (Spastic right hemiplegia, spastic left hemiparesis.)
Skin: Warm
General: Comfortable
Assessment
-
64-year-old woman with past medical history noted. Sent to the emergency room from [facility] for witnessed seizure activity. Also fever several days prior to admission. On antibiotics for sebaceous cyst and she was planning to have an I&D.
In the emergency room found to have also left lower lobe potential infiltrate.
She was transferred to the critical care unit 01/29/2025 for hemodynamic monitoring, neurological monitoring given new onset seizures.
Toxic metabolic encephalopathy-new onset seizure activity
. CT head: No acute abnormalities.
Sepsis-fever/tachycardia
No leukocytosis
Normal lactate level
Not hypotensive
Slightly abnormal UA: Chronic Garvey catheter.
Cannot rule out AUTOMOBILE RENTAL REPRESENTATIVE source-patient has a LAUNDROMAT WORKER shunt and abnormal CT head chronically.
Possible left lower lobe pneumonia: Cannot rule out aspiration.
None anion gap metabolic acidosis-likely due to chronic kidney disease
Scalp sebaceous cyst
Anemia-likely of chronic disease. Normal MCV.
Hyponatremia
Condition present prior admission:
Status post LAUNDROMAT WORKER shunt
History of CVA with residual right hemiplegia-nonverbal
DVT status post IVC filter
GERD/esophagitis
Chronic kidney disease
Hypertension
Type 2 diabetes
[address] tube in [address]
DVT status post IVC filter
Prior brain mass resection-no details [id number] craniotomy.
Large lobular mass left frontal lobe/encephalomalacia/shunt in place on CAT scan
patient has been in this state since at least 2020-.
Assessment and plan:
Possible sepsis based on clinical presentation with fevers and tachycardia.
Multiple sources possible: Chest x-ray is abnormal unclear if this represents an aspiration event versus atelectasis-currently on room air. No sputum production.
UA slightly abnormal/not impressive-patient has a chronic Garvey in place.
With new onset seizure-cannot rule out AUTOMOBILE RENTAL REPRESENTATIVE infection given prior history of LAUNDROMAT WORKER shunt and brain tumor.
-
Patient remains somnolent: Coughing-hemodynamically stable. On room air.
Likely has some degree of postictal state. Patient did receive some Versed for seizures-likely still contributing to lethargy.
Opens eyes to tactile stimuli
Patient is contracted-nonverbal at baseline
Mother at the bedside: States when she is not sick she is more alert.
-
Neurology correspondence reviewed:
Antiepileptic drugs-Keppra started
Recommending MRI prior sampling AUTOMOBILE RENTAL REPRESENTATIVE fluid.
-
Continue broad-spectrum ABx.
Vancomycin/cefepime/ampicillin/acyclovir per primary team
Infectious disease has been consulted
-
Sebaceous cyst has been I&D by surgery
Continue antibiotic
Follow cultures
-
Follow renal function and electrolytes
Hyponatremia noted-mild. Possibly related to seizures.
-
N.p.o. for now
PEG tube in place
Apparently was having some liquid diet.
Head of the bed elevation
DVT prophylaxis heparin subcu
-
Dr. Trent updated mother at the bedside 01/30/2024
I discussed with her mother poor baseline neurological status that is not going to improve. Initially she was made DNR-her 2 daughters reverse DNR and patient is full code.
I strongly recommended her to to avoid any intubation. She will discuss with granddaughters.
-
If no further seizure activity documented later today we will transfer to telemetry.
If transferred to telemetry critical care team will sign off
-
Critical care statement: A total of 35minutes of critical care time was provided for this patient today. This includes management of unstable vital signs, evaluation of the patient at bedside, reviewing the patient's pertinent medical records
including ventilator settings, arterial blood gases, radiographs, microbiology, laboratory evaluations and discussion with primary team, critical care nursing, and respiratory therapy.

Data reviewed:
CT head 01/28/2025:
Stable large lobular mass in the inferior paramidline left frontal lobe extending along the left middle cranial fossa and left temporal lobe, similar to prior. The mass causes similar compression of the third ventricle. No significant residual
midline shift. Similar compression of the left lateral ventricle. Similar appearance of right-sided ventricular shunt catheter terminating along the anterior horn of the right lateral ventricle. No hydrocephalus. Questionable residual tiny chronic
subdural hygroma/hematoma in the right frontal region, improved.
There is otherwise stable mild to moderate subcortical, deep, and periventricular white matter low-attenuation, compatible with underlying changes of chronic small vessel ischemic disease. Visualized paranasal sinuses are free of mucosal disease.
Chest x-ray 01/28/2025: Reviewed
Low lung volumes from
Possible left lower lobe infiltrate
[2025-01-29 12:32] LABS: Glucose - Point of Care 80 mg/dl (70-99)
--- NOTE | 2025-01-29 12:52 | CON.ID ---
Consultation
-
Date/Time Consultation Requested: January 29, 2025 1108
Date/Time Consultation Performed: January 29, 2025 1250
Requesting Provider: Dr. Mariza Arcos
Performing Provider: Dr. Silva Rae
Reason for Consultation: New onset seizure
Chief Complaint / Past History
Chief Complaint
New onset seizure
History of Present Illness
History obtained from review of medical records as well as from patient's mother at bedside, since patient is nonverbal. She is a 64-year-old female with history of diabetes mellitus, hx 8 months hospitalization in [place] 2020 with CVA from
large meningioma status post partial resection complicated by hemorrhage requiring cranioplasty, then developed hydrocephalus eventually converting lumbar drain to SERVICE TRANSFORMER REPAIR SUPERVISOR shunt. Mom brought her back to [place] 3 years ago and she now resides at
[facility]. Patient never had seizures in the past until yesterday when she had witnessed seizures 3 times and therefore sent to the ER. Per mom patient has chronic cyst behind the right ear for the past 10 years. However recently the cyst
got red and inflamed, started leaking fluid. About 2 weeks ago, patient was started on topical and oral antibiotic. The physician then changed the antibiotic to Bactrim and patient has an appointment for drainage of the cyst February 08. Per mom
patient never had Bactrim. On Thursday, mom noted patient more lethargic, temperature was 101; she was given Tylenol. Fever resolved. Patient has not complained of any headaches or neck stiffness. No cough at the custodial. No nausea or
vomiting. Patient has chronic constipation. No history of perioral herpes. She had history of genital herpes. In the ER rectal temperature 100.6. CAT scan of the head compared to November 2024 shows stable large lobular brain mass. Chest x-ray
suspected left-sided pneumonitis/pneumonia. She was started on vancomycin and cefepime. This morning surgery drained the sebaceous cyst with purulent sebum output. Culture pending.
Past History
Additional Past Medical History:
Diabetes mellitus
Hypertension
Brain tumor meningioma s/p left craniotomy partial tumor resection with with reexploration for hemorrhage, cranioplasty and repair of CSF (2020 in [place])
CVA with residual right hemiplegia, aphasia (2020)
Hydrocephalus s/p SERVICE TRANSFORMER REPAIR SUPERVISOR shunt
PEG tube placement (2020)
DVT status post IVC filter placement
Urinary retention with chronic Locke
Anxiety
Chronic constipation
Cholecystectomy
Joint replacement
Allergy History:
No Known Allergies Allergy (Verified 09/02/24 10:48)
Medications Reviewed: Yes
Current Antibiotics:
Vancomycin
Cefepime 1g IV q8
Ampicillin
Acyclovir IV
Social History
Tobacco: Non-Smoker
Alcohol: None
Drug: None
Living: Group Home
Family History
Family History: Not Pertinent
Review of Systems
Review of Systems
Unable to obtain due to patient being nonverbal.
Vital Signs
Temp Pulse Resp BP Pulse Ox
98.7 F 117 18 109/70 99
01/29/25 11:06 01/29/25 12:00 01/29/25 12:00 01/29/25 12:00 01/29/25 12:00
Selected Entries
01/28/25
19:30
Temp (rectal) 100.6 F H
Physical Exam
Physical Exam
Constitutional: Chronically Ill
Head: Other (No frontal or maxillary sinus tenderenss)
Eyes: No Conjunctival Hemorrhage and Sclera Anicteric
Cardiovascular: Regular Rate and S1/S2
Pulmonary: Clear (anteriorly)
Gastrointestinal: Soft, Non Tender, Non Distended, Normal Bowel Sounds and Other (PEG dry)
Genito-Urinary: Locke and Clear Urine
Extremities: Negative Edema
Neurological: Other (Drowsy); Negative Meningeal Signs (Neck supple)
Lab / Diagnostic Study Results
01/29/25 03:18
01/29/25 03:18
Abs Immat Gran (auto) 0.0 10^3/uL (0-0.05) 01/28/25 16:54
Absolute Neuts (auto) 6.7 10^3/uL (1.4-6.5) H 01/28/25 16:54
Absolute Lymphs (auto) 0.6 10^3/uL (1.2-3.4) L 01/28/25 16:54
Absolute Monos (auto) 0.6 10^3/uL (0.1-0.6) 01/28/25 16:54
Absolute Basos (auto) 0.0 10^3/uL (0-0.2) 01/28/25 16:54
Immature Gran % 0.4 % (0-0.5) 01/28/25 16:54
Neutrophils % 84.5 % (42.2-75.2) H 01/28/25 16:54
Lymphocytes % 6.9 % (20.5-51.1) L 01/28/25 16:54
Monocytes % 7.4 % (1.7-9.3) 01/28/25 16:54
Eosinophils % 0.4 % (0-6) 01/28/25 16:54
Basophils % 0.4 % (0-2) 01/28/25 16:54
PT 13.9 Sec (11.4-14.6) 01/29/25 03:18
INR 1.04 01/29/25 03:18
Lactic Acid Cancelled 01/29/25 09:25
Ur Squamous Epith Cells 0-2 /LPF (Few) 01/28/25 19:40
Microbiology Results
Micro:
01/29/25 03:18 Nasal Screen MRSA (PCR) - Final
Nose MRSA not detected - performed by PCR methodology.
01/29/25 11:28 Wound Culture - Pending
Cyst Gram Stain - Pending
01/28/25 22:35 Legionella Urinary Antigen - Final
Urine Negative for Legionella pneumophila Serogroup 1 antigen.
A negative result does not rule out the possiblity of
Legionella infection due to other serogroups or species of
Legionella. Clinical correlation is recommended.
Streptococcus pneumoniae Antigen (M - Final
Negative for Streptococcus pneumoniae antigen.
A negative result does not exclude infection with
Streptococcus pneumoniae. Clinical correlation is
recommended.
01/28/25 18:02 Blood Culture - Pending
Blood/Venous
01/28/25 18:02 Blood Culture - Pending
Blood/Venous
01/28/25 22:35 MRSA Screen - Pending
Nose
01/28/25 19:40 Urine Culture - Pending
Urine
01/28/25 16:50 Urine Culture - Pending
Urine
01/28/[address]: Essentially stable exam as described. No significant midline shift or herniation.
01/28/25 CXR: Suspect left-sided pneumonitis/pneumonia.
Assessment / Plan
# New onset seizure
# Infected sebaceous cyst R mastoid
. Placed on Bactrim at [facility]
. S/p drainage today
# Possible LLL pneumonia
# Fever at [facility] 01/24.
Rectal temp 100.7 x 1 here
# Hx large meningioma s/p left craniotomy partial tumor resection with reexploration for hemorrhage, cranioplasty and repair of CSF (2020 in [place])
# CVA with aphasia, R hemiplegia
# Urinary retention , chronic locke
Plan;
- Possibly seizure (and fever) from recent outpatient t/sulfa in setting of existing large space occupying meningioma lowering seizure threshold
- MRI brain pending.
- Will hold on starting acyclovir.
- Can continue Vancomycin and cefepime pending wound cx and blood cx's.
Of note cefepime can lower seizure threshold. Monitor closely.
# Conditions present on admission
Diabetes mellitus
Hypertension
Brain tumor meningioma s/p left craniotomy partial tumor resection with with reexploration for hemorrhage, cranioplasty and repair of CSF (2020 in [place])
CVA with residual right hemiplegia, aphasia (2020)
Hydrocephalus s/p SERVICE TRANSFORMER REPAIR SUPERVISOR shunt
PEG tube placement (2020)
DVT status post IVC filter placement
Urinary retention with chronic Locke
Anxiety
Chronic constipation
Cholecystectomy
Joint replacement
SNF resident
--- NOTE | 2025-01-29 12:59 | OR.RPT ---
Operative Report
Operative Report
Bedside Incision and Drainage
A team time-out was performed confirming the location/laterality of the procedure, consent obtained via telephone from the patient's mother and allergies reviewed.
Location: Sebaceous cyst above the right ear
Dimensions: 2cm
Local: 1% Lidocaine with epinephrine
Surgeon/Equipment Mechanic Specialist: Dr. Larkin and Fabiana OLIVA
The skin was cleaned with alcohol and anesthetized with lidocaine with epinephrine. A cruciate incision was made over the lesion and dissection carried down through subcutaneous tissue. Pus and Sebum was identified. The wound was irrigated with
sterile saline. Hemostasis was obtained. There was minimal blood loss. The skin was packed with sterile gauze. Purulent material was sent for culture. The patient tolerated the procedure well.
[2025-01-29 13:53] LABS: Folate 8.5 ng/ml (2.76-20); Vitamin B12 > 1000 pg/ml (239-931)
--- NOTE | 2025-01-29 14:47 | PHA.VAN.FU ---
Vancomycin Assessment / Plan
- Assessment
Renal Function: SCR Decreasing (Scr 1.4-->1.3)
WBC's are: WNL
In the past 24 hrs, patient has been: Febrile (Temp 100.6F)
Concomitant Antimicrobials: Cefepime
- Assessment - Therapeutic Drug Monitoring
Random Level: 30.7 drawn ~7 hr after vanc 2000mg loading dose
- Dosing Plan
Dosing by Level: Hold off on dosing today
- Monitoring Plan
Random Level: 01/30 with AM labs.
- Follow Up
Pharmacy will continue to follow.
Vancomycin Follow UP
- -
Patient Age: 64
Patient Sex: Female (1)
Vancomycin Day #: 2
Indication: Pulmonary/Respiratory
Requesting Provider: Dr. Rae
Pertinent Antimicrobial Allergies:
NKDA
Height / Weight:
Height 5 ft 3 in
Actual Weight 67.5 kg
Pertinent Past Medical History: CKD
- Vital Signs / Lab Results
Temp Pulse Resp BP Pulse Ox
98.7 F 117 18 109/70 99
01/29/25 11:06 01/29/25 12:00 01/29/25 12:00 01/29/25 12:00 01/29/25 12:00
Lab Results - Hematology
01/28/25 01/29/25
16:54 03:18
WBC 8.0 5.9
Lab Results - Chemistry
01/28/25 01/28/25 01/28/25
16:54 19:54 20:31
BUN 43 H
Creatinine 1.4 H
Estimated Creat Clear
Albumin Cancelled Cancelled 3.7
01/29/25
03:18
BUN 36 H
Creatinine 1.3 H
Estimated Creat Clear 37
Albumin
01/28/25 01/28/25 01/29/25
18:02 22:35 01:25
Lactic Acid 3.1 H 1.8 Cancelled
01/29/25 01/29/25
09:07 09:25
Lactic Acid 0.6 L Cancelled
Lab Results - Urine
01/28/25 01/28/25
16:50 19:40
Urine Nitrite (Reflex) Positive A Negative
Leukocyte Esterase Rfl 3+ A 2+ A
Ur Squamous Epith Cells 0-2 0-2
Microbiology Results
01/29/25 11:28 Gram Stain - Preliminary
Cyst
01/29/25 03:18 Nasal Screen MRSA (PCR) - Final
Nose MRSA not detected - performed by PCR methodology.
01/28/25 22:35 Legionella Urinary Antigen - Final
Urine Negative for Legionella pneumophila Serogroup 1 antigen.
A negative result does not rule out the possiblity of
Legionella infection due to other serogroups or species of
Legionella. Clinical correlation is recommended.
Streptococcus pneumoniae Antigen (M - Final
Negative for Streptococcus pneumoniae antigen.
A negative result does not exclude infection with
Streptococcus pneumoniae. Clinical correlation is
recommended.
Therapeutic Drug Monitoring
Random Vancomycin 30.7 ug/ml 01/29/25 03:18
[2025-01-29] MEDS: D5/0.9% SODIUM CHLORIDE 1000 IV (17:58)
--- NOTE | 2025-01-29 18:01 | CM ---
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. She is non-verbal, bedbound, total care, has a peg tube and locke. Discharge POC: Return to [facility] for resumption of LTC.
[2025-01-29 18:25] LABS: Glucose - Point of Care 77 mg/dl (70-99)
[2025-01-29] MEDS: KEPPRA 500 MG IV (19:45)
[2025-01-29] MEDS: MIRALAX TUBE (19:46)
[2025-01-29] MEDS: SENOKOT-S TUBE (19:46)
[2025-01-29 20:13] LABS: Glucose - Point of Care 77 mg/dl (70-99)
[2025-01-29] MEDS: ZOLOFT 25 MG TUBE (22:25)
[2025-01-29 22:32] LABS: Glucose - Point of Care 87 mg/dl (70-99)
[2025-01-30] VITALS (17 sets, daily range): BP systolic 94–148; BP diastolic 56–99; BMI 25.9
--- NOTE | 2025-01-30 | PTCARENOTE ---
No change in patient assessment. No seizure activity noted.
[2025-01-30 00:06] LABS: Glucose - Point of Care 74 mg/dl (70-99)
[2025-01-30 03:29] LABS: Glucose - Point of Care 74 mg/dl (70-99)
--- NOTE | 2025-01-30 04:00 | PTCARENOTE ---
No change in patient assessment. No seizure activity noted.
[2025-01-30] MEDS: MAXIPIME 1000 MG IV ×3 (04:25→20:41)
[2025-01-30] MEDS: STERILE WATER FOR INJECTION 10 ML IV ×3 (04:25→20:41)
[2025-01-30 05:08] LABS: Hematocrit 28.0 % (37.0-47.0); Hemoglobin 9.2 g/dL (12.0-16.0); Mean Corp Hgb Conc. 32.9 g/dL (33.0-37.0); Mean Corpuscular Volume 90.9 fL (81.0-99.0); Nucleated Red Blood Cells % 0 %; Platelet Count 182 10^3/uL (130-400); Red Cell Dist. Width 13.1 % (11.5-14.5)
[2025-01-30 05:33] LABS: ALT (SGPT) 12 U/L (0-35); AST (SGOT) 27 U/L (14-36); Albumin 3.2 g/dl (3.5-5.0); Alkaline Phosphatase 103 U/L (38-126); Blood Urea Nitrogen 26 mg/dl (7-17); Calcium 8.6 mg/dl (8.4-10.2); Carbon Dioxide 21 mmol/L (22-30); Chloride 109 mmol/L (98-107); Estimated Creatinine Clearance 40 ml/min; Glucose 99 mg/dl (70-99); Potassium 4.8 mmol/L (3.5-5.1); Sodium 134 mmol/L (135-145); Total Protein 6.4 g/dl (6.3-8.2); eGFR 50.86
[2025-01-30] MEDS: D5/0.9% SODIUM CHLORIDE 1000 IV ×2 (06:06→20:40)
[2025-01-30 06:11] LABS: Glucose - Point of Care 85 mg/dl (70-99)
[2025-01-30] MEDS: KEPPRA 500 MG IV ×2 (07:48→20:42)
[2025-01-30] MEDS: HEPARIN 5000 UNITS SC ×2 (07:48→20:42)
[2025-01-30] MEDS: FLORASTOR 250 MG TUBE ×2 (07:48→20:52)
[2025-01-30] MEDS: PEPCID 20 MG TUBE (07:49)
[2025-01-30] MEDS: MYLICON 120 MG TUBE ×2 (07:49→20:52)
[2025-01-30] MEDS: PRED FORTE 1% EYE DROPS 1 DROP RIGHT EYE (07:49)
[2025-01-30] MEDS: SENOKOT-S 2 TABLET TUBE ×2 (07:49→20:54)
[2025-01-30] MEDS: NORVASC 2.5 MG TUBE (07:54)
[2025-01-30] MEDS: MIRALAX TUBE (07:54)
--- NOTE | 2025-01-30 08:00 | PTCARENOTE ---
Assumed care of patient at 0700. Patient arouses to voice, opens eyes and minimally verbal - attempts to communicate at times, does not follow commands. Patient withdraws to pain. L eye 4mm and sluggish, R eye 3mm and brisk. SR/ST on monitor. Pulses
palpable. Patient on room air, lungs diminished/coarse. Patient w/ moderate amount of clear oral secretions. Abdomen soft/round w/ PEG tube in place - bloody drainage from around PEG tube site. Patient w/ open wound on R scalp w/ bloody drainage -
dressing changed. Chronic Garvey draining clear yellow urine. Patient w/ midline in RUE w/ D5NS @ 80.
--- NOTE | 2025-01-30 08:35 | PHA.VAN.FU ---
Vancomycin Assessment / Plan
- Assessment
Renal Function: SCR Decreasing (Scr 1.4-->1.3-->1.2)
WBC's are: Trending Down
In the past 24 hrs, patient has been: Afebrile
Concomitant Antimicrobials: Cefepime
- Assessment - Therapeutic Drug Monitoring
Random Level: 12.9 drawn ~31.5 hr after vancomycin 2000mg loading dose
Calculated ke: 0.034
Calculated half life (H): 20
Calculated ke using 2 random levels
01/28 @2103 Vancomycin 2000mg administered
01/29 @317 30.7 ~6h following loading dose
01/30 @446 12.9 ~31.5h following loading dose
- Dosing Plan
Adjust Regimen to: Vancomycin 750mg IV Q24h to start now
- Monitoring Plan
No level(s) ordered at this time: Consider levels in a few days.
- Follow Up
Pharmacy will continue to follow.
Vancomycin Follow UP
- -
Patient Age: 64
Patient Sex: Female (1)
Vancomycin Day #: 3
Indication: Pulmonary/Respiratory
Requesting Provider: Dr. Rae
Pertinent Antimicrobial Allergies:
NKDA
Height / Weight:
Height 5 ft 3 in
Actual Weight 66.3 kg
Pertinent Past Medical History: CKD
- Vital Signs / Lab Results
Temp Pulse Resp BP Pulse Ox
98.4 F 79 17 118/73 100
01/30/25 06:57 01/30/25 06:00 01/30/25 06:00 01/30/25 06:00 01/30/25 06:00
Lab Results - Hematology
01/28/25 01/29/25 01/30/25
16:54 03:18 04:47
WBC 8.0 5.9 3.9 L
Lab Results - Chemistry
1001/28/25 01/28/25
16:54 19:54 20:31
BUN 43 H
Creatinine 1.4 H
Estimated Creat Clear
Albumin Cancelled Cancelled 3.7
01/29/25 01/30/25
03:18 04:47
BUN 36 H 26 H
Creatinine 1.3 H 1.2 H
Estimated Creat Clear 37 40
Albumin 3.2 L
01/28/25 01/28/25 01/29/25
18:02 22:35 01:25
Lactic Acid 3.1 H 1.8 Cancelled
01/29/25 01/29/25
09:07 09:25
Lactic Acid 0.6 L Cancelled
Microbiology Results
01/29/25 11:28 Wound Culture - Preliminary
Cyst No growth
Gram Stain - Preliminary
01/28/25 22:35 MRSA Screen - Final
Nose No Methicillin Resistant Staphylococcus aureus isolated.
01/28/25 18:02 Blood Culture - Preliminary
Blood/Venous No Growth in 24 hours- Final report to follow
01/28/25 18:02 Blood Culture - Preliminary
Blood/Venous No Growth in 24 hours- Final report to follow
01/29/25 03:18 Nasal Screen MRSA (PCR) - Final
Nose MRSA not detected - performed by PCR methodology.
01/28/25 22:35 Legionella Urinary Antigen - Final
Urine Negative for Legionella pneumophila Serogroup 1 antigen.
A negative result does not rule out the possiblity of
Legionella infection due to other serogroups or species of
Legionella. Clinical correlation is recommended.
Streptococcus pneumoniae Antigen (M - Final
Negative for Streptococcus pneumoniae antigen.
A negative result does not exclude infection with
Streptococcus pneumoniae. Clinical correlation is
recommended.
Therapeutic Drug Monitoring
Random Vancomycin 12.9 ug/ml 01/30/25 04:47
[2025-01-30 09:11] LABS: Glucose - Point of Care 59 mg/dl (70-99)
[2025-01-30] MEDS: VANCOCIN 150 IV (11:07)
--- NOTE | 2025-01-30 11:46 | W.PN.CRS1 ---
Today's Communication / Plan
-
daily wound care
will s/o
Assessment/Plan
-
POD#1 Bedside incision and drainage of sebaceous cyst above the right ear
-Wound is c/d/i - no evidence of further infection
-Healing as expected
-Daily dressing changes until seals
-Will sign off, please contact us if further issues arise
Subjective Data
Subjective Data
Date of Service: January 30, 2025
Patient is nonverbal. She is not in acute distress. An EEG is being performed.
Objective Data
-
Vital Signs
Temp Pulse Resp BP Pulse Ox
97.6 F 79 17 118/73 100
01/30/25 11:17 01/30/25 06:00 01/30/25 06:00 01/30/25 06:00 01/30/25 06:00
Intake & Output
01/29/25 01/30/25 01/31/25
06:59 06:59 06:59
Intake Total 910 / 990 1979 / 2059 460 / 460
Output Total 1100 / 1100 2300 / 2300 525 / 525
Balance -190 / -110 -320 / -240 -65 / -65
Intake:
IV fluids (Total) 640 / 720 1920 / 2000 400 / 400
D5 NS @ 80ml/hr 960 / 1040 400 / 400
Nss 1,000 ml @ 80 mls/hr IV . 640 / 720 960 / 960
[id number] [place] Rx#:[id number]
IV piggybacks 270 / 270
Amount instilled into GI Tube ( 60 / 60 60 / 60
Total)
Gastrostomy 60 / 60 60 / 60
Output:
Urine, Garvey 1100 / 1100 2300 / 2300 525 / 525
Other:
Number of unmeasured liquid
stools
Rectum 1
Lab Results
01/30/25 04:47
01/30/25 04:47
Physical Exam
-
General: No Acute Distress
Wound: No Signs of Infection and Dressing in Place
[2025-01-30 11:47] LABS: Glucose - Point of Care 94 mg/dl (70-99)
--- NOTE | 2025-01-30 12:32 | W.PN.NEURO.1 ---
Addendum entered and electronically signed by Franki Hinton MD 01/30/25 21:03:
I have seen and examined the patient today. I have also discussed the patient's assessment and the management plan with nurse practitioner Lela Salas. I agree with the the nurse practitioner Lela Salas's assessment and plan. The
following is my impression.
The patient is a 64 years old female who presented with recurrent seizures. The patient is on Keppra.
CT of the head showed a stable large lobular mass in the inferior paramidline left frontal lobe extending along the left middle cranial fossa and left temporal lobe that causes compression of the third ventricle.
The EEG shows severely abnormal EEG for age in wakefulness and drowsiness due to mild interhemispheric asymmetry with reduced organization and slowing from the left hemisphere.
Seizure precautions.
Continue Keppra.
MRI of the brain is pending.
Will follow with you.
Original Note:
Today's Communication / Plan
-
.
Neuro Assessment/Plan
Assessment
This is a 64-year-old woman who presented to [facility] from [facility] on 01/28/2025 with recurrent seizures.
According to EMR patient has had fever and was treated for a subcutaneous right temporal infected cystic lesion pending I&D over the last week. She received 4 mg of Versed and route to the ER
Patient is nonverbal and nonambulatory at baseline.
-CT head wo contrast 01/29/25-Stable large lobular mass in the inferior paramidline left frontal lobe extending along the left middle cranial fossa and left temporal lobe, similar to 11/2024. The mass causes similar compression of the third
ventricle. No significant residual midline shift. Similar compression of the left lateral ventricle. Similar appearance of right-sided ventricular shunt catheter terminating along the anterior horn of the right lateral ventricle. No hydrocephalus.
-Ceribell EEG [id number]/12/25�left hemispheric slowing with intermittent sharp waves.
I. Symptomatic seizure cluster in settings of fever, hyponatremia.
II. History of unknown TRIAL COURT JUDGE tumor, s/p resection
III. Multifactorial encephalopathy
Plan
-Seizure precautions
-Avoid medications known to lower seizure threshold
-Continue newly initiated Keppra 500 mg twice daily
-Brain MRI with and without mitch pending in view of fever before considering CSF testing
-DVT prophylaxis.
Subjective/Objective
Subjective Data
Date of Service: January 30, 2025
No acute events overnight.
Objective Data
Vital Signs
Temp Pulse Resp BP Pulse Ox
97.6 F 75 16 123/68 100
01/30/25 11:17 01/30/25 12:00 01/30/25 12:00 01/30/25 12:00 01/30/25 12:00
Lab Results
01/30/25 04:47
01/30/25 04:47
PT 13.9 Sec (11.4-14.6) 01/29/25 03:18
INR 1.04 01/29/25 03:18
APTT 33.0 Sec (23.4-35.0) 01/29/25 03:18
Sodium 134 mmol/L (135-145) L 01/30/25 04:47
Potassium 4.8 mmol/L (3.5-5.1) 01/30/25 04:47
BUN 26 mg/dl (7-17) H 01/30/25 04:47
Glucose 99 mg/dl (70-99) 01/30/25 04:47
Calcium 8.6 mg/dl (8.4-10.2) 01/30/25 04:47
Phosphorus 3.0 mg/dl (2.5-4.5) 01/29/25 03:18
Vitamin B12 > 1000 pg/ml (239-931) H 01/29/25 11:25
Patient Allergies
No Known Allergies Allergy (Verified 09/02/24 10:48)
Review of Systems
-
Unable to obtain full review of systems at this time due to: Aphasia
Physical Exam
-
General: Appears Chronically Ill
Eyes: Negative No Ptosis (Left eye complete ptosis)
Respiratory: No Dyspnea
GI: Non-distended
Extended Neurological Exam
Attention Span & Concentration: Awake, Alert and Unable to Perform 2 Step Request
Memory: Unable to Assess (Severely aphasic, only able to say one word responses like 'ow')
Tremor: Hand Tremor Absent and Head Tremor Absent
Involuntary Movement: None
Speech: Expressive Aphasia, Receptive Aphasia, Severely Reduced Output and Dysarthric
Cranial Nerve II: Left Eye: Pupillary Reactivity Unremarkable, Pupillary Size Unremarkable and Unable to Assess Visual Fischer
Cranial Nerve II: Right Eye: Pupillary Reactivity Unremarkable, Pupillary Size Unremarkable and Unable to Assess Visual Fischer
Cranial Nerves III, IV, : Extraocular Movement: Unable to Assess
Cranial Nerve VII: Facial Symmetry: Reduced (L eye ptosis)
Cranial Nerve VIII: Hearing: Unremarkable Hearing to Normal Conversational Volume
Cranial Nerves IX, X: Palate Movement: Unable to Assess
Cranial Nerve XII: Tongue Protusion: Unable to Assess
Muscle Strength, Overall: Reduced Throughout
Muscle Bulk & Tone: Increased Tone (BUE flexion contraction, BLE extension contraction)
Deep Tendon Reflexes: Unremarkable Throughout
Cold Sensation: Unable to Assess
Vibration Sensation: Unable to Assess
Touch Sensation: Unable to Assess
Coordination: Unable to Assess
Babinski Sign: Present on Right
Gait & Station: Unable to Assess
Data Reviewed
-
CT Head: Report Reviewed and Image Reviewed
Labs: Report Reviewed
Reviewed with: Physician and Patient
Medications
-
Active Medications
Generic Name Dose Route Start Last Admin
Trade Name Freq PRN Reason Stop Dose Admin
Acetaminophen 650 mg 01/28/25 21:25
Acetaminophen 325 Mg Tablet PO 02/25/25 21:24
Q4HPRN PRN
if temp > 101 F
Acetaminophen 650 mg 01/28/25 21:25
Acetaminophen 650 Mg Rectal Suppository RECTAL 02/25/25 21:24
Q4HPRN PRN
fever >101
Albuterol Sulfate 2.5 mg 01/28/25 21:25
Albuterol Nebs 2.5 Mg/3 Ml Ampul INH
R Q6HPRN PRN
SOB
Protocol
Amlodipine Besylate 2.5 mg 01/29/25 08:00 01/30/25 07:54
Amlodipine 2.5 Mg Tablet TUBE 02/26/25 07:59 2.5 mg
DAILY [place] Administration
Cefepime HCl 1,000 mg 01/29/25 04:00 01/30/25 11:08
Cefepime Hcl 1,000 Mg/11.3 Ml Vial IV 1,000 mg
Q8H [place] Administration
Dextrose 12.5 grams 01/29/25 18:00
Dextrose 50% (0.5 Grams/Ml) 50 Ml Syringe IV 02/26/25 17:59
V31ASAN PRN
hypoglycemia
Protocol
Famotidine 20 mg 01/30/25 10:58
Famotidine 20 Mg Tablet TUBE 02/26/25 07:59
DAILY [place]
Glucagon 1 mg 01/29/25 18:00
Glucagon 1 Mg Vial IM 02/26/25 17:59
PRN PRN
hypoglycemia - no IV access
Protocol
Heparin Sodium 5,000 units 01/29/25 08:00 01/30/25 07:48
Heparin 5,000 Units/Ml 1 Ml Vial SC 02/26/25 07:59 5,000 units
Q12 [place] Administration
Norepinephrine Bitartrate 4 mg in 250 mls @ 0 mls/hr 01/29/25 02:30
Levophed IV
PER PROTOCOL [place]
Protocol
Per Protocol
Dextrose/Sodium Chloride 1,000 mls @ 80 mls/hr 01/29/25 18:00 01/30/25 06:06
D5/0.9% Sodium Chloride IV 1,000 mls
.[id number] [place] Administration
Vancomycin HCl 750 mg in 150 mls @ 150 mls/hr 01/30/25 10:00 01/30/25 11:07
Vancocin IV 150 mls
DAILY@0600 [place] Administration
Protocol
Insulin Aspart 0 units 01/29/25 18:00 01/30/25 12:03
Insulin Aspart Low Resistance 300 Units/3 Ml Pen.Injctr SC 02/26/25 17:59 Not Given
Q6H [place]
Protocol
Levetiracetam 500 mg 01/29/25 20:00 01/30/25 07:48
Levetiracetam (100 Mg/Ml) 500 Mg/5 Ml Vial IV 02/26/25 19:59 500 mg
Q12 [place] Administration
Midazolam HCl 2 mg 01/29/25 02:17 01/29/25 05:47
Midazolam (Preservative Free) 1 Mg/Ml 2 Ml Vial IV 02/26/25 02:16 2 mg
Q2HPRN PRN Administration
seizure
Polyethylene Glycol 17 grams 01/29/25 08:00 01/30/25 07:54
Polyethylene Glycol Powder 17 Grams Packet TUBE 02/26/25 07:59 Not Given
BID [facility]
Prednisolone Acetate 1 drop 01/29/25 08:00 01/30/25 07:49
Prednisolone 1% (Ophthalmic Suspension) Bottle RIGHT EYE 02/26/25 07:59 1 drop
DAILY [place] Administration
Saccharomyces Boulardii 250 mg 01/29/25 08:00 01/30/25 07:48
Saccharomyces Boulardi (Florastor) 250 Mg Capsule TUBE 02/26/25 07:59 250 mg
BID [place] Administration
Senna/Docusate Sodium 2 tablet 01/29/25 08:00 01/30/25 07:49
Docusate W/Senna (Michell-Colace) Tablet TUBE 02/26/25 07:59 2 tablet
BID [place] Administration
Sertraline HCl 25 mg 01/28/25 22:00 01/29/25 22:25
Sertraline 25 Mg Tablet TUBE 02/25/25 21:59 25 mg
HS [place] Administration
Simethicone 120 mg 01/29/25 08:00 01/30/25 07:49
Simethicone 80 Mg Chewable Tablet TUBE 02/26/25 07:59 120 mg
BID [place] Administration
Sodium Chloride 0 flush 01/28/25 22:00
Sodium Chloride 0.9% (Flush) Syringe IV 02/25/25 21:59
PER PROTOCOL [place]
Sterile Water 10 ml 01/29/25 04:00 01/30/25 11:07
Sterile Water For Injection 10 Ml Vial IV 02/26/25 03:59 10 ml
Q8H [place] Administration
Home Medications
�Medication �Instructions �Recorded
acetaminophen 160 mg/5 mL oral 640 mg feeding tube Q4HPRN PRN 03/16/24
elixir FEVER
albuterol sulfate 2.5 mg/3 mL 2.5 mg inhalation R Q6HPRN PRN SOB 03/16/24
(0.083 %) solution for nebulization
bisacodyl 10 mg rectal suppository 10 mg AL [id number] PRN IF NO BM AFTR 03/16/24
(Dulcolax (bisacodyl)) MOM
buspirone 5 mg tablet 2.5 mg feeding tube HS anxiety 03/16/24
sertraline 25 mg tablet 25 mg feeding tube HS 03/16/24
depression/anxiety
simethicone 125 mg chewable tablet 125 mg feeding tube BID 03/16/24
(Gas-X Extra Strength) Gastrointestinal Issue
polyethylene glycol 3350 17 gram 17 g feeding tube BID Constipation 07/03/24
oral powder packet (Miralax) #0 ea
sennosides 8.6 mg-docusate sodium 2 tab feeding tube BID #60 tabs 07/03/24
50 mg tablet
amlodipine 2.5 mg tablet 2.5 mg feeding tube DAILY Blood 09/02/24
Pressure
magnesium hydroxide 400 mg/5 mL 2,400 mg feeding tube HSPRN PRN 09/02/24
oral suspension (Gentle Laxative Constipation
(magnesium hydroxide))
Saccharomyces boulardii 250 mg 250 mg feeding tube BID Supplement 01/28/25
capsule (Florastor)
famotidine 20 mg tablet (Pepcid) 20 mg feeding tube BID 01/28/25
Gastrointestinal Issue
prednisolone acetate 1 % eye 1 drp RIGHT EYE DAILY Eye Condition 01/28/25
drops,suspension
sulfamethoxazole 200 20 ml feeding tube BID Infection 01/28/25
mg-trimethoprim 40 mg/5 mL oral
suspension
--- NOTE | 2025-01-30 12:37 | W.PN.ID1 ---
Date of Service
Date of Service: January 30, 2025
Today's Communication
Continue Vancomycin and cefepime.
Assessment / Plan
# New onset seizure
# Infected sebaceous cyst behind R ear
. Placed on Bactrim at [facility]
. S/p bedside drainage 01/30. Gram stain: GPC, GNR; Cx neg to date
# Probable LLL pneumonia
# Fever at [facility] 01/24.
Rectal temp 100.7 x 1 here; normal temps since.
# Hx large meningioma s/p left craniotomy partial tumor resection with reexploration for hemorrhage, cranioplasty and repair of CSF (2020 in [place])
# CVA with aphasia, R hemiplegia
# Urinary retention , chronic locke
Plan;
- Possibly seizure (and fever) from recent outpatient t/sulfa in setting of existing large space occupying meningioma lowering seizure threshold
- MRI brain pending.
- bcx's neg to date
- Ucx 100K Enterococcus, 40K GNR
- Sebaceus cyst : Gram stain: GPC, GNR; Cx neg to date
- Can continue Vancomycin and cefepime (d3) for now.
Of note cefepime can lower seizure threshold. Monitor closely.
# Conditions present on admission
Diabetes mellitus
Hypertension
Brain tumor meningioma s/p left craniotomy partial tumor resection with with reexploration for hemorrhage, cranioplasty and repair of CSF (2020 in [place])
CVA with residual right hemiplegia, aphasia (2020)
Hydrocephalus s/p SEWER SEPARATION DESIGNER shunt
PEG tube placement (2020)
DVT status post IVC filter placement
Urinary retention with chronic Locke
Anxiety
Chronic constipation
Cholecystectomy
Joint replacement
[facility] resident
Chief Complaint
-: Other (Seizure)
Subjective / Review of Systems
Pt awake. She nods feeling better. No DAVIS.
Vital Signs / Physical Exam
Vital Signs
Vital Signs
Temp Pulse Resp BP Pulse Ox
97.6 F 75 16 123/68 100
01/30/25 11:17 01/30/25 12:00 01/30/25 12:00 01/30/25 12:00 01/30/25 12:00
Physical Exam
Constitutional: Comfortable, Chronically Ill and Non-toxic
Eyes: No Conjunctival Hemorrhage and Sclera Anicteric
Cardiovascular: Regular Rate and S1/S2
Pulmonary: Clear (anteriorly)
Gastrointestinal: Soft, Non Tender, Non Distended and Normal Bowel Sounds
Genito-Urinary: Locke and Clear Urine; Negative CVA Tenderness
Neurological: Awake
Objective Data
Lab Data
Lab Results
01/30/25 04:47
01/30/25 04:47
PT 13.9 Sec (11.4-14.6) 01/29/25 03:18
INR 1.04 01/29/25 03:18
APTT 33.0 Sec (23.4-35.0) 01/29/25 03:18
Estimated Creat Clear 40 ml/min 01/30/25 04:47
Lactic Acid Cancelled 01/29/25 09:25
Total Bilirubin 0.9 mg/dl (0.2-1.3) 01/30/25 04:47
AST 27 U/L (14-36) 01/30/25 04:47
ALT 12 U/L (0-35) 01/30/25 04:47
Alkaline Phosphatase 103 U/L (38-126) 01/30/25 04:47
Most recent labs reviewed.
Micro Results:
01/28/25 19:40 Urine Culture - Preliminary
Urine Enterococcus species
Gram negative bacilli
01/28/25 16:50 Urine Culture - Final
Urine
01/29/25 11:28 Wound Culture - Preliminary
Cyst No growth
Gram Stain - Preliminary
01/28/25 22:35 MRSA Screen - Final
Nose No Methicillin Resistant Staphylococcus aureus isolated.
01/28/25 18:02 Blood Culture - Preliminary
Blood/Venous No Growth in 24 hours- Final report to follow
01/28/25 18:02 Blood Culture - Preliminary
Blood/Venous No Growth in 24 hours- Final report to follow
01/29/25 03:18 Nasal Screen MRSA (PCR) - Final
Nose MRSA not detected - performed by PCR methodology.
01/28/25 22:35 Legionella Urinary Antigen - Final
Urine Negative for Legionella pneumophila Serogroup 1 antigen.
A negative result does not rule out the possiblity of
Legionella infection due to other serogroups or species of
Legionella. Clinical correlation is recommended.
Streptococcus pneumoniae Antigen (M - Final
Negative for Streptococcus pneumoniae antigen.
A negative result does not exclude infection with
Streptococcus pneumoniae. Clinical correlation is
recommended.
01/28/[address]: Essentially stable exam as described. No significant midline shift or herniation.
01/28/25 CXR: Suspect left-sided pneumonitis/pneumonia.
--- NOTE | 2025-01-30 12:50 | PTCARENOTE ---
Patient downgraded to tele level of care.
--- NOTE | 2025-01-30 12:54 | EEG.RPT ---
Electroencephalogram Report
Recording
Date of EE01/30/25
Type of EEG: Routine
Length of EEG recordin minutes
Done with Video Recording: Yes
Patient Status: Inpatient
Recording Conditions: Awake and Drowsy
Hyperventilation Performed: No
Photic Stimulation Performed: Yes
Report
LESS THAN 1 HOUR EEG REPORT
LESS THAN 1 HOUR EEG INTERPRETATION:
Severely abnormal EEG for age in wakefulness and drowsiness due to mild interhemispheric asymmetry with reduced organization and slowing from the left hemisphere.
CLINICAL CORRELATION:
This study was suggestive of left-sided breach artifact and bihemispheric cortical dysfunction without seizure activity.
Clinical correlation with neuroimaging is advised.
METHODS:
A 21 channel digitized electroencephalogram (EEG) was performed in the ICU. The 10/20 international system of electrode placement was used with ECG and lateral/vertical eye movements recorded. Video was recorded. Persyst quantitative EEG analysis
software was utilized.
QUALITY OF STUDY:
Fair�good
ELECTROENCEPHALOGRAPHER IMPRESSION(S):
Background:
Abnormal and absent anterior-posterior voltage gradient bilaterally.
Low amplitude maximal delta frequency posterior background was demonstrated
Sleep:
Drowsiness present
Photic Stimulation:
Failed to activate the record
Abnormal Findings:
Frequent and nearly continuous variable in appearance and amplitude left temporal-maximal focal slowing demonstrated during the study
ECG
Unremarkable
--- NOTE | 2025-01-30 14:25 | CM ---
CM reviewed chart- ADC>48 hours
Pt transferred from ICU to tele
PPD#1 I&D of cyst- will require daily wound
ID following for abx currently
Updates provided to [facility] via [facility]
Discharge Disposition- return to [facility] for LTC
--- NOTE | 2025-01-30 14:55 | W.PN.INTV ---
Today's Communication / Plan
Recommendations
- No further seizures, stable for transfer out of ICU
- Radar Repairer service will sign off, please call as needed
Assessment
-
64-year-old woman with past medical history noted. Sent to the emergency room from [facility] for witnessed seizure activity. Also fever several days prior to admission. On antibiotics for sebaceous cyst and she was planning to have an I&D.
In the emergency room found to have also left lower lobe potential infiltrate.
She was transferred to the critical care unit 01/29/2025 for hemodynamic monitoring, neurological monitoring given new onset seizures.
01/30 overview: Patient awake, alert, briefly makes eye contact. No further seizures noted. Hemodynamically stable. MAP of 93, saturating 99% on room air, not requiring any pressor support.
Toxic metabolic encephalopathy-new onset seizure activity
. CT head: No acute abnormalities.
Sepsis-fever/tachycardia
No leukocytosis
Normal lactate level
Not hypotensive
Slightly abnormal UA: Chronic Garvey catheter.
Cannot rule out AVIONICS INSTALLER source-patient has a TABLE SAW OPERATOR shunt and abnormal CT head chronically.
Possible left lower lobe pneumonia: Cannot rule out aspiration.
Scalp sebaceous cyst
Anemia-likely of chronic disease. Normal MCV.
Hyponatremia
Condition present prior admission:
Status post TABLE SAW OPERATOR shunt
History of CVA with residual right hemiplegia-nonverbal
DVT status post IVC filter
GERD/esophagitis
Chronic kidney disease
Hypertension
Type 2 diabetes
PEG tube in place
DVT status post IVC filter
Prior brain mass resection-no details [id number] craniotomy.
Large lobular mass left frontal lobe/encephalomalacia/shunt in place on CAT scan
patient has been in this state since at least 2020-.
Assessment and plan:
No further seizures noted.
Continue IV Keppra, patient more awake and alert. Protecting airway well.
Neurology service on case.
Possible sepsis based on clinical presentation with fevers and tachycardia.
Multiple sources possible: Chest x-ray is abnormal unclear if this represents an aspiration event versus atelectasis-currently on room air. No sputum production.
UA slightly abnormal/not impressive-patient has a chronic Garvey in place.
With new onset seizure-cannot rule out AVIONICS INSTALLER infection given prior history of TABLE SAW OPERATOR shunt and brain tumor.
Sebaceous cyst is s/p incision and drainage. Follow-up cultures pending. Infectious disease service on case. Continue broad-spectrum antibiotics for now.
-
Patient is contracted-nonverbal at baseline
-
Neurology correspondence reviewed:
Antiepileptic drugs-Keppra started
Recommending MRI prior to considering sampling AVIONICS INSTALLER fluid.
-
Follow renal function and electrolytes
Hyponatremia noted-mild. Possibly related to seizures.
-
PEG tube in place
Apparently was having some liquid diet.
Head of the bed elevation
DVT prophylaxis heparin subcu
-
Dr. Trent updated mother at the bedside 01/30/2024
-
Critical care statement: A total of 38 minutes of critical care time was provided for this patient today. This includes management of unstable vital signs, evaluation of the patient at bedside, reviewing the patient's pertinent medical records
including ventilator settings, arterial blood gases, radiographs, microbiology, laboratory evaluations and discussion with primary team, critical care nursing, and respiratory therapy.

Data reviewed:
CT head 01/28/2025:
Stable large lobular mass in the inferior paramidline left frontal lobe extending along the left middle cranial fossa and left temporal lobe, similar to prior. The mass causes similar compression of the third ventricle. No significant residual
midline shift. Similar compression of the left lateral ventricle. Similar appearance of right-sided ventricular shunt catheter terminating along the anterior horn of the right lateral ventricle. No hydrocephalus. Questionable residual tiny chronic
subdural hygroma/hematoma in the right frontal region, improved.
There is otherwise stable mild to moderate subcortical, deep, and periventricular white matter low-attenuation, compatible with underlying changes of chronic small vessel ischemic disease. Visualized paranasal sinuses are free of mucosal disease.
Chest x-ray 01/28/2025: Reviewed
Low lung volumes from
Possible left lower lobe infiltrate
Subjective Dataa
Subjective Data
Date of Service:
Date of Service: January 30, 2025
Subjective:
Patient comfortably lying in bed in no acute distress. More awake and alert
Review of Systems
General: Other (Unable to obtain )
Objective Data
Data Reviewed
Vital Signs / I&O / Oxygen:
Vital Signs
Temp Pulse Resp BP Pulse Ox
98.1 F 84 14 112/62 100
01/30/25 14:24 01/30/25 14:24 01/30/25 14:24 01/30/25 14:24 01/30/25 14:24
Intake and Output
01/29/25 01/30/25 01/31/25
06:59 06:59 06:59
Intake Total 910 / 990 1979 / 2059 540 / 540
Output Total 1100 / 1100 2300 / 2300 725 / 725
Balance -190 / -110 -320 / -240 -185 / -185
SaO2 100
Physical Exam
General: Comfortable
HEENT: Normocephalic
Cardiovascular: S1-S2
Respiratory: Clear and Non-Labored Respirations
GI: Soft and Non Distended
Neurology: Awake and Alert
Skin: Warm
Labs/Micro/Reports
Lab Data
01/30/25 04:47
01/30/25 04:47
Microbiology
01/28/25 19:40 Urine Urine Culture - Preliminary
Enterococcus species
Gram negative bacilli
01/28/25 16:50 Urine Urine Culture - Final
01/29/25 11:28 Cyst Wound Culture - Preliminary
No growth
01/29/25 11:28 Cyst Gram Stain - Preliminary
01/28/25 22:35 Nose MRSA Screen - Final
No Methicillin Resistant Staphylococcus aureus isolated.
01/28/25 18:02 Blood/Venous Blood Culture - Preliminary
No Growth in 24 hours- Final report to follow
01/28/25 18:02 Blood/Venous Blood Culture - Preliminary
No Growth in 24 hours- Final report to follow
01/29/25 03:18 Nose Nasal Screen MRSA (PCR) - Final
MRSA not detected - performed by PCR methodology.
01/28/25 22:35 Urine Legionella Urinary Antigen - Final
Negative for Legionella pneumophila Serogroup 1 antigen.
A negative result does not rule out the possiblity of
Legionella infection due to other serogroups or species of
Legionella. Clinical correlation is recommended.
01/28/25 22:35 Urine Streptococcus pneumoniae Antigen (M - Final
Negative for Streptococcus pneumoniae antigen.
A negative result does not exclude infection with
Streptococcus pneumoniae. Clinical correlation is
recommended.
--- NOTE | 2025-01-30 15:24 | W.PN.HOSP.TC ---
Addendum entered and electronically signed by Annie Price MD 01/30/25 17:43:
Attending addendum:
I personally reviewed and evaluated this patient with the resident. I agree with above unless if otherwise stated below.
I personally reviewed labs and imaging business development consultant notes case management note
Exam:
General : patient is non verbal.
Lung: bilateral rales
Abdomen, redness around PEG tube site
Assessment /plan:
Acute Toxic metabolic encephalopathy
new onset seizure activity
acute infection need to be ruled out
EEG discontinued by neurology
MRI today
appreciate ID and neuro input.
Symptomatic seizure cluster
Avoid medications at lower threshold
Keppra
Brain MRI
Sepsis, multifactorial/multiple sources
Could be sebaceous cystS/p sebaceous cyst drainage
IV antibiotics with Vanco Zosyn.
ID Dc'd Acyclovir
Acute rhabdo�nontraumatic
Secondary to seizure
IV fluid
Hyponatremia mild
N.p.o.
PEG tube in place
Keep head of bed elevated
Original Note:
Today's Communication/Plan
-
MRI of the brain
PEG site culture
wound care
Assessment / Plan
Assessment / Plan
64-year-old female, presenting from [facility]
History of resection of brain tumor, right-sided residual hemiplegia and hemiparesis, indwelling chronic urinary catheter and chronic PEG tube in place
Presented to ER for evaluation of seizure-like activity
History of fevers earlier this week related to an infected cyst above right ear, scheduled to be drained next week, currently on Bactrim
Her Foleys catheter was changed in ER-last 1 had been there for last [address]
Right sided ventricular shunt catheter-stable
No hydrocephalus, no midline shift
Left-sided craniotomy stable with chronic subdural hygroma stable
Stable large lobular mass in the left frontal lobe
Family reports, patient has at her baseline other than the new onset seizure like activity
Assessment/plan
#Sepsis secondary to possibly UTI and infected cyst
Fulfilled criteria of sepsis on admission, febrile 100.6,Tachycardia (heart rate 129)
Evidence of UTI although subsequent urine analysis looks fine-follow urine culture
Infected sebaceous cyst
Follow blood cultures and MRSA screening
Continue empiric antibiotics-cefepime and vancomycin
Patient did not require vasopressors
Continue IV fluids at 80 mL/h
N.p.o., peg tube in place, nutritional consult in place
Lactic acid 0.6
-PEG site cx rare budding yeast prelim. results
-sebaceous cyst few gram positive cocci and rare gram negative rods
#New onset seizures
She has a history of brain tumor, s/p resection, right sided hemiparesis/hemiplegia-could be a recurrence
It could be an infection related process Or electrolyte abnormalities
Required Versed twice overnight for seizures
EEG
Neurology recommendations appreciated- multifactorial encephalopathy-seizure precautions, Keppra load followed by Keppra 500 mg twice daily, brain MRI before considering CSF testing, CK levels and TFTs
# History of CKD 3B
Serum creatinine stable
Trend BMPs
#History of right-sided hemiplegia with contractures
#History of DVT s/p IVC filter
#Essential hypertension-takes amlodipine via PEG
#History of stercoral colitis-continue bowel regimen
#History of coffee-ground emesis due to bleeding granuloma around the PEG in April 2024
#History of anxiety-takes sertraline
DVT prophylaxis-heparin
CODE STATUS-full code
Anticipated Discharge: > 48 hours
Subjective/Interval History
-
Date of Service: January 30, 2025
Patient is aphasic and Right hemiplegic from previous CVA.
Objective Data
-
Labs:
Laboratory Results
01/30/25
04:47
WBC 3.9 L
Hgb 9.2 L
Hct 28.0 L
Plt Count 182
Sodium 134 L
Potassium 4.8
Chloride 109 H
Carbon Dioxide 21 L
BUN 26 H
Creatinine 1.2 H
Glucose 99
Calcium 8.6
Total Bilirubin 0.9
AST 27
ALT 12
Alkaline Phosphatase 103
Vital Signs:
Vital Signs
Temp Pulse Resp BP Pulse Ox
98.1 F 84 14 112/62 100
01/30/25 14:24 01/30/25 14:24 01/30/25 14:24 01/30/25 14:24 01/30/25 14:24
I&O
01/29/25 01/30/25 01/31/25
06:59 06:59 06:59
Intake Total 910 / 990 1979 / 2059 540 / 540
Output Total 1100 / 1100 2300 / 2300 725 / 725
Balance -190 / -110 -320 / -240 -185 / -185
Review of Systems
-
Unable to obtain full review of systems at this time due to: Patient Non-verbal
Physical Exam
-
General: Appears Chronically Ill
HEENT: Moist Mucous Membranes
Respiratory: Clear to Auscultation
Cardiac: Regular Rhythm and S1/S2
GI: Soft, Nontender, Normal Bowel Sounds and Other (Peg tube in place in left upper quadrant)
Musculoskeletal: Other (Atrophy of right arm and leg, contractures of right hand and right feet, pedal pulses palpable bilaterally)
Neuro: Awake and Other (Right-sided hemiplegia, does not follow commands, noninteractive, nonverbal)
Psych: Calm
[2025-01-30 18:07] LABS: Glucose - Point of Care 79 mg/dl (70-99)
[2025-01-30] MEDS: MIRALAX 17 GRAMS TUBE (20:55)
[2025-01-30] MEDS: ZOLOFT 25 MG TUBE (21:00)
[2025-01-30 23:29] LABS: Glucose - Point of Care 89 mg/dl (70-99)
[2025-01-31] MEDS: MAXIPIME 1000 MG IV ×2 (03:14→11:28)
[2025-01-31] MEDS: STERILE WATER FOR INJECTION 10 ML IV ×2 (03:14→11:28)
[2025-01-31 03:33] VITALS: BP 144/71
[2025-01-31 04:38] LABS: Hematocrit 27.9 % (37.0-47.0); Hemoglobin 9.2 g/dL (12.0-16.0); Mean Corp Hgb Conc. 33.0 g/dL (33.0-37.0); Mean Corpuscular Volume 90.9 fL (81.0-99.0); Nucleated Red Blood Cells % 0 %; Platelet Count 179 10^3/uL (130-400); Red Cell Dist. Width 12.9 % (11.5-14.5)
[2025-01-31 04:54] LABS: ALT (SGPT) 12 U/L (0-35); AST (SGOT) 23 U/L (14-36); Albumin 3.0 g/dl (3.5-5.0); Alkaline Phosphatase 108 U/L (38-126); Blood Urea Nitrogen 18 mg/dl (7-17); Calcium 8.4 mg/dl (8.4-10.2); Carbon Dioxide 20 mmol/L (22-30); Chloride 110 mmol/L (98-107); Estimated Creatinine Clearance 48 ml/min; Glucose 109 mg/dl (70-99); Potassium 4.1 mmol/L (3.5-5.1); Sodium 134 mmol/L (135-145); Total Protein 6.3 g/dl (6.3-8.2); eGFR > 60.00
[2025-01-31] MEDS: VANCOCIN 150 IV (05:30)
[2025-01-31 05:42] LABS: Glucose - Point of Care 99 mg/dl (70-99)
--- NOTE | 2025-01-31 07:24 | PN.CDI ---
CDI
- -
CDI:
Physician Documentation Request
Admit Date: 01/28/25 20:38
Dear Doctor Cristian,
Patient admitted with sepsis.
01/30 PN, 'History of right-sided hemiplegia with contractures...patient is non verbal.'
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 She is non-verbal, bedbound, total care, has a peg tube and Garvey. '
Please provide inn your note the diagnosis associated with the patient's functional status:
Functional quadriplegia (complete immobility due to severe physical disability or frailty)
Weakness only
Other
Quadriparesis/Quadriplegia
Type
Complete
Incomplete
Unable to determine
C5-C7
Unable to determine
Etiology
CVA, cerebral palsy,
injury, etc.
Functional quadriplegia
complete immobility due
to severe physical
disability or frailty
Use of terms such as suspected, likely, concern for, or probable (associated with a specific diagnosis that is being evaluated, monitored, or treated as if it exists) are acceptable and can be coded in the inpatient setting, when documented at the
time of discharge.
Thank you,
Lilian ISSA,RN,CCDS
CDI Specialist
Availability via tiger text
Please use your independent medical judgment in providing your response.
[2025-01-31 07:25] VITALS: BP 107/47
[2025-01-31] MEDS: FLORASTOR 250 MG TUBE ×2 (07:40→20:44)
[2025-01-31] MEDS: SENOKOT-S 2 TABLET TUBE ×2 (07:40→20:47)
[2025-01-31] MEDS: NORVASC 2.5 MG TUBE (07:41)
[2025-01-31] MEDS: MYLICON 120 MG TUBE ×2 (07:41→20:46)
[2025-01-31] MEDS: PEPCID 20 MG TUBE (07:41)
[2025-01-31] MEDS: HEPARIN 5000 UNITS SC ×2 (07:43→20:44)
[2025-01-31] MEDS: KEPPRA 500 MG IV ×2 (07:45→20:46)
[2025-01-31] MEDS: MIRALAX 17 GRAMS TUBE ×2 (07:46→20:46)
[2025-01-31] MEDS: PRED FORTE 1% EYE DROPS 1 DROP RIGHT EYE (07:59)
--- NOTE | 2025-01-31 09:12 | PN.CDI ---
CDI
- -
CDI:
Physician Documentation Request
Admit Date: 01/28/25 20:38
Dear Doctor Cristian,
Patient admitted with sepsis.
01/30 PN, 'History of right-sided hemiplegia with contractures...patient is non verbal.'
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 She is non-verbal, bedbound, total care, has a peg tube and Garvey. '
Please provide in your note the diagnosis associated with the patient's functional status:
Functional quadriplegia (complete immobility due to severe physical disability or frailty)
Weakness only
Other
Quadriparesis/Quadriplegia
Type
Complete
Incomplete
Unable to determine
C5-C7
Unable to determine
Etiology
CVA, cerebral palsy,
injury, etc.
Functional quadriplegia
complete immobility due
to severe physical
disability or frailty
Use of terms such as suspected, likely, concern for, or probable (associated with a specific diagnosis that is being evaluated, monitored, or treated as if it exists) are acceptable and can be coded in the inpatient setting, when documented at the
time of discharge.
Thank you,
Lilian ISSA,RN,CCDS
CDI Specialist
Availability via tiger text
Please use your independent medical judgment in providing your response.
[2025-01-31 11:00] VITALS: BP 134/75
--- NOTE | 2025-01-31 11:54 | W.PN.HOSP.TC ---
Addendum entered and electronically signed by Annie Price MD 01/31/25 14:03:
Functional quadriplegia (complete immobility due to severe physical disability or frailty
Addendum entered and electronically signed by Annie Price MD 01/31/25 13:44:
Attending�addendum:
I�saw�and�evaluated�the�patient.�I�reviewed�the�resident�s�note�and�agree�with�findings�and�plan�as�documented�in�the�resident�s�note.��
�patient seen and examined at bedside, nonverbal, cannot provide interval history
Physical�exam:
GENERAL : Nonverbal, follow commands by moving her eyes
HEENT: Nonicteric sclerae, PERRLA, EOMI. Oropharynx clear. Moist mucous membranes. Conjunctivae appear well perfused.
CHEST: Chest wall is nontender.
HEART: Regular rate and rhythm without murmurs.
LUNGS: Redness around PEG tube
ABDOMEN: Soft, positive bowel sounds, nontender, no organomegaly.
RECTAL: Deferred.
MUSCLES/EXTREMITIES: contracted
NEUROLOGIC: At baseline
�
Assessment/plan:
Sepsis secondary to possible UTI/infected cyst.
Continue IV antibiotic for now.
Follow with cultures
Seizure.
MRI shows large intracranial mass/neoplasm with mass effect.
Neurosurgery consulted.
Discussed with mother at bedside, current mass size is 9.1 x 4.6 x 5.3 cm. Which little increased compared to MRI done on February 08, 2024.
Mother preferred nonsurgical intervention.
Abnormal labs:
Wounds:
CODE STATUS: Full code
DVT prophylaxis: Heparin
Diet: Start tube feed
Family communication: Discussed with mother at bedside
Disposition: Neurosurgery consult
Total�time�spent�on�today�s�encounter�was�55�minutes�which�included�time�spent�in�counseling�the�patient/family�regarding�diagnosis�and�treatment�plan�as�listed�above,�goals�of�care,�and�symptom�management.�Case�was�discussed�with�nursing�staff,�spec
ialists,�and�care�coordinators/case�management.�All�labs�and�imaging�personally�reviewed�by�me.�Remainder�the�time�spent�in�detailed�review�of�previous�records,�lab�data,�imaging,�and�other�medical�provider�documentation.
Original Note:
Today's Communication/Plan
-
Neurosurgery consulted for enlarged Brain neoplasm per MRI findings
Feeding per PEG tube per [employer] recs
plan to meet with the family to discuss the goal of care.
Assessment / Plan
Assessment / Plan
64-year-old female, [facility]
History of resection of brain tumor, right-sided residual hemiplegia and hemiparesis, indwelling chronic urinary catheter and chronic PEG tube in place
Presented to ER for evaluation of seizure-like activity
History of fevers earlier this week related to an infected cyst above right ear, scheduled to be drained next week, currently on Bactrim
Her Foleys catheter was changed in ER-last 1 had been there for last [address]
Right sided ventricular shunt catheter-stable
No hydrocephalus, no midline shift
Left-sided craniotomy stable with chronic subdural hygroma stable
Stable large lobular mass in the left frontal lobe
Family reports, patient has at her baseline other than the new onset seizure like activity
Assessment/plan
#Sepsis secondary to possibly UTI and infected cyst
Fulfilled criteria of sepsis on admission, febrile 100.6,Tachycardia (heart rate 129)
Evidence of UTI although subsequent urine analysis looks fine
urine culture Enterococcal faecalis, Pseudomonas aerogenosum
Infected sebaceous cyst
Follow blood cultures and MRSA screening
Continue empiric antibiotics-cefepime and vancomycin
Patient did not require vasopressors
Continue IV fluids at 80 mL/h
N.p.o., peg tube in place, nutritional consulted
Lactic acid 0.6
-PEG site cx Gram negative bacilli, Clarisse albicans
-sebaceous cyst few gram positive cocci and rare gram negative rods
#New onset seizures
-She has a history of brain tumor, s/p resection, right sided hemiparesis/hemiplegia-could be a recurrence
-It could be an infection related process Or electrolyte abnormalities
-Required Versed twice overnight for seizures
-Avoid medications known to lower seizure threshold
-Seizure precautions
-EEG, 01/29/25�left hemispheric slowing with intermittent sharp waves.
-Neurology recommendations appreciated- multifactorial encephalopathy-seizure precautions, Keppra load followed by Keppra 500 mg twice daily, brain MRI before considering CSF testing, CK levels and TFTs
-MRI 01/31/2025: large intracranial mass/neoplasm with mass effect. Significant mass effect upon the brainstem may be the cause of the patient's seizures, pituitary gland such as aggressive macroadenoma or pituitary carcinoma is a diagnostic
possibility and small bilateral chronic subdural hygromas. There is also mild diffuse dural thickening and enhancement, possibly reactive although neoplastic spread is not excluded.
-neurosurgery consulted
#Brain Tumor
-meningioma s/p left craniotomy partial tumor resection with with reexploration for hemorrhage, cranioplasty and repair of CSF (2020 in [place])
CVA with residual right hemiplegia, aphasia (2020)
-Hydrocephalus s/p BSA/AML COMPLIANCE OFFICER shunt
-MRI 01/31/2025: large intracranial mass/neoplasm with mass effect.
# History of CKD 3B
Serum creatinine stable
Trend BMPs
# Conditions present on admission
Diabetes mellitus
Hypertension
Brain tumor meningioma s/p left craniotomy partial tumor resection with with reexploration for hemorrhage, cranioplasty and repair of CSF (2020 in [place])
CVA with residual right hemiplegia, aphasia (2020)
Hydrocephalus s/p BSA/AML COMPLIANCE OFFICER shunt
PEG tube placement (2020)
Stercoral colitis-continue bowel regimen
DVT status post IVC filter placement
Urinary retention with chronic Garvey
History of coffee-ground emesis due to bleeding granuloma around the PEG in April 2024
Anxiety
Chronic constipation
Cholecystectomy
Joint replacement
SNF resident
DVT prophylaxis-heparin
CODE STATUS-full code
Anticipated Discharge: > 48 hours
Subjective/Interval History
-
Date of Service: January 31, 2025
Patient is none verbal (aphasic) due to a hx of CVA with residual right hemiplegia, aphasia (2020).
Objective Data
-
Labs:
Laboratory Results
01/31/25
04:21
WBC 3.7 L
Hgb 9.2 L
Hct 27.9 L
Plt Count 179
Sodium 134 L
Potassium 4.1
Chloride 110 H
Carbon Dioxide 20 L
BUN 18 H
Creatinine 1.0
Glucose 109 H
Calcium 8.4
Total Bilirubin 0.9
AST 23
ALT 12
Alkaline Phosphatase 108
Vital Signs:
Vital Signs
Temp Pulse Resp BP Pulse Ox
97.7 F 84 16 134/75 98
01/31/25 11:00 01/31/25 11:00 01/31/25 11:00 01/31/25 11:00 01/31/25 11:00
I&O
01/30/25 01/31/25 02/01/25
06:59 06:59 06:59
Intake Total 1979 / 2059 540 / 540
Output Total 2299 / 2299 1575 / 1575
Balance -320 / -240 -1035 / -1035
[2025-01-31 11:56] LABS: Glucose - Point of Care 108 mg/dl (70-99)
--- NOTE | 2025-01-31 14:33 | PHA.VAN.FU ---
Vancomycin Assessment / Plan
- Assessment
Renal Function: Stable
In the past 24 hrs, patient has been: Afebrile
Concomitant Antimicrobials: cefepime
- Dosing Plan
Continue: Vanc 750mg Q24H
- Monitoring Plan
No level(s) ordered at this time: consider levels in next few days
- Follow Up
Pharmacy will continue to follow.
Vancomycin Follow UP
- -
Patient Age: 64
Patient Sex: Female (1)
Vancomycin Day #: 4
Indication: Pulmonary/Respiratory
Requesting Provider: Dr. Rae
Pertinent Antimicrobial Allergies:
NKDA
Height / Weight:
Height 5 ft 3 in
Actual Weight 66.3 kg
Pertinent Past Medical History: CKD
- Vital Signs / Lab Results
Temp Pulse Resp BP Pulse Ox
97.7 F 84 16 134/75 98
01/31/25 11:00 01/31/25 11:00 01/31/25 11:00 01/31/25 11:00 01/31/25 11:00
Lab Results - Hematology
01/28/25 01/29/25 01/30/25
16:54 03:18 04:47
WBC 8.0 5.9 3.9 L
01/31/25
04:21
WBC 3.7 L
Lab Results - Chemistry
01/28/25 01/28/25 01/28/25
16:54 19:54 20:31
BUN 43 H
Creatinine 1.4 H
Estimated Creat Clear
Albumin Cancelled Cancelled 3.7
01/29/25 01/30/25 01/31/25
03:18 04:47 04:21
BUN 36 H 26 H 18 H
Creatinine 1.3 H 1.2 H 1.0
Estimated Creat Clear 37 40 48
Albumin 3.2 L 3.0 L
01/28/25 01/28/25 01/29/25
18:02 22:35 01:25
Lactic Acid 3.1 H 1.8 Cancelled
01/29/25 01/29/25
09:07 09:25
Lactic Acid 0.6 L Cancelled
Microbiology Results
01/28/25 19:40 Urine Culture - Final
Urine Enterococcus faecalis
Pseudomonas aeruginosa
01/30/25 13:25 Wound Culture - Preliminary
Abdomen Gram negative bacilli
Clarisse albicans
Gram Stain - Preliminary
01/29/25 11:28 Wound Culture - Preliminary
Cyst No growth
Gram Stain - Preliminary
01/28/25 18:02 Blood Culture - Preliminary
Blood/Venous No Growth in 48 hours- Final report to follow
01/28/25 18:02 Blood Culture - Preliminary
Blood/Venous No Growth in 48 hours- Final report to follow
01/28/25 16:50 Urine Culture - Final
Urine
01/28/25 22:35 MRSA Screen - Final
Nose No Methicillin Resistant Staphylococcus aureus isolated.
01/29/25 03:18 Nasal Screen MRSA (PCR) - Final
Nose MRSA not detected - performed by PCR methodology.
Therapeutic Drug Monitoring
Random Vancomycin 12.9 ug/ml 01/30/25 04:47
--- NOTE | 2025-01-31 14:41 | W.PN.ID1 ---
Date of Service
Date of Service: January 31, 2025
Today's Communication
Deescalated abx's to Augmentin and cipro.
Assessment / Plan
# New onset seizure, present on admission
. MRI brain: redemonstration of large brain mass with significant mass effect upon brain stem
# Infected sebaceous cyst behind R ear
. Placed on Bactrim at [facility]
. S/p bedside drainage 01/30. Gram stain: GPC, GNR; Cx neg to date
# Probable LLL pneumonia
# Urinary retention , chronic locke
. Ucx 100K Enterococcus, 40K Pseudomonas
# Rectal temp 100.7 x 1 in ED resolved
# PEG tube site - scant drainage
. Swab cx: C. albicans, GNR
# Hx large meningioma s/p left craniotomy partial tumor resection with reexploration for hemorrhage, cranioplasty and repair of CSF (2020 in [place])
# CVA with aphasia, R hemiplegia
Recommendations:
- DC Vancomycin and cefepime (d4)
- Transition to Augmentin 875mg bid and cipro 500mg bid through 02/06.
- Apply miconazole powder around PEG site bid.
# Conditions present on admission
Diabetes mellitus
Hypertension
Brain tumor meningioma s/p left craniotomy partial tumor resection with with reexploration for hemorrhage, cranioplasty and repair of CSF (2020 in [place])
CVA with residual right hemiplegia, aphasia (2020)
Hydrocephalus s/p CUB REPORTER shunt
PEG tube placement (2020)
DVT status post IVC filter placement
Urinary retention with chronic Locke
Anxiety
Chronic constipation
Cholecystectomy
Joint replacement
[facility] resident
Chief Complaint
-: Other (Seizure)
Vital Signs / Physical Exam
Vital Signs
Vital Signs
Temp Pulse Resp BP Pulse Ox
97.7 F 84 16 134/75 98
01/31/25 11:00 01/31/25 11:00 01/31/25 11:00 01/31/25 11:00 01/31/25 11:00
Physical Exam
Constitutional: No Acute Distress, Comfortable and Chronically Ill
Cardiovascular: Regular Rate and S1/S2
Pulmonary: Clear (anterior lungs)
Gastrointestinal: Soft, Non Tender, Non Distended and Other (PEG site scant greenish-brown fluid on gauze)
Genito-Urinary: Locke and Clear Urine; Negative CVA Tenderness
Wound: Other (Above right ear drained sebaceous cyst slight induration, minimal erythema, no drainage)
Neurological: Awake; Negative Meningeal Signs
Objective Data
Lab Data
Lab Results
01/31/25 04:21
01/31/25 04:21
PT 13.9 Sec (11.4-14.6) 01/29/25 03:18
INR 1.04 01/29/25 03:18
APTT 33.0 Sec (23.4-35.0) 01/29/25 03:18
Estimated Creat Clear 48 ml/min 01/31/25 04:21
Lactic Acid Cancelled 01/29/25 09:25
Total Bilirubin 0.9 mg/dl (0.2-1.3) 01/31/25 04:21
AST 23 U/L (14-36) 01/31/25 04:21
ALT 12 U/L (0-35) 01/31/25 04:21
Alkaline Phosphatase 108 U/L (38-126) 01/31/25 04:21
Most recent labs reviewed.
Micro Results:
01/28/25 19:40 Urine Culture - Final
Urine Enterococcus faecalis
Pseudomonas aeruginosa
01/30/25 13:25 Wound Culture - Preliminary
Abdomen Gram negative bacilli
Clarisse albicans
Gram Stain - Preliminary
01/29/25 11:28 Wound Culture - Preliminary
Cyst No growth
Gram Stain - Preliminary
01/28/25 18:02 Blood Culture - Preliminary
Blood/Venous No Growth in 48 hours- Final report to follow
01/28/25 18:02 Blood Culture - Preliminary
Blood/Venous No Growth in 48 hours- Final report to follow
01/28/25 16:50 Urine Culture - Final
Urine
01/28/25 22:35 MRSA Screen - Final
Nose No Methicillin Resistant Staphylococcus aureus isolated.
01/29/25 03:18 Nasal Screen MRSA (PCR) - Final
Nose MRSA not detected - performed by PCR methodology.
01/28/25 22:35 Legionella Urinary Antigen - Final
Urine Negative for Legionella pneumophila Serogroup 1 antigen.
A negative result does not rule out the possiblity of
Legionella infection due to other serogroups or species of
Legionella. Clinical correlation is recommended.
Streptococcus pneumoniae Antigen (M - Final
Negative for Streptococcus pneumoniae antigen.
A negative result does not exclude infection with
Streptococcus pneumoniae. Clinical correlation is
recommended.
01/30/25 Brain MRI: Redemonstration of large intracranial mass/neoplasm with mass effect as described. Significant mass effect upon the brainstem may be the cause of the patient's seizures. Findings likely reflect primary brain malignancy. An
eccentric neoplasm arising from the pituitary gland such as aggressive macroadenoma or pituitary carcinoma is a diagnostic possibility. Probable small bilateral chronic subdural hygromas. There is also mild diffuse dural thickening and enhancement,
possibly reactive although neoplastic spread is not excluded.
01/28/[address]: Essentially stable exam as described. No significant midline shift or herniation.
01/28/25 CXR: Suspect left-sided pneumonitis/pneumonia.
[2025-01-31 15:13] VITALS: BP 154/77
--- NOTE | 2025-01-31 15:56 | CON.NS ---
Consultation
-
Date/Time Consultation Performed: 01/31/2025
Chief Complaint
-
Brain mass
History of Present Illness
64-year-old female with history of meningioma resection in 2021 in [place]. Intraoperative stroke with severe debilitation. Patient has been residing in detention since the operation. Presented with reported seizures x 3 at detention.
As well as fever last week. Discussed with patient's mother over the phone that her baseline is bedbound status with occasional eye-opening. She was unclear about her ability to speak. Patient currently is nonverbal. She is somnolent. Had a
draining right sebaceous cyst, which was treated with I&D at bedside today. She is currently on antibiotics for this.
Review of Systems
-
Unobtainable due to mental status
Medication and Allergies
Home Medications
Home Medications
�Medication �Instructions �Recorded
acetaminophen 160 mg/5 mL oral 640 mg feeding tube Q4HPRN PRN 03/16/24
elixir fever
albuterol sulfate 2.5 mg/3 mL 2.5 mg inhalation R Q6HPRN PRN SOB 03/16/24
(0.083 %) solution for nebulization
bisacodyl 10 mg rectal suppository 10 mg AR [id number] PRN if no BM 03/16/24
(Dulcolax (bisacodyl)) after MOM
buspirone 5 mg tablet 2.5 mg feeding tube HS anxiety 03/16/24
sertraline 25 mg tablet 25 mg feeding tube HS 03/16/24
depression/anxiety
simethicone 125 mg chewable tablet 125 mg feeding tube BID 03/16/24
(Gas-X Extra Strength) Gastrointestinal Issue
polyethylene glycol 3350 17 gram 17 g feeding tube BID Constipation 07/03/24
oral powder packet (Miralax) #0 ea
sennosides 8.6 mg-docusate sodium 2 tab feeding tube BID #60 tabs 07/03/24
50 mg tablet
amlodipine 2.5 mg tablet 2.5 mg feeding tube DAILY Blood 09/02/24
Pressure
magnesium hydroxide 400 mg/5 mL 2,400 mg feeding tube HSPRN PRN 09/02/24
oral suspension (Gentle Laxative Constipation
(magnesium hydroxide))
Saccharomyces boulardii 250 mg 250 mg feeding tube BID Supplement 01/28/25
capsule (Florastor)
famotidine 20 mg tablet (Pepcid) 20 mg feeding tube BID 01/28/25
Gastrointestinal Issue
prednisolone acetate 1 % eye 1 drp RIGHT EYE DAILY Eye Condition 01/28/25
drops,suspension
sulfamethoxazole 200 20 ml feeding tube BID Infection 01/28/25
mg-trimethoprim 40 mg/5 mL oral
suspension
Allergies
Allergies
Allergy/AdvReac Type Severity Reaction Status Date / Time
No Known Allergies Allergy Verified 09/02/24 10:48
Physical Exam
-
Exam:
Patient opens eyes to touch
Does not follow commands
Shunt palpated which appears to be functioning
MRI brain reviewed:redemonstration of a large enhancing lobular mass in the inferior paramidline left frontal lobe extending along left middle cranial fossa and left temporal lobe, overall measuring up to 9.1 x 4.6 x 5.3 cm. The mass causes similar
compression on the third ventricle with probable minimal rightward midline shift. Mass also extends along the left basal cistern with mass effect/compression and some rightward displacement of the midbrain and meenu with associated edema. No pieter
herniation or hydrocephalus. The pituitary gland, stalk and optic chiasm are not well delineated due to the mass. The mass appears to completely encase/infiltrate the left cavernous sinus, without overt narrowing of the cavernous segment ICA. No
definite bony invasion/destructive change of the clivus.
My independent interpretation the MRI also shows diffuse meningeal enhancement
There is CT head from November to which shows relatively stable size of the lesion.
Problems
-
Problem Status Onset Code
UTI (urinary tract infection) Acute N39.0
Pneumonia Acute J18.9
Seizure Acute R56.9
Assessment / Plan
-
64-year-old female with history of meningioma resection, known to be a subtotal resection with postoperative severe neurologic deficits. Presents with seizure
1. MRI brain shows diffuse dural enhancement as well as a large diffuse meningioma.
2. I do not recommend any surgical interventions as patient is severely debilitated and is such a poor surgical candidate
3. Discussion was had with the patient's mother over the phone discussing her imaging findings as well as plan
4. Consider palliative care consultation to discuss goals of care
5. Neurosurgery will sign off at this time
Total 50 minutes was spent reviewing patient's chart, reviewing the imaging, speaking with the patient's family
--- NOTE | 2025-01-31 16:30 | W.PN.NEURO.1 ---
Today's Communication / Plan
-
Neurosurgery has seen the patient and neurosurgery does not recommend any surgical intervention.
Would recommend neurosurgery opinion also regarding the use of Decadron to decrease the mass effect of the tumor which is likely meningioma.
Recommend palliative care consultation.
Neurology will sign off at this time please call if you have any question.
Neuro Assessment/Plan
Plan
Seizure precautions
Avoid medications known to lower seizure threshold
Continue newly initiated Keppra 500 mg twice daily.
On neurologic examination the patient is nonverbal but she is able to make occasional eye contact.
Neurosurgery has seen the patient and neurosurgery does not recommend any surgical intervention.
Would recommend neurosurgery opinion also regarding the use of Decadron to decrease the mass effect of the tumor which is likely meningioma.
Neurology will sign off at this time please call if you have any question.
Subjective/Objective
Subjective Data
Date of Service: January 31, 2025
I have seen and examined the patient today. I also discussed the patient with Dr. Price.
The patient is a 64 years old female who presented with recurrent seizures. The patient is on Keppra.
CT of the head showed a stable large lobular mass in the inferior paramidline left frontal lobe extending along the left middle cranial fossa and left temporal lobe that causes compression of the third ventricle.
The EEG shows severely abnormal EEG for age in wakefulness and drowsiness due to mild interhemispheric asymmetry with reduced organization and slowing from the left hemisphere.
Seizure precautions.
Continue Keppra.
. MRI of the brain report is as follows.
Redemonstration of a large enhancing lobular mass in the inferior paramidline left frontal lobe extending along left middle cranial fossa and left temporal lobe, overall measuring up to 9.1 x 4.6 x 5.3 cm. The mass causes similar compression on the
third ventricle with probable minimal rightward midline shift. Mass also extends along the left basal cistern with mass effect/compression and some rightward displacement of the midbrain and meenu with associated edema. No pieter herniation or
hydrocephalus. The pituitary gland, stalk and optic chiasm are not well delineated due to the mass. The mass appears to completely encase/infiltrate the left cavernous sinus, without overt narrowing of the cavernous segment ICA. No definite bony
invasion/destructive change of the clivus.
On neurologic examination the patient is nonverbal but she is able to make occasional eye contact.
Neurosurgery has seen the patient and neurosurgery does not recommend any surgical intervention.
Would recommend neurosurgery opinion also regarding the use of Decadron to decrease the mass effect of the tumor which is likely meningioma.
Neurology will sign off at this time please call if you have any question.
Objective Data
Vital Signs
Temp Pulse Resp BP Pulse Ox
37.2 C 84 18 154/77 99
01/31/25 15:13 01/31/25 15:13 01/31/25 15:13 01/31/25 15:13 01/31/25 15:13
Lab Results
01/31/25 04:21
01/31/25 04:21
PT 13.9 Sec (11.4-14.6) 01/29/25 03:18
INR 1.04 01/29/25 03:18
APTT 33.0 Sec (23.4-35.0) 01/29/25 03:18
Sodium 134 mmol/L (135-145) L 01/31/25 04:21
Potassium 4.1 mmol/L (3.5-5.1) 01/31/25 04:21
BUN 18 mg/dl (7-17) H 01/31/25 04:21
Glucose 109 mg/dl (70-99) H 01/31/25 04:21
Calcium 8.4 mg/dl (8.4-10.2) 01/31/25 04:21
Phosphorus 3.0 mg/dl (2.5-4.5) 01/29/25 03:18
Vitamin B12 > 1000 pg/ml (239-931) H 01/29/25 11:25
Patient Allergies
No Known Allergies Allergy (Verified 09/02/24 10:48)
[2025-01-31 18:12] LABS: Glucose - Point of Care 78 mg/dl (70-99)
[2025-01-31 18:56] LABS: Glucose - Point of Care 84 mg/dl (70-99)
[2025-01-31 19:35] VITALS: BP 159/72
[2025-01-31] MEDS: AUGMENTIN 200 MG/5 ML 875 MG TUBE (20:43)
[2025-01-31] MEDS: CIPRO 500 MG TUBE (20:43)
[2025-01-31] MEDS: DESENEX/MITRAZOL/ZEASORB 1 APPLIC TOPICAL (20:43)
[2025-01-31] MEDS: ZOLOFT 25 MG TUBE (21:14)
[2025-01-31 23:18] VITALS: BP 155/86
[2025-01-31 23:59] LABS: Glucose - Point of Care 73 mg/dl (70-99)
[2025-02-01] MEDS: D5/0.9% SODIUM CHLORIDE 1000 IV ×2 (00:46→13:39)
[2025-02-01 03:30] VITALS: BP 157/87
[2025-02-01 03:51] VITALS: BP 124/70
[2025-02-01 05:54] LABS: Glucose - Point of Care 92 mg/dl (70-99)
[2025-02-01 06:00] VITALS: BMI 25.3
[2025-02-01 07:00] VITALS: BP 140/84
[2025-02-01] MEDS: PEPCID 20 MG TUBE (07:50)
[2025-02-01] MEDS: FLORASTOR 250 MG TUBE (07:50)
[2025-02-01] MEDS: SENOKOT-S 2 TABLET TUBE (07:50)
[2025-02-01] MEDS: HEPARIN 5000 UNITS SC (07:50)
[2025-02-01] MEDS: MIRALAX 17 GRAMS TUBE (07:50)
[2025-02-01] MEDS: AUGMENTIN 200 MG/5 ML 875 MG TUBE (07:50)
[2025-02-01] MEDS: MYLICON 120 MG TUBE (07:51)
[2025-02-01] MEDS: KEPPRA 500 MG IV (07:51)
[2025-02-01] MEDS: CIPRO 500 MG TUBE (07:52)
[2025-02-01] MEDS: NORVASC 2.5 MG TUBE (07:52)
[2025-02-01] MEDS: DESENEX/MITRAZOL/ZEASORB 1 APPLIC TOPICAL (07:54)
[2025-02-01] MEDS: PRED FORTE 1% EYE DROPS 1 DROP RIGHT EYE (07:55)
[2025-02-01 08:35] LABS: Hematocrit 28.5 % (37.0-47.0); Hemoglobin 9.6 g/dL (12.0-16.0); Mean Corp Hgb Conc. 33.7 g/dL (33.0-37.0); Mean Corpuscular Volume 90.5 fL (81.0-99.0); Nucleated Red Blood Cells % 0 %; Platelet Count 195 10^3/uL (130-400); Red Cell Dist. Width 13.0 % (11.5-14.5)
[2025-02-01 09:04] LABS: ALT (SGPT) 12 U/L (0-35); AST (SGOT) 20 U/L (14-36); Albumin 3.2 g/dl (3.5-5.0); Alkaline Phosphatase 115 U/L (38-126); Blood Urea Nitrogen 15 mg/dl (7-17); Calcium 8.8 mg/dl (8.4-10.2); Carbon Dioxide 19 mmol/L (22-30); Chloride 110 mmol/L (98-107); Estimated Creatinine Clearance 53 ml/min; Glucose 103 mg/dl (70-99); Potassium 4.0 mmol/L (3.5-5.1); Sodium 135 mmol/L (135-145); Total Protein 6.4 g/dl (6.3-8.2); eGFR > 60.00
[2025-02-01 09:38] LABS: Glucose - Point of Care 93 mg/dl (70-99)
[2025-02-01 10:44] LABS: Glucose - Point of Care 98 mg/dl (70-99)
[2025-02-01 12:00] VITALS: BP 120/65
--- NOTE | 2025-02-01 12:05 | W.PN.ID1 ---
Date of Service
Date of Service: February 01, 2025
Today's Communication
Continue Augmentin and cipro.
Assessment / Plan
# New onset seizure, present on admission
. MRI brain: large brain mass with significant mass effect upon brain stem
. Not surgical candidate per neurosurgeon
# Infected sebaceous cyst behind R ear
. Placed on Bactrim at [facility]
. S/p bedside drainage 01/30. Gram stain: GPC, GNR; Cx neg
# Probable LLL pneumonia
# Urinary retention , chronic locke
. Ucx 100K Enterococcus, 40K Pseudomonas
# PEG tube site - scant drainage
. Swab cx: C. albicans, Pseudomonas
# Hx large meningioma s/p left craniotomy partial tumor resection with reexploration for hemorrhage, cranioplasty and repair of CSF (2020 in [place])
# CVA with aphasia, R hemiplegia
Recommendations:
- s/p Vancomycin and cefepime (4d)
- Continue Augmentin 875mg bid and cipro 500mg bid through 02/06.
- Continue miconazole powder around PEG site bid.
- GOC discussion.
# Conditions present on admission
Diabetes mellitus
Hypertension
Brain tumor meningioma s/p left craniotomy partial tumor resection with with reexploration for hemorrhage, cranioplasty and repair of CSF (2020 in [place])
CVA with residual right hemiplegia, aphasia (2020)
Hydrocephalus s/p MANAGER OF IT shunt
PEG tube placement (2020)
DVT status post IVC filter placement
Urinary retention with chronic Locke
Anxiety
Chronic constipation
Cholecystectomy
Joint replacement
[facility] resident
Chief Complaint
-: Other (Seizure)
Vital Signs / Physical Exam
Vital Signs
Vital Signs
Temp Pulse Resp BP Pulse Ox
98.3 F 98 17 140/84 100
02/01/25 07:00 02/01/25 07:52 02/01/25 07:00 02/01/25 07:52 02/01/25 07:00
Physical Exam
Constitutional: Comfortable and Chronically Ill
Cardiovascular: Regular Rate and S1/S2
Pulmonary: Clear (anterior lungs)
Gastrointestinal: Soft, Non Tender, Non Distended and Other (PEG site scant greenish-brown fluid on gauze)
Genito-Urinary: Locke and Clear Urine; Negative CVA Tenderness
Extremities: Negative Edema
Wound: Other (Above right ear drained sebaceous cyst slight induration, minimal erythema, no drainage)
Neurological: Awake; Negative Meningeal Signs
Objective Data
Lab Data
Lab Results
02/01/25 08:28
02/01/25 08:27
PT 13.9 Sec (11.4-14.6) 01/29/25 03:18
INR 1.04 01/29/25 03:18
APTT 33.0 Sec (23.4-35.0) 01/29/25 03:18
Estimated Creat Clear 53 ml/min 02/01/25 08:27
Lactic Acid Cancelled 01/29/25 09:25
Total Bilirubin 0.7 mg/dl (0.2-1.3) 02/01/25 08:27
AST 20 U/L (14-36) 02/01/25 08:27
ALT 12 U/L (0-35) 02/01/25 08:27
Alkaline Phosphatase 115 U/L (38-126) 02/01/25 08:27
Most recent labs reviewed.
Micro Results:
01/30/25 13:25 Wound Culture - Final
Abdomen Pseudomonas aeruginosa
Clarisse albicans
Gram Stain - Final
01/28/25 18:02 Blood Culture - Preliminary
Blood/Venous No Growth in 72 hours- Final report to follow
01/28/25 18:02 Blood Culture - Preliminary
Blood/Venous No Growth in 72 hours- Final report to follow
01/28/25 19:40 Urine Culture - Final
Urine Enterococcus faecalis
Pseudomonas aeruginosa
01/29/25 11:28 Wound Culture - Preliminary
Cyst No growth
Gram Stain - Preliminary
01/28/25 16:50 Urine Culture - Final
Urine
01/28/25 22:35 MRSA Screen - Final
Nose No Methicillin Resistant Staphylococcus aureus isolated.
01/29/25 03:18 Nasal Screen MRSA (PCR) - Final
Nose MRSA not detected - performed by PCR methodology.
01/28/25 22:35 Legionella Urinary Antigen - Final
Urine Negative for Legionella pneumophila Serogroup 1 antigen.
A negative result does not rule out the possiblity of
Legionella infection due to other serogroups or species of
Legionella. Clinical correlation is recommended.
Streptococcus pneumoniae Antigen (M - Final
Negative for Streptococcus pneumoniae antigen.
A negative result does not exclude infection with
Streptococcus pneumoniae. Clinical correlation is
recommended.
01/30/25 Brain MRI: Redemonstration of large intracranial mass/neoplasm with mass effect as described. Significant mass effect upon the brainstem may be the cause of the patient's seizures. Findings likely reflect primary brain malignancy. An
eccentric neoplasm arising from the pituitary gland such as aggressive macroadenoma or pituitary carcinoma is a diagnostic possibility. Probable small bilateral chronic subdural hygromas. There is also mild diffuse dural thickening and enhancement,
possibly reactive although neoplastic spread is not excluded.
01/28/[address]: Essentially stable exam as described. No significant midline shift or herniation.
01/28/25 CXR: Suspect left-sided pneumonitis/pneumonia.
[2025-02-01 12:16] LABS: Glucose - Point of Care 109 mg/dl (70-99)
--- NOTE | 2025-02-01 13:14 | W.PN.HOSP.TC ---
Addendum entered and electronically signed by Annie Price MD 02/01/25 13:51:
Attending�addendum:
I�saw�and�evaluated�the�patient.�I�reviewed�the�resident�s�note�and�agree�with�findings�and�plan�as�documented�in�the�resident�s�note.��
�patient seen and examined at bedside, nonverbal, cannot provide interval history
Physical�exam:
GENERAL : Nonverbal, follow commands by moving her eyes
HEENT: Nonicteric sclerae, PERRLA, EOMI. Oropharynx clear. Moist mucous membranes. Conjunctivae appear well perfused.
CHEST: Chest wall is nontender.
HEART: Regular rate and rhythm without murmurs.
LUNGS: Redness around PEG tube
ABDOMEN: Soft, positive bowel sounds, nontender, no organomegaly.
RECTAL: Deferred.
MUSCLES/EXTREMITIES: contracted
NEUROLOGIC: At baseline
�
Assessment/plan:
Sepsis secondary to possible UTI/infected cyst.
Appreciate infectious disease input.
Continue current antibiotic
Seizure.
MRI shows large intracranial mass/neoplasm with mass effect.
Neurosurgery consulted, no surgical intervention
Discussed with mother at bedside, current mass size is 9.1 x 4.6 x 5.3 cm. Which little increased compared to MRI done on February 08, 2024.
Mother preferred nonsurgical intervention.
Continue Keppra.
Neurology/neurosurgery signed off
CODE STATUS: Full code
DVT prophylaxis: Heparin
Diet: Start tube feed
Family communication: Discussed with mother at bedside
Disposition: Discharge back to [facility].
Total�time�spent�on�today�s�encounter�was�55�minutes�which�included�time�spent�in�counseling�the�patient/family�regarding�diagnosis�and�treatment�plan�as�listed�above,�goals�of�care,�and�symptom�management.�Case�was�discussed�with�nursing�staff,�spec
ialists,�and�care�coordinators/case�management.�All�labs�and�imaging�personally�reviewed�by�me.�Remainder�the�time�spent�in�detailed�review�of�previous�records,�lab�data,�imaging,�and�other�medical�provider�documentation.
Original Note:
Today's Communication/Plan
-
-Continue Augmentin 875mg bid and cipro 500mg bid through 02/06.
- Continue miconazole powder around PEG site bid.
- Plan of care discussed with the mother
-follow up with radiology oncology as an outpatient for evaluation for radiation treatment of the brain mass.
Assessment / Plan
Assessment / Plan
64-year-old female, presenting from snf
History of resection of brain tumor, right-sided residual hemiplegia and hemiparesis, indwelling chronic urinary catheter and chronic PEG tube in place
Presented to ER for evaluation of seizure-like activity
History of fevers earlier this week related to an infected cyst above right ear, scheduled to be drained next week, currently on Bactrim
Her Foleys catheter was changed in ER-last 1 had been there for last [address]
Right sided ventricular shunt catheter-stable
No hydrocephalus, no midline shift
Left-sided craniotomy stable with chronic subdural hygroma stable
Stable large lobular mass in the left frontal lobe
Family reports, patient has at her baseline other than the new onset seizure like activity
Assessment/plan
#Sepsis secondary to possibly UTI and infected cyst
Fulfilled criteria of sepsis on admission, febrile 100.6,Tachycardia (heart rate 129)
Evidence of UTI although subsequent urine analysis looks fine
urine culture Enterococcal faecalis, Pseudomonas aerogenosum
discontinue empiric antibiotics-cefepime and vancomycin (4d)
started on Augmentin 875mg bid and cipro 500mg bid through 02/06.
Infected sebaceous cyst
Follow blood cultures and MRSA screening negative
Patient did not require vasopressors
Continue IV fluids at 80 mL/h
peg tube in place, nutritional feeding
Lactic acid 0.6
-PEG site cx Gram negative bacilli, Clarisse albicans
-sebaceous cyst few gram positive cocci and rare gram negative rods
#New onset seizures
-She has a history of brain tumor, s/p resection, right sided hemiparesis/hemiplegia-could be a recurrence
-It could be an infection related process Or electrolyte abnormalities
-Required Versed twice overnight for seizures
-Avoid medications known to lower seizure threshold
-Seizure precautions
-EEG, 01/29/25�left hemispheric slowing with intermittent sharp waves.
-Neurology recommendations appreciated- multifactorial encephalopathy-seizure precautions, Keppra load followed by Keppra 500 mg twice daily, brain MRI before considering CSF testing, CK levels and TFTs
-MRI 01/31/2025: MRI brain: large brain mass with significant mass effect upon brain stem
-Not surgical candidate per neurosurgeon
#Brain Tumor
-meningioma s/p left craniotomy partial tumor resection with with reexploration for hemorrhage, cranioplasty and repair of CSF (2020 in [place])
CVA with residual right hemiplegia, aphasia (2020)
-Hydrocephalus s/p SHOT TUBE MACHINE TENDER shunt
-MRI 01/31/2025: large intracranial mass/neoplasm with mass effect.
-Not surgical candidate per neurosurgeon
# History of CKD 3B
Serum creatinine stable
Trend BMPs
# Conditions present on admission
Diabetes mellitus
Hypertension
Brain tumor meningioma s/p left craniotomy partial tumor resection with with reexploration for hemorrhage, cranioplasty and repair of CSF (2020 in [place])
CVA with residual right hemiplegia, aphasia (2020)
Hydrocephalus s/p SHOT TUBE MACHINE TENDER shunt
PEG tube placement (2020)
Stercoral colitis-continue bowel regimen
DVT status post IVC filter placement
Urinary retention with chronic Garvey
History of coffee-ground emesis due to bleeding granuloma around the PEG in April 2024
Anxiety
Chronic constipation
Cholecystectomy
Joint replacement
SNF resident
DVT prophylaxis-heparin
CODE STATUS-full code
Anticipated Discharge: Within 24 hours
Subjective/Interval History
-
Date of Service: February 01, 2025
Patient was awake and making eye contact without following commands. She is non verbal from.
Objective Data
-
Labs:
Laboratory Results
02/01/25 02/01/25
08:27 08:28
WBC 3.9 L
Hgb 9.6 L
Hct 28.5 L
Plt Count 195
Sodium 135
Potassium 4.0
Chloride 110 H
Carbon Dioxide 19 L
BUN 15
Creatinine 0.9
Glucose 103 H
Calcium 8.8
Total Bilirubin 0.7
AST 20
ALT 12
Alkaline Phosphatase 115
Vital Signs:
Vital Signs
Temp Pulse Resp BP Pulse Ox
98.4 F 100 20 120/65 99
02/01/25 12:00 02/01/25 12:00 02/01/25 12:00 02/01/25 12:00 02/01/25 12:00
I&O
01/31/25 02/01/25 02/02/25
06:59 06:59 06:59
Intake Total 540 / 540
Output Total 1575 / 1575 1150 / 1150
Balance -1035 / -1035 -1150 / -1150
Review of Systems
-
Unable to obtain full review of systems at this time due to: Patient Non-verbal
Physical Exam
-
General: Appears Chronically Ill
HEENT: Moist Mucous Membranes
Respiratory: Clear to Auscultation
Cardiac: Regular Rhythm and S1/S2
GI: Soft, Nontender, Normal Bowel Sounds and Other (Peg tube in place in left upper quadrant)
Musculoskeletal: Other (Atrophy of right arm and leg, contractures of right hand and right feet, pedal pulses palpable bilaterally)
Neuro: Awake and Other (Right-sided hemiplegia, does not follow commands, noninteractive, nonverbal)
Psych: Calm
[2025-02-01 15:00] VITALS: BP 138/82
--- NOTE | 2025-02-01 15:04 | CM ---
Pt is cleared for return to [facility] today.
Ambulance transport to be arranged.
[facility] Mar[facility] Report: [phone]
Staci Liu
--- NOTE | 2025-02-01 17:21 | W.DCSUMMARY ---
Addendum entered and electronically signed by Annie Price MD 02/02/25 08:24:
Attending�addendum:
I�saw�and�evaluated�the�patient.�I�reviewed�the�resident�s�note�and�agree�with�findings�and�plan�as�documented�in�the�resident�s�note.��
�patient seen and examined at bedside, nonverbal, cannot provide interval history
Physical�exam:
GENERAL : Nonverbal, follow commands by moving her eyes
HEENT: Nonicteric sclerae, PERRLA, EOMI. Oropharynx clear. Moist mucous membranes. Conjunctivae appear well perfused.
CHEST: Chest wall is nontender.
HEART: Regular rate and rhythm without murmurs.
LUNGS: Redness around PEG tube
ABDOMEN: Soft, positive bowel sounds, nontender, no organomegaly.
RECTAL: Deferred.
MUSCLES/EXTREMITIES: contracted
NEUROLOGIC: At baseline
�
Assessment/plan:
Sepsis secondary to possible UTI/infected cyst.
Appreciate infectious disease input.
Continue current antibiotic
Seizure.
MRI shows large intracranial mass/neoplasm with mass effect.
Neurosurgery consulted, no surgical intervention
Discussed with mother at bedside, current mass size is 9.1 x 4.6 x 5.3 cm. Which little increased compared to MRI done on February 08, 2024.
Mother preferred nonsurgical intervention.
Continue Keppra.
Neurology/neurosurgery signed off
CODE STATUS: Full code
DVT prophylaxis: Heparin
Diet: Start tube feed
Family communication: Discussed with mother at bedside
Disposition: Discharge back to [facility].
Total�time�spent�on�today�s�encounter�was�40
�minutes�which�included�time�spent�in�counseling�the�patient/family�regarding�diagnosis�and�treatment�plan�as�listed�above,�goals�of�care,�and�symptom�management.�Case�was�discussed�with�nursing�staff,�specialists,�and�care�coordinators/case�manageme
nt.�All�labs�and�imaging�personally�reviewed�by�me.�Remainder�the�time�spent�in�detailed�review�of�previous�records,�lab�data,�imaging,�and�other�medical�provider�documentation.
Original Note:
Documented by User: Tim Foster MD, Resident 02/01/25 18:16
Discharge Summary
Discharge Data
Date of Admission: 01/28/25
Date of Discharge: 02/01/25
-
Pending Results: No
Hospital Course
64-year-old female with past medical history for brain tumor, CVA, presented to us with concern for seizure activity at [facility]. Patient was noted to have 3 episodes of seizure at the retirement today morning. With no pripr hx of zeisure.
She has chronic urine catheter. Patient not able to provide any history as she is nonverbal. As per mother, she was noted to have a fever of 101 at retirement last week. She was getting Tylenol as needed for fever. She is on antibiotic for cyst
behind her right ear. She is scheduled for I&D in 2 weeks. She was on tube feed for 6 months. For 1 week she is drinking little bit of apple juice, cranberry and applesauce. Mother did not notice any cough. In the ER rectal temperature 100.6.
Chest x-ray was done and suspected for pneumonia (per exam her lung was clear), urinalysis showed UTI. She admitted for sepsis secondary to possible UTI/infected cyst.she started on IV vancomycin and cefepime. Sebaceous cyst was drained on
01/29/2025 with purulent sebum output.
Culture of the cyst showed no bacterial growth. Per examination her PEG tube site was inflamed and culture of the PEG site showed pseudomonas aerogenous and dianna albicans Miconazole powder was applied twice daily and the redness has improved. She
was negative for MRSA . Urine culture showed Enterococcus faecalis and pseudomonas aeruginosa and the antibiotics switched to Augmentin 875mg bid and cipro 500mg bid through 02/06/2025. For her new onset seizure, neurology consulted and started her
on Keppra [address] of the head showed a stable large lobular mass in the inferior paramidline left frontal lobe extending along the left middle cranial fossa and left temporal lobe that causes compression of the third ventricle. The EEG shows
severely abnormal EEG for age in wakefulness and drowsiness due to mild interhemispheric asymmetry with reduced organization and slowing from the left hemisphere.
During hospitalization, patient was nonverbal and bedridden was able to only make an eye contact.Physical therapy evaluated her.
MRI brain on 01/30/2025 showed current mass size is 9.1 x 4.6 x 5.3 cm. Which little increased compared to MRI done on February 08, 2024.
Neurosurgery consulted and did not recommend any surgical intervention as the patient is severely debilitated and is such a poor surgical candidate.
long with above conditions , all her chronic diseases have been treated with her home regimen without any changes.
The plane of care has been discussed with patient's mother and advised to follow up with radiation oncology for evaluation for brain tumor radiation and she verbalizing understand. The patient discharged in stable condition to the nursing facility.
She discharged on new meds per feeding tube after crushing the tablets :Amoxicillin - clavulanic acid 875-125 in feeding tube every 12 hours ;one tablet of 500mg ciprofloxacin in feeding tube every 12 hours, Keppra one tablet 500mg every 12 hours.
# Conditions present on admission
Diabetes mellitus
Hypertension
Brain tumor meningioma s/p left craniotomy partial tumor resection with with reexploration for hemorrhage, cranioplasty and repair of CSF (2020 in [place])
CVA with residual right hemiplegia, aphasia (2020)
Hydrocephalus s/p [employer] shunt
PEG tube placement (2020)
Stercoral colitis-continue bowel regimen
DVT status post IVC filter placement
Urinary retention with chronic Garvey
History of coffee-ground emesis due to bleeding granuloma around the PEG in April 2024
Anxiety
Chronic constipation
CKD III b
Important Radiological findings
CT Head W/o Iv Contrast 01/28/2025
COMPARISON: CT head 12/02/2024
FINDINGS:
Redemonstration of left-sided craniotomy. Stable tiny probable chronic subdural hygroma adjacent to the inner table of the calvarial flap. Similar underlying extensive left frontotemporal lobe encephalomalacia.
Stable large lobular mass in the inferior paramidline left frontal lobe extending along the left middle cranial fossa and left temporal lobe, similar to prior. The mass causes similar compression of the third ventricle. No significant residual
midline shift. Similar compression of the left lateral ventricle. Similar appearance of right-sided ventricular shunt catheter terminating along the anterior horn of the right lateral ventricle. No hydrocephalus. Questionable residual tiny chronic
subdural hygroma/hematoma in the right frontal region, improved.
There is otherwise stable mild to moderate subcortical, deep, and periventricular white matter low-attenuation, compatible with underlying changes of chronic small vessel ischemic disease. Visualized paranasal sinuses are free of mucosal disease.
MR Brain W/o & With Contrast 01/30/2025
FINDINGS:
Evaluation is limited by patient unintentional motion artifact.
Left-sided craniotomy change redemonstrated. There are small bilateral probable chronic subdural hygromas, right greater than left. There is also mild diffuse dural thickening and enhancement, possibly reactive. Extensive underlying encephalomalacia
involving the left frontotemporal lobe.
Redemonstration of a large enhancing lobular mass in the inferior paramidline left frontal lobe extending along left middle cranial fossa and left temporal lobe, overall measuring up to 9.1 x 4.6 x 5.3 cm. The mass causes similar compression on the
third ventricle with probable minimal rightward midline shift. Mass also extends along the left basal cistern with mass effect/compression and some rightward displacement of the midbrain and meenu with associated edema. No pieter herniation or
hydrocephalus. The pituitary gland, stalk and optic chiasm are not well delineated due to the mass. The mass appears to completely encase/infiltrate the left cavernous sinus, without overt narrowing of the cavernous segment ICA. No definite bony
invasion/destructive change of the clivus.
There is no abnormal signal intensity on diffusion-weighted images to suggest acute infarct.
Axial FLAIR sequence otherwise demonstrates moderate hyperintensity within the periventricular and deep subcortical white matter, likely related to underlying chronic small vessel ischemic changes.
The vascular structures at the skull base are unremarkable, as far as visualized. Bilateral maxillary sinus mucus retention cysts.
IMPRESSION:
Redemonstration of large intracranial mass/neoplasm with mass effect as described. Significant mass effect upon the brainstem may be the cause of the patient's seizures.
Findings likely reflect primary brain malignancy. An eccentric neoplasm arising from the pituitary gland such as aggressive macroadenoma or pituitary carcinoma is a diagnostic possibility.
Probable small bilateral chronic subdural hygromas. There is also mild diffuse dural thickening and enhancement, possibly reactive although neoplastic spread is not excluded.
Chest x-ray 01/28/2025
IMPRESSION:
Suspect left-sided pneumonitis/pneumonia.
Discharge Plan
-
Patient Disposition: Residential/SNF
Discharge Diagnosis/Procedures: Sepsis secondary to UTI , sebaceous cyst
Diet: Tube feeding
Activity: As tolerated
Driving Restrictions: No driving
Activity Restrictions/Additional Instructions:
please make sure to exchange urinary catheter every week.
Instructions: Lowering the risk of a catheter-associated urinary tract infection, How to care for a urinary catheter
Referrals:
Mickey Florentino DO [Family Provider, Family Practice] - in less than 1 week
Linda Hicks MD [Active, Neurology] - in one week
Jennifer Osorio MD [Active, Radiology] - in less than 1 week
Referral Note: please call the radiation oncologist and make an appointment [phone]
Additional Discharge Medication Instructions: Crush one tablet of the Amoxicillin - clavulanic acid 875-125 in feeding tube every 12 hours
crush one tablet of 500mg ciprofloxacin in feeding tube every 12 hours
Crush Keppra one tablet 500mg in to the feeding tube every 12 hours
Prescriptions:
New
amoxicillin-pot clavulanate 875-125 mg tablet
1 tab PO Q12H 5 Days Qty: 10 0RF
ciprofloxacin HCl 500 mg tablet
500 mg PO BID 5 Days Qty: 10 0RF
levetiracetam [Keppra] 500 mg tablet
500 mg PO Q12H 30 Days Qty: 60 1RF
Continued
buspirone 5 mg Tablet
2.5 mg feeding tube HS
albuterol sulfate 2.5 mg /3 mL (0.083 %) Solution For Nebulization
2.5 mg INHALATION R Q6HPRN PRN (Reason: SOB)
bisacodyl [Dulcolax (bisacodyl)] 10 mg Suppository
10 mg CA [id number] PRN (Reason: if no BM after MOM)
sertraline 25 mg Tablet
25 mg feeding tube HS
simethicone [Gas-X Extra Strength] 125 mg Tablet,Chewable
125 mg feeding tube BID
acetaminophen 160 mg/5 mL Elixir
640 mg feeding tube Q4HPRN PRN (Reason: fever)
sennosides-docusate sodium 8.6-50 mg Tablet
2 tab feeding tube BID Qty: 60 0RF
polyethylene glycol 3350 [Miralax] 17 gram Powder In Packet
17 g feeding tube BID Qty: 0 0RF
amlodipine 2.5 mg tablet
2.5 mg feeding tube DAILY
magnesium hydroxide [Gentle Laxative (mag hydrox)] 400 mg/5 mL suspension
2,400 mg feeding tube HSPRN PRN (Reason: Constipation)
famotidine [Pepcid] 20 mg Tablet
20 mg feeding tube BID
prednisolone acetate 1 % Drops,Suspension
1 drp RIGHT EYE DAILY
Saccharomyces boulardii [Florastor] 250 mg Capsule
250 mg feeding tube BID
Discontinued
sulfamethoxazole-trimethoprim [Bactrim] 200-40 mg/5 mL Suspension
20 ml feeding tube BID
Rx Instructions:
for 10 days starting 01/21/25
Discharge Orders:
Discharge Patient (As Directed); Ordered 02/01/25
Ordered By: Annie Price
Discharge Date and Time
Discharge Date/Time: 02/01/25 19:41
Print Language: KENYAN

Documented by User: Annie Price MD 02/02/25 08:23
Discharge Summary
Discharge Data
Date of Admission: 01/28/25
Date of Discharge: 02/02/25
Discharge Plan
-
Patient Disposition: Residential/SNF
Discharge Diagnosis/Procedures: Sepsis secondary to UTI , sebaceous cyst
Diet: Tube feeding
Activity: As tolerated
Driving Restrictions: No driving
Activity Restrictions/Additional Instructions:
please make sure to exchange urinary catheter every week.
Instructions: Lowering the risk of a catheter-associated urinary tract infection, How to care for a urinary catheter
Referrals:
Mickey Florentino DO [Family Provider, Family Practice] - in less than 1 week
Linda Hicks MD [Active, Neurology] - in one week
Jennifer Osorio MD [Active, Radiology] - in less than 1 week
Referral Note: please call the radiation oncologist and make an appointment [phone]
Additional Discharge Medication Instructions: Crush one tablet of the Amoxicillin - clavulanic acid 875-125 in feeding tube every 12 hours
crush one tablet of 500mg ciprofloxacin in feeding tube every 12 hours
Crush Keppra one tablet 500mg in to the feeding tube every 12 hours
Prescriptions:
New
amoxicillin-pot clavulanate 875-125 mg tablet
1 tab PO Q12H 5 Days Qty: 10 0RF
ciprofloxacin HCl 500 mg tablet
500 mg PO BID 5 Days Qty: 10 0RF
levetiracetam [Keppra] 500 mg tablet
500 mg PO Q12H 30 Days Qty: 60 1RF
Continued
buspirone 5 mg Tablet
2.5 mg feeding tube HS
albuterol sulfate 2.5 mg /3 mL (0.083 %) Solution For Nebulization
2.5 mg INHALATION R Q6HPRN PRN (Reason: SOB)
bisacodyl [Dulcolax (bisacodyl)] 10 mg Suppository
10 mg CA [id number] PRN (Reason: if no BM after MOM)
sertraline 25 mg Tablet
25 mg feeding tube HS
simethicone [Gas-X Extra Strength] 125 mg Tablet,Chewable
125 mg feeding tube BID
acetaminophen 160 mg/5 mL Elixir
640 mg feeding tube Q4HPRN PRN (Reason: fever)
sennosides-docusate sodium 8.6-50 mg Tablet
2 tab feeding tube BID Qty: 60 0RF
polyethylene glycol 3350 [Miralax] 17 gram Powder In Packet
17 g feeding tube BID Qty: 0 0RF
amlodipine 2.5 mg tablet
2.5 mg feeding tube DAILY
magnesium hydroxide [Gentle Laxative (mag hydrox)] 400 mg/5 mL suspension
2,400 mg feeding tube HSPRN PRN (Reason: Constipation)
famotidine [Pepcid] 20 mg Tablet
20 mg feeding tube BID
prednisolone acetate 1 % Drops,Suspension
1 drp RIGHT EYE DAILY
Saccharomyces boulardii [Florastor] 250 mg Capsule
250 mg feeding tube BID
Discontinued
sulfamethoxazole-trimethoprim [Bactrim] 200-40 mg/5 mL Suspension
20 ml feeding tube BID
Rx Instructions:
for 10 days starting 01/21/25
Discharge Orders:
Discharge Patient (As Directed); Ordered 02/01/25
Ordered By: Annie Price
Discharge Date and Time
Discharge Date/Time: 02/01/25 19:41
Print Language: KENYAN
[2025-02-01 17:57] LABS: Glucose - Point of Care 91 mg/dl (70-99)
[2025-02-01 19:30] VITALS: BP 154/74
== END 2025-02-01 19:41 | DRG 871 ==
LOC: 3 WEST ACU 20:38
PROVIDERS: Emergency Medicine; Nurse Practitioner Family; Registered Nurse; Specialist Research Data Abstracter/Coder; ADMITTING PHYSICIAN Internal Medicine; ATTENDING PHYSICIAN General Practice; CONSULT PHYSICIAN Internal Medicine Critical Care Medicine; CONSULT PHYSICIAN Internal Medicine Infectious Disease; CONSULT PHYSICIAN Psychiatry & Neurology Neurology; CONSULT PHYSICIAN Surgery; EMERGENCY PHYSICIAN Emergency Medicine; FAMILY PHYSICIAN Student in an Organized Health Care Education/Training Program; OTHER PHYSICIAN Neurological Surgery
PROC: 0H92XZZ Drainage of Right Ear Skin, External Approach (ICD-10-PCS; 2025-01-29)
DX: A41.9 Sepsis, unspecified organism (principal); G92.8 Other toxic encephalopathy; J18.9 Pneumonia, unspecified organism; R53.2 Functional quadriplegia; E87.1 Hypo-osmolality and hyponatremia; E87.20 Acidosis, unspecified; E87.21 Acute metabolic acidosis; C71.9 Malignant neoplasm of brain, unspecified; I69.351 Hemiplegia and hemiparesis following cerebral infarction affecting right dominant side; N39.0 Urinary tract infection, site not specified; M62.82 Rhabdomyolysis; G91.9 Hydrocephalus, unspecified; N18.32 Chronic kidney disease, stage 3b; I12.9 Hypertensive chronic kidney disease with stage 1 through stage 4 chronic kidney disease, or unspecified chronic kidney disease; F41.9 Anxiety disorder, unspecified; L08.9 Local infection of the skin and subcutaneous tissue, unspecified; L72.3 Sebaceous cyst; Z79.899 Other long term (current) drug therapy; D63.1 Anemia in chronic kidney disease; E11.22 Type 2 diabetes mellitus with diabetic chronic kidney disease; K59.09 Other constipation; Z66 Do not resuscitate; Z74.01 Bed confinement status; Z93.1 Gastrostomy status
CPT/HCPCS: 36415; 51702; 70450; 70553; 71045; 80048; 80053; 80076; 80202; 81003; 81015; 82550; 82607; 82746; 82962; 83605; 83735; 84100; 84132; 84443; 84484; 85025; 85027; 85610; 85730; 87040; 87070; 87077; 87086; 87186; 87205; 87449; 87641; 87899; 93005; 95705; 95816; 96361; 96374; 96375; 99285; A9575

== ENCOUNTER → 2025-02-16 10:01 | Outpatient (REF) | payer MEDICARE, OTHER, SELFPAY ==
[2025-02-16 10:46] LABS: Hematocrit 29.9 % (37.0-47.0); Hemoglobin 9.9 g/dL (12.0-16.0); Mean Corp Hgb Conc. 33.1 g/dL (33.0-37.0); Mean Corpuscular Volume 93.4 fL (81.0-99.0); Nucleated Red Blood Cells % 0 %; Platelet Count 206 10^3/uL (130-400); Red Cell Dist. Width 12.5 % (11.5-14.5)
[2025-02-16 10:58] LABS: Blood Urea Nitrogen 39 mg/dl (7-17); Calcium 9.1 mg/dl (8.4-10.2); Carbon Dioxide 26 mmol/L (22-30); Chloride 105 mmol/L (98-107); Glucose 136 mg/dl (70-99); Magnesium 2.2 mg/dl (1.6-2.3); Potassium 4.0 mmol/L (3.5-5.1); Sodium 139 mmol/L (135-145); eGFR > 60.00
== END ==
LOC: OLABN 10:01
PROVIDERS: ATTENDING PHYSICIAN Student in an Organized Health Care Education/Training Program
DX: I10 Essential (primary) hypertension (principal); R11.10 Vomiting, unspecified
CPT/HCPCS: 36415; 80048; 83735; 85025